=== PATIENT | female | born 1945 | race Caucasian/White ===

== ENCOUNTER 2023-04-23 15:46 | Outpatient (RCR) | payer MEDICARE, SELFPAY ==
[2023-04-23 13:35] LABS: Hematocrit 30.2 % (37.0-47.0); Hemoglobin 10.4 g/dL (12.0-16.0); Mean Corp Hgb Conc. 34.4 g/dL (33.0-37.0); Mean Corpuscular Hgb 38.4 pg (27.0-31.0); Mean Corpuscular Volume 111.4 fL (81.0-99.0); Mean Platelet Volume 11.7 fL (7.4-10.4); Platelet Count 85 10^3/uL (130-400); Red Blood Cell Count 2.71 10^6/uL (4.20-5.40)
[2023-04-23 13:42] LABS: % Basophils 0.9 % (0-2); % Eosinophils 1.4 % (0-6); % Immature Granulocytes 0.9 % (0-0.5); % Monocytes 5.9 % (1.7-9.3); % Neutrophils 75.9 % (42.2-75.2); Absolute Lymphocytes 0.3 10^3/uL (1.2-3.4); Absolute Monocytes 0.1 10^3/uL (0.1-0.6); Absolute Neutrophils 1.7 10^3/uL (1.4-6.5); White Blood Cell Count 2.2 10^3/uL (4.8-10.8)
[2023-04-23 15:38] LABS: Iron 113 ug/dl (37-170)
[2023-04-23 15:48] LABS: Percent Saturation 41 % (20-50); Total Iron Binding Capacity 273 ug/dl (265-497)
== END 2023-04-30 23:59 | disposition home or self-care (01) ==
LOC: OID 15:46
PROVIDERS: ATTENDING PHYSICIAN Internal Medicine Gastroenterology
DX: C50.412 Malignant neoplasm of upper-outer quadrant of left female breast (principal); R22.32 Localized swelling, mass and lump, left upper limb; C79.51 Secondary malignant neoplasm of bone; C78.7 Secondary malignant neoplasm of liver and intrahepatic bile duct; D50.9 Iron deficiency anemia, unspecified
CPT/HCPCS: 82728; 83540; 83550; 85025

== ENCOUNTER → 2023-05-03 10:36 | Outpatient (REF) | payer MEDICARE, SELFPAY ==
[2023-05-03 12:02] LABS: % Basophils 1.5 % (0-2); % Eosinophils 1.5 % (0-6); % Lymphocytes 18.2 % (20.5-51.1); % Monocytes 7.6 % (1.7-9.3); % Neutrophils 71.2 % (42.2-75.2); Absolute Lymphocytes 0.4 10^3/uL (1.2-3.4); Absolute Monocytes 0.2 10^3/uL (0.1-0.6); Absolute Neutrophils 1.4 10^3/uL (1.4-6.5); Hematocrit 28.9 % (37.0-47.0); Hemoglobin 10.1 g/dL (12.0-16.0); Mean Corp Hgb Conc. 34.9 g/dL (33.0-37.0); Mean Corpuscular Hgb 38.7 pg (27.0-31.0); Mean Corpuscular Volume 110.7 fL (81.0-99.0); Mean Platelet Volume 12.5 fL (7.4-10.4); Nucleated Red Blood Cells % 0 %; Platelet Count 63 10^3/uL (130-400); Red Blood Cell Count 2.61 10^6/uL (4.20-5.40); Red Cell Dist. Width 15.3 % (11.5-14.5)
[2023-05-03 12:28] LABS: ALT (SGPT) 23 U/L (0-35); AST (SGOT) 32 U/L (14-36); Albumin 3.6 g/dl (3.5-5.0); Alkaline Phosphatase 60 U/L (38-126); Blood Urea Nitrogen 37 mg/dl (7-17); Carbon Dioxide 25 mmol/L (22-30); Chloride 102 mmol/L (98-107); Glucose 107 mg/dl (70-99); Iron 95 ug/dl (37-170); Potassium 4.2 mmol/L (3.5-5.1); Sodium 134 mmol/L (135-145); Total Bilirubin 0.9 mg/dl (0.2-1.3); Total Protein 6.1 g/dl (6.3-8.2); eGFR 58.39
[2023-05-03 12:37] LABS: Percent Saturation 36 % (20-50); Total Iron Binding Capacity 260 ug/dl (265-497)
[2023-05-05 23:47] LABS: CA 27-29 126.4 U/mL (<=39.0)
== END ==
LOC: REG 10:36
PROVIDERS: ATTENDING PHYSICIAN Internal Medicine Hematology & Oncology; FAMILY PHYSICIAN Family Medicine
DX: C50.412 Malignant neoplasm of upper-outer quadrant of left female breast (principal); R22.32 Localized swelling, mass and lump, left upper limb; C79.51 Secondary malignant neoplasm of bone; C78.7 Secondary malignant neoplasm of liver and intrahepatic bile duct; D50.9 Iron deficiency anemia, unspecified
CPT/HCPCS: 36415; 80053; 82728; 83540; 83550; 85025; 86300

== ENCOUNTER → 2023-05-05 09:04 | Outpatient (REF) | payer MEDICARE, SELFPAY ==
[2023-05-05 09:20] VITALS: BP 103/56; BP_SYST 79
[2023-05-05 10:03] VITALS: BP 103/61
[2023-05-05 10:53] LABS: Body Fluid Albumin < 1.0 g/dl
[2023-05-05 11:40] LABS: Body Fluid Mononuclear 88.7 %; Body Fluid Polymorphonuclear 11.3 %; Body Fluid WBC 62 /CUMM
[2023-05-05 11:44] LABS: Body Fluid Second Tech EM
== END ==
LOC: RADI 09:04
PROVIDERS: ATTENDING PHYSICIAN Internal Medicine Gastroenterology
DX: R18.8 Other ascites (principal)
CPT/HCPCS: 49083; 82042; 87015; 87070; 87205; 89051

== ENCOUNTER → 2023-05-19 11:23 | Outpatient (REF) | payer MEDICARE, SELFPAY ==
[2023-05-19 12:51] LABS: % Basophils 2.1 % (0-2); % Eosinophils 2.1 % (0-6); % Immature Granulocytes 1.3 % (0-0.5); % Lymphocytes 17.3 % (20.5-51.1); % Monocytes 6.3 % (1.7-9.3); % Neutrophils 70.9 % (42.2-75.2); Absolute Basophils 0.1 10^3/uL (0-0.2); Absolute Eosinophils 0.1 10^3/uL (0-0.7); Absolute Lymphocytes 0.4 10^3/uL (1.2-3.4); Absolute Monocytes 0.2 10^3/uL (0.1-0.6); Absolute Neutrophils 1.7 10^3/uL (1.4-6.5); Hemoglobin 10.3 g/dL (12.0-16.0); Mean Corp Hgb Conc. 36.8 g/dL (33.0-37.0); Mean Corpuscular Volume 111.6 fL (81.0-99.0); Mean Platelet Volume 11.5 fL (7.4-10.4); Nucleated Red Blood Cells % 0 %; Platelet Count 91 10^3/uL (130-400); Red Blood Cell Count 2.51 10^6/uL (4.20-5.40); Red Cell Dist. Width 14.2 % (11.5-14.5); White Blood Cell Count 2.4 10^3/uL (4.8-10.8)
[2023-05-19 13:08] LABS: ALT (SGPT) 23 U/L (0-35); AST (SGOT) 32 U/L (14-36); Albumin 3.7 g/dl (3.5-5.0); Alkaline Phosphatase 65 U/L (38-126); Blood Urea Nitrogen 33 mg/dl (7-17); Carbon Dioxide 28 mmol/L (22-30); Chloride 104 mmol/L (98-107); Glucose 92 mg/dl (70-99); Potassium 4.2 mmol/L (3.5-5.1); Sodium 135 mmol/L (135-145); Total Bilirubin 0.7 mg/dl (0.2-1.3); Total Protein 6.2 g/dl (6.3-8.2); eGFR 46.91
== END ==
LOC: REG 11:23
PROVIDERS: ATTENDING PHYSICIAN Internal Medicine Hematology & Oncology; FAMILY PHYSICIAN Family Medicine
DX: C50.412 Malignant neoplasm of upper-outer quadrant of left female breast (principal); R22.32 Localized swelling, mass and lump, left upper limb; C79.51 Secondary malignant neoplasm of bone; C78.7 Secondary malignant neoplasm of liver and intrahepatic bile duct; D50.9 Iron deficiency anemia, unspecified
CPT/HCPCS: 36415; 80053; 85025

== ENCOUNTER → 2023-05-30 11:00 | Outpatient (REF) | payer MEDICARE, SELFPAY ==
[2023-05-30 12:02] LABS: % Basophils 1.6 % (0-2); % Eosinophils 2.7 % (0-6); % Immature Granulocytes 0.5 % (0-0.5); % Lymphocytes 19.1 % (20.5-51.1); % Monocytes 6.4 % (1.7-9.3); % Neutrophils 69.7 % (42.2-75.2); Absolute Eosinophils 0.1 10^3/uL (0-0.7); Absolute Lymphocytes 0.4 10^3/uL (1.2-3.4); Absolute Monocytes 0.1 10^3/uL (0.1-0.6); Absolute Neutrophils 1.3 10^3/uL (1.4-6.5); Hematocrit 26.6 % (37.0-47.0); Hemoglobin 9.6 g/dL (12.0-16.0); Mean Corp Hgb Conc. 36.1 g/dL (33.0-37.0); Mean Corpuscular Hgb 40.3 pg (27.0-31.0); Mean Corpuscular Volume 111.8 fL (81.0-99.0); Mean Platelet Volume 12.2 fL (7.4-10.4); Nucleated Red Blood Cells % 0 %; Platelet Count 72 10^3/uL (130-400); Red Blood Cell Count 2.38 10^6/uL (4.20-5.40); Red Cell Dist. Width 14.6 % (11.5-14.5); White Blood Cell Count 1.9 10^3/uL (4.8-10.8)
[2023-05-30 12:45] LABS: ALT (SGPT) 22 U/L (0-35); AST (SGOT) 31 U/L (14-36); Albumin 3.6 g/dl (3.5-5.0); Alkaline Phosphatase 63 U/L (38-126); Blood Urea Nitrogen 24 mg/dl (7-17); Calcium 8.3 mg/dl (8.4-10.2); Carbon Dioxide 27 mmol/L (22-30); Chloride 105 mmol/L (98-107); Glucose 98 mg/dl (70-99); Iron 81 ug/dl (37-170); Sodium 136 mmol/L (135-145); Total Bilirubin 0.8 mg/dl (0.2-1.3); Total Protein 6.1 g/dl (6.3-8.2); eGFR 46.91
[2023-05-30 12:55] LABS: Percent Saturation 29 % (20-50); Total Iron Binding Capacity 271 ug/dl (265-497)
[2023-06-02 16:25] LABS: CA 27-29 120.4 U/mL (<=39.0)
== END ==
LOC: REG 11:00
PROVIDERS: ATTENDING PHYSICIAN Internal Medicine Hematology & Oncology; FAMILY PHYSICIAN Family Medicine
DX: C50.412 Malignant neoplasm of upper-outer quadrant of left female breast (principal); R22.32 Localized swelling, mass and lump, left upper limb; C79.51 Secondary malignant neoplasm of bone; C78.7 Secondary malignant neoplasm of liver and intrahepatic bile duct; D50.9 Iron deficiency anemia, unspecified
CPT/HCPCS: 36415; 80053; 82728; 83540; 83550; 85025; 86300

== ENCOUNTER → 2023-06-02 09:05 | Outpatient (REF) | payer MEDICARE, SELFPAY ==
[2023-06-02 09:28] VITALS: BP 112/51; BP_SYST 75
[2023-06-02 10:36] VITALS: BP 102/57
[2023-06-02 13:35] LABS: Body Fluid Mononuclear 95.2 %; Body Fluid Polymorphonuclear 4.8 %; Body Fluid WBC 42 /CUMM
[2023-06-02 13:36] LABS: Body Fluid Second Tech EM
== END ==
LOC: RADI 09:05
PROVIDERS: ATTENDING PHYSICIAN Internal Medicine Gastroenterology; FAMILY PHYSICIAN Family Medicine
DX: R18.8 Other ascites (principal)
CPT/HCPCS: 49083; 82042; 87015; 87070; 87205; 89051

== ENCOUNTER 2023-06-09 15:41 | Inpatient (IN) | payer MEDICARE, SELFPAY ==
[2023-06-09] VITALS (9 sets, daily range): BP systolic 70–130; BP diastolic 47–64; BMI 27.7
[2023-06-09 11:33] LABS: % Basophils 2.2 % (0-2); % Eosinophils 2.2 % (0-6); % Immature Granulocytes 0.4 % (0-0.5); % Lymphocytes 15.4 % (20.5-51.1); % Monocytes 4.7 % (1.7-9.3); % Neutrophils 75.1 % (42.2-75.2); Absolute Basophils 0.1 10^3/uL (0-0.2); Absolute Eosinophils 0.1 10^3/uL (0-0.7); Absolute Lymphocytes 0.4 10^3/uL (1.2-3.4); Absolute Monocytes 0.1 10^3/uL (0.1-0.6); Absolute Neutrophils 2.1 10^3/uL (1.4-6.5); Hematocrit 26.3 % (37.0-47.0); Hemoglobin 9.1 g/dL (12.0-16.0); Mean Corp Hgb Conc. 34.6 g/dL (33.0-37.0); Mean Corpuscular Hgb 38.1 pg (27.0-31.0); Mean Platelet Volume 11.3 fL (7.4-10.4); Nucleated Red Blood Cells % 0 %; Platelet Count 95 10^3/uL (130-400); Red Blood Cell Count 2.39 10^6/uL (4.20-5.40); Red Cell Dist. Width 14.2 % (11.5-14.5); White Blood Cell Count 2.8 10^3/uL (4.8-10.8)
[2023-06-09 11:40] LABS: INR 1.16; PT 14.7 Sec (11.4-14.6)
[2023-06-09 12:00] LABS: ALT (SGPT) 23 U/L (0-35); AST (SGOT) 33 U/L (14-36); Albumin 3.5 g/dl (3.5-5.0); Alkaline Phosphatase 64 U/L (38-126); Blood Urea Nitrogen 30 mg/dl (7-17); Calcium 8.7 mg/dl (8.4-10.2); Carbon Dioxide 27 mmol/L (22-30); Chloride 103 mmol/L (98-107); Glucose 109 mg/dl (70-99); Potassium 4.4 mmol/L (3.5-5.1); Sodium 134 mmol/L (135-145); Total Bilirubin 0.8 mg/dl (0.2-1.3); eGFR 38.99
--- NOTE | 2023-06-09 13:31 | ED.GENMED ---
History of Present Illness
General
Chief Complaint: Rectal Bleeding
Source: patient
Time Seen by Provider: 06/09/23 10:38
Travel History
Have you had any contact with someone who has COVID-19?: No
Do you have any symptoms of coronavirus? Fever > 100 degrees, chills, cough, shortness of breath, sore throat, loss of taste or smell, muscle aches, or headache?: No
History of Present Illness
History of Present Illness:
77-year-old female presents with rectal bleeding. Patient has a history of A-fib and is on Eliquis. Also history of thrombocytopenia. She is being treated for metastatic breast cancer. Patient does have a history of diverticulosis as well as
hemorrhoids. She states for the last few days she has had bleeding. She has had bleeding even when she sits down to urinate. Patient denies abdominal pain. No vomiting. No lightheadedness. No chest pain or shortness of breath
Past History
Past History
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 Diverticulitis, Hiatal hernia. Anemia, )
ED Past Surgical History: Bowel resection, Cardiac (Ablation), Cholecystectomy, Gynecological (D&C), Orthopedic (Right total hip replacement, left total hip replacement, right knee and left knee replacements, ) and Other (Lumpectomy. Hernia repair, )
Social History
Tobacco: Non-smoker
Alcohol: None
Personal:
Living: with family
Employment: Retired
Family History
Family History: Other (Noncontributory)
Phy Exam
Physical Exam
Physical Exam:
CONSTITUTIONAL Patient alert and oriented to person, place and time. Well-appearing. Vital signs reviewed.
HEAD atraumatic, normocephalic.
EYES eyelids normal to inspection, Extraocular muscles intact, Conjunctiva normal, Sclera normal.
NECK normal range of motion, Trachea midline, no jugular venous distention.
RESPIRATORY CHEST No respiratory distress noted, Chest expansion equal\\
ABDOMEN abdomen nontender, Bowel sounds normal. No distention.
Rectal exam no gross blood. No significant stool in the vault. There are hemorrhoids. There is a noted discolored hemorrhoid at the 12 o'clock position with no active bleeding
BACK normal inspection, no obvious deformities
UPPER EXTREMITY range of motion normal, Motor strength normal, no cyanosis, no edema.
LOWER EXTREMITY range of motion normal, Motor strength normal, no cyanosis, no edema.
NEURO Speech normal, No focal motor deficits, Anthony coma scale 15, Memory normal, Cranial Nerves intact to screening exam.
SKIN skin warm, dry, and normal in color.
Course
Orders/Labs/Results
Orders:
Orders
06/09/23 11:16
Type+Screen Urgent
Complete Blood Count/With Diff Urgent
Comprehensive Metabolic Panel Urgent
Prothrombin Time Urgent
Abnormal Lab Results
06/09/23
11:16
WBC 2.8 L 10^3/uL
(4.8-10.8)
RBC 2.39 L 10^6/uL
(4.20-5.40)
Hgb 9.1 L g/dL
(12.0-16.0)
Hct 26.3 L %
(37.0-47.0)
MCV 110.0 H fL
(81.0-99.0)
MCH 38.1 H pg
(27.0-31.0)
Plt Count 95 L 10^3/uL
(130-400)
MPV 11.3 H fL
(7.4-10.4)
Absolute Lymphs (auto) 0.4 L 10^3/uL
(1.2-3.4)
Lymphocytes % 15.4 L %
(20.5-51.1)
Basophils % 2.2 H %
(0-2)
PT 14.7 H Sec
(11.4-14.6)
Sodium 134 L mmol/L
(135-145)
BUN 30 H mg/dl
(7-17)
Creatinine 1.4 H mg/dL
(0.6-1.0)
Glucose 109 H mg/dl
(70-99)
Total Protein 6.0 L g/dl
(6.3-8.2)
06/09/23 11:16
06/09/23 11:16
Vital Signs
Initial and Last Documented VS:
Initial Vital Signs
Temp Pulse Resp BP Pulse Ox
98.3 F 85 18 130/64 98
06/09/23 10:12 06/09/23 10:12 06/09/23 10:12 06/09/23 10:12 06/09/23 10:12
Last Documented Vital Signs
Temp Pulse Resp BP Pulse Ox
98.3 F 85 18 109/64 97
06/09/23 10:12 06/09/23 10:12 06/09/23 10:12 06/09/23 13:08 06/09/23 13:09
MDM/Problems Addressed
MDM/Problems Addressed:
rectal bleeding, thrombocytopenia, therapeutic coagulopathy
*Pulse Oximetry
Patient hypoxic: no
*Critical Care Note
Total Time (30-74mins, 75-104mins- exclusive of procedures): Not Applicable
Data Reviewed
Review of Other/Old Records Reveals: Discharge Summary (Discharge summary from February)
Source: patient
Further Testing Considered But Not Given:
Consider CTA but await GI consultation
Patient Management
Discussion with other providers: [facility] (Case discussed with colorectal surgery) and Other (Case discussed with gastroenterology who will evaluate patient at bedside)
Escalation/DeEscalation of care consider admission/obs:
Consider admission given thrombocytopenia and coagulopathy related to Xarelto but await consultation by GI
ED Attending Note
-
Portions of this chart may have been created with voice recognition software.� Occasional wrong word or��sound alike� substitutions may have occurred due to the inherent limitations of voice recognition software.
Discharge Plan
Departure
Presentation/result/management discussed w/ accepting MD/DO: Hospitalist
Prescriptions:
No Action
omeprazole 20 MG capsule,delayed release(DR/EC)
40 mg PO BID
Patient Comments:
PATIENT THIS MORNING TALKED TO PCP AND PCP SAID NOT TO TAKE OMEPRAZOLE ANYMORE
Eliquis 5 MG tablet
5 mg PO BID
diltiazem HCl 120 MG capsule,extended release 24hr
120 mg PO DAILY
Xgeva 120 MG/1.7 ML solution
1 dose SQ [id number]
multivitamin with folic acid [Tab-A-Jolanta] 1 TABLET tablet
1 tab PO DAILY
Ibrance 125 MG capsule
100 mg PO UD
Rx Instructions:
PATIENT TAKES FOR 3 WEEKS THEN 1 WEEK OFF Then repeat
furosemide [Lasix] 40 MG tablet
40 mg PO DAILY Qty: 7 0RF
biotin 10,000 mcg Capsule
10,000 mcg PO DAILY
spironolactone 50 mg Tablet
75 mg PO BID
cholecalciferol (vitamin D3) [Vitamin D3] 25 mcg (1,000 unit) Capsule
25 mcg PO DAILY
calcium carbonate [Calcium 600] 600 mg calcium (1,500 mg) Tablet
600 mg PO DAILY
ferrous sulfate 325 mg (65 mg iron) Tablet
325 mg PO DAILY
ondansetron HCl 4 mg Tablet
4 mg PO Q8HPRN PRN (Reason: nausea)
gabapentin 100 mg Capsule
100 mg PO BIDPRN PRN (Reason: nerve pains)
Aranesp (in albumin) 40 mcg/mL Solution
0 mcg IV MONTHLY
fulvestrant 250 mg/5 mL Syringe
500 mg IM QMONTH
lactulose 10 gram/15 mL Solution
10 g PO HS
Viviscal Hair Growth Vitamin
2 tab PO DAILY
tramadol 50 mg tablet
50 mg PO Q6HPRN PRN (Reason: severe pains)
Referrals:
Yadi Lambert DO [Family Provider] -
Interventions
Interventions:
*ED COVID-19 Vaccine History Last Done: 06/09/23 10:21
DA-Gmpnkq-Xllnskbzdk Assessment Last Done: 06/09/23 12:15
ED- Cardiac Assessment Last Done: 06/09/23 12:15
ED- Pulmonary Assessment Last Done: 06/09/23 12:15
--- NOTE | 2023-06-09 14:33 | CON.GI ---
Addendum entered and electronically signed by Ruiz Zambrano MD 06/09/23 18:23:
I saw and examined the patient.
The PA's note was reviewed and I agree with the note.
Comment:
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
with last colonoscopy 2012 p/w rectal bleeding. Has occasional rectal bleeding from hemorrhoids but now noted with 3-4 episodes of large volume of blood with BM's since Friday.�
Impression / Rec:
1. Rectal bleeding - in setting of previous hemorrhoidal bleeding and eliquis, may be hemorrhoidal bleeding. Last colonoscopy was 2012 at [facility], cannot recall any significant findings. �Last EGD in 2020 showed no cancer. Hgb on admission 9.1,
around her baseline. Rectal exam with brown stool + hemorrhoids, heme +. Will need eliquis wash out (last dose 06/07), will determine if flx sig vs colonoscopy. Pt may also need EGD for EV screening.
Addendum entered and electronically signed by JESSE Figueroa 06/09/23 16:47:
reviewed wit Dr. Cuello if colon or flex consider EGD as same time as due for follow up screening for variceal screening
Original Note:
Consultation
-
Date/Time Consultation Requested: 06/09/23 1400
Date/Time Consultation Performed: 06/09/23 1430
Requesting Provider: Lacho Laura DO
Performing Provider: JESSE Fontaine, Ruiz Zambrano MD
Reason for Consultation: rectal bleeding
Medical History
Chief Complaint / HPI
Chief Complaint: rectal bleeding
History of Present Illness:
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
thrombocytopenia, prior GI bleed with last colonoscopy 2012 at [facility] did not recall finding and recent strangulated umbilical hernia with repair 11/2022. She admits to occasional rectal bleeding she related to hemorrhoids but now noted with
3-4 episodes of large volume of blood with BM's since Friday. She related blood dripping out and difficulty to control and presents for evaluation. Last colonoscopy was 2012 at [facility] did not recall any significant findings. Last EGD
[facility] 2020 recall no cancer seen. Labs on admission notable for hbg 9.1 with MCV 110, platelets 95,000 with chronic thrombocytopenia
Pt admits to well controlled GERD on Omeprazole 40mg BID. she has chronic constipation on Konsyl she denies dysphagia, nausea, vomiting, diarrhea, or black stools.
Past Medical History
Past Medical History: Arrhythmias (afib), Cancer (metastatic breast CA with mets to bone, liver, intrahepatic ducts ), GERD, Hypercholesterolemia and Other (cellulitis , prior GI bleed, anemia, heart murmur, CKD)
Past Surgical History: Bowel Resection (exp lap with SB resection , umbilical hernia repair 2022 ), Cardiac (ablation ), Cholecystectomy and Orthopedic (right hip replacement x 2 2015, left hip replacement, knee surgery )
Social History
Tobacco: Non-Smoker
Alcohol: None
Drug: None
Personal:
Living: With Family
Employment: Retired
Family History
Family History: Other (no family hx colon Ca or polyps)
Allergies / Home Medications
Allergy/AdvReac Type Severity Reaction Status Date / Time
clavulanic acid Allergy Hives Verified 06/09/23 10:22
hydromorphone [From Dilaudid] Allergy HALLUCINATI Verified 06/09/23 10:22
ONS
NSAIDS (Non-Steroidal Allergy GIB Verified 06/09/23 10:22
Anti-Inflamma
Penicillins Allergy patient Verified 06/09/23 10:22
tolerates
amoxicillin
and course
ceftriaxone
11/2022
Sulfa (Sulfonamide Allergy Unknown Verified 06/09/23 10:22
Antibiotics)
sulfamethoxazole Allergy Unknown Verified 06/09/23 10:22
[From Bactrim]
trimethoprim [From Bactrim] Allergy Unknown Verified 06/09/23 10:22
Medication Instructions Recorded
omeprazole 20 mg capsule,delayed 40 mg PO BID Gastrointestinal issue 11/16/16
release
apixaban 5 mg tablet (Eliquis) 5 mg PO BID Blood clot 10/20/18
prevention/tx
denosumab 120 mg/1.7 mL (70 mg/mL) 1 dose SQ [id number] Cancer 02/06/21
subcutaneous solution (Xgeva)
diltiazem HCl 120 mg 120 mg PO DAILY Blood pressure 02/06/21
capsule,extended release 24 hr
multivitamin with folic acid 400 1 tab PO DAILY Supplement 02/06/21
mcg tablet (Tab-A-Jolanta)
palbociclib 125 mg capsule 100 mg PO UD Cancer 02/06/21
(Ibrance)
furosemide 40 mg tablet (Lasix) 40 mg PO DAILY #7 tabs 02/13/21
biotin 10,000 mcg capsule 10,000 mcg PO DAILY Supplement 09/28/22
calcium carbonate 600 mg calcium 600 mg PO DAILY Supplement 09/28/22
(1,500 mg) tablet (Calcium)
cholecalciferol (vitamin D3) 25 25 mcg PO DAILY Supplement 09/28/22
mcg (1,000 unit) capsule (Vitamin
D3)
ferrous sulfate 325 mg (65 mg 325 mg PO DAILY Supplement 09/28/22
iron) tablet
spironolactone 50 mg tablet 75 mg PO BID Blood Pressure 09/28/22
ondansetron HCl 4 mg tablet 4 mg PO Q8HPRN PRN nausea 03/13/23
Viviscal Hair Growth Vitamin 2 tab PO DAILY 06/09/23
darbepoetin jacek-albumin 40 mcg/mL 0 mcg IV MONTHLY 06/09/23
in albumin injection
fulvestrant 250 mg/5 mL 500 mg IM QMONTH 06/09/23
intramuscular syringe
gabapentin 100 mg capsule 100 mg PO BIDPRN PRN nerve pains 06/09/23
lactulose 10 gram/15 mL oral 10 g PO HS 06/09/23
solution
tramadol 50 mg tablet 50 mg PO Q6HPRN PRN severe pains 06/09/23
Review of Systems
-
History Source: Patient and Family
Constitutional: Reports Weight Loss (over time )
EENT: Reports No Symptoms
Respiratory: Reports No Symptoms
Cardiac: Reports No Symptoms
Abdomen/GI: Reports Bloody Stools
: Reports No Symptoms
Musculoskeletal: Reports Other (b/l hip pain due for [facility] follow up ortho)
Skin: Reports No Symptoms
Neurological: Reports Weakness
Endocrine: Reports No Symptoms
Hematologic/Lymphatic: Reports Bleeding
Vital Signs
Temp Pulse Resp BP Pulse Ox
98.3 F 85 18 109/64 97
06/09/23 10:12 06/09/23 10:12 06/09/23 10:12 06/09/23 13:08 06/09/23 13:09
Physical Exam
Exam
General: Well Developed, Well Nourished and No Apparent Distress
HEENT: Normocephalic and Anicteric
Respiratory: Clear
Cardiac: Regular Rhythm
GI: Soft, Non Tender and Non Distended
Rectal: Brown, Hem Positive and Hemorrhoids
Musculoskeletal: No Clubbing and No Cyanosis
Skin: Warm and Dry
Neuro: Awake, Alert and AO x 3
Psych: Calm
Results
WBC 2.8 10^3/uL (4.8-10.8) L 06/09/23 11:16
Hgb 9.1 g/dL (12.0-16.0) L 06/09/23 11:16
Hct 26.3 % (37.0-47.0) L 06/09/23 11:16
MCV 110.0 fL (81.0-99.0) H 06/09/23 11:16
Plt Count 95 10^3/uL (130-400) L 06/09/23 11:16
Absolute Neuts (auto) 2.1 10^3/uL (1.4-6.5) 06/09/23 11:16
PT 14.7 Sec (11.4-14.6) H 06/09/23 11:16
INR 1.16 06/09/23 11:16
APTT Cancelled 06/09/23 10:40
Sodium 134 mmol/L (135-145) L 06/09/23 11:16
Potassium 4.4 mmol/L (3.5-5.1) 06/09/23 11:16
Chloride 103 mmol/L (98-107) 06/09/23 11:16
Carbon Dioxide 27 mmol/L (22-30) 06/09/23 11:16
BUN 30 mg/dl (7-17) H 06/09/23 11:16
Creatinine 1.4 mg/dL (0.6-1.0) H 06/09/23 11:16
Calcium 8.7 mg/dl (8.4-10.2) 06/09/23 11:16
Total Bilirubin 0.8 mg/dl (0.2-1.3) 06/09/23 11:16
AST 33 U/L (14-36) 06/09/23 11:16
ALT 23 U/L (0-35) 06/09/23 11:16
Alkaline Phosphatase 64 U/L (38-126) 06/09/23 11:16
Diagnostic Image Results:
02/2023 CT Chest/abd/pel W Iv Cont
1.). There are stable extensive blastic osseous metastasis throughout the entirety of the regional osseous system.
2). There is no evidence of soft tissue metastasis in the chest abdomen or pelvis.
3). The appearance and stability of the 7 mm nodular area of pleural thickening or fissure suggests that it is benign.
4). There are stable postoperative changes including:
-Partial esophagectomy with gastric pull-up
-Right mastectomy
-Bilateral hip replacements.
5). There is cirrhosis with splenomegaly and moderately extensive ascites throughout the abdomen and pelvis
6). Nonemergent findings include:
-Cholecystectomy.
-1.5 cm right renal cyst
-Diverticuli are present in the colon with no CT evidence of diverticulitis
Prior GI Procedures:
EGD: 2020 [facility] stable per pt recall
Colonoscopy: 2012 [facility] did not recall significant findings
Assessment / Plan
-
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
thrombocytopenia, prior GI bleed with last colonoscopy 2012 at [facility] did not recall finding and recent strangulated umbilical hernia with repair 11/2022. She admits to occasional rectal bleeding she related to hemorrhoids but now noted with
3-4 episodes of large volume of blood with BM's since Friday. She related blood dripping out and difficulty to control and presents for evaluation. Last colonoscopy was 2012 at [facility] did not recall any significant findings. Last EGD
[facility] 2020 recall no cancer seen. Labs on admission notable for hbg 9.1 with MCV 110, platelets 95,000 with chronic thrombocytopenia. Rectal exam with brown stool + hemorrhoids, heme +.
-rectal bleeding
-metastatic breast CA with palliative therapy Ibrance
-Mash cirrhosis with ascites
-thrombocytopenia
-mild anemia
-afib on Eliquis
other medical problems:
-CKD
-umbilical hernia repair 11/2022
-b/l hip replacement due follow up at [facility] due to fluid around hip
PLAN:
etiology of bleeding related to local source hemorrhoids vs underling lesion, rectal varices vs other
reviewed with patient with bleeding continued would recommended admission for evaluation
hold Eliquis
if bleeding continued consider flex vs colonoscopy
monitor platelet and INR which are now stable with hx cirrhosis
trend hbg transfuse less than 7
add Anusol BID
ok for clear diet
monitor need for paracentesis with periodic taps prior to admission
will follow
-
-
Thank you for consultation and allowing me to participate in the patient's care. Please call the field applications specialist GI physician during the after hours with any questions or concerns.
--- NOTE | 2023-06-09 14:52 | HPS.HSE ---
Family Physician
-
Family Physician: Yadi Lambert DO
Chief Complaint
-
Rectal bleeding
History of Present Illness
77-year-old female with a past medical history of chronic anemia, chronic thrombocytopenia, stage III chronic kidney disease, paroxysmal atrial fibrillation on Eliquis, stage IV breast cancer with metastases to the liver and bone, and cirrhosis with
ascites requiring monthly paracentesis presents with rectal bleeding. Patient states that she started having bright red blood per rectum since Friday. It occurs about twice a day, and has been increasing in frequency. She states that it sometimes
causes her toilet bowl to be bright red. She denies lightheadedness, denies dizziness. No chest pain, no shortness of breath. She does require monthly paracentesis for her ascites. Her last paracentesis was on 06/02/2023, which drained 4200 mL of
fluid.
Medical History
Past Medical History
Past Medical History: Reports Other
Additional Past Medical History:
Chronic anemia
Chronic thrombocytopenia
Stage III chronic kidney disease
Paroxysmal atrial fibrillation on Eliquis status post PVI 10/17/2018
Stage 4 breast cancer with metastases to the liver and bone
Cirrhosis with ascites requiring paracentesis
Irritable bowel syndrome
Gastroesophageal reflux disease
Diastolic CHF
Sick sinus syndrome
Hyperlipidemia
Cellulitis
GI bleed
Umbilical hernia status post repair
Past Surgical History: Reports Other ( )
Additional Past Surgical History:
Left mastectomy
Cholecystectomy
Right total hip replacement
Left total hip replacement
Right knee replacement
Cardiac ablation
Umbilical hernia repair
Small bowel resection
Social History
Tobacco: Non-smoker
Alcohol: None
Personal:
Living: With Family
Family History
Family History: Not pertinent
Allergies / Home Medications
Allergies reflects when Allergies were last updated in [facility].
Home Medications with original date entered in [facility]
Allergy/Medication List:
Allergies
Allergy/AdvReac Type Severity Reaction Status Date / Time
clavulanic acid Allergy Hives Verified 06/09/23 10:22
hydromorphone [From Dilaudid] Allergy HALLUCINATI Verified 06/09/23 10:22
ONS
NSAIDS (Non-Steroidal Allergy GIB Verified 06/09/23 10:22
Anti-Inflamma
Penicillins Allergy patient Verified 06/09/23 10:22
tolerates
amoxicillin
and course
ceftriaxone
11/2022
Sulfa (Sulfonamide Allergy Unknown Verified 06/09/23 10:22
Antibiotics)
sulfamethoxazole Allergy Unknown Verified 06/09/23 10:22
[From Bactrim]
trimethoprim [From Bactrim] Allergy Unknown Verified 06/09/23 10:22
Home Medications Table - record
Medication Instructions Recorded Confirmed
omeprazole 20 mg capsule,delayed 40 mg PO BID Gastrointestinal issue 11/16/16 06/09/23
release
apixaban 5 mg tablet (Eliquis) 5 mg PO BID Blood clot 10/20/18 06/09/23
prevention/tx
denosumab 120 mg/1.7 mL (70 mg/mL) 1 dose SQ [id number] Cancer 02/06/21 06/09/23
subcutaneous solution (Xgeva)
diltiazem HCl 120 mg 120 mg PO DAILY Blood pressure 02/06/21 06/09/23
capsule,extended release 24 hr
multivitamin with folic acid 400 1 tab PO DAILY Supplement 02/06/21 06/09/23
mcg tablet (Tab-A-Jolanta)
palbociclib 125 mg capsule 100 mg PO UD Cancer 02/06/21 06/09/23
(Ibrance)
furosemide 40 mg tablet (Lasix) 40 mg PO DAILY #7 tabs 02/13/21 06/09/23
biotin 10,000 mcg capsule 10,000 mcg PO DAILY Supplement 09/28/22 06/09/23
calcium carbonate 600 mg calcium 600 mg PO DAILY Supplement 09/28/22 06/09/23
(1,500 mg) tablet (Calcium)
cholecalciferol (vitamin D3) 25 25 mcg PO DAILY Supplement 09/28/22 06/09/23
mcg (1,000 unit) capsule (Vitamin
D3)
ferrous sulfate 325 mg (65 mg 325 mg PO DAILY Supplement 09/28/22 06/09/23
iron) tablet
spironolactone 50 mg tablet 75 mg PO BID Blood Pressure 09/28/22 06/09/23
ondansetron HCl 4 mg tablet 4 mg PO Q8HPRN PRN nausea 03/13/23 06/09/23
Viviscal Hair Growth Vitamin 2 tab PO DAILY 06/09/23 06/09/23
darbepoetin jacek-albumin 40 mcg/mL 0 mcg IV MONTHLY 06/09/23 06/09/23
in albumin injection
fulvestrant 250 mg/5 mL 500 mg IM QMONTH 06/09/23 06/09/23
intramuscular syringe
gabapentin 100 mg capsule 100 mg PO BIDPRN PRN nerve pains 06/09/23 06/09/23
lactulose 10 gram/15 mL oral 10 g PO HS 06/09/23 06/09/23
solution
tramadol 50 mg tablet 50 mg PO Q6HPRN PRN severe pains 06/09/23 06/09/23
Review of Systems
-
A 12 point ROS was completed and negative except as noted: Yes
Physical Exam
Vital Signs
Vital Signs
Temp Pulse Resp BP Pulse Ox
98.3 F 85 18 109/64 97
06/09/23 10:12 06/09/23 10:12 06/09/23 10:12 06/09/23 13:08 06/09/23 13:09
Physical Exam
General: No Apparent Distress
HEENT: NormoCephalic, Anicteric and Moist mucous membranes
Respiratory: Decreased Breath Sounds
Cardiac: Regular Rhythm and Murmur
GI: Soft, Non Tender and Distended
Musculoskeletal: No Clubbing, No Cyanosis, Edema, Left Lower Extremity and Edema, Right Lower Extremity
Skin: Warm and Dry
Neuro: Awake, Alert and Oriented
Psych: Calm
Laboratory Results
-
06/09/23 11:16
06/09/23 11:16
Laboratory Results
PT 14.7 Sec (11.4-14.6) H 06/09/23 11:16
INR 1.16 06/09/23 11:16
APTT Cancelled 06/09/23 10:40
Total Bilirubin 0.8 mg/dl (0.2-1.3) 06/09/23 11:16
AST 33 U/L (14-36) 06/09/23 11:16
ALT 23 U/L (0-35) 06/09/23 11:16
Alkaline Phosphatase 64 U/L (38-126) 06/09/23 11:16
Impression/Plan
-
HPI: 77-year-old female with a past medical history of chronic anemia, chronic thrombocytopenia, stage III chronic kidney disease, paroxysmal atrial fibrillation on Eliquis, stage IV breast cancer with metastases to the liver and bone, and cirrhosis
with ascites requiring monthly paracentesis presents with rectal bleeding. Patient states that she started having bright red blood per rectum since Friday. It occurs about twice a day, and has been increasing in frequency. She states that it
sometimes causes her toilet bowl to be bright red. She denies lightheadedness, denies dizziness. No chest pain, no shortness of breath. She does require monthly paracentesis for her ascites. Her last paracentesis was on 06/02/2023, which drained
4200 mL of fluid.
#Rectal bleeding exacerbated by Eliquis use
#Chronic anemia
Hemoglobin 9.1 today, which is about her baseline
Hold Eliquis, last dose was 3/10 PM
Clear liquid diet, GI consulted, trend hemoglobin
#Stage 4 breast cancer with metastases to the liver and bone
Sees Dr. Waters outpatient
On Fulvestrant, Ibrance
#Cirrhosis with ascites requiring monthly paracentesis
Her last paracentesis was on 06/02/2023, which drained 4200 mL of fluid
Continue Lasix, spironolactone, lactulose
#Stage III chronic kidney disease
No NSAIDs or nephrotoxic drugs
Creatinine 1.4, continue to monitor
#Paroxysmal atrial fibrillation
Hold Eliquis
Continue diltiazem
#Gastroesophageal reflux disease
Continue PPI twice daily
#Chronic pancytopenia
#Chronic leukopenia
#Chronic anemia
#Chronic thrombocytopenia
Monitor counts
DVT prophylaxis�SCDs
Full code
Total time spent to see the patient on the floor, examine the patient, review data and lab results, discuss treatment plan with patient, nursing staff around 75 minutes.
[2023-06-09] MEDS: ANUSOL HC RECTAL (20:28)
[2023-06-09] MEDS: NON-FORMULARY ITEM 100 MG PO (20:30)
[2023-06-09] MEDS: PROTONIX 40 MG PO (20:34)
[2023-06-09] MEDS: DUPHALAC/CHRONULAC 10 GRAMS PO (20:35)
--- NOTE | 2023-06-09 22:00 | PTCARENOTE ---
Patients blood pressure 93/60, pulse of 72. Patient due for Aldactone 75mg. [employer] notified of pateints blood pressure, she instructed me to hold the medication. Will continue to monitor blood pressure.
[2023-06-09] MEDS: ALDACTONE PO (22:35)
[2023-06-10 03:30] VITALS: BP 91/51
[2023-06-10 07:41] LABS: Hematocrit 24.9 % (37.0-47.0); Hemoglobin 8.6 g/dL (12.0-16.0); Mean Corp Hgb Conc. 34.5 g/dL (33.0-37.0); Mean Corpuscular Hgb 38.1 pg (27.0-31.0); Mean Corpuscular Volume 110.2 fL (81.0-99.0); Mean Platelet Volume 10.9 fL (7.4-10.4); Platelet Count 82 10^3/uL (130-400); Red Blood Cell Count 2.26 10^6/uL (4.20-5.40); Red Cell Dist. Width 14.2 % (11.5-14.5)
[2023-06-10 07:52] LABS: White Blood Cell Count 1.9 10^3/uL (4.8-10.8)
[2023-06-10 07:55] VITALS: BP 106/47
--- NOTE | 2023-06-10 08:00 | W.PN.HOSP.TC ---
Today's Communication/Plan
-
HPI: 77-year-old female with a past medical history of chronic anemia, chronic thrombocytopenia, stage III chronic kidney disease, paroxysmal atrial fibrillation on Eliquis, stage IV breast cancer with metastases to the liver and bone, and cirrhosis
with ascites requiring monthly paracentesis presents with rectal bleeding.� Patient states that she started having bright red blood per rectum since Friday.� It occurs about twice a day, and has been increasing in frequency.� She states that it
sometimes causes her toilet bowl to be bright red.� She denies lightheadedness, denies dizziness.� No chest pain, no shortness of breath.� She does require monthly paracentesis for her ascites.� Her last paracentesis was on 06/02/2023, which drained
4200 mL of fluid.
#Rectal bleeding exacerbated by Eliquis use
#Chronic anemia
Hemoglobin 8.6 today, was 9.1, baseline about 9
Hold Eliquis, last dose was 3/10 PM
Appreciate GI input, plan for EGD/C-scope
Trend Hgb, continue Anusol suppository for possible hemorrhoids
#Chronic pancytopenia
#Chronic leukopenia
#Chronic anemia
#Chronic thrombocytopenia
Dr. Waters rec G-CSF if ANC is <1000
ANC today is 1200
Monitor counts
#Stage 4 breast cancer with metastases to the liver and bone
Sees Dr. Waters outpatient
On Fulvestrant, Ibrance
#Cirrhosis with ascites requiring monthly paracentesis
Her last paracentesis was on 06/02/2023, which drained 4200 mL of fluid
Continue Lasix, spironolactone, lactulose
#Stage III chronic kidney disease
No NSAIDs or nephrotoxic drugs
Creatinine 1.2 today, was 1.4, continue to monitor
#Paroxysmal atrial fibrillation
Hold Eliquis
Continue diltiazem
#Gastroesophageal reflux disease
Continue PPI twice daily
DVT prophylaxis�SCDs
Full code
Physical Exam
General: Appears chronically ill, no acute distress
HEENT: Normocephalic, Atraumatic, EOMI, MMM
Respiratory: Clear to Auscultation bilaterally
Cardiac: Normal S1/S2, Regular Rate and Rhythm
GI: Soft, distended abdomen, nontender, normal bowel sounds
Extremities: No Clubbing, Cyanosis
Bilateral lower extremity edema noted
Neuro: Nonfocal/Grossly Intact
Psych: Calm, Cooperative
Derm: Hyperpigmentation of the shins reflective of chronic venous stasis dermatitis
Assessment / Plan
Assessment / Plan
Anticipated Discharge: 24 - 48 hours
Subjective/Interval History
-
Date of Service: June 10, 2023
Rectal bleeding resolved. Denies LH/dizziness. No CP/SOB.
Objective Data
-
Labs:
Laboratory Results
06/10/23
07:11
WBC 1.9 L*
Hgb 8.6 L
Hct 24.9 L
Plt Count 82 L
Sodium Pending
Potassium Pending
Chloride Pending
Carbon Dioxide Pending
BUN Pending
Creatinine Pending
Glucose Pending
Calcium Pending
Vital Signs:
Vital Signs
Temp Pulse Resp BP Pulse Ox
97.9 F 78 16 91/51 97
06/09/23 23:45 06/10/23 03:30 06/09/23 23:45 06/10/23 03:30 06/09/23 23:45
I&O
06/09/23 06/10/23 06/11/23
06:59 06:59 06:59
Intake Total 480 / 480
Balance 480 / 480
[2023-06-10 08:08] LABS: Blood Urea Nitrogen 20 mg/dl (7-17); Calcium 8.3 mg/dl (8.4-10.2); Carbon Dioxide 27 mmol/L (22-30); Chloride 105 mmol/L (98-107); Estimated Creatinine Clearance 41 ml/min; Glucose 83 mg/dl (70-99); Iron 87 ug/dl (37-170); Magnesium 2.3 mg/dl (1.6-2.3); Potassium 4.4 mmol/L (3.5-5.1); Sodium 133 mmol/L (135-145); eGFR 46.91
[2023-06-10 08:17] LABS: Percent Saturation 37 % (20-50); Total Iron Binding Capacity 232 ug/dl (265-497)
[2023-06-10 08:55] LABS: Vitamin B12 > 1000 pg/ml (239-931)
[2023-06-10] MEDS: FEOSOL 325 MG PO (09:01)
[2023-06-10] MEDS: OSCAL CAL 500 500 MG PO (09:01)
[2023-06-10] MEDS: ANUSOL HC 25 MG RECTAL (09:01)
[2023-06-10] MEDS: PROTONIX 40 MG PO ×2 (09:01→20:33)
[2023-06-10] MEDS: VITAMIN D3 (cholecalciferol) 25 MCG PO (09:01)
[2023-06-10] MEDS: LASIX 40 MG PO (09:01)
[2023-06-10] MEDS: ALDACTONE 75 MG PO ×2 (09:02→20:37)
--- NOTE | 2023-06-10 09:20 | W.PN.GI.CBS2 ---
Addendum entered and electronically signed by Jocy Eldridge DO 06/10/23 17:59:
Patient seen and examined independently of JESSE. I agree with her plan with my additions below
Nell is a 77-year-old female with history of A-fib on Eliquis, metastatic breast cancer on palliative chemotherapy, decompensated FINN cirrhosis with ascites and monthly paracentesis, prior GI bleed in 2012 who comes in with bright red blood
roughly 3-4 episodes of moderate volume with bowel movements that were painless and nonconstipated since Friday. Patient has no upper GI symptoms with no nausea vomiting. Her last endoscopy was in [address] Ferrer. Her last colonoscopy was
in 2012 at [facility]. Her platelet count is 95,000 which is chronic from her cirrhosis, hemoglobin of 9.1 Which is not far from her baseline of 9-10. She denied having any anal pain prior to the bleeding. She has been taking lactulose
outpatient to help with constipation which has been helping.
She is on an outpatient PPI
-Will do an endoscopy for variceal screening since she will be off her Eliquis and we will proceed to colonoscopy in the setting of bright red blood
-Hemoglobin stable, patient hemodynamically stable
-Our team has been in contact with oncology
-Her ascites is under control with last tap on June 01 with no need to repeat tap before her procedure
-Patient followed by Dr. Cuello in our office
Addendum entered and electronically signed by JESSE Figueroa 06/10/23 16:10:
reviewed CBC with Dr. Waters cont ANC 1.2 monitor daily will repeat in AM
Addendum entered and electronically signed by JESSE Figueroa 06/10/23 10:26:
pt review Eliquis hold with her sales specialist and Ok to hold 2 days prior to procedures
reviewed with Dr. Waters repeat diff on CBC for ANC if <1000 consider dose Gcsf reviewed with Dr. Cuello
pt would also like to review with Dr. Eldridge for abx with hx joint replacements
Original Note:
Today's Communication / Plan
-
etiology of bleeding related to local source hemorrhoids vs underling lesion, rectal varices vs other
pt also due for OP EGD for variceal screening last 2020
no further bleeding overnight
reviewed with patient option of holding vs proceeding with EGD/colon -- she is willing to proceed as last EGD 2020 and colon 2012
cont to hold Eliquis last dose 3/10 PM
platelets remain stable at 82,000, INR 1.16
ascites stable last tap 3/ last week for 4200ml no need for retap today
trend hbg transfuse less than 7
cont Anusol BID for possible hemorrhoids, reassess need to cont after scope
ok for clear diet
left message for Dr. Waters Pt known oncologist with update
Assessment / Plan
-
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
thrombocytopenia, prior GI bleed with last colonoscopy 2012 at [facility] did not recall finding and recent strangulated umbilical hernia with repair 11/2022. She admits to occasional rectal bleeding she related to hemorrhoids but now noted with
3-4 episodes of large volume of blood with BM's since Friday. She related blood dripping out and difficulty to control and presents for evaluation. Last colonoscopy was 2012 at [facility] did not recall any significant findings. Last EGD
[facility] 2020 recall no cancer seen. Labs on admission notable for hbg 9.1 with MCV 110, platelets 95,000 with chronic thrombocytopenia. Rectal exam with brown stool + hemorrhoids, heme +.
-rectal bleeding
-metastatic breast CA with palliative therapy Ibrance
-Mash cirrhosis with ascites-- MELD 3.0 15 on admission
- pancytopenia/thrombocytopenia
-mild anemia
-afib on Eliquis
-hyponatremia
other medical problems:
-CKD
-umbilical hernia repair 11/2022
-b/l hip replacement due follow up at [facility] due to fluid around hip
PLAN:
etiology of bleeding related to local source hemorrhoids vs underling lesion, rectal varices vs other
pt also due for OP EGD for variceal screening last 2020
no further bleeding overnight
reviewed with patient option of holding vs proceeding with EGD/colon -- she is willing to proceed as last EGD 2020 and colon 2012
cont to hold Eliquis last dose 3/10 PM
platelets remain stable at 82,000, INR 1.16
ascites stable last tap 06/01 last week for 4200ml no need for retap today
trend hbg transfuse less than 7
cont Anusol BID for possible hemorrhoids, reassess need to cont after scope
ok for clear diet
left message for Dr. Waters Pt known oncologist with update
Subjective
Subjective
Date of Service: June 10, 2023
no bleeding overnight on clear diet no complaints
Objective
Data Reviewed
Laboratory Data:
Laboratory Results
06/10/23 07:11
06/10/23 07:11
Laboratory Results
PT 14.7 Sec (11.4-14.6) H 06/09/23 11:16
INR 1.16 06/09/23 11:16
APTT Cancelled 06/09/23 10:40
Magnesium 2.3 mg/dl (1.6-2.3) 06/10/23 07:11
Total Bilirubin 0.8 mg/dl (0.2-1.3) 06/09/23 11:16
AST 33 U/L (14-36) 06/09/23 11:16
ALT 23 U/L (0-35) 06/09/23 11:16
Alkaline Phosphatase 64 U/L (38-126) 06/09/23 11:16
Vital Signs and I&O:
Vital Signs
Temp Pulse Resp BP Pulse Ox
97.9 F 78 16 106/66 97
06/09/23 23:45 06/10/23 03:30 06/09/23 23:45 06/10/23 09:01 06/09/23 23:45
I&O
06/09/23 06/10/23 06/11/23
06:59 06:59 06:59
Intake Total 480 / 480
Balance 480 / 480
Physical Exam
Physical Exam
HEENT: Anicteric and Moist mucous membranes
Cardiology: Normal Sinus Rhythm
Pulmonary: Clear
GI: Soft, Distended (minimal ) and Non Tender
Extremities: No Edema
Neuro: Non Focal
[2023-06-10 10:19] LABS: % Basophils 2.3 % (0-2); % Eosinophils 2.3 % (0-6); % Immature Granulocytes 1.1 % (0-0.5); % Lymphocytes 18.2 % (20.5-51.1); % Monocytes 6.8 % (1.7-9.3); % Neutrophils 69.3 % (42.2-75.2); Absolute Lymphocytes 0.3 10^3/uL (1.2-3.4); Absolute Monocytes 0.1 10^3/uL (0.1-0.6); Absolute Neutrophils 1.2 10^3/uL (1.4-6.5); Nucleated Red Blood Cells % 0 %
[2023-06-10] MEDS: DULCOLAX 10 MG PO (11:07)
[2023-06-10] MEDS: NEURONTIN 100 MG PO (12:14)
--- NOTE | 2023-06-10 13:59 | CM ---
Patient seen bedside, initial assessment completed. Patient reports she resides with her in a multiple story home, 2 steps to enter, 8 steps up the stairs. Patient reports having a cane, walker, and rollator at home. Patient reports history
with [facility], reports [facility] in 2019. Patient confirms PCP Yadi Payne, pharmacy used [facility]. Patient inquiring about Advanced Directive, CM will provide documents. CM will continue to follow for discharge planning needs.
Plan; home no needs vs VN
[2023-06-10 14:39] VITALS: BMI 27.7
[2023-06-10 15:30] VITALS: BP 109/55
[2023-06-10] MEDS: NULYTELY SOLUTION 4 LITERS PO (17:49)
[2023-06-10] MEDS: ANUSOL HC RECTAL (20:30)
[2023-06-10] MEDS: ZOFRAN 4 MG IV (20:32)
[2023-06-10] MEDS: DUPHALAC/CHRONULAC 10 GRAMS PO (20:33)
[2023-06-10] MEDS: NON-FORMULARY ITEM 100 MG PO (20:39)
[2023-06-10 23:45] VITALS: BP 97/53
--- NOTE | 2023-06-11 02:30 | PTCARENOTE ---
Patient reported she vomited up at least 2 cups of her colonoscopy prep at 1945. ELECTRICAL LABORATORY TECHNICIAN and GI made aware, advised by GI to hold prep and restart in a couple hours. PRN zofran given to patient. Patient then able to resume prep without difficulty.
States her bowels are becoming more clear.
[2023-06-11 08:00] VITALS: BP 91/56
[2023-06-11 08:21] LABS: % Basophils 1.5 % (0-2); % Neutrophils 71.5 % (42.2-75.2); Absolute Lymphocytes 0.3 10^3/uL (1.2-3.4); Absolute Monocytes 0.1 10^3/uL (0.1-0.6); Absolute Neutrophils 1.4 10^3/uL (1.4-6.5); Hemoglobin 8.2 g/dL (12.0-16.0); Mean Corp Hgb Conc. 34.2 g/dL (33.0-37.0); Mean Corpuscular Hgb 38.1 pg (27.0-31.0); Mean Corpuscular Volume 111.6 fL (81.0-99.0); Mean Platelet Volume 11.5 fL (7.4-10.4); Nucleated Red Blood Cells % 0 %; Platelet Count 91 10^3/uL (130-400); Red Blood Cell Count 2.15 10^6/uL (4.20-5.40); Red Cell Dist. Width 13.7 % (11.5-14.5)
[2023-06-11] MEDS: MIRALAX 51 GRAMS PO (08:26)
[2023-06-11] MEDS: ALDACTONE 75 MG PO (08:27)
[2023-06-11] MEDS: VITAMIN D3 (cholecalciferol) 25 MCG PO (08:33)
[2023-06-11] MEDS: ANUSOL HC RECTAL ×2 (08:33→21:01)
[2023-06-11] MEDS: OSCAL CAL 500 500 MG PO (08:33)
[2023-06-11] MEDS: FEOSOL 325 MG PO (08:33)
[2023-06-11] MEDS: LASIX 40 MG PO (08:33)
[2023-06-11] MEDS: PROTONIX 40 MG PO ×2 (08:33→21:06)
[2023-06-11 08:44] LABS: Blood Urea Nitrogen 19 mg/dl (7-17); Calcium 8.4 mg/dl (8.4-10.2); Carbon Dioxide 28 mmol/L (22-30); Chloride 101 mmol/L (98-107); Estimated Creatinine Clearance 41 ml/min; Glucose 85 mg/dl (70-99); Potassium 4.2 mmol/L (3.5-5.1); Sodium 133 mmol/L (135-145); eGFR 46.91
[2023-06-11] MEDS: FLUSH (NSS) 1 FLUSH IV (08:44)
--- NOTE | 2023-06-11 09:23 | W.PN.HOSP.TC ---
Today's Communication/Plan
-
For EGD & C-scope today
Assessment / Plan
Assessment / Plan
HPI: 77-year-old female with a past medical history of chronic anemia, chronic thrombocytopenia, stage III chronic kidney disease, paroxysmal atrial fibrillation on Eliquis, stage IV breast cancer with metastases to the liver and bone, and cirrhosis
with ascites requiring monthly paracentesis presents with rectal bleeding.� Patient states that she started having bright red blood per rectum since Friday.� It occurs about twice a day, and has been increasing in frequency.� She states that it
sometimes causes her toilet bowl to be bright red.� She denies lightheadedness, denies dizziness.� No chest pain, no shortness of breath.� She does require monthly paracentesis for her ascites.� Her last paracentesis was on 06/02/2023, which drained
4200 mL of fluid.
#Rectal bleeding exacerbated by Eliquis use
#Chronic anemia
Hemoglobin 8.2 today, was 8.6, was 9.1, baseline about 9
Hold Eliquis, last dose was 3/10 PM
Appreciate GI input, plan for EGD/C-scope today
Trend Hgb, continue Anusol suppository for possible hemorrhoids
#Chronic pancytopenia
#Chronic leukopenia
#Chronic anemia
#Chronic thrombocytopenia
Dr. Waters rec G-CSF if ANC is <1000
ANC yesterday was 1200
Monitor counts
#Stage 4 breast cancer with metastases to the liver and bone
Sees Dr. Waters outpatient
On Fulvestrant, Ibrance
#Cirrhosis with ascites requiring monthly paracentesis
Her last paracentesis was on 06/02/2023, which drained 4200 mL of fluid
Continue Lasix, spironolactone, lactulose
#Stage III chronic kidney disease
No NSAIDs or nephrotoxic drugs
Creatinine 1.2 today, was 1.2, 1.4, continue to monitor
#Paroxysmal atrial fibrillation
Hold Eliquis
Continue diltiazem
#Gastroesophageal reflux disease
Continue PPI twice daily
DVT prophylaxis�SCDs
Full code
Physical Exam
General: Appears chronically ill, no acute distress
HEENT: Normocephalic, Atraumatic, EOMI, MMM
Respiratory: Clear to Auscultation bilaterally
Cardiac: Normal S1/S2, Regular Rate and Rhythm
GI: Soft, distended abdomen, nontender, normal bowel sounds
Extremities: No Clubbing, Cyanosis
Bilateral lower extremity edema noted
Neuro: Nonfocal/Grossly Intact
Psych: Calm, Cooperative
Derm: Hyperpigmentation of the shins reflective of chronic venous stasis dermatitis
Anticipated Discharge: 24 - 48 hours
Subjective/Interval History
-
Date of Service: June 11, 2023
No rectal bleeding. Had vomiting with the bowel prep yesterday, no vomiting today.
Objective Data
-
Labs:
Laboratory Results
06/11/23
07:45
WBC 2.0 L*
Hgb 8.2 L
Hct 24.0 L
Plt Count 91 L
Sodium 133 L
Potassium 4.2
Chloride 101
Carbon Dioxide 28
BUN 19 H
Creatinine 1.2 H
Glucose 85
Calcium 8.4
Vital Signs:
Vital Signs
Temp Pulse Resp BP Pulse Ox
97.3 F 85 16 91/56 97
06/11/23 08:00 06/11/23 08:00 06/11/23 08:00 06/11/23 08:32 06/11/23 08:00
I&O
06/10/23 06/11/23 06/12/23
06:59 06:59 06:59
Intake Total 480 / 480 3860 / 3860
Balance 480 / 480 3860 / 3860
--- NOTE | 2023-06-11 11:01 | CM ---
Patient seen, provided Advance Director paperwork per patient request. Patient plan for colonoscopy. CM will continue to follow for discharge planning needs.
Plan; home no needs vs VN
[2023-06-11 13:05] VITALS: BP 111/69
--- NOTE | 2023-06-11 13:11 | PTCARENOTE ---
received to room post EGD/colonoscopy, patient awake and alert, assisted to bed, reporting no issues. vitals noted, plan of care on going.
[2023-06-11 15:38] VITALS: BP 99/53
[2023-06-11] MEDS: DUPHALAC/CHRONULAC 10 GRAMS PO (21:06)
[2023-06-11] MEDS: NON-FORMULARY ITEM 100 MG PO (21:07)
[2023-06-11] MEDS: ALDACTONE PO (21:46)
[2023-06-11 23:21] VITALS: BP 102/58
[2023-06-11] MEDS: TUMS 2 TABLET PO (23:47)
[2023-06-12 05:48] VITALS: BMI 27.0
[2023-06-12 07:00] VITALS: BP 98/57
[2023-06-12 08:32] LABS: Hematocrit 24.6 % (37.0-47.0); Hemoglobin 8.7 g/dL (12.0-16.0); Mean Corp Hgb Conc. 35.4 g/dL (33.0-37.0); Mean Corpuscular Hgb 39.2 pg (27.0-31.0); Mean Corpuscular Volume 110.8 fL (81.0-99.0); Mean Platelet Volume 11.3 fL (7.4-10.4); Platelet Count 101 10^3/uL (130-400); Red Blood Cell Count 2.22 10^6/uL (4.20-5.40); Red Cell Dist. Width 13.7 % (11.5-14.5); White Blood Cell Count 2.6 10^3/uL (4.8-10.8)
[2023-06-12 08:50] LABS: Blood Urea Nitrogen 24 mg/dl (7-17); Calcium 9.1 mg/dl (8.4-10.2); Carbon Dioxide 26 mmol/L (22-30); Chloride 104 mmol/L (98-107); Estimated Creatinine Clearance 33 ml/min; Glucose 88 mg/dl (70-99); Potassium 4.4 mmol/L (3.5-5.1); Sodium 132 mmol/L (135-145); eGFR 42.62
[2023-06-12] MEDS: FEOSOL 325 MG PO (09:22)
[2023-06-12] MEDS: PROTONIX 40 MG PO (09:22)
[2023-06-12] MEDS: LASIX 40 MG PO (09:22)
[2023-06-12] MEDS: VITAMIN D3 (cholecalciferol) 25 MCG PO (09:22)
[2023-06-12] MEDS: OSCAL CAL 500 500 MG PO (09:22)
[2023-06-12] MEDS: ANUSOL HC RECTAL (09:23)
[2023-06-12] MEDS: ALDACTONE PO (09:23)
--- NOTE | 2023-06-12 09:54 | W.PN.HOSP.TC ---
Today's Communication/Plan
-
Cleared by GI for discharge today
Assessment / Plan
Assessment / Plan
HPI: 77-year-old female with a past medical history of chronic anemia, chronic thrombocytopenia, stage III chronic kidney disease, paroxysmal atrial fibrillation on Eliquis, stage IV breast cancer with metastases to the liver and bone, and cirrhosis
with ascites requiring monthly paracentesis presents with rectal bleeding.� Patient states that she started having bright red blood per rectum since Friday.� It occurs about twice a day, and has been increasing in frequency.� She states that it
sometimes causes her toilet bowl to be bright red.� She denies lightheadedness, denies dizziness.� No chest pain, no shortness of breath.� She does require monthly paracentesis for her ascites.� Her last paracentesis was on 06/02/2023, which drained
4200 mL of fluid.
#Rectal bleeding exacerbated by Eliquis use
#Chronic anemia
Hemoglobin 8.7 today, was 8.2, was 8.6, was 9.1, baseline about 9
Last eliquis dose was 3/10 PM
Appreciate GI input, 06/10/22 EGD/c-scope grade 2 esophageal varices, large hiatal hernia, erythematous mucosa in the gastric body likely at the diaphragmatic pouch, hemorrhoids, diverticulosis
GI suspects diverticular bleed, which has resolved
Cleared by GI to resume Eliquis
Medically stable for discharge, recommend continuing holding Eliquis for 3 more days, can resume 06/14/2022
Follow-up with your usual GI doctor in the office in 2-3 weeks, and her PCP in 1 week
#Chronic pancytopenia
#Chronic leukopenia
#Chronic anemia
#Chronic thrombocytopenia
Dr. Waters rec G-CSF if ANC is <1000
ANC 06/09 was 1200
Monitor counts
#Stage 4 breast cancer with metastases to the liver and bone
Sees Dr. Waters outpatient
On Fulvestrant, Ibrance
#Cirrhosis with ascites requiring monthly paracentesis
Her last paracentesis was on 06/02/2023, which drained 4200 mL of fluid
Continue Lasix, spironolactone, lactulose
#Stage III chronic kidney disease
No NSAIDs or nephrotoxic drugs
Creatinine 1.3 today, was 1.2, 1.4, continue to monitor
#Paroxysmal atrial fibrillation
Resume Eliquis on 06/14
Continue diltiazem
#Gastroesophageal reflux disease
Continue PPI twice daily
DVT prophylaxis�SCDs
Full code
Physical Exam
General: Appears chronically ill, no acute distress
HEENT: Normocephalic, Atraumatic, EOMI, MMM
Respiratory: Clear to Auscultation bilaterally
Cardiac: Normal S1/S2, Regular Rate and Rhythm
GI: Soft, distended abdomen, nontender, normal bowel sounds
Extremities: No Clubbing, Cyanosis
Bilateral lower extremity edema noted
Neuro: Nonfocal/Grossly Intact
Psych: Calm, Cooperative
Derm: Hyperpigmentation of the shins reflective of chronic venous stasis dermatitis
Anticipated Discharge: Today
Subjective/Interval History
-
Date of Service: June 12, 2023
No more rectal bleeding. No chest pain, shortness of breath, or palpitations. She is requesting discharge home.
Objective Data
-
Labs:
Laboratory Results
06/12/23
07:34
WBC 2.6 L
Hgb 8.7 L
Hct 24.6 L
Plt Count 101 L
Sodium 132 L
Potassium 4.4
Chloride 104
Carbon Dioxide 26
BUN 24 H
Creatinine 1.3 H
Glucose 88
Calcium 9.1
Vital Signs:
Vital Signs
Temp Pulse Resp BP Pulse Ox
98.1 F 86 18 98/56 96
06/12/23 07:00 06/12/23 07:00 06/12/23 07:00 06/12/23 09:23 06/12/23 07:00
I&O
06/11/23 06/12/23 06/13/23
06:59 06:59 06:59
Intake Total 3860 / 3860 480 / 480
Balance 3860 / 3860 480 / 480
--- NOTE | 2023-06-12 13:10 | W.DCSUMMARY ---
Discharge Summary
Discharge Data
Date of Admission: 06/09/23
Date of Discharge: 06/12/23
-
Pending Results: No
Hospital Course
Discharge diagnoses:
Rectal bleeding exacerbated by Eliquis use, suspect diverticular
Chronic anemia
Paroxysmal atrial fibrillation on Eliquis
Chronic pancytopenia
Stage IV breast cancer with metastases to the liver and bone
Cirrhosis with ascites requiring monthly paracentesis
Stage III chronic kidney disease
Gastroesophageal reflux disease
Consults: GI
06/11/23 EGD: �� �
Grade II varices were found in the middle third of the esophagus and in
�� � the lower third of the esophagus.
�� � A very large hiatal hernia was present.
�� � Localized mildly erythematous mucosa without bleeding was found in the
�� � gastric body.
�� � The examined duodenum was normal.
06/11/23 C-scope:
� � No blood and no signs of recent bleeding.
�� � � � � � � � � � � Possibly/likely diverticular
�� � � � � � � � � � � - Hemorrhoids found on perianal exam.
�� � � � � � � � � � � - Diverticulosis in the left colon.
�� � � � � � � � � � � - The examined portion of the ileum was normal.
�� � � � � � � � � � � - No specimens collected.
Hospital course:
77-year-old female with a past medical history of chronic anemia, chronic thrombocytopenia, stage III chronic kidney disease, paroxysmal atrial fibrillation on Eliquis, stage IV breast cancer with metastases to the liver and bone, and cirrhosis with
ascites requiring monthly paracentesis presents with rectal bleeding. Patient states that she started having bright red blood per rectum since Friday. It occurs about twice a day, and has been increasing in frequency. She states that it sometimes
causes her toilet bowl to be bright red. She denies lightheadedness, denies dizziness. No chest pain, no shortness of breath. She does require monthly paracentesis for her ascites. Her last paracentesis was on 06/02/2023, which drained 4200 mL of
fluid.
Patient was seen in conjunction with GI. Her Eliquis was held. Her hemoglobin was monitored. It was 9.1 upon admission, was trended, dropped to 8.2, improved to 8.7.
Patient did not have any more rectal bleeding after she was admitted. She had an EGD for esophageal varices screening, and colonoscopy with results as above. There was no blood and no signs of recent bleeding on her colonoscopy. GI suspects that
it was possibly a diverticular bleed that has resolved. GI has cleared her to resume her Eliquis.
Patient felt markedly better, and wished to go home. She is medically stable cleared by GI for discharge. She has been instructed to hold her Eliquis for 3 more days, she can resume on 06/15/2023. She needs to follow-up with her primary care
doctor 1 week, as well as her usual GI doctor in 2-3 weeks.
Disposition: Home self-care
Discharge planning required: 36 min
Discharge Plan
-
Patient Disposition: Home (Routine Discharge)
Discharge Diagnosis/Procedures: Rectal bleeding exacerbated by Eliquis use, acute blood loss anemia superimposed on chronic anemia, paroxysmal atrial fibrillation on Eliquis, stage III chronic kidney disease, stage IV breast cancer with metastases
to the liver and bone, cirrhosis with ascites requiring monthly paracentesis
Condition: Fair
Diet: Regular
Activity: As tolerated
Driving Restrictions: As prior to admission
Activity Restrictions/Additional Instructions:
Hold Eliquis, you may resume on 06/15/2023.
If you have any more rectal bleeding, stop Eliquis, and call your family doctor, and your usual GI doctor, Dr. Parris Cuello.
Please follow-up with your primary care doctor in 1 week, and your usual GI doctor in 2-3 weeks.
Referrals:
Yadi Lambert DO [Family Provider] - in one week
Parris Cuello MD [Active] - in two to three weeks
Prescriptions:
Continued
omeprazole 20 MG capsule,delayed release(DR/EC)
40 mg PO BID
Patient Comments:
PATIENT THIS MORNING TALKED TO PCP AND PCP SAID NOT TO TAKE OMEPRAZOLE ANYMORE
diltiazem HCl 120 MG capsule,extended release 24hr
120 mg PO DAILY
Xgeva 120 MG/1.7 ML solution
1 dose SQ [id number]
multivitamin with folic acid [Tab-A-Jolanta] 1 TABLET tablet
1 tab PO DAILY
Ibrance 125 MG capsule
100 mg PO UD
Rx Instructions:
PATIENT TAKES FOR 3 WEEKS THEN 1 WEEK OFF Then repeat
furosemide [Lasix] 40 MG tablet
40 mg PO DAILY Qty: 7 0RF
biotin 10,000 mcg Capsule
10,000 mcg PO DAILY
spironolactone 50 mg Tablet
75 mg PO BID
cholecalciferol (vitamin D3) [Vitamin D3] 25 mcg (1,000 unit) Capsule
25 mcg PO DAILY
calcium carbonate [Calcium 600] 600 mg calcium (1,500 mg) Tablet
600 mg PO DAILY
ferrous sulfate 325 mg (65 mg iron) Tablet
325 mg PO DAILY
ondansetron HCl 4 mg Tablet
4 mg PO Q8HPRN PRN (Reason: nausea)
gabapentin 100 mg Capsule
100 mg PO BIDPRN PRN (Reason: nerve pains)
darbepoetin jacek-albumin 40 mcg/mL Solution
0 mcg IV MONTHLY
fulvestrant 250 mg/5 mL Syringe
500 mg IM QMONTH
lactulose 10 gram/15 mL Solution
10 g PO HS
Viviscal Hair Growth Vitamin
2 tab PO DAILY
tramadol 50 mg tablet
50 mg PO Q6HPRN PRN (Reason: severe pains)
Held
Eliquis 5 MG tablet
5 mg PO BID
Hold Instructions: Resume on 06/15/23.
Discharge Orders:
Discharge Patient (As Directed); Ordered 06/12/23
Ordered By: Josse Cuello
Discharge Date and Time
Discharge Date/Time: 06/12/23 14:45
--- NOTE | 2023-06-12 14:29 | CM ---
Patient seen, plan for discharge today. IMM reviewed, signed, placed in patients chart. Patient reports her will provide transportation home. CM will continue to follow for discharge planning needs.
Plan; home no needs.
== END 2023-06-12 14:45 | disposition home or self-care (01) | DRG 813 ==
LOC: 4 EAST ACU 15:41
PROVIDERS: Internal Medicine; ADMITTING PHYSICIAN Family Medicine; CONSULT PHYSICIAN Internal Medicine Gastroenterology; EMERGENCY PHYSICIAN Emergency Medicine; FAMILY PHYSICIAN Family Medicine
PROC: 0DJD8ZZ Inspection of Lower Intestinal Tract, Via Natural or Artificial Opening Endoscopic (ICD-10-PCS; 2023-06-11)
PROC: 0DJ08ZZ Inspection of Upper Intestinal Tract, Via Natural or Artificial Opening Endoscopic (ICD-10-PCS; 2023-06-11)
DX: D68.32 Hemorrhagic disorder due to extrinsic circulating anticoagulants (principal); K57.91 Diverticulosis of intestine, part unspecified, without perforation or abscess with bleeding; C78.7 Secondary malignant neoplasm of liver and intrahepatic bile duct; C79.51 Secondary malignant neoplasm of bone; D61.818 Other pancytopenia; R18.8 Other ascites; I85.10 Secondary esophageal varices without bleeding; N18.4 Chronic kidney disease, stage 4 (severe); I13.0 Hypertensive heart and chronic kidney disease with heart failure and stage 1 through stage 4 chronic kidney disease, or unspecified chronic kidney disease; K92.1 Melena; Z79.01 Long term (current) use of anticoagulants; C50.919 Malignant neoplasm of unspecified site of unspecified female breast; K64.9 Unspecified hemorrhoids; K74.60 Unspecified cirrhosis of liver; I48.0 Paroxysmal atrial fibrillation; K21.9 Gastro-esophageal reflux disease without esophagitis; K44.9 Diaphragmatic hernia without obstruction or gangrene; K57.30 Diverticulosis of large intestine without perforation or abscess without bleeding
CPT/HCPCS: 80048; 80053; 82607; 82728; 83540; 83550; 83735; 85025; 85027; 85610; 86850; 86900; 86901; 99285

== ENCOUNTER → 2023-06-27 08:15 | Outpatient (REF) | payer MEDICARE, SELFPAY ==
[2023-06-27 08:53] VITALS: BP 117/59; BP_SYST 71
[2023-06-27 09:35] VITALS: BP 96/45; BP_SYST 70
[2023-06-27 10:48] LABS: Body Fluid Mononuclear 90 %; Body Fluid Polymorphonuclear 10 %; Body Fluid WBC 30 /CUMM
[2023-06-27 10:57] LABS: Body Fluid Second Tech CF
[2023-06-27 10:59] LABS: Body Fluid Albumin < 1.0 g/dl
[2023-06-27 11:02] LABS: % Basophils 1.9 % (0-2); % Eosinophils 2.5 % (0-6); % Immature Granulocytes 0.6 % (0-0.5); % Lymphocytes 23.3 % (20.5-51.1); % Monocytes 5.7 % (1.7-9.3); Absolute Lymphocytes 0.4 10^3/uL (1.2-3.4); Absolute Monocytes 0.1 10^3/uL (0.1-0.6); Absolute Neutrophils 1.1 10^3/uL (1.4-6.5); Hematocrit 27.9 % (37.0-47.0); Hemoglobin 9.5 g/dL (12.0-16.0); Mean Corp Hgb Conc. 34.1 g/dL (33.0-37.0); Mean Corpuscular Hgb 38.5 pg (27.0-31.0); Mean Platelet Volume 12.5 fL (7.4-10.4); Nucleated Red Blood Cells % 0 %; Red Blood Cell Count 2.47 10^6/uL (4.20-5.40); Red Cell Dist. Width 14.4 % (11.5-14.5); White Blood Cell Count 1.6 10^3/uL (4.8-10.8)
[2023-06-27 11:59] LABS: ALT (SGPT) 22 U/L (0-35); AST (SGOT) 30 U/L (14-36); Albumin 3.6 g/dl (3.5-5.0); Alkaline Phosphatase 63 U/L (38-126); Blood Urea Nitrogen 35 mg/dl (7-17); Calcium 8.9 mg/dl (8.4-10.2); Carbon Dioxide 26 mmol/L (22-30); Chloride 101 mmol/L (98-107); Glucose 91 mg/dl (70-99); Iron 92 ug/dl (37-170); Sodium 135 mmol/L (135-145); Total Bilirubin 0.8 mg/dl (0.2-1.3); Total Protein 6.2 g/dl (6.3-8.2); eGFR 42.62
[2023-06-27 12:12] LABS: Percent Saturation 33 % (20-50); Total Iron Binding Capacity 278 ug/dl (265-497)
[2023-06-27 12:18] LABS: Platelet Count 66 10^3/uL (130-400)
[2023-06-27 12:23] LABS: Free T4 1.46 ng/dl (0.78-2.19)
[2023-06-27 12:37] LABS: TSH 0.07 uIU/ml (0.47-4.68)
[2023-06-28 14:11] LABS: CA 27-29 120.2 U/mL (<=39.0)
== END ==
LOC: RADI 08:15
PROVIDERS: ATTENDING PHYSICIAN Internal Medicine Gastroenterology; FAMILY PHYSICIAN Family Medicine; OTHER PHYSICIAN Internal Medicine Hematology & Oncology; REFERRING PHYSICIAN Internal Medicine Endocrinology, Diabetes & Metabolism
DX: R18.8 Other ascites (principal)
CPT/HCPCS: 36415; 49083; 80053; 82042; 82728; 83540; 83550; 84439; 84443; 85025; 86300; 87015; 87070; 87205; 89051

== ENCOUNTER 2023-07-10 13:26 | Outpatient (RCR) | payer MEDICARE, SELFPAY ==
[2023-07-10 13:29] LABS: % Immature Granulocytes 0.7 % (0-0.5); % Lymphocytes 2.9 % (20.5-51.1); % Monocytes 2.7 % (1.7-9.3); % Neutrophils 93.7 % (42.2-75.2); Absolute Lymphocytes 0.2 10^3/uL (1.2-3.4); Absolute Monocytes 0.2 10^3/uL (0.1-0.6); Absolute Neutrophils 5.5 10^3/uL (1.4-6.5); Hematocrit 28.4 % (37.0-47.0); Hemoglobin 9.7 g/dL (12.0-16.0); Mean Corp Hgb Conc. 34.2 g/dL (33.0-37.0); Mean Corpuscular Hgb 37.6 pg (27.0-31.0); Mean Corpuscular Volume 110.1 fL (81.0-99.0); Mean Platelet Volume 11.4 fL (7.4-10.4); Platelet Count 131 10^3/uL (130-400); Red Blood Cell Count 2.58 10^6/uL (4.20-5.40); Red Cell Dist. Width 14.2 % (11.5-14.5); White Blood Cell Count 5.8 10^3/uL (4.8-10.8)
[2023-07-10 14:36] LABS: Iron 104 ug/dl (37-170)
[2023-07-10 14:46] LABS: Percent Saturation 36 % (20-50); Total Iron Binding Capacity 288 ug/dl (265-497)
== END 2023-07-29 23:59 | disposition home or self-care (01) ==
LOC: OID 13:26
PROVIDERS: ATTENDING PHYSICIAN Internal Medicine Gastroenterology
DX: K74.60 Unspecified cirrhosis of liver (principal); D64.9 Anemia, unspecified
CPT/HCPCS: 82728; 83540; 83550; 85025

== ENCOUNTER → 2023-07-17 08:03 | Outpatient (REF) | payer MEDICARE, SELFPAY ==
[2023-07-17 08:36] VITALS: BP 115/57; BP_SYST 81
[2023-07-17 09:30] VITALS: BP 102/63
[2023-07-17 09:59] LABS: Body Fluid Mononuclear 97.1 %; Body Fluid Polymorphonuclear 2.9 %; Body Fluid WBC 35 /CUMM
[2023-07-17 10:21] LABS: Body Fluid Second Tech LD
== END ==
LOC: RADI 08:03
PROVIDERS: ATTENDING PHYSICIAN Internal Medicine Gastroenterology; FAMILY PHYSICIAN Family Medicine
DX: R18.8 Other ascites (principal)
CPT/HCPCS: 49083; 87015; 87070; 87205; 89051

== ENCOUNTER → 2023-08-04 10:15 | Outpatient (REF) | payer MEDICARE, SELFPAY ==
[2023-08-04 11:01] LABS: % Basophils 2.3 % (0-2); % Eosinophils 4.1 % (0-6); % Immature Granulocytes 0.6 % (0-0.5); % Lymphocytes 19.3 % (20.5-51.1); % Monocytes 11.1 % (1.7-9.3); % Neutrophils 62.6 % (42.2-75.2); Absolute Eosinophils 0.1 10^3/uL (0-0.7); Absolute Lymphocytes 0.3 10^3/uL (1.2-3.4); Absolute Monocytes 0.2 10^3/uL (0.1-0.6); Absolute Neutrophils 1.1 10^3/uL (1.4-6.5); Hematocrit 24.9 % (37.0-47.0); Hemoglobin 8.8 g/dL (12.0-16.0); Mean Corp Hgb Conc. 35.3 g/dL (33.0-37.0); Mean Corpuscular Hgb 39.3 pg (27.0-31.0); Mean Corpuscular Volume 111.2 fL (81.0-99.0); Mean Platelet Volume 11.8 fL (7.4-10.4); Nucleated Red Blood Cells % 0 %; Platelet Count 86 10^3/uL (130-400); Red Blood Cell Count 2.24 10^6/uL (4.20-5.40); Red Cell Dist. Width 15.6 % (11.5-14.5); White Blood Cell Count 1.7 10^3/uL (4.8-10.8)
[2023-08-04 11:35] LABS: ALT (SGPT) 22 U/L (0-35); AST (SGOT) 33 U/L (14-36); Albumin 3.2 g/dl (3.5-5.0); Alkaline Phosphatase 62 U/L (38-126); Blood Urea Nitrogen 22 mg/dl (7-17); Calcium 8.8 mg/dl (8.4-10.2); Carbon Dioxide 29 mmol/L (22-30); Chloride 102 mmol/L (98-107); Glucose 111 mg/dl (70-99); Potassium 4.3 mmol/L (3.5-5.1); Sodium 134 mmol/L (135-145); Total Bilirubin 0.8 mg/dl (0.2-1.3); Total Protein 5.8 g/dl (6.3-8.2); eGFR 38.99
[2023-08-05 16:07] LABS: CA 27-29 121.9 U/mL (<=39.0)
== END ==
LOC: REG 10:15
PROVIDERS: ATTENDING PHYSICIAN Internal Medicine Hematology & Oncology; FAMILY PHYSICIAN Family Medicine; REFERRING PHYSICIAN Internal Medicine Cardiovascular Disease
DX: C50.412 Malignant neoplasm of upper-outer quadrant of left female breast (principal); R22.32 Localized swelling, mass and lump, left upper limb; C79.51 Secondary malignant neoplasm of bone; C78.7 Secondary malignant neoplasm of liver and intrahepatic bile duct; D50.9 Iron deficiency anemia, unspecified
CPT/HCPCS: 36415; 80053; 85025; 86300

== ENCOUNTER 2023-08-11 09:28 | Outpatient (RCR) | payer MEDICARE, SELFPAY | END 2023-08-29 23:59 | disposition home or self-care (01) | LOC: OID 09:28 | PROVIDERS: ATTENDING PHYSICIAN Internal Medicine Gastroenterology; FAMILY PHYSICIAN Family Medicine | DX: K74.60 Unspecified cirrhosis of liver (principal); D64.9 Anemia, unspecified ==

== ENCOUNTER → 2023-08-11 09:29 | Outpatient (REF) | payer MEDICARE, SELFPAY ==
[2023-08-11 10:17] VITALS: BP 108/69; BP_SYST 70
[2023-08-11 10:23] LABS: % Basophils 1.3 % (0-2); % Eosinophils 3.1 % (0-6); % Immature Granulocytes 0.9 % (0-0.5); % Lymphocytes 17.4 % (20.5-51.1); % Monocytes 5.8 % (1.7-9.3); % Neutrophils 71.5 % (42.2-75.2); Absolute Eosinophils 0.1 10^3/uL (0-0.7); Absolute Lymphocytes 0.4 10^3/uL (1.2-3.4); Absolute Monocytes 0.1 10^3/uL (0.1-0.6); Absolute Neutrophils 1.6 10^3/uL (1.4-6.5); Hematocrit 27.2 % (37.0-47.0); Hemoglobin 9.7 g/dL (12.0-16.0); Mean Corp Hgb Conc. 35.7 g/dL (33.0-37.0); Mean Corpuscular Hgb 39.8 pg (27.0-31.0); Mean Corpuscular Volume 111.5 fL (81.0-99.0); Mean Platelet Volume 11.9 fL (7.4-10.4); Nucleated Red Blood Cells % 0 %; Platelet Count 98 10^3/uL (130-400); Red Blood Cell Count 2.44 10^6/uL (4.20-5.40); Red Cell Dist. Width 14.9 % (11.5-14.5); White Blood Cell Count 2.2 10^3/uL (4.8-10.8)
[2023-08-11 10:56] LABS: ALT (SGPT) 19 U/L (0-35); AST (SGOT) 35 U/L (14-36); Albumin 3.5 g/dl (3.5-5.0); Alkaline Phosphatase 57 U/L (38-126); Blood Urea Nitrogen 29 mg/dl (7-17); Calcium 9.6 mg/dl (8.4-10.2); Carbon Dioxide 30 mmol/L (22-30); Chloride 100 mmol/L (98-107); Glucose 94 mg/dl (70-99); Sodium 138 mmol/L (135-145); Total Protein 6.3 g/dl (6.3-8.2); eGFR 35.89
[2023-08-11 10:57] VITALS: BP 116/52
[2023-08-11 13:05] LABS: Body Fluid Mononuclear 93.9 %; Body Fluid Polymorphonuclear 6.1 %; Body Fluid WBC 49 /CUMM
[2023-08-11 13:08] LABS: Body Fluid Second Tech ASW
== END ==
LOC: RADI 09:29
PROVIDERS: ATTENDING PHYSICIAN Internal Medicine Gastroenterology; FAMILY PHYSICIAN Family Medicine; OTHER PHYSICIAN Internal Medicine Cardiovascular Disease; REFERRING PHYSICIAN Internal Medicine Hematology & Oncology
DX: R18.8 Other ascites (principal)
CPT/HCPCS: 36415; 49083; 80053; 85025; 89051

== ENCOUNTER → 2023-08-23 10:37 | Outpatient (REF) | payer MEDICARE, SELFPAY ==
[2023-08-23 11:33] LABS: % Eosinophils 3.5 % (0-6); % Immature Granulocytes 0.5 % (0-0.5); % Lymphocytes 20.9 % (20.5-51.1); % Neutrophils 64.1 % (42.2-75.2); Absolute Eosinophils 0.1 10^3/uL (0-0.7); Absolute Lymphocytes 0.4 10^3/uL (1.2-3.4); Absolute Monocytes 0.2 10^3/uL (0.1-0.6); Absolute Neutrophils 1.3 10^3/uL (1.4-6.5); Hematocrit 26.9 % (37.0-47.0); Hemoglobin 9.5 g/dL (12.0-16.0); Mean Corp Hgb Conc. 35.3 g/dL (33.0-37.0); Mean Corpuscular Hgb 39.6 pg (27.0-31.0); Mean Corpuscular Volume 112.1 fL (81.0-99.0); Nucleated Red Blood Cells % 0 %; Platelet Count 59 10^3/uL (130-400); Red Cell Dist. Width 15.9 % (11.5-14.5)
[2023-08-23 11:57] LABS: ALT (SGPT) 31 U/L (0-35); AST (SGOT) 46 U/L (14-36); Albumin 3.5 g/dl (3.5-5.0); Alkaline Phosphatase 56 U/L (38-126); Blood Urea Nitrogen 28 mg/dl (7-17); Calcium 8.9 mg/dl (8.4-10.2); Carbon Dioxide 27 mmol/L (22-30); Chloride 106 mmol/L (98-107); Glucose 111 mg/dl (70-99); Potassium 4.3 mmol/L (3.5-5.1); Sodium 138 mmol/L (135-145); Total Protein 6.2 g/dl (6.3-8.2); eGFR 46.62
[2023-08-25 03:02] LABS: CA 27-29 130.6 U/mL (<=39.0)
== END ==
LOC: REG 10:37
PROVIDERS: ATTENDING PHYSICIAN Internal Medicine Hematology & Oncology; FAMILY PHYSICIAN Family Medicine
DX: C50.412 Malignant neoplasm of upper-outer quadrant of left female breast (principal); R22.32 Localized swelling, mass and lump, left upper limb; C79.51 Secondary malignant neoplasm of bone; C78.7 Secondary malignant neoplasm of liver and intrahepatic bile duct; D50.9 Iron deficiency anemia, unspecified; N18.30 Chronic kidney disease, stage 3 unspecified; D63.1 Anemia in chronic kidney disease; D64.81 Anemia due to antineoplastic chemotherapy
CPT/HCPCS: 36415; 80053; 85025; 86300

== ENCOUNTER → 2023-09-04 08:22 | Outpatient (REF) | payer MEDICARE, SELFPAY ==
[2023-09-04 08:42] VITALS: BP 107/61; BP_SYST 77
[2023-09-04 09:34] VITALS: BP 103/65
[2023-09-04 10:36] LABS: Body Fluid Mononuclear 87.5 %; Body Fluid Polymorphonuclear 12.5 %; Body Fluid WBC 40 /CUMM
[2023-09-04 12:27] LABS: Body Fluid Second Tech CMB
== END ==
LOC: RADI 08:22
PROVIDERS: ATTENDING PHYSICIAN Internal Medicine Gastroenterology; FAMILY PHYSICIAN Family Medicine
DX: R18.8 Other ascites (principal)
CPT/HCPCS: 49083; 89051

== ENCOUNTER → 2023-09-09 13:05 | Outpatient (REF) | payer MEDICARE, SELFPAY ==
[2023-09-09 14:10] LABS: % Basophils 2.6 % (0-2); % Eosinophils 3.1 % (0-6); % Immature Granulocytes 0.4 % (0-0.5); % Lymphocytes 15.4 % (20.5-51.1); % Monocytes 8.8 % (1.7-9.3); % Neutrophils 69.7 % (42.2-75.2); Absolute Basophils 0.1 10^3/uL (0-0.2); Absolute Eosinophils 0.1 10^3/uL (0-0.7); Absolute Lymphocytes 0.4 10^3/uL (1.2-3.4); Absolute Monocytes 0.2 10^3/uL (0.1-0.6); Absolute Neutrophils 1.6 10^3/uL (1.4-6.5); Hematocrit 29.5 % (37.0-47.0); Hemoglobin 10.4 g/dL (12.0-16.0); Mean Corp Hgb Conc. 35.3 g/dL (33.0-37.0); Mean Corpuscular Hgb 40.2 pg (27.0-31.0); Mean Corpuscular Volume 113.9 fL (81.0-99.0); Mean Platelet Volume 11.9 fL (7.4-10.4); Nucleated Red Blood Cells % 0 %; Platelet Count 79 10^3/uL (130-400); Red Blood Cell Count 2.59 10^6/uL (4.20-5.40); Red Cell Dist. Width 15.2 % (11.5-14.5); White Blood Cell Count 2.3 10^3/uL (4.8-10.8)
== END ==
LOC: RAD 13:05
PROVIDERS: ATTENDING PHYSICIAN Internal Medicine Rheumatology; FAMILY PHYSICIAN Family Medicine; REFERRING PHYSICIAN Internal Medicine Hematology & Oncology
DX: M81.0 Age-related osteoporosis without current pathological fracture (principal); C50.412 Malignant neoplasm of upper-outer quadrant of left female breast; R22.32 Localized swelling, mass and lump, left upper limb; C79.51 Secondary malignant neoplasm of bone; C78.7 Secondary malignant neoplasm of liver and intrahepatic bile duct; D50.9 Iron deficiency anemia, unspecified; N18.30 Chronic kidney disease, stage 3 unspecified; D63.1 Anemia in chronic kidney disease; D64.81 Anemia due to antineoplastic chemotherapy
CPT/HCPCS: 36415; 77080; 85025

== ENCOUNTER → 2023-09-23 07:26 | Outpatient (REF) | payer MEDICARE, SELFPAY ==
[2023-09-23 09:49] LABS: Body Fluid Mononuclear 84.4 %; Body Fluid Polymorphonuclear 15.6 %; Body Fluid WBC 32 /CUMM
[2023-09-23 09:53] LABS: Body Fluid Second Tech AMA
== END ==
LOC: RADI 07:26
PROVIDERS: ATTENDING PHYSICIAN Internal Medicine Gastroenterology; FAMILY PHYSICIAN Family Medicine
DX: R18.8 Other ascites (principal)
CPT/HCPCS: 49083; 87015; 87070; 87205; 89051

== ENCOUNTER → 2023-09-23 07:30 | Outpatient (REF) | payer MEDICARE, SELFPAY ==
[2023-09-23 08:27] LABS: % Lymphocytes 23.1 % (20.5-51.1); % Monocytes 11.6 % (1.7-9.3); % Neutrophils 57.3 % (42.2-75.2); Absolute Basophils 0.1 10^3/uL (0-0.2); Absolute Eosinophils 0.1 10^3/uL (0-0.7); Absolute Lymphocytes 0.4 10^3/uL (1.2-3.4); Absolute Monocytes 0.2 10^3/uL (0.1-0.6); Hematocrit 29.7 % (37.0-47.0); Hemoglobin 10.1 g/dL (12.0-16.0); Mean Corpuscular Hgb 38.3 pg (27.0-31.0); Mean Corpuscular Volume 112.5 fL (81.0-99.0); Mean Platelet Volume 12.6 fL (7.4-10.4); Nucleated Red Blood Cells % 0 %; Platelet Count 58 10^3/uL (130-400); Red Blood Cell Count 2.64 10^6/uL (4.20-5.40); Red Cell Dist. Width 15.2 % (11.5-14.5); White Blood Cell Count 1.7 10^3/uL (4.8-10.8)
[2023-09-23 08:58] LABS: ALT (SGPT) 23 U/L (0-35); AST (SGOT) 33 U/L (14-36); Albumin 3.5 g/dl (3.5-5.0); Alkaline Phosphatase 54 U/L (38-126); Blood Urea Nitrogen 22 mg/dl (7-17); Calcium 8.5 mg/dl (8.4-10.2); Carbon Dioxide 31 mmol/L (22-30); Chloride 105 mmol/L (98-107); Glucose 92 mg/dl (70-99); Potassium 4.1 mmol/L (3.5-5.1); Sodium 139 mmol/L (135-145); eGFR 51.75
[2023-09-24 21:06] LABS: CA 27-29 142.8 U/mL (<=39.0)
[2023-09-25 13:05] LABS: Ferritin 58.4 ng/ml (11.1-264.0)
[2023-09-25 13:55] LABS: Iron 85 ug/dl (37-170)
[2023-09-25 14:05] LABS: Percent Saturation 27 % (20-50); Total Iron Binding Capacity 304 ug/dl (265-497)
== END ==
LOC: REG 07:30
PROVIDERS: ATTENDING PHYSICIAN Internal Medicine Hematology & Oncology; FAMILY PHYSICIAN Family Medicine
DX: C50.412 Malignant neoplasm of upper-outer quadrant of left female breast (principal); R22.32 Localized swelling, mass and lump, left upper limb; C79.51 Secondary malignant neoplasm of bone; C78.7 Secondary malignant neoplasm of liver and intrahepatic bile duct; D50.9 Iron deficiency anemia, unspecified; N18.30 Chronic kidney disease, stage 3 unspecified; D63.1 Anemia in chronic kidney disease; D64.81 Anemia due to antineoplastic chemotherapy
CPT/HCPCS: 36415; 80053; 82728; 83540; 83550; 85025; 86300

== ENCOUNTER → 2023-10-06 10:09 | Outpatient (REF) | payer MEDICARE, SELFPAY ==
[2023-10-06 11:59] LABS: INR 1.24; PT 15.6 Sec (11.4-14.6)
[2023-10-06 12:00] LABS: APTT 40.6 Sec (23.4-35.0)
[2023-10-06 12:16] LABS: ALT (SGPT) 25 U/L (0-35); AST (SGOT) 34 U/L (14-36); Albumin 3.6 g/dl (3.5-5.0); Alkaline Phosphatase 56 U/L (38-126); Blood Urea Nitrogen 30 mg/dl (7-17); Calcium 8.8 mg/dl (8.4-10.2); Carbon Dioxide 27 mmol/L (22-30); Chloride 105 mmol/L (98-107); Direct Bilirubin 0.2 mg/dl (0.0-0.4); Glucose 87 mg/dl (70-99); Potassium 3.9 mmol/L (3.5-5.1); Sodium 138 mmol/L (135-145); Total Bilirubin 1.4 mg/dl (0.2-1.3); Total Protein 6.1 g/dl (6.3-8.2); eGFR 46.62
[2023-10-06 12:55] LABS: % Basophils 2.7 % (0-2); % Eosinophils 3.8 % (0-6); % Immature Granulocytes 0.5 % (0-0.5); % Lymphocytes 16.3 % (20.5-51.1); % Monocytes 6.5 % (1.7-9.3); % Neutrophils 70.2 % (42.2-75.2); Absolute Basophils 0.1 10^3/uL (0-0.2); Absolute Eosinophils 0.1 10^3/uL (0-0.7); Absolute Lymphocytes 0.3 10^3/uL (1.2-3.4); Absolute Monocytes 0.1 10^3/uL (0.1-0.6); Absolute Neutrophils 1.3 10^3/uL (1.4-6.5); Hematocrit 32.8 % (37.0-47.0); Mean Corp Hgb Conc. 33.5 g/dL (33.0-37.0); Mean Corpuscular Hgb 37.7 pg (27.0-31.0); Mean Corpuscular Volume 112.3 fL (81.0-99.0); Nucleated Red Blood Cells % 0 %; Red Blood Cell Count 2.92 10^6/uL (4.20-5.40); Red Cell Dist. Width 14.9 % (11.5-14.5); White Blood Cell Count 1.8 10^3/uL (4.8-10.8)
[2023-10-06 13:56] LABS: Mean Platelet Volume 11.7 fL (7.4-10.4); Platelet Count 89 10^3/uL (130-400)
[2023-10-06 20:14] LABS: AFP Male/Tumor Marker 1.94 ng/ml
[2023-10-07 16:06] LABS: CA 27-29 143.7 U/mL (<=39.0)
== END ==
LOC: REG 10:09
PROVIDERS: ATTENDING PHYSICIAN Internal Medicine Hematology & Oncology; FAMILY PHYSICIAN Family Medicine; REFERRING PHYSICIAN Internal Medicine Gastroenterology
DX: C50.412 Malignant neoplasm of upper-outer quadrant of left female breast (principal); R22.32 Localized swelling, mass and lump, left upper limb; C79.51 Secondary malignant neoplasm of bone; C78.7 Secondary malignant neoplasm of liver and intrahepatic bile duct; D50.9 Iron deficiency anemia, unspecified; N18.30 Chronic kidney disease, stage 3 unspecified; D63.1 Anemia in chronic kidney disease; D64.81 Anemia due to antineoplastic chemotherapy; K74.60 Unspecified cirrhosis of liver
CPT/HCPCS: 36415; 80053; 82105; 82248; 85025; 85610; 85730; 86300

== ENCOUNTER 2023-10-08 22:53 | Emergency (ER) | payer MEDICARE, SELFPAY ==
[2023-10-08 22:56] VITALS: BP 140/79
--- NOTE | 2023-10-09 00:19 | ED.GENMED ---
History of Present Illness
General
Chief Complaint: Head Injury
Source: patient
Exam Limitations: none
Time Seen by Provider: 10/08/23 23:42
History of Present Illness
History of Present Illness:
This is a 78 year old female that comes in with c/o fall. States that she was in her recliner and the dog was braking. States that she went to get up and she stepped on something. States that she didn't know what it was at first but the dog has
chewed up her mouth retainer. States that she stepped on this and she went flying. States that she thinks she hit her head on the floor. Denies any LOC. States that she also has some left hip discomfort. States that she is to be here today for a
Paracentesis. States that she was a little lightheaded. Denies any fever, chills, chest pain, SOB, abd pain, nausea, vomiting, diarrhea, headache, urinary burning.
Past History
Past History
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 Diverticulitis, Hiatal hernia. Anemia, Back and neck pain, neuropathy, Hemorrhoid)
ED Past Surgical History: Bowel resection, Cardiac (Ablation), Cholecystectomy, Gynecological (D&C), Orthopedic (Right total hip replacement, left total hip replacement, right knee and left knee replacements, hammer toe) and Other (Lumpectom left
breast. Hernia repair, )
Social History
Tobacco: Non-smoker
Alcohol: None
Personal:
Living: with family
Employment: Retired
Family History
Family History: Other (Noncontributory)
Review of Systems
Review of Systems
All Other Systems: ROS reviewed and negative except as documented in HPI and ROS
Constitutional: Reports no symptoms; Denies fever or chills
EENT: Reports no symptoms
Respiratory: Denies no symptoms, cough or trouble breathing
Cardiac: Reports no symptoms; Denies chest pain
ABD/GI: Reports no symptoms; Denies abdominal pain, nausea, vomiting or diarrhea
: Reports no symptoms; Denies dysuria, frequency or urgency
Musculoskeletal: Reports joint pain (Left hip)
Skin: Reports no symptoms
Neurological: Reports other (Lightheaded); Denies dizzy or headache
Psychiatric: Reports no symptoms
Phy Exam
General Physical Exam
General Presentation: well appearing and no apparent distress
General age: appears stated age
General Skin: warm and dry
General Habitus: elderly
General Mental: alert
ENT Exam
ENT Exam: TM's normal, pharynx normal and neck supple
Eye Exam
Eye Exam: EOMI
Cardiovascular Exam
Cardiovascular Exam: regular rate/rhythm, no edema and normal peripheral pulses
Pulmonary Exam
Pulmonary Exam: lungs clear, no respiratory distress, no rales, chest non tender, no crackles, no rhonchi, no wheezing and no cough
Gastrointestinal Exam
Gastrointestinal Exam: normal bowel sounds, non tender, soft, no organomegaly, no pulsatile mass and ascites
Musculoskeletal Exam
Musculoskeletal Exam: full ROM, edema (slight nonpitting edema. ) and other (negative for pain with flexion of the knee's inversion or eversion. Negative for cervical neck tenderness or spinal tenderness. )
Skin Exam
Skin Exam: normal color, warm/dry, no petechia and other (Left posterior shoulder rash that is itchy. (has had since she was on Doxycycline), Abrasion right distal knee)
Psychiatric Exam
Psychiatric Exam: normal mood/affect
Course
Orders/Labs/Results
Orders:
Orders
10/08/23 23:13
CT Head W/o Iv Contrast Urgent
Comment:
Reason For Exam: head injury, on plavix
10/09/23 00:02
CR Hip - LT w/wo Pel 2-3 Vw* Urgent
Reason For Exam: fall, pain
Include a pelvis x-ray?: Yes
Vital Signs
Initial and Last Documented VS:
Initial Vital Signs
Temp Pulse Resp BP Pulse Ox
98.1 F 84 20 140/79 96
10/08/23 22:56 10/08/23 22:56 10/08/23 22:56 10/08/23 22:56 10/08/23 22:56
Last Documented Vital Signs
Temp Pulse Resp BP Pulse Ox
98.1 F 84 20 140/79 96
10/08/23 22:56 10/08/23 22:56 10/08/23 22:56 10/08/23 22:56 10/08/23 22:56
MDM/Problems Addressed
Differential Diagnosis Includes:
Accidental fall, abrasions
MDM/Problems Addressed:
This is a 78 year old female that comes in with c/o fall. Patient is on Eliquis and stepped on her retainer that the dog chewed up and she fell.
Will get CT of head and left hip X-ray.
Back into see patient. Explained that the CT of the head was normal, and that there is no fracture or dislocation or the prosthesis. Patient can use Tylenol as needed for pain. Follow up with the family doctor as needed. Got patient OOB and was able
to ambulate with her can without any difficulty. Return with any concerns.
Chronic conditions affecting care:
NA
Acute Exacerbation and/or Progression of Chronic Illness:
NA
*Radiology
Radiology exam reviewed: preliminary read by ED provider (Left hip- Negative for fracture or dislocation or prosthesis. ) and radiology read reviewed (CT head- Night hawk-comparison: october, No acute intracranial hemorrhage, mass or
mass-effect. Mild white matter small vessel ischemic disease and atrophy. Skull intact. )
*Pulse Oximetry
Patient hypoxic: no
*EKG
Interpreted by ED Provider?: NA
Rate: EKG- N/A
*Agent Contract Clerk Interpretation
Rate: Agent Contract Clerk- N/A
*Critical Care Note
Total Time (30-74mins, 75-104mins- exclusive of procedures): Not Applicable
ED Attending Note
-
Portions of this chart may have been created with voice recognition software.� Occasional wrong word or��sound alike� substitutions may have occurred due to the inherent limitations of voice recognition software.
Discharge Plan
Departure
Patient Disposition: Home (Routine Discharge)
Date of Disposition: 10/09/23
Time of Disposition: 01:10
Patient with high blood pressure during this ER visit?: Yes
Condition: Good
Covid-19: Not Applicable
Discharge Problem:
Accidental fall
Instructions: Preventing falls in adults, BLOOD PRESSURE
Prescriptions:
No Action
omeprazole 20 MG capsule,delayed release(DR/EC)
40 mg PO DAILY
Patient Comments:
PATIENT THIS MORNING TALKED TO PCP AND PCP SAID NOT TO TAKE OMEPRAZOLE ANYMORE
Eliquis 5 MG tablet
5 mg PO BID
Hold Instructions: Resume on 06/15/23.
diltiazem HCl 120 MG capsule,extended release 24hr
120 mg PO DAILY
Xgeva 120 MG/1.7 ML solution
1 dose SQ [id number]
multivitamin with folic acid [Tab-A-Jolanta] 1 TABLET tablet
1 tab PO DAILY
Ibrance 125 MG capsule
100 mg PO UD
Rx Instructions:
PATIENT TAKES FOR 3 WEEKS THEN 1 WEEK OFF Then repeat
furosemide [Lasix] 40 MG tablet
40 mg PO DAILY Qty: 7 0RF
biotin 10,000 mcg Capsule
10,000 mcg PO DAILY
spironolactone 50 mg Tablet
75 mg PO BID
cholecalciferol (vitamin D3) [Vitamin D3] 25 mcg (1,000 unit) Capsule
25 mcg PO DAILY
calcium carbonate [Calcium 600] 600 mg calcium (1,500 mg) Tablet
600 mg PO DAILY
ferrous sulfate 325 mg (65 mg iron) Tablet
325 mg PO DAILY
ondansetron HCl 4 mg Tablet
4 mg PO Q8HPRN PRN (Reason: nausea)
gabapentin 100 mg Capsule
100 mg PO BIDPRN PRN (Reason: nerve pains)
darbepoetin jacek-albumin 40 mcg/mL Solution
0 mcg IV MONTHLY
fulvestrant 250 mg/5 mL Syringe
500 mg IM QMONTH
lactulose 10 gram/15 mL Solution
10 g PO HS
Viviscal Hair Growth Vitamin
2 tab PO DAILY
tramadol 50 mg tablet
50 mg PO Q6HPRN PRN (Reason: severe pains)
carvedilol [Coreg] 6.25 mg Tablet
6.25 mg PO BID
Referrals:
Yadi Lambert DO [Family Provider] - Call in 1-3 days for appt
Activity Restrictions/Additional Instructions:
As discussed, your CT of the head is negative for any acute process. The x-ray of the hip is negative for any fracture and the Prosthesis is in place. Please use Tylenol 1000mg every 6 hours for headache or hip pain. Ice to any area that is sore.
Follow up with the family doctor as needed. IF YOU HAVE ANY OTHER CONCERNS PLEASE RETURN TO THE EMERGENCY ROOM.
Interventions
Interventions:
*Risk Screen - Suicide Last Done: 10/08/23 22:56
ED- Fall Risk Assessment Last Done: 10/08/23 22:56
*ED COVID-19 Vaccine History Last Done: 10/08/23 22:56
ED- Neurological Assessment Last Done: 10/08/23 23:45
ED-Skin Assessment Last Done: 10/08/23 23:45
Discharge Date and Time
Print Language: BRITISH
[2023-10-09 01:19] VITALS: BP 118/63
== END 2023-10-09 01:20 | disposition home or self-care (01) ==
LOC: EMR 22:53
PROVIDERS: EMERGENCY PHYSICIAN Emergency Medicine; FAMILY PHYSICIAN Family Medicine
DX: S09.90XA Unspecified injury of head, initial encounter (principal); S80.211A Abrasion, right knee, initial encounter; M25.552 Pain in left hip; R42 Dizziness and giddiness; W18.09XA Striking against other object with subsequent fall, initial encounter; Y92.009 Unspecified place in unspecified non-institutional (private) residence as the place of occurrence of the external cause; I48.91 Unspecified atrial fibrillation; R60.0 Localized edema; I10 Essential (primary) hypertension; K21.9 Gastro-esophageal reflux disease without esophagitis; E78.00 Pure hypercholesterolemia, unspecified; K57.92 Diverticulitis of intestine, part unspecified, without perforation or abscess without bleeding; D64.9 Anemia, unspecified; G62.9 Polyneuropathy, unspecified; C78.7 Secondary malignant neoplasm of liver and intrahepatic bile duct; C79.51 Secondary malignant neoplasm of bone; Z85.3 Personal history of malignant neoplasm of breast; Z98.0 Intestinal bypass and anastomosis status; Z90.49 Acquired absence of other specified parts of digestive tract; Z96.653 Presence of artificial knee joint, bilateral; Z96.643 Presence of artificial hip joint, bilateral; Z79.02 Long term (current) use of antithrombotics/antiplatelets
CPT/HCPCS: 99284; 70450; 73502

== ENCOUNTER → 2023-10-10 08:28 | Outpatient (REF) | payer MEDICARE, SELFPAY ==
[2023-10-10 08:35] VITALS: BP 128/64; BP_SYST 82
[2023-10-10 10:10] VITALS: BP 109/57
[2023-10-10 12:01] LABS: Body Fluid Mononuclear 92.1 %; Body Fluid Polymorphonuclear 7.9 %; Body Fluid WBC 38 /CUMM
[2023-10-10 12:03] LABS: Body Fluid Second Tech EM
== END ==
LOC: RADI 08:28
PROVIDERS: ATTENDING PHYSICIAN Nurse Practitioner Family
DX: R18.8 Other ascites (principal)
CPT/HCPCS: 49083; 87015; 87070; 87205; 89051

== ENCOUNTER → 2023-10-20 10:38 | Outpatient (REF) | payer MEDICARE, SELFPAY ==
[2023-10-20 12:11] LABS: Hematocrit 30.3 % (37.0-47.0); Hemoglobin 10.5 g/dL (12.0-16.0); Mean Corp Hgb Conc. 34.7 g/dL (33.0-37.0); Mean Corpuscular Hgb 38.6 pg (27.0-31.0); Mean Corpuscular Volume 111.4 fL (81.0-99.0); Mean Platelet Volume 12.8 fL (7.4-10.4); Platelet Count 63 10^3/uL (130-400); Red Blood Cell Count 2.72 10^6/uL (4.20-5.40); Red Cell Dist. Width 14.3 % (11.5-14.5); White Blood Cell Count 1.7 10^3/uL (4.8-10.8)
[2023-10-20 12:24] LABS: % Basophils 1.8 % (0-2); % Eosinophils 3.5 % (0-6); % Lymphocytes 23.5 % (20.5-51.1); % Monocytes 14.1 % (1.7-9.3); % Neutrophils 57.1 % (42.2-75.2); Absolute Eosinophils 0.1 10^3/uL (0-0.7); Absolute Lymphocytes 0.4 10^3/uL (1.2-3.4); Absolute Monocytes 0.2 10^3/uL (0.1-0.6); Nucleated Red Blood Cells % 0 %
== END ==
LOC: REG 10:38
PROVIDERS: ATTENDING PHYSICIAN Internal Medicine Hematology & Oncology; FAMILY PHYSICIAN Family Medicine
DX: C50.412 Malignant neoplasm of upper-outer quadrant of left female breast (principal); R22.32 Localized swelling, mass and lump, left upper limb; C79.51 Secondary malignant neoplasm of bone; C78.7 Secondary malignant neoplasm of liver and intrahepatic bile duct; D50.9 Iron deficiency anemia, unspecified; N18.30 Chronic kidney disease, stage 3 unspecified; D63.1 Anemia in chronic kidney disease; D64.81 Anemia due to antineoplastic chemotherapy
CPT/HCPCS: 36415; 85025

== ENCOUNTER → 2023-10-28 07:22 | Outpatient (REF) | payer MEDICARE, SELFPAY ==
[2023-10-28 07:35] VITALS: BP 97/60; BP_SYST 69
[2023-10-28 08:36] VITALS: BP 112/69
[2023-10-28 09:09] LABS: Body Fluid Mononuclear 95.2 %; Body Fluid Polymorphonuclear 4.8 %; Body Fluid WBC 42 /CUMM
[2023-10-28 09:31] LABS: Body Fluid Second Tech EF
== END ==
LOC: RADI 07:22
PROVIDERS: ATTENDING PHYSICIAN Nurse Practitioner Family; FAMILY PHYSICIAN Family Medicine; REFERRING PHYSICIAN Internal Medicine Hematology & Oncology
DX: R18.8 Other ascites (principal)
CPT/HCPCS: 49083; 87015; 87070; 87205; 89051

== ENCOUNTER → 2023-11-04 14:52 | Outpatient (REF) | payer MEDICARE, SELFPAY ==
[2023-11-04 16:40] LABS: ALT (SGPT) 28 U/L (0-35); AST (SGOT) 39 U/L (14-36); Albumin 3.5 g/dl (3.5-5.0); Alkaline Phosphatase 57 U/L (38-126); Blood Urea Nitrogen 28 mg/dl (7-17); Calcium 8.4 mg/dl (8.4-10.2); Carbon Dioxide 30 mmol/L (22-30); Chloride 103 mmol/L (98-107); Glucose 85 mg/dl (70-99); Potassium 4.1 mmol/L (3.5-5.1); Sodium 137 mmol/L (135-145); Total Bilirubin 0.6 mg/dl (0.2-1.3); Uric Acid 6.8 mg/dl (2.5-6.2); eGFR 38.75
[2023-11-04 16:54] LABS: Anisocytosis Slight; Band Neutrophils 0 % (0-3); Eosinophils 4 % (0-6); Lymphocytes 16 % (20-51); Monocytes 8 % (2-9); Normal RBC Morphology No; Platelets Checked Yes; Segmented Neutrophils 72 % (42-75)
[2023-11-04 16:55] LABS: Ovalocytes Slight; Polychromasia Slight
[2023-11-04 16:56] LABS: Total Cells Counted 100
[2023-11-04 17:03] LABS: Hematocrit 28.6 % (37.0-47.0); Hemoglobin 10.3 g/dL (12.0-16.0); Mean Corpuscular Hgb 39.8 pg (27.0-31.0); Mean Corpuscular Volume 110.4 fL (81.0-99.0); Mean Platelet Volume 12.2 fL (7.4-10.4); Platelet Count 86 10^3/uL (130-400); Red Blood Cell Count 2.59 10^6/uL (4.20-5.40); Red Cell Dist. Width 13.9 % (11.5-14.5); White Blood Cell Count 1.3 10^3/uL (4.8-10.8)
[2023-11-04 17:26] LABS: % Basophils 1.6 % (0-2); % Eosinophils 3.2 % (0-6); % Immature Granulocytes 0.8 % (0-0.5); % Lymphocytes 20.8 % (20.5-51.1); % Monocytes 10.4 % (1.7-9.3); % Neutrophils 63.2 % (42.2-75.2); Absolute Lymphocytes 0.3 10^3/uL (1.2-3.4); Absolute Monocytes 0.1 10^3/uL (0.1-0.6); Absolute Neutrophils 0.8 10^3/uL (1.4-6.5); Nucleated Red Blood Cells % 0 %
== END ==
LOC: REG 14:52
PROVIDERS: ATTENDING PHYSICIAN Internal Medicine Hematology & Oncology
DX: M79.673 Pain in unspecified foot (principal); C50.412 Malignant neoplasm of upper-outer quadrant of left female breast; R22.32 Localized swelling, mass and lump, left upper limb; C79.51 Secondary malignant neoplasm of bone; C78.7 Secondary malignant neoplasm of liver and intrahepatic bile duct; D50.9 Iron deficiency anemia, unspecified; N18.30 Chronic kidney disease, stage 3 unspecified; D63.1 Anemia in chronic kidney disease; D64.81 Anemia due to antineoplastic chemotherapy
CPT/HCPCS: 36415; 80053; 84550; 85025

== ENCOUNTER 2023-11-10 20:49 | Inpatient (IN) | payer MEDICARE, SELFPAY ==
[2023-11-10 12:10] VITALS: BP 130/80
[2023-11-10 12:55] LABS: INR 1.37; PT 16.7 Sec (11.4-14.6)
[2023-11-10 13:10] LABS: ALT (SGPT) 21 U/L (0-35); AST (SGOT) 35 U/L (14-36); Albumin 3.5 g/dl (3.5-5.0); Alkaline Phosphatase 57 U/L (38-126); Blood Urea Nitrogen 26 mg/dl (7-17); Calcium 8.8 mg/dl (8.4-10.2); Carbon Dioxide 31 mmol/L (22-30); Chloride 103 mmol/L (98-107); Glucose 113 mg/dl (70-99); Lipase 165 U/L (23-300); Potassium 3.8 mmol/L (3.5-5.1); Sodium 135 mmol/L (135-145); Total Bilirubin 1.3 mg/dl (0.2-1.3); eGFR 46.62
[2023-11-10 14:26] VITALS: BP 112/75
[2023-11-10 14:45] LABS: % Basophils 1.3 % (0-2); % Eosinophils 2.5 % (0-6); % Lymphocytes 20.9 % (20.5-51.1); % Monocytes 6.3 % (1.7-9.3); Absolute Lymphocytes 0.3 10^3/uL (1.2-3.4); Absolute Monocytes 0.1 10^3/uL (0.1-0.6); Absolute Neutrophils 1.1 10^3/uL (1.4-6.5); Hematocrit 27.6 % (37.0-47.0); Mean Corp Hgb Conc. 36.2 g/dL (33.0-37.0); Mean Corpuscular Hgb 39.5 pg (27.0-31.0); Mean Corpuscular Volume 109.1 fL (81.0-99.0); Mean Platelet Volume 12.9 fL (7.4-10.4); Nucleated Red Blood Cells % 0 %; Platelet Count 49 10^3/uL (130-400); Red Blood Cell Count 2.53 10^6/uL (4.20-5.40); Red Cell Dist. Width 13.5 % (11.5-14.5); White Blood Cell Count 1.6 10^3/uL (4.8-10.8)
[2023-11-10] MEDS: ZOFRAN 4 MG IV (15:08)
[2023-11-10] MEDS: OMNIPAQUE 50 ML PO (15:08)
[2023-11-10] MEDS: NSS 500 IV ×2 (15:08→18:31)
--- NOTE | 2023-11-10 15:11 | ED.GENMED ---
History of Present Illness
General
Chief Complaint: Abdominal Pain
Source: patient
Exam Limitations: none
Time Seen by Provider: 11/10/23 14:23
Nursing documentation reviewed up to this point in time: agreed with
History of Present Illness
History of Present Illness:
78 y/o F with h/o metastatic breast CA to ilver and bone on therapy
ascites requiring monthly paracentesis
previous incarcerated hernia and sbo requiring resection and repair
here with abdominal distension and pain x 10 days
she has chronic ocnsitpation, uses lactulsoe and hasn't had great bms really in about 5 days
she has nausea and no appetite
she ate a little last night
pain in her abdomen is a dull ache
she has not had fever, vomiting, cp, sob, cough, cold symptoms, urinary symptoms
Past History
Past History
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 Diverticulitis, Hiatal hernia. Anemia, Back and neck pain, neuropathy, Hemorrhoid)
ED Past Surgical History: Bowel resection, Cardiac (Ablation), Cholecystectomy, Gynecological (D&C), Orthopedic (Right total hip replacement, left total hip replacement, right knee and left knee replacements, hammer toe) and Other (Lumpectom left
breast. Hernia repair, )
Social History
Tobacco: Non-smoker
Alcohol: None
Personal:
Living: with family
Employment: Retired
Family History
Family History: Other (Noncontributory)
Review of Systems
Review of Systems
Allergies reviewed?: Yes
All Other Systems: Not applicable
Phy Exam
Physical Exam
Physical Exam:
GENERAL: Alert , in no apparent distress
EYE: pupils equal and reactive
NECK: Supple
ENT: o/p clr, mmm.
CARDIAC: Regular rate and rhythm .
LUNGS: Clear breath sounds bilaterally, no acute respiratory distress, no wheezes/rales/rhonchi
ABDOMEN: not very firm but moderateyl to severely distended, mildly tender, no erythemano r/g, no cvat, normal bowel sounds
NEUROLOGICAL: Alert and oriented, no focal neuro deficits
SKIN: Warm and dry, skin intact, pale.
MUSCULOSKELETAL: No edema, well perfused. neg collette's sign
PSYCH: Normal and appropriate interaction.
Course
Orders/Labs/Results
Orders:
Orders
11/10/23 12:12
IV Insert/Care/Rem.- Treatment PRN
11/10/23 12:16
Complete Blood Count/With Diff Urgent
Comprehensive Metabolic Panel Urgent
Lipase Urgent
Prothrombin Time Urgent
11/10/23 14:52
CT Abd/pel W Iv And Oral Contr Urgent
Comment:
Reason For Exam: abd distention, constiption, h/o sbo
0.9% Sodium Chloride 500 ml [Nss] 500 ml IV BOLUS
Iohexol [Omnipaque] See Protocol PO NOW STA
Ondansetron Injectable [Zofran] 4 mg IV NOW STA
11/10/23 17:26
Stool Culture Urgent
JONO Source: Feces/Stool
Specimen Description:
0.9% Sodium Chloride 500 ml [Nss] 500 ml IV BOLUS
Pantoprazole [Protonix IV] 40 mg IV NOW STA
11/10/23 18:18
Pantoprazole 80 mg/100 ml Nss [Protonix] 80 mg in 100 ml IV NOW
11/10/23 18:59
Consult Interventional Radiology [IRAD CONSULT] Routine
Consulting Provider: Alok Jackson
Was physician already notified: Yes
Reason for Consult/Procedure: para
Acknowledgement that appropriate orders are entered: Yes
11/10/23 19:02
Blood Bank Products [* Blood Bank Products] Urgent
Blood Bank Products: *Plt Single Donor Leuko
Quantity: 1
Transfuse Today: Yes
Reason: Thrombocytopenia
11/10/23 19:16
Type+Screen Urgent
Abnormal Lab Results
11/10/23
12:16
WBC 1.6 L* 10^3/uL
(4.8-10.8)
RBC 2.53 L 10^6/uL
(4.20-5.40)
Hgb 10.0 L g/dL
(12.0-16.0)
Hct 27.6 L %
(37.0-47.0)
MCV 109.1 H fL
(81.0-99.0)
MCH 39.5 H pg
(27.0-31.0)
Plt Count 49 L D 10^3/uL
(130-400)
MPV 12.9 H fL
(7.4-10.4)
Absolute Neuts (auto) 1.1 L 10^3/uL
(1.4-6.5)
Absolute Lymphs (auto) 0.3 L 10^3/uL
(1.2-3.4)
PT 16.7 H Sec
(11.4-14.6)
Carbon Dioxide 31 H mmol/L
(22-30)
BUN 26 H mg/dl
(7-17)
Creatinine 1.2 H mg/dL
(0.6-1.0)
Glucose 113 H mg/dl
(70-99)
Total Protein 6.0 L g/dl
(6.3-8.2)
11/10/23 12:16
11/10/23 12:16
Vital Signs
Initial and Last Documented VS:
Initial Vital Signs
Temp Pulse Resp BP Pulse Ox
98 F 90 18 130/80 100
11/10/23 12:10 11/10/23 12:10 11/10/23 12:10 11/10/23 12:10 11/10/23 12:10
Last Documented Vital Signs
Temp Pulse Resp BP Pulse Ox
98 F 81 18 119/96 97
11/10/23 12:10 11/10/23 18:04 11/10/23 18:04 11/10/23 18:04 11/10/23 18:04
MDM/Problems Addressed
Differential Diagnosis Includes:
ascites, SBP, constipation, bowel obstruction
MDM/Problems Addressed:
78 y/o F with 10 days of generalized abd discomfot, some distension and nauesa/lack of appetite
she also has had some constipation
no fever/chills, skin changes, confusion, urinary symptoms
she receives para centesis q3-4 weeks, has never had SBP
she feels uncomfortable, nauseated, and bloated
not moving bowels well
today just decided she shuld get checked out
no fever/chills
on exam pt has distended abdomen with generalized tendenress
not firm
hyperactive bowel sounds
while in the ER waiting for CT scan pt had black stool which is differnet than what she has had at home
she has no h/o PUD or GI bleeding
but today her plt are lower than usual at 49k and pt's wbc is lower
her hg is stable [address] on protonix drip
transfuse platelets
and admit pending CT
i did speak with the IR contract project manager regarding para, she can have the para tomorrow, low suspicioun these symptoms are SBP
signed out hospitalist.
d/wed attending
*Critical Care Note
Total Time (30-74mins, 75-104mins- exclusive of procedures): Not Applicable
ED Attending Note
-
Portions of this chart may have been created with voice recognition software.� Occasional wrong word or��sound alike� substitutions may have occurred due to the inherent limitations of voice recognition software.
Discharge Plan
Departure
Patient Disposition: Admit
Date of Disposition: 11/10/23
Time of Disposition: 18:52
Admit to: Med/Surg
Presentation/result/management discussed w/ accepting MD/DO: Hospitalist
Condition: Fair
Covid-19: Not Applicable
Discharge Problem:
Thrombocytopenia, GI bleed, Ascites, Abdominal pain
Prescriptions:
No Action
Eliquis 5 MG tablet
5 mg PO BID
Xgeva 120 MG/1.7 ML solution
120 mg SQ [id number]
multivitamin with folic acid [Tab-A-Jolanta] 1 TABLET tablet
1 tab PO DAILY
Ibrance 125 MG capsule
100 mg PO UD
Rx Instructions:
PATIENT TAKES FOR 3 WEEKS THEN 1 WEEK OFF Then repeat
biotin 10,000 mcg Capsule
10,000 mcg PO DAILY
spironolactone 50 mg Tablet
75 mg PO BID
cholecalciferol (vitamin D3) [Vitamin D3] 25 mcg (1,000 unit) Capsule
25 mcg PO DAILY
calcium carbonate [Calcium 600] 600 mg calcium (1,500 mg) Tablet
600 mg PO DAILY
ferrous sulfate 325 mg (65 mg iron) Tablet
325 mg PO DAILY
ondansetron HCl 4 mg Tablet
4 mg PO Q8HPRN PRN (Reason: nausea)
gabapentin 100 mg Capsule
100 mg PO BIDPRN PRN (Reason: nerve pains)
fulvestrant 250 mg/5 mL Syringe
500 mg IM QMONTH
lactulose 10 gram/15 mL Solution
10 g PO HS
tramadol 50 mg tablet
50 mg PO Q6HPRN PRN (Reason: severe pains)
omeprazole 40 mg capsule,delayed release(DR/EC)
40 mg PO DAILY
propranolol 20 mg tablet
20 mg PO TID
fluticasone propionate [Flonase] 50 mcg/actuation O'Brien,Suspension
1 spray INTRANASAL DAILYPRN PRN (Reason: congestion/allergies)
betamethasone dipropionate 0.05 % lotion
1 applic TOPICAL BID
Patient Comments:
apply to neck
Saccharomyces boulardii [Florastor] 250 mg Capsule
250 mg PO DAILYPRN PRN (Reason: probiotic)
furosemide [Lasix] 40 MG tablet
40 mg PO BID
Referrals:
Yadi Lambert DO [Family Provider] -
Interventions
Interventions:
*Risk Screen - Suicide Last Done: 11/10/23 12:10
*General Assessment Last Done: 11/10/23 12:10
*Neglect/Abuse Screening Last Done: 11/10/23 12:10
SS-Eqghfq-Ivizzsviwz Assessment Last Done: 11/10/23 14:28
Discharge Date and Time
Print Language: LUXEMBOURGER
[2023-11-10 18:04] VITALS: BP 119/96
[2023-11-10] MEDS: PROTONIX IV 40 MG IV (18:31)
[2023-11-10] MEDS: PROTONIX 100 IV (18:31)
[2023-11-10 19:45] VITALS: BP 133/63
--- NOTE | 2023-11-10 20:04 | HPS.HSE ---
Family Physician
-
Family Physician: Yadi Lambert DO
Chief Complaint
-
Abd Pain / malaise / nausea
History of Present Illness
Patient is a 78y F with PMH significant for Stage IV Breast Cancer with malignant ascites who presents to ED complaining of abdominal discomfort, nausea and fatigue. Patient notes that she went to a wedding about 10 days ago and the following
day she (and her ) had abdominal discomfort, nausea and heartburn. They did not eat the same main course; however, they did have some of the same appetizers. improved over the next few days; however, the patient continued to feel
poorly. She states that she did not have any emesis and she had no diarrhea.
She complained of diffuse abdominal discomfort that has gradually progressed. She has had nausea and poor appetite.
Patient felt poorly on Friday of this week and called her Oncologist. She skipped her scheduled dose of fulvestrant and was advised to also hold her Ibrance starting Friday.
Patient continued to feel poorly and today noted that her abdomen felt 'hard'.
She has been taking lactulose for constipation and reports very small volume, dark colored stools.
Here in the ED - patient had a loose, black, malodorous stool.
Patient has paracentesis every 2-3 weeks. Her last paracentesis was on 10/27.
Medical History
Past Medical History
Past Medical History: Reports Other
Additional Past Medical History:
Chronic anemia
Chronic thrombocytopenia
Stage III chronic kidney disease
Paroxysmal atrial fibrillation on Eliquis status post PVI 10/17/2018
Stage 4 breast cancer with metastases to the liver and bone
Cirrhosis with ascites requiring paracentesis
Irritable bowel syndrome
Gastroesophageal reflux disease
Diastolic CHF
Sick sinus syndrome
Hyperlipidemia
Cellulitis
GI bleed
Umbilical hernia status post repair
Past Surgical History: Reports Other
Additional Past Surgical History:
Left mastectomy
Cholecystectomy
Right total hip replacement
Left total hip replacement
Right knee replacement
Cardiac ablation
Umbilical hernia repair
Small bowel resection
Social History
Tobacco: Non-smoker
Alcohol: None
Personal:
Living: With Family
Family History
Family History: Not pertinent
Allergies / Home Medications
Allergies reflects when Allergies were last updated in [facility].
Home Medications with original date entered in [facility]
Allergy/Medication List:
Allergies
Allergy/AdvReac Type Severity Reaction Status Date / Time
clindamycin Allergy Intermediate Hives Verified 10/08/23 22:55
clavulanic acid Allergy Hives Verified 10/08/23 22:55
hydromorphone [From Dilaudid] Allergy HALLUCINATI Verified 10/08/23 22:55
ONS
NSAIDS (Non-Steroidal Allergy GIB Verified 10/08/23 22:55
Anti-Inflamma
Penicillins Allergy patient Verified 10/08/23 22:55
tolerates
amoxicillin
and course
ceftriaxone
11/2022
Sulfa (Sulfonamide Allergy Unknown Verified 10/08/23 22:55
Antibiotics)
sulfamethoxazole Allergy Unknown Verified 10/08/23 22:55
[From Bactrim]
trimethoprim [From Bactrim] Allergy Unknown Verified 10/08/23 22:55
Home Medications
apixaban 5 mg tablet (Eliquis) 5 mg PO BID Blood clot prevention/tx 10/20/18
denosumab 120 mg/1.7 mL (70 mg/mL) subcutaneous solution (Xgeva) 120 mg SQ [id number] Cancer 02/06/21
multivitamin with folic acid 400 mcg tablet (Tab-A-Jolanat) 1 tab PO DAILY Supplement 02/06/21
palbociclib 125 mg capsule (Ibrance) 100 mg PO UD Cancer 02/06/21
biotin 10,000 mcg capsule 10,000 mcg PO DAILY Supplement 09/28/22
calcium carbonate (Calcium 600) 600 mg PO DAILY Supplement 09/28/22
cholecalciferol (vitamin D3) 25 mcg (1,000 unit) capsule (Vitamin D3) 25 mcg PO DAILY Supplement 09/28/22
ferrous sulfate 325 mg (65 mg iron) tablet 325 mg PO DAILY Supplement 09/28/22
spironolactone 50 mg tablet 75 mg PO BID Blood Pressure 09/28/22
ondansetron HCl 4 mg tablet 4 mg PO Q8HPRN PRN nausea 03/13/23
fulvestrant 250 mg/5 mL intramuscular syringe 500 mg IM QMONTH Cancer 06/09/23
gabapentin 100 mg capsule 100 mg PO BIDPRN PRN nerve pains 06/09/23
lactulose 10 gram/15 mL oral solution 10 g PO HS Constipation 06/09/23
tramadol 50 mg tablet 50 mg PO Q6HPRN PRN severe pains 06/09/23
Saccharomyces boulardii 250 mg capsule (Florastor) 250 mg PO DAILYPRN PRN probiotic 11/10/23
betamethasone dipropionate 0.05 % lotion 1 applic topical BID 11/10/23
fluticasone propionate 50 mcg/actuation nasal spray,suspension 1 spray intranasal DAILYPRN PRN congestion/allergies 11/10/23
furosemide 40 mg tablet (Lasix) 40 mg PO BID 11/10/23
omeprazole 40 mg capsule,delayed release 40 mg PO DAILY 11/10/23
propranolol 20 mg tablet 20 mg PO TID 11/10/23
Review of Systems
-
History Source: Patient
A 12 point ROS was completed and negative except as noted: Yes
Constitutional: Reports Fatigue; Denies Fever or Chills
EENT: Denies Sore Throat
Respiratory: Denies Cough or Trouble Breathing
Cardiac: Denies Chest Pain or Palpitations
Abdomen/GI: Reports Abdominal Pain, Nausea, Constipated, Black Stools and Anorexia; Denies Vomiting
: Denies Dysuria, Frequency or Flank Pain
Musculoskeletal: Denies Joint Pain or Edema
Neurological: Denies Dizzy or Headache
Psych: Denies Depression or Anxiety
Physical Exam
Vital Signs
Vital Signs
Temp Pulse Resp BP Pulse Ox
98 F 91 18 133/63 99
11/10/23 12:10 11/10/23 19:45 11/10/23 19:45 11/10/23 19:45 11/10/23 19:45
Physical Exam
General: Other (78y F in no acute distress.)
HEENT: Moist mucous membranes and PERRLA
Respiratory: Clear; No Wheezes, Rales or Rhonchi
Cardiac: S1/S2, Regular Rhythm and Murmur (II/ JOANN)
GI: Other (Abdomen distended and mildly tender in the mid-abdomen. Pos BS.)
Musculoskeletal: No Clubbing, No Cyanosis, No Edema and Other (Trace edema at ankles.)
Neuro: AO x 3
Laboratory Results
-
11/10/23 12:16
11/10/23 12:16
Laboratory Results
PT 16.7 Sec (11.4-14.6) H 11/10/23 12:16
INR 1.37 11/10/23 12:16
Total Bilirubin 1.3 mg/dl (0.2-1.3) 11/10/23 12:16
AST 35 U/L (14-36) 11/10/23 12:16
ALT 21 U/L (0-35) 11/10/23 12:16
Alkaline Phosphatase 57 U/L (38-126) 11/10/23 12:16
Lipase 165 U/L (23-300) 11/10/23 12:16
Impression/Plan
-
A/P: Patient is a 78y F with PMH significant for metastatic breast cancer and malignant ascites presents to ED complaining of nausea and abdominal pain / distention.
Malignant Ascites
- Admit for further evaluation and treatment.
- IR eval in the AM for paracentesis.
- Follow for clinical improvement.
- Continue Lasix / Aldactone.
- Follow daily weights, I/Os, etc.
Melena / GI Bleed
- Black, malodorous stool in the ED.
- Hold Eliquis.
- Platelet transfusion ordered in the ED given bleeding.
- Heme test stool.
- Follow H&H.
- Transfuse if needed.
- GI evaluation - had endoscopic examinations in May showing esophageal varices.
- PPI infusion for now.
Stage IV Breast Cancer
- Metastatic disease to bone / liver. Malignant ascites as noted above.
- Holding chemo acutely (fulvestrant dose skipped last week, holding Ibrance since Friday).
- Follow-up with Oncology as an outpatient.
Pancytopenia
Mild Neutropenia
- Hemoglobin appears stable - at / near known baseline.
- Follow for changes and transfuse if needed.
- Platelet transfusion given evidence of GI bleeding.
- Neutropenic precautions given mild neutropenia.
- Follow for any changes in cell counts.
Paroxysmal Atrial Fibrillation
- Stable. Holding Eliquis as noted above.
- Continue propranolol with holding parameters.
CKD III
- Stable. Renal function is at / near known baseline.
- Follow for any changes with paracentesis / diuretic regimen.
DVT Prophylaxis: SCDs
Code Status: Full
[2023-11-10 21:49] VITALS: BP 128/61; BMI 29.6
[2023-11-10 23:14] VITALS: BP 101/52
[2023-11-10] MEDS: ALDACTONE 75 MG PO (23:15)
[2023-11-10] MEDS: LASIX 40 MG PO (23:15)
[2023-11-10] MEDS: INDERAL PO (23:16)
[2023-11-11] VITALS (12 sets, daily range): BP systolic 72–148; BP diastolic 39–73; PULSE 68–75
[2023-11-11 07:14] LABS: Blood Urea Nitrogen 22 mg/dl (7-17); Calcium 8.1 mg/dl (8.4-10.2); Carbon Dioxide 27 mmol/L (22-30); Chloride 104 mmol/L (98-107); Estimated Creatinine Clearance 45 ml/min; Glucose 75 mg/dl (70-99); Potassium 3.5 mmol/L (3.5-5.1); Sodium 136 mmol/L (135-145); eGFR 51.75
[2023-11-11] MEDS: LASIX 40 MG PO (07:19)
[2023-11-11] MEDS: ALDACTONE 75 MG PO ×2 (07:19→20:01)
[2023-11-11] MEDS: INDERAL 20 MG PO (07:19)
--- NOTE | 2023-11-11 08:03 | CON.GI ---
Addendum entered and electronically signed by Maegan Valenzuela MD 11/11/23 16:21:
I saw and examined the patient.
The ESTATE AGENT's note was reviewed and I agree with the note.
Comment: This is a 78-year-old female who has metastatic breast CA with mets to bone on palliative treatment with Ibrance, Xgeva and fulvestrant, MASH cirrhosis with ascites who was admitted in May for GI bleed and at that time had an endoscopy
and colonoscopy and she was found to have nonbleeding grade 2 esophageal varices in the lower third of the esophagus, large hiatal hernia, gastritis, normal duodenum. colonoscopy also done in May diverticulosis hemorrhoids noted. She had been at
a wedding recently about 10 days ago and since then she has been feeling tired and was having dyspepsia symptoms she had been taking Mylanta and Pepto-Bismol prior to admission. She denies any history of hematemesis. She was having worsening
abdominal distention and presented to the emergency room and had a CAT scan which showed large hiatal hernia, status post cholecystectomy, no ductal dilatation, cirrhotic liver, splenomegaly, large amount of ascites, known metastatic bone lesions,
no free air or bowel obstruction noted she did have a paracentesis done and 5.3 L was removed. She also noted to have dark stool after taking the Pepto-Bismol. She was noted to have pancytopenia since admission her hemoglobin decreased from 10-8.3
after hydration.
Assessment and plan1. recurrent ascites secondary to MASH cirrhosis status post paracenteses and had 5.3 L removed and albumin was given post paracenteses. She was having symptoms of fatigue and dyspepsia recently could be related to probable viral
illness/chemo she is feeling much improved since the paracentesis. She is afebrile since admission. fluid neg for SBP. Would discontinue beta-blockers given refractory recurrent ascites.
2. She did have an episode of dark stool could be most likely related to the Pepto-Bismol her hemoglobin did drop but could be related to hydration and she also has pancytopenia likely from chemo. She is currently on neutropenic precautions. Her
low platelets could also be related to underlying cirrhosis. Doubt that the dark stool was melena but cannot rule out if she does have further dark stool will need to check for occult blood etiology could be esophagitis or Jame's erosion she
does have a large hiatal hernia less likely variceal bleed. Will continue to trend hemoglobin if remains stable will hold off on endoscopy given her leukopenia and thrombocytopenia. She did receive platelets yesterday, continue octreotide started
today and Protonix drip also started on antibiotics for SBP prophylaxis with cirrhosis and possible GI bleed. Eliquis has been held since admission.
Original Note:
Consultation
-
Date/Time Consultation Requested: 11/10/232129
Date/Time Consultation Performed: 11/11/23 2045
Requesting Provider: Dr. Hickman
Performing Provider: Dr. Valenzuela/JESSE Head
Reason for Consultation: abd distention
Medical History
Chief Complaint / HPI
Chief Complaint: abd distention
History of Present Illness:
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
thrombocytopenia admission in May 2022 for suspected diverticular bleed at that time she had an EGD and colonoscopy where she had grade 2 varices in the third of the esophagus and lower third of the esophagus, very large hiatal hernia with mild
erythematous mucosa without bleeding found in the gastric body. She had colonoscopy performed at that time with no blood or signs of recent bleeding. She had a probable diverticular bleed at that time. Patient does have routine paracentesis. She
was at a wedding approximately 10 days ago and at that time after the wedding she felt somewhat unwell. She had some GI upset and she started alternating between Mylanta and Pepto-Bismol. Her also had similar complaints but improved quite
quickly. She had no vomiting but did have nausea. She started having increasing of her abdominal distention as well as constipation. She had no bowel movements with lactulose. She was supposed to have her dose of fulvestrant but was advised by
her oncologist to come to the ER instead because she was feeling poorly. She did note that she was having dark to green-colored stools. She is also on oral iron but has been on iron since 2020. She did notice a change in her stool since taking
Pepto. She denies any fevers, chills, vomiting, hematochezia, dysphagia or odynophagia. The patient states her last paracentesis was on October 27. The patient is currently tolerating clear liquid diet. Her last dose of Eliquis was Friday evening.
Currently patient's WBC count is 1.9, hemoglobin is 8.3 down from 10.0 yesterday afternoon. Hemoglobin was 10.3 on 11/04/2023. Platelets are 50. Patient has not had a bowel movement since arrival to the ER. Patient's vital signs are stable.
Past Medical History
Past Medical History: Arrhythmias (afib), Cancer (metastatic breast CA with mets to bone, liver, intrahepatic ducts ), GERD, Hypercholesterolemia and Other (cellulitis , prior GI bleed, anemia, heart murmur, CKD)
Past Surgical History: Bowel Resection (exp lap with SB resection , umbilical hernia repair 2022 ), Cardiac (ablation ), Cholecystectomy and Orthopedic (right hip replacement x 2 2015, left hip replacement, knee surgery )
Social History
Tobacco: Non-Smoker
Alcohol: None
Drug: None
Personal:
Living: With Family
Employment: Retired
Family History
Family History: Other (Family history gastrointestinal malignancy or IBD)
Allergies / Home Medications
Allergy/AdvReac Type Severity Reaction Status Date / Time
clavulanic acid Allergy Hives Verified 10/08/23 22:55
clindamycin Allergy Hives Verified 11/10/23 21:35
hydromorphone [From Dilaudid] Allergy HALLUCINATI Verified 10/08/23 22:55
ONS
NSAIDS (Non-Steroidal Allergy GIB Verified 10/08/23 22:55
Anti-Inflamma
Penicillins Allergy patient Verified 10/08/23 22:55
tolerates
amoxicillin
and course
ceftriaxone
11/2022
Sulfa (Sulfonamide Allergy Unknown Verified 10/08/23 22:55
Antibiotics)
sulfamethoxazole Allergy Unknown Verified 10/08/23 22:55
[From Bactrim]
trimethoprim [From Bactrim] Allergy Unknown Verified 10/08/23 22:55
�Medication �Instructions �Recorded
apixaban 5 mg tablet (Eliquis) 5 mg PO BID Blood clot 10/20/18
prevention/tx
denosumab 120 mg/1.7 mL (70 mg/mL) 120 mg SQ [id number] Cancer 02/06/21
subcutaneous solution (Xgeva)
multivitamin with folic acid 400 1 tab PO DAILY Supplement 02/06/21
mcg tablet (Tab-A-Jolanta)
palbociclib 125 mg capsule 100 mg PO UD Cancer 02/06/21
(Ibrance)
biotin 10,000 mcg capsule 10,000 mcg PO DAILY Supplement 09/28/22
calcium carbonate (Calcium 600) 600 mg PO DAILY Supplement 09/28/22
cholecalciferol (vitamin D3) 25 25 mcg PO DAILY Supplement 09/28/22
mcg (1,000 unit) capsule (Vitamin
D3)
ferrous sulfate 325 mg (65 mg 325 mg PO DAILY Supplement 09/28/22
iron) tablet
spironolactone 50 mg tablet 75 mg PO BID Blood Pressure 09/28/22
ondansetron HCl 4 mg tablet 4 mg PO Q8HPRN PRN nausea 03/13/23
fulvestrant 250 mg/5 mL 500 mg IM QMONTH Cancer 06/09/23
intramuscular syringe
gabapentin 100 mg capsule 100 mg PO BIDPRN PRN nerve pains 06/09/23
lactulose 10 gram/15 mL oral 10 g PO HS Constipation 06/09/23
solution
tramadol 50 mg tablet 50 mg PO Q6HPRN PRN severe pains 06/09/23
Saccharomyces boulardii 250 mg 250 mg PO DAILYPRN PRN probiotic 11/10/23
capsule (Florastor)
betamethasone dipropionate 0.05 % 1 applic topical BID 11/10/23
lotion
fluticasone propionate 50 1 spray intranasal DAILYPRN PRN 11/10/23
mcg/actuation nasal congestion/allergies
spray,suspension
furosemide 40 mg tablet (Lasix) 40 mg PO BID 11/10/23
omeprazole 40 mg capsule,delayed 40 mg PO DAILY 11/10/23
release
propranolol 20 mg tablet 20 mg PO TID 11/10/23
Review of Systems
-
All other systems: A 12 pt ROS was Negative except as stated above in HPI
Vital Signs
Temp Pulse Resp BP Pulse Ox
98.2 F 79 15 107/59 97
11/11/23 07:47 11/11/23 07:47 11/11/23 07:47 11/11/23 07:47 11/11/23 07:47
Physical Exam
Exam
General: No Apparent Distress
HEENT: Anicteric
Respiratory: Clear (Decreased bases bilaterally)
Cardiac: Regular Rhythm
GI: Soft, Non Tender, Normal Bowel Sounds and Distended (Mildly distended, ascites)
Musculoskeletal: No Edema and Other (SCDs in place)
Skin: Warm and Dry
Neuro: AO x 3
Psych: Calm
Results
WBC 1.6 10^3/uL (4.8-10.8) L* 11/10/23 12:16
Hgb 10.0 g/dL (12.0-16.0) L 11/10/23 12:16
Hct 27.6 % (37.0-47.0) L 11/10/23 12:16
MCV 109.1 fL (81.0-99.0) H 11/10/23 12:16
Plt Count 49 10^3/uL (130-400) L D 11/10/23 12:16
Absolute Neuts (auto) 1.1 10^3/uL (1.4-6.5) L 11/10/23 12:16
PT 16.7 Sec (11.4-14.6) H 11/10/23 12:16
INR 1.37 11/10/23 12:16
Sodium 136 mmol/L (135-145) 11/11/23 06:06
Potassium 3.5 mmol/L (3.5-5.1) 11/11/23 06:06
Chloride 104 mmol/L (98-107) 11/11/23 06:06
Carbon Dioxide 27 mmol/L (22-30) 11/11/23 06:06
BUN 22 mg/dl (7-17) H 11/11/23 06:06
Creatinine 1.1 mg/dL (0.6-1.0) H 11/11/23 06:06
Calcium 8.1 mg/dl (8.4-10.2) L 11/11/23 06:06
Total Bilirubin 1.3 mg/dl (0.2-1.3) 11/10/23 12:16
AST 35 U/L (14-36) 11/10/23 12:16
ALT 21 U/L (0-35) 11/10/23 12:16
Alkaline Phosphatase 57 U/L (38-126) 11/10/23 12:16
Lipase 165 U/L (23-300) 11/10/23 12:16
Diagnostic Image Results:
CT of the abdomen and pelvis with oral and IV contrast 11/10/2023:
IMPRESSION: Large hiatal hernia/partially intrathoracic stomach, extending into the right lower hemithorax, and includes ascitic fluid extending into the right lower chest from the abdomen.
Status post cholecystectomy with no evidence for biliary ductal dilation.
Small liver with cirrhotic contour. Splenomegaly.
Large amount of ascites within the abdomen and pelvis, which appears increased compared to CT scan of February 2023.
Numerous blastic bony metastatic lesions, which appear grossly stable.
No evidence for bowel obstruction. No evidence for free intraperitoneal air.
Prior GI Procedures:
EGD: 06/11/2023 ([facility]) - Grade II esophageal varices.
- Large hiatal hernia.
- Erythematous mucosa in the gastric body likely at
the diaphragmatic pinch.
- Normal examined duodenum.
- No specimens collected.
Colonoscopy: 06/11/2023 ([facility]) No blood and no signs of recent bleeding.
Possibly/likely diverticular
- Hemorrhoids found on perianal exam.
- Diverticulosis in the left colon.
- The examined portion of the ileum was normal.
- No specimens collected.
Assessment / Plan
-
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
thrombocytopenia admission in May 2022 for suspected diverticular bleed at that time she had an EGD and colonoscopy where she had grade 2 varices in the third of the esophagus and lower third of the esophagus, very large hiatal hernia with mild
erythematous mucosa without bleeding found in the gastric body. She had colonoscopy performed at that time with no blood or signs of recent bleeding. She had a probable diverticular bleed at that time. Currently presents to the emergency room with
10-day history of feeling unwell after going to a wedding. With GI upset. Taking Pepto-Bismol and Mylanta. Constipation. Taking lactulose. Increasing abdominal distention. Presents to the emergency room with black-green stools. Hemoglobin on
presentation 10.0 now down to 8.3. Neutropenic at 1.9. Platelets were 49 given 1 pack platelets now 50. No signs of black stools or hemodynamic instability since arrival. Patient with increased ascites has gone down to interventional radiology
for paracentesis.
Impression:
Anemia-> hemoglobin dropped from 10-8.3, with reports of melena.
Ascites-> Went to IR this am
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
History of large hiatal hernia
Pancytopenia
Metastatic breast cancer
Paroxysmal A-fib
CKD
Plan:
-Continue Protonix 40 mg BID
-Start octreotide drip
-Start Cipro for SBP prophylaxis
-Trend CBC (for hemoglobin and platelets)-> Q8
-CBC and BMP in a.m.
-Okay for clear liquid diet, no reds
-Plan on EGD tomorrow (48-hour washout of Eliquis unless needed emergently)
-Continue hold Eliquis
-Further recommendations to be forthcoming.
-
-
Thank you for consultation and allowing me to participate in the patient's care. Please call the litigation manager GI physician during the after hours with any questions or concerns.
[2023-11-11 08:07] LABS: Hematocrit 23.5 % (37.0-47.0); Hemoglobin 8.3 g/dL (12.0-16.0); Mean Corp Hgb Conc. 35.3 g/dL (33.0-37.0); Mean Corpuscular Hgb 37.6 pg (27.0-31.0); Mean Corpuscular Volume 106.3 fL (81.0-99.0); Mean Platelet Volume 13.3 fL (7.4-10.4); Platelet Count 50 10^3/uL (130-400); Red Blood Cell Count 2.21 10^6/uL (4.20-5.40); Red Cell Dist. Width 14.1 % (11.5-14.5); White Blood Cell Count 1.9 10^3/uL (4.8-10.8)
[2023-11-11] MEDS: SANDOSTATIN 500.6 MCG IV ×2 (10:51→23:13)
[2023-11-11] MEDS: CIPRO 500 MG PO (10:52)
[2023-11-11] MEDS: NSS (PRESERVATIVE FREE) 10 ML IV ×2 (10:52→20:02)
[2023-11-11] MEDS: PROTONIX IV 40 MG IV ×2 (10:52→20:02)
[2023-11-11 10:53] LABS: Body Fluid Polymorphonuclear 18.2 %
[2023-11-11 10:54] LABS: Body Fluid Mononuclear 81.8 %
[2023-11-11 11:07] LABS: Body Fluid Albumin < 1.0 g/dl; Body Fluid Protein < 2.0 g/dl
[2023-11-11 11:19] LABS: Body Fluid WBC 66 /CUMM
[2023-11-11 11:21] LABS: Body Fluid Second Tech AMA
--- NOTE | 2023-11-11 11:21 | W.PN.UPDATE ---
Update Note
Progress Note Update
Albumin order added as patient had > 5 liters removed.
[2023-11-11] MEDS: FLEXBUMIN 50 IV (12:21)
[2023-11-11] MEDS: FLEXBUMIN 100 IV (13:06)
[2023-11-11 13:33] LABS: Hematocrit 23.8 % (37.0-47.0); Hemoglobin 8.8 g/dL (12.0-16.0); Mean Corpuscular Hgb 39.3 pg (27.0-31.0); Mean Corpuscular Volume 106.3 fL (81.0-99.0); Platelet Count 50 10^3/uL (130-400); Red Blood Cell Count 2.24 10^6/uL (4.20-5.40); Red Cell Dist. Width 13.8 % (11.5-14.5); White Blood Cell Count 1.6 10^3/uL (4.8-10.8)
--- NOTE | 2023-11-11 16:06 | CON.ONC ---
Impression
Impression
metastatic breast cancer, with stable disease on Ibrance/Faslodex
cirrhosis w/ recurrent ascites
melena, varices
Afib on Eliquis
pancytopenia from cirrhosis and Ibrance
Plan
Plan
Hold Eliquis and Ibrance w/ thrombocytopenia and melena
for EGD tomorrow
s/p paracentesis w/ albumin. Diuretics per GI
PPI, Cipro for SBP ppx
Risks of resuming Eliquis may outweigh benefits, managed by Dr. Betancourt, cardiology at [facility]
She has outpatient oncology f/u w/ me on 11/18 - would hold Ibrance until then.
Will sign off, please call w/ any questions
Patient History
History of Present Illness
This is a 78yo F w/ metastatic breast cancer, on Ibrance/faslodex for years with stable disease, also cirrhosis from [facility] and metastatic disease, requiring frequent paracentesis, who presented with symptomatic ascites and chronic pancytopenia. She
also had melena. She takes Eliquis for afib.
She's now s/p paracentesis, with some improvement in sxs. She will undergo EGD tomorrow.
Past-Medical/Surgical History
as per the hpi
Patient Medication
�Medication �Instructions �Recorded �Confirmed �Last Taken �Type
apixaban 5 mg tablet (Eliquis) 5 mg PO BID Blood clot 10/20/18 11/10/23 11/09/23 History
prevention/tx
denosumab 120 mg/1.7 mL (70 mg/mL) 120 mg SQ [id number] Cancer 02/06/21 11/10/23 10/28/23 History
subcutaneous solution (Xgeva)
multivitamin with folic acid 400 1 tab PO DAILY Supplement 02/06/21 11/10/23 11/09/23 History
mcg tablet (Tab-A-Jolanta)
palbociclib 125 mg capsule 100 mg PO UD Cancer 02/06/21 11/10/23 11/04/23 History
(Ibrance)
biotin 10,000 mcg capsule 10,000 mcg PO DAILY Supplement 09/28/22 11/10/23 11/09/23 History
calcium carbonate (Calcium 600) 600 mg PO DAILY Supplement 09/28/22 11/10/23 11/09/23 History
cholecalciferol (vitamin D3) 25 25 mcg PO DAILY Supplement 09/28/22 11/10/23 11/09/23 History
mcg (1,000 unit) capsule (Vitamin
D3)
ferrous sulfate 325 mg (65 mg 325 mg PO DAILY Supplement 09/28/22 11/10/23 11/09/23 History
iron) tablet
spironolactone 50 mg tablet 75 mg PO BID Liver Issues 09/28/22 11/10/23 11/09/23 History
ondansetron HCl 4 mg tablet 4 mg PO Q8HPRN PRN nausea 03/13/23 11/10/23 10/28/23 History
fulvestrant 250 mg/5 mL 500 mg IM QMONTH Cancer 06/09/23 11/10/23 10/28/23 History
intramuscular syringe
gabapentin 100 mg capsule 100 mg PO BIDPRN PRN nerve pains 06/09/23 11/10/23 10/28/23 History
lactulose 10 gram/15 mL oral 10 g PO HS Constipation 06/09/23 11/10/23 11/09/23 History
solution
tramadol 50 mg tablet 50 mg PO Q6HPRN PRN severe pains 06/09/23 11/10/23 10/28/23 History
Saccharomyces boulardii 250 mg 250 mg PO DAILYPRN PRN probiotic 11/10/23 11/10/23 Unknown History
capsule (Florastor)
betamethasone dipropionate 0.05 % 1 applic topical BID Skin Issues 11/10/23 11/10/23 Unknown History
lotion
fluticasone propionate 50 1 spray intranasal DAILYPRN PRN 11/10/23 11/10/23 Unknown History
mcg/actuation nasal congestion/allergies
spray,suspension
furosemide 40 mg tablet (Lasix) 40 mg PO BID Fluid 11/10/23 11/10/23 11/09/23 History
Retention/Swelling
omeprazole 40 mg capsule,delayed 40 mg PO DAILY Gastrointestinal 11/10/23 11/10/23 11/09/23 History
release Issue
propranolol 20 mg tablet 20 mg PO TID Liver Issues 11/10/23 11/10/23 11/07/23 History
Active Medications
Generic Name Dose Route Start Last Admin
Trade Name Freq PRN Reason Stop Dose Admin
Acetaminophen 650 mg 11/10/23 21:30
Acetaminophen 325 Mg Tablet PO 12/08/23 21:29
Q4HPRN PRN
Mild Pain / Temp > 101
Ciprofloxacin 500 mg 11/11/23 10:00 11/11/23 10:52
Ciprofloxacin 500 Mg Tablet PO 500 mg
DAILY RUBEN Administration
Furosemide 40 mg 11/10/23 21:30 11/11/23 07:19
Furosemide 40 Mg Tablet PO 12/08/23 21:29 40 mg
BID AT 0800,1600 RUBEN Administration
Gabapentin 100 mg 11/10/23 21:30
Gabapentin 100 Mg Capsule PO 12/08/23 21:29
BIDPRN PRN
nerve pains
Octreotide Acetate 600 mcg/ 500.6 mls @ 41.717 mls/hr 11/11/23 09:30 11/11/23 10:51
Sodium Chloride IV 500.6 mls
Q12H RUBEN Administration
50 MCG/HR
Ondansetron HCl 4 mg 11/10/23 21:30
Ondansetron 4 Mg/2 Ml Vial IV 12/08/23 21:29
Q6HPRN PRN
nausea and vomiting
Pantoprazole Sodium 40 mg 11/11/23 09:30 11/11/23 10:52
Pantoprazole Sodium 40 Mg/10 Ml Vial IV 12/09/23 09:29 40 mg
BID RUBEN Administration
Propranolol HCl 20 mg 11/10/23 22:00 11/11/23 07:19
Propranolol 20 Mg Regular Release Tablet PO 12/08/23 21:59 20 mg
TID RBUEN Administration
Sodium Chloride 0 flush 11/10/23 22:00
Sodium Chloride 0.9% (Flush) Syringe IV 12/08/23 21:59
PER PROTOCOL RUBEN
Sodium Chloride 10 ml 11/11/23 09:30 11/11/23 10:52
Sodium Chloride 0.9% (Preservative Free) 10 Ml Vial IV 12/09/23 09:29 10 ml
BID RUBEN Administration
Spironolactone 75 mg 11/10/23 21:30 11/11/23 07:19
Spironolactone 50 Mg Tablet PO 12/08/23 21:29 75 mg
BID RUBEN Administration
Tramadol HCl 50 mg 11/10/23 21:30
Tramadol Hcl 50 Mg Tablet PO 12/08/23 21:29
Q6HPRN PRN
severe pains
Review of Systems
-
All Other Systems: Not reviewed unless documented
Physical Exam
-
General: No Apparent Distress, Comfortable and Conversant; Negative Appears in Distress
HEENT: Negative Jaundice
Neurology: Non Focal, No Lateralizing Symptoms and No Word Finding Difficulty
Skin: Warm and Dry
Psych: Calm and Intact Judgement/Insight
Labs
Lab Results
WBC 1.6 10^3/uL (4.8-10.8) L* 11/11/23 13:02
RBC 2.24 10^6/uL (4.20-5.40) L 11/11/23 13:02
Hgb 8.8 g/dL (12.0-16.0) L 11/11/23 13:02
Hct 23.8 % (37.0-47.0) L 11/11/23 13:02
MCV 106.3 fL (81.0-99.0) H 11/11/23 13:02
MCH 39.3 pg (27.0-31.0) H 11/11/23 13:02
MCHC 37.0 g/dL (33.0-37.0) 11/11/23 13:02
RDW 13.8 % (11.5-14.5) 11/11/23 13:02
Plt Count 50 10^3/uL (130-400) L 11/11/23 13:02
MPV 13.0 fL (7.4-10.4) H 11/11/23 13:02
Abs Immat Gran (auto) 0.0 10^3/uL (0-0.05) 11/10/23 12:16
Absolute Neuts (auto) 1.1 10^3/uL (1.4-6.5) L 11/10/23 12:16
Absolute Lymphs (auto) 0.3 10^3/uL (1.2-3.4) L 11/10/23 12:16
Absolute Monos (auto) 0.1 10^3/uL (0.1-0.6) 11/10/23 12:16
Absolute Eos (auto) 0.0 10^3/uL (0-0.7) 11/10/23 12:16
Absolute Basos (auto) 0.0 10^3/uL (0-0.2) 11/10/23 12:16
Immature Gran % 0.0 % (0-0.5) 11/10/23 12:16
Neutrophils % 69.0 % (42.2-75.2) 11/10/23 12:16
Lymphocytes % 20.9 % (20.5-51.1) 11/10/23 12:16
Monocytes % 6.3 % (1.7-9.3) 11/10/23 12:16
Eosinophils % 2.5 % (0-6) 11/10/23 12:16
Basophils % 1.3 % (0-2) 11/10/23 12:16
Creatinine 1.1 mg/dL (0.6-1.0) H 11/11/23 06:06
Vital Signs
Vital Signs
Temp Pulse Resp BP Pulse Ox
97.9 F 74 18 148/71 98
11/11/23 11:26 11/11/23 11:26 11/11/23 11:26 11/11/23 11:26 11/11/23 11:26
--- NOTE | 2023-11-11 16:06 | W.PN.HOSP.TC ---
Today's Communication/Plan
-
await GI
consult onc
EGD in AM?
Assessment / Plan
Assessment / Plan
pt is a 78 year old female
Malignant Ascites--apprec IR--s/p > 5L removed--IV albumin ordered and given - Continue Lasix / Aldactone- Follow daily weights, I/Os, etc--cipro added for SBP prophylaxis
Melena/GI Bleed-- Black, malodorous stool in the ED-- Hold Eliquis-- Platelet transfusion ordered in the ED given bleeding-- Follow H&H - Transfuse if needed- apprec GI evaluation - had endoscopic examinations in May showing esophageal varices-
PPI/octreotide
Stage IV Breast Cancer with pancytopenia (neutropenia)--on active therapy--consult onc- Metastatic disease to bone / liver. Malignant ascites as noted above- Holding chemo acutely (fulvestrant dose skipped last week, holding Ibrance since
Friday) - Follow-up with Oncology as an outpatient.
Paroxysmal Atrial Fibrillation-- Stable-Holding Eliquis as noted above- Continue propranolol with holding parameters.
CKD III-- Stable--Renal function is at/near known baseline - Follow for any changes with paracentesis / diuretic regimen.
DVT Prophylaxis: SCDs
Code Status: Full
Anticipated Discharge: > 48 hours
Subjective/Interval History
-
Date of Service: November 11, 2023
pt still with melena
Objective Data
-
Labs:
Laboratory Results
11/11/23 11/11/23 11/11/23
06:06 13:02 21:00
WBC 1.9 L* 1.6 L* Pending
Hgb 8.3 L 8.8 L Pending
Hct 23.5 L 23.8 L Pending
Plt Count 50 L 50 L Pending
Sodium 136
Potassium 3.5
Chloride 104
Carbon Dioxide 27
BUN 22 H
Creatinine 1.1 H
Glucose 75
Calcium 8.1 L
Vital Signs:
max temp for 24 hours
11/11/23
04:32
Temp 98.5 F
Vital Signs
Temp Pulse Resp BP Pulse Ox
97.9 F 74 18 148/71 98
11/11/23 11:26 11/11/23 11:26 11/11/23 11:26 11/11/23 11:26 11/11/23 11:26
I&O
11/10/23 11/11/23 11/12/23
06:59 06:59 06:59
Intake Total 326 / 326 100 / 100
Balance 326 / 326 100 / 100
Review of Systems
-
All other systems: Reviewed and negative
Abdomen/GI: Reports Black Stools
Physical Exam
-
General: Well Developed, Well Nourished and No Apparent Distress
HEENT: Normocephalic and Atraumatic
Respiratory: Clear to Auscultation; Negative Wheezes or Rhonchi
Cardiac: Regular Rhythm and S1/S2; Negative Murmur
GI: Soft, Nontender, Nondistended and Normal Bowel Sounds
Musculoskeletal: No Clubbing, No Cyanosis and No Edema
Neuro: Awake and Alert
Psych: Calm
--- NOTE | 2023-11-11 16:09 | CM ---
Patient seen at bedside with physician. Patient stated that she lives with her in a 3 story home. Patient stated that she has rollator at home. PCP is Dr. Yadi Cash, Pharmacy is at [facility]. Palliative Care nurse
following. Patient plan is for discharge home with no needs anticipated at this time. CM will continue to follow for discharge planning needs.
Plan; home with no needs vs home with Vn
[2023-11-11] MEDS: INDERAL PO ×2 (16:22→23:05)
[2023-11-11] MEDS: LASIX PO (16:23)
[2023-11-11 22:22] LABS: Hemoglobin 8.5 g/dL (12.0-16.0); Mean Corpuscular Hgb 38.3 pg (27.0-31.0); Mean Corpuscular Volume 103.6 fL (81.0-99.0); Mean Platelet Volume 13.2 fL (7.4-10.4); Platelet Count 47 10^3/uL (130-400); Red Blood Cell Count 2.22 10^6/uL (4.20-5.40); Red Cell Dist. Width 13.6 % (11.5-14.5); White Blood Cell Count 1.5 10^3/uL (4.8-10.8)
[2023-11-12 03:33] VITALS: BP 95/57
[2023-11-12 06:35] LABS: Hematocrit 23.4 % (37.0-47.0); Hemoglobin 8.7 g/dL (12.0-16.0); Mean Corp Hgb Conc. 37.2 g/dL (33.0-37.0); Mean Corpuscular Hgb 40.3 pg (27.0-31.0); Mean Corpuscular Volume 108.3 fL (81.0-99.0); Mean Platelet Volume 11.9 fL (7.4-10.4); Platelet Count 44 10^3/uL (130-400); Red Blood Cell Count 2.16 10^6/uL (4.20-5.40); Red Cell Dist. Width 13.1 % (11.5-14.5); White Blood Cell Count 1.7 10^3/uL (4.8-10.8)
[2023-11-12 07:20] LABS: ALT (SGPT) 17 U/L (0-35); AST (SGOT) 30 U/L (14-36); Albumin 2.8 g/dl (3.5-5.0); Alkaline Phosphatase 45 U/L (38-126); Blood Urea Nitrogen 17 mg/dl (7-17); Calcium 7.8 mg/dl (8.4-10.2); Carbon Dioxide 28 mmol/L (22-30); Chloride 105 mmol/L (98-107); Estimated Creatinine Clearance 45 ml/min; Glucose 91 mg/dl (70-99); Magnesium 1.9 mg/dl (1.6-2.3); Potassium 3.7 mmol/L (3.5-5.1); Sodium 136 mmol/L (135-145); Total Bilirubin 1.2 mg/dl (0.2-1.3); Total Protein 5.1 g/dl (6.3-8.2); eGFR 51.75
[2023-11-12 07:30] VITALS: BP 98/48
[2023-11-12] MEDS: INDERAL 20 MG PO (08:46)
[2023-11-12] MEDS: ALDACTONE 75 MG PO (08:47)
[2023-11-12] MEDS: CIPRO 500 MG PO (08:47)
[2023-11-12] MEDS: LASIX 40 MG PO (08:47)
[2023-11-12] MEDS: PROTONIX IV 40 MG IV (08:48)
[2023-11-12] MEDS: NSS (PRESERVATIVE FREE) 10 ML IV (08:48)
--- NOTE | 2023-11-12 10:24 | W.PN.ONC2 ---
Today's Communication / Plan
-
could consider 1SDP transfusion if needed to facilitate EGD
transfuse 1 SDP prn bleeding with platelet count <50,000 -denies bleeding today
daily CBC with differential
Impression
Impression
metastatic breast cancer, with stable disease on Ibrance/Faslodex
cirrhosis w/ recurrent ascites
melena, varices
Afib on Eliquis
pancytopenia from cirrhosis and Ibrance
Plan
Plan
Hold Eliquis and Ibrance w/ thrombocytopenia and melena
EGD planned
s/p paracentesis w/ albumin. Diuretics per GI
PPI, Cipro for SBP ppx
Risks of resuming Eliquis may outweigh benefits, managed by Dr. Betancourt, cardiology at [facility]
She has outpatient oncology f/u w/ me on 11/18 - would hold Ibrance until then.
Subjective/Objective
Chief Complaint
denies bleeding
feeling hungry
Subjective
denies sxs infection, denies chills, fever, or bleeding
Vital Signs:
Vital Signs
Temp Pulse Resp BP Pulse Ox
98.2 F 66 16 98/48 95
11/12/23 07:30 11/12/23 08:47 11/12/23 07:30 11/12/23 08:47 11/12/23 07:30
Lab Results:
Laboratory Data
WBC 1.7 10^3/uL (4.8-10.8) L* 11/12/23 05:54
Hgb 8.7 g/dL (12.0-16.0) L 11/12/23 05:54
Plt Count 44 10^3/uL (130-400) L 11/12/23 05:54
PT 16.7 Sec (11.4-14.6) H 11/10/23 12:16
INR 1.37 11/10/23 12:16
eGFR 51.75 11/12/23 05:53
Physical Exam
General: No Apparent Distress, Comfortable and Conversant; Negative Appears in Distress
HEENT: Negative Jaundice
Neurology: Non Focal, No Lateralizing Symptoms and No Word Finding Difficulty
Skin: Warm and Dry
Psych: Calm and Intact Judgement/Insight
Review of Systems
Review of Systems
ROS notable for subjective, otherwise negative
[2023-11-12 10:43] VITALS: BMI 27.3
[2023-11-12] MEDS: SANDOSTATIN 500.6 MCG IV (10:47)
--- NOTE | 2023-11-12 10:58 | W.PN.GI.CBS2 ---
Today's Communication / Plan
-
Dc octreotide
adv diet to 2 gm sodium diet
OP f/u with
Assessment / Plan
-
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
thrombocytopenia admission in May 2022 for suspected diverticular bleed at that time she had an EGD and colonoscopy where she had grade 2 varices in the third of the esophagus and lower third of the esophagus, very large hiatal hernia with mild
erythematous mucosa without bleeding found in the gastric body. She had colonoscopy performed at that time with no blood or signs of recent bleeding. She had a probable diverticular bleed at that time. Currently presents to the emergency room with
10-day history of feeling unwell after going to a wedding. With GI upset. Taking Pepto-Bismol and Mylanta. Constipation. Taking lactulose. Increasing abdominal distention. Presents to the emergency room with black-green stools. Hemoglobin on
presentation 10.0 now down to 8.3. Neutropenic at 1.9. Platelets were 49 given 1 pack platelets now 50. No signs of black stools or hemodynamic instability since arrival. Patient with increased ascites has gone down to interventional radiology
for paracentesis.
Impression:
Anemia-> hemoglobin dropped from 10-8.3, with reports of melena.
Ascites-> Went to IR this am
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
History of large hiatal hernia
Pancytopenia
Metastatic breast cancer
Paroxysmal A-fib
CKD
Plan:
Recurrent ascites secondary to MASH cirrhosis status post paracenteses and had 5.3 L removed and albumin was given post paracenteses. neg for SBP
Would discontinue beta-blockers given refractory recurrent ascites defer to Dr. Cuello she will f/u as OP.
had episode of dark stool could be most likely related to the Pepto-Bismol her hemoglobin did drop but could be related to hydration and she also from pancytopenia from Ibrance
Her low platelets could also be related to underlying cirrhosis.
doubt that the dark stool was melena but cannot rule out esophagitis or Jame's erosion she does have a large hiatal hernia less likely variceal bleed.
Hemoglobin remains stable will hold off on endoscopy given her leukopenia and thrombocytopenia.
She did receive platelets on admission
DC octreotide
PPI bid
Eliquis has been held since admission and given her severe thrombocytopenia from Ibrance and cirrhosis will be very high risk for bleeding on anticoagulation
OK to DC home from GI perspective f/u Dr. Cuello and as OP
Subjective
Subjective
Date of Service: November 12, 2023
small bowel movement today was dark, hemoglobin remained stable, still pancytopenic noted input from oncology. no hematemesis
Objective
Data Reviewed
Laboratory Data:
Laboratory Results
11/12/23 05:54
11/12/23 05:53
Laboratory Results
PT 16.7 Sec (11.4-14.6) H 11/10/23 12:16
INR 1.37 11/10/23 12:16
Magnesium 1.9 mg/dl (1.6-2.3) 11/12/23 05:53
Total Bilirubin 1.2 mg/dl (0.2-1.3) 11/12/23 05:53
AST 30 U/L (14-36) 11/12/23 05:53
ALT 17 U/L (0-35) 11/12/23 05:53
Alkaline Phosphatase 45 U/L (38-126) 11/12/23 05:53
Lipase 165 U/L (23-300) 11/10/23 12:16
Vital Signs and I&O:
Vital Signs
Temp Pulse Resp BP Pulse Ox
98.2 F 66 16 98/48 95
11/12/23 07:30 08/14/24 08:47 11/12/23 07:30 11/12/23 08:47 11/12/23 07:30
I&O
11/11/23 11/12/23 11/13/23
06:59 06:59 06:59
Intake Total 326 / 326 370 / 370
Balance 326 / 326 370 / 370
Physical Exam
Physical Exam
Cardiology: Normal Sinus Rhythm
Pulmonary: Clear
GI: Soft and Distended (mildly distended)
[2023-11-12 11:20] VITALS: BP 105/55; BP 108/56; BP 84/40; PULSE 61; PULSE 64; PULSE 65
--- NOTE | 2023-11-12 12:53 | W.PN.HOSP.TC ---
Today's Communication/Plan
-
d/c
Assessment / Plan
Assessment / Plan
pt is a 78 year old female
Malignant Ascites--apprec IR--s/p > 5L removed--IV albumin ordered and given - Continue Lasix/Aldactone- Follow daily weights, I/Os, etc--cipro added for SBP prophylaxis
Melena/GI Bleed-- Black, malodorous stool in the ED-- Hold Eliquis-- Platelet transfusion ordered in the ED given bleeding-- Follow H&H - Transfuse if needed- apprec GI evaluation - had endoscopic examinations in May showing esophageal varices-
PPI/octreotide--no need for further interventions
Stage IV Breast Cancer with pancytopenia (neutropenia)--on active therapy--consult onc- Metastatic disease to bone / liver. Malignant ascites as noted above- Holding chemo acutely (fulvestrant dose skipped last week, holding Ibrance since
Friday) - Follow-up with Oncology as an outpatient.
Paroxysmal Atrial Fibrillation-- Stable-Holding Eliquis as noted above- Continue propranolol with holding parameters.
CKD III-- Stable--Renal function is at/near known baseline - Follow for any changes with paracentesis / diuretic regimen.
DVT Prophylaxis: SCDs
Code Status: Full
Anticipated Discharge: Today
Subjective/Interval History
-
Date of Service: November 12, 2023
pt anxious to leave
Objective Data
-
Labs:
Laboratory Results
11/12/23 11/12/23
05:53 05:54
WBC 1.7 L*
Hgb 8.7 L
Hct 23.4 L
Plt Count 44 L
Sodium 136
Potassium 3.7
Chloride 105
Carbon Dioxide 28
BUN 17
Creatinine 1.1 H
Glucose 91
Calcium 7.8 L
Total Bilirubin 1.2
AST 30
ALT 17
Alkaline Phosphatase 45
Vital Signs:
max temp for 24 hours
11/12/23
07:30
Temp 98.2 F
Vital Signs
Temp Pulse Resp BP Pulse Ox
98.4 F 61 18 108/56 97
11/12/23 11:20 11/12/23 11:20 11/12/23 11:20 11/12/23 11:20 11/12/23 11:20
I&O
11/11/23 11/12/23 11/13/23
06:59 06:59 06:59
Intake Total 326 / 326 370 / 370
Balance 326 / 326 370 / 370
Review of Systems
-
All other systems: Reviewed and negative
Physical Exam
-
General: Well Developed, Well Nourished and No Apparent Distress
HEENT: Normocephalic and Atraumatic
Respiratory: Clear to Auscultation; Negative Wheezes or Rhonchi
Cardiac: Regular Rhythm and S1/S2; Negative Murmur
GI: Soft, Nontender, Nondistended and Normal Bowel Sounds
Musculoskeletal: No Clubbing, No Cyanosis and No Edema
Neuro: Awake and Alert
--- NOTE | 2023-11-12 13:13 | CM ---
Patient seen at bedside with physician. Patient for discharge home today. Patient states that her is aware and will transport. Patient completed IMM form signed and placed on chart. Patient had [facility] prior to admission.
CM called and was told that palliative care was not available and to send clinicals to [phone]. CM will continue to follow for discharge planning needs.
Plan; home with palliative care to follow.
--- NOTE | 2023-11-12 13:21 | W.DCSUMMARY ---
Discharge Summary
Discharge Data
Date of Admission: 11/10/23
Date of Discharge: 11/12/23
-
Pending Results: No
Hospital Course
Primary care physician : Yadi Lambert
Principal Discharge diagnosis : Malignant ascites, black stools
Chronic Discharge diagnosis : Stage IV metastatic breast cancer with pancytopenia/neutropenia, paroxysmal atrial fibrillation, chronic kidney disease stage III
Hospital Course : Patient was a 78-year-old female with stage IV metastatic breast cancer along with malignant ascites who presented complaining of abdominal discomfort nausea and fatigue. Patient stated that she went to a wedding 10 days prior to
admission and the following day she and her had abdominal discomfort, nausea, and heartburn. improved over the next few days but the patient did not. She complained of diffuse abdominal discomfort that gradually progressed. She
had nausea and poor appetite. She did call her oncologist and she skipped her dose of fulvestrant and was advised to hold her Ibrance as well. Patient complained that her abdomen felt 'hard. She then had a loose black malodorous stool in the
emergency department and the patient was admitted.
Problem #1: Malignant ascites. Patient was seen by interventional radiology and had 5.3 L of ascitic fluid removed. She was also given albumin as a replacement. She states she gets paracentesis every 3-4 weeks which may need to be moved up more
frequently if volume continues to be an issue.
Problem #2: Black stools. Patient was seen in consultation by GI. This was initially thought to be melena with acute GI bleeding. Hemoglobin did drop from 10-8.3. Patient had no further episodes of dark stools here in the hospital. Plans were
initially made for an EGD; however, that has been canceled per GI at this time. This is felt more to be due to to Pepto-Bismol which she was taking prior to admission for her GI discomfort. This can certainly cause black stools. Nevertheless,
patient was started on subcutaneous octreotide as well as an IV PPI and empiric ciprofloxacin to cover for spontaneous bacterial peritonitis given the patient had ascites and the potential for GI bleeding. Since no further bleeding or concern for
bleeding was noted, Ciprofloxacin has been discontinued and upper endoscopy has been canceled.
Problem #3: All other medical issues. These include Stage IV metastatic breast cancer with pancytopenia/neutropenia, paroxysmal atrial fibrillation, chronic kidney disease stage III. These medical issues were stable during her hospitalization.
Medications were continued as able. Patient was seen in consultation by oncology for her metastatic breast cancer.
Patient is stable for discharge home at this time. If there are any questions regarding this dictation or her hospital stay, please do not hesitate to call. Our office number is [phone].
Discharge Plan
-
Patient Disposition: Home with Home Care
Discharge Diagnosis/Procedures: Malignant ascites, black stools, stage IV breast cancer metastatic with pancytopenia and neutropenia, paroxysmal atrial fibrillation, chronic kidney disease stage III
Condition: Good
Diet: As tolerated
Activity: As tolerated
Driving Restrictions: As prior to admission
Bathing Restrictions: None
Other Services: VN
Referrals:
Yadi Lambert DO [Family Provider] - in less than 1 week
Prescriptions:
Continued
Xgeva 120 MG/1.7 ML solution
120 mg SQ [id number]
multivitamin with folic acid [Tab-A-Jolanta] 1 TABLET tablet
1 tab PO DAILY
biotin 10,000 mcg Capsule
10,000 mcg PO DAILY
spironolactone 50 mg Tablet
75 mg PO BID
cholecalciferol (vitamin D3) [Vitamin D3] 25 mcg (1,000 unit) Capsule
25 mcg PO DAILY
calcium carbonate [Calcium 600] 600 mg calcium (1,500 mg) Tablet
600 mg PO DAILY
ferrous sulfate 325 mg (65 mg iron) Tablet
325 mg PO DAILY
ondansetron HCl 4 mg Tablet
4 mg PO Q8HPRN PRN (Reason: nausea)
gabapentin 100 mg Capsule
100 mg PO BIDPRN PRN (Reason: nerve pains)
fulvestrant 250 mg/5 mL Syringe
500 mg IM QMONTH
lactulose 10 gram/15 mL Solution
10 g PO HS
tramadol 50 mg tablet
50 mg PO Q6HPRN PRN (Reason: severe pains)
omeprazole 40 mg capsule,delayed release(DR/EC)
40 mg PO DAILY
propranolol 20 mg tablet
20 mg PO TID
fluticasone propionate 50 mcg/actuation [place],Suspension
1 spray INTRANASAL DAILYPRN PRN (Reason: congestion/allergies)
betamethasone dipropionate 0.05 % lotion
1 applic TOPICAL BID
Patient Comments:
apply to neck
Saccharomyces boulardii [Florastor] 250 mg Capsule
250 mg PO DAILYPRN PRN (Reason: probiotic)
furosemide [Lasix] 40 MG tablet
40 mg PO BID
Held
Eliquis 5 MG tablet
5 mg PO BID
Hold Instructions: do not restart and discuss with your grain receiver
Ibrance 125 MG capsule
100 mg PO UD
Hold Instructions: until seen by Dr. Waters
Rx Instructions:
PATIENT TAKES FOR 3 WEEKS THEN 1 WEEK OFF Then repeat
Discharge Orders:
Discharge Patient (As Directed); Ordered 11/12/23
Ordered By: Paula Dhillon
Discharge Date and Time
Print Language: HONDURAN
--- NOTE | 2023-11-12 13:54 | PTCARENOTE ---
patient denies pain or complaints, tolerating diet, continent of mod brown dark BM, abd softly distended, transferring with supervision to bsc, gait steady, vss, for discharge to home today.
[2023-11-12 15:15] VITALS: BP 121/56
== END 2023-11-12 18:24 | disposition home health service (06) | DRG 435 ==
LOC: 3 WEST ACU 20:49
PROVIDERS: Nurse Practitioner; Nurse Practitioner Adult Health; Radiology Diagnostic Radiology; Student in an Organized Health Care Education/Training Program; ADMITTING PHYSICIAN Hospitalist; ATTENDING PHYSICIAN Internal Medicine; CONSULT PHYSICIAN Internal Medicine Gastroenterology; CONSULT PHYSICIAN Internal Medicine Hematology & Oncology; CONSULT PHYSICIAN Radiology Vascular & Interventional Radiology; EMERGENCY PHYSICIAN Student in an Organized Health Care Education/Training Program; FAMILY PHYSICIAN Family Medicine
PROC: 0W9G3ZX Drainage of Peritoneal Cavity, Percutaneous Approach, Diagnostic (ICD-10-PCS; 2023-11-11)
PROC: 30233R1 Transfusion of Nonautologous Platelets into Peripheral Vein, Percutaneous Approach (ICD-10-PCS; 2023-11-11)
DX: C78.7 Secondary malignant neoplasm of liver and intrahepatic bile duct (principal); D61.810 Antineoplastic chemotherapy induced pancytopenia; C79.51 Secondary malignant neoplasm of bone; R18.0 Malignant ascites; I13.0 Hypertensive heart and chronic kidney disease with heart failure and stage 1 through stage 4 chronic kidney disease, or unspecified chronic kidney disease; I50.32 Chronic diastolic (congestive) heart failure; I85.10 Secondary esophageal varices without bleeding; K92.1 Melena; Z51.5 Encounter for palliative care; N18.30 Chronic kidney disease, stage 3 unspecified; I49.5 Sick sinus syndrome; C50.912 Malignant neoplasm of unspecified site of left female breast; K75.81 Nonalcoholic steatohepatitis (NASH); K74.69 Other cirrhosis of liver; T45.1X5A Adverse effect of antineoplastic and immunosuppressive drugs, initial encounter; E78.00 Pure hypercholesterolemia, unspecified; G62.9 Polyneuropathy, unspecified; I48.0 Paroxysmal atrial fibrillation; K21.9 Gastro-esophageal reflux disease without esophagitis; K64.9 Unspecified hemorrhoids; K57.30 Diverticulosis of large intestine without perforation or abscess without bleeding; K29.70 Gastritis, unspecified, without bleeding; K44.9 Diaphragmatic hernia without obstruction or gangrene; Z87.19 Personal history of other diseases of the digestive system; Z79.01 Long term (current) use of anticoagulants; Z79.899 Other long term (current) drug therapy; Z90.49 Acquired absence of other specified parts of digestive tract; Z90.12 Acquired absence of left breast and nipple; Z96.643 Presence of artificial hip joint, bilateral; Z96.651 Presence of right artificial knee joint; Z88.0 Allergy status to penicillin; Z88.1 Allergy status to other antibiotic agents; Z88.2 Allergy status to sulfonamides; Z80.0 Family history of malignant neoplasm of digestive organs
CPT/HCPCS: 88305; 49083; 74177; 80048; 80053; 82042; 83690; 83735; 84157; 85025; 85027; 85610; 86850; 86900; 86901; 87015; 87045; 87046; 87070; 87205; 87427; 88112; 88341; 88342; 88360; 89051; 96361; 96374; 96375; 99285; P9047; P9073; Q9967

== ENCOUNTER → 2023-11-17 10:12 | Outpatient (REF) | payer MEDICARE, SELFPAY ==
[2023-11-17 11:56] LABS: ALT (SGPT) 18 U/L (0-35); AST (SGOT) 34 U/L (14-36); Albumin 3.4 g/dl (3.5-5.0); Alkaline Phosphatase 54 U/L (38-126); Blood Urea Nitrogen 29 mg/dl (7-17); Calcium 9.3 mg/dl (8.4-10.2); Carbon Dioxide 29 mmol/L (22-30); Chloride 99 mmol/L (98-107); Glucose 127 mg/dl (70-99); Potassium 3.8 mmol/L (3.5-5.1); Sodium 136 mmol/L (135-145); Total Bilirubin 0.9 mg/dl (0.2-1.3); Total Protein 5.8 g/dl (6.3-8.2); eGFR 42.35
[2023-11-17 12:17] LABS: Hematocrit 27.1 % (37.0-47.0); Mean Corp Hgb Conc. 36.9 g/dL (33.0-37.0); Mean Corpuscular Hgb 40.7 pg (27.0-31.0); Mean Corpuscular Volume 110.2 fL (81.0-99.0); Mean Platelet Volume 12.2 fL (7.4-10.4); Platelet Count 77 10^3/uL (130-400); Red Blood Cell Count 2.46 10^6/uL (4.20-5.40); Red Cell Dist. Width 13.7 % (11.5-14.5); White Blood Cell Count 2.2 10^3/uL (4.8-10.8)
[2023-11-17 12:19] LABS: Absolute Neutrophils -Man Diff 1.7 10^3/uL (1.4-6.5); Band Neutrophils 0 % (0-3); Eosinophils 1 % (0-6); Lymphocytes 13 % (20-51); Metamyelocytes 1 % (-); Monocytes 7 % (2-9); Normal RBC Morphology Yes; Platelets Checked Yes; Segmented Neutrophils 78 % (42-75); Total Cells Counted 100
== END ==
LOC: REG 10:12
PROVIDERS: ATTENDING PHYSICIAN Internal Medicine Hematology & Oncology; FAMILY PHYSICIAN Family Medicine
DX: C50.412 Malignant neoplasm of upper-outer quadrant of left female breast (principal); R22.32 Localized swelling, mass and lump, left upper limb; C79.51 Secondary malignant neoplasm of bone; C78.7 Secondary malignant neoplasm of liver and intrahepatic bile duct; D50.9 Iron deficiency anemia, unspecified; N18.30 Chronic kidney disease, stage 3 unspecified; D63.1 Anemia in chronic kidney disease; D64.81 Anemia due to antineoplastic chemotherapy
CPT/HCPCS: 36415; 80053; 85025

== ENCOUNTER → 2023-12-02 10:39 | Outpatient (REF) | payer MEDICARE, SELFPAY ==
[2023-12-02 11:43] LABS: % Basophils 1.4 % (0-2); % Eosinophils 4.2 % (0-6); % Immature Granulocytes 0.3 % (0-0.5); % Lymphocytes 12.6 % (20.5-51.1); % Monocytes 6.4 % (1.7-9.3); % Neutrophils 75.1 % (42.2-75.2); Absolute Basophils 0.1 10^3/uL (0-0.2); Absolute Eosinophils 0.2 10^3/uL (0-0.7); Absolute Lymphocytes 0.5 10^3/uL (1.2-3.4); Absolute Monocytes 0.2 10^3/uL (0.1-0.6); Absolute Neutrophils 2.7 10^3/uL (1.4-6.5); Hematocrit 28.1 % (37.0-47.0); Hemoglobin 10.1 g/dL (12.0-16.0); Mean Corp Hgb Conc. 35.9 g/dL (33.0-37.0); Mean Corpuscular Hgb 40.1 pg (27.0-31.0); Mean Corpuscular Volume 111.5 fL (81.0-99.0); Mean Platelet Volume 11.3 fL (7.4-10.4); Nucleated Red Blood Cells % 0 %; Platelet Count 118 10^3/uL (130-400); Red Blood Cell Count 2.52 10^6/uL (4.20-5.40); Red Cell Dist. Width 13.2 % (11.5-14.5); White Blood Cell Count 3.6 10^3/uL (4.8-10.8)
[2023-12-02 12:15] LABS: ALT (SGPT) 21 U/L (0-35); AST (SGOT) 32 U/L (14-36); Albumin 3.7 g/dl (3.5-5.0); Alkaline Phosphatase 65 U/L (38-126); Blood Urea Nitrogen 40 mg/dl (7-17); Calcium 9.2 mg/dl (8.4-10.2); Carbon Dioxide 29 mmol/L (22-30); Chloride 101 mmol/L (98-107); Glucose 132 mg/dl (70-99); Potassium 4.8 mmol/L (3.5-5.1); Sodium 139 mmol/L (135-145); Total Bilirubin 1.2 mg/dl (0.2-1.3); Total Protein 6.7 g/dl (6.3-8.2); eGFR 23.82
[2023-12-03 14:14] LABS: CA 27-29 201.4 U/mL (<=39.0)
== END ==
LOC: REG 10:39
PROVIDERS: ATTENDING PHYSICIAN Internal Medicine Hematology & Oncology; FAMILY PHYSICIAN Family Medicine
DX: C50.412 Malignant neoplasm of upper-outer quadrant of left female breast (principal); R22.32 Localized swelling, mass and lump, left upper limb; C79.51 Secondary malignant neoplasm of bone; C78.7 Secondary malignant neoplasm of liver and intrahepatic bile duct; D50.9 Iron deficiency anemia, unspecified; N18.30 Chronic kidney disease, stage 3 unspecified; D63.1 Anemia in chronic kidney disease; D64.81 Anemia due to antineoplastic chemotherapy
CPT/HCPCS: 36415; 80053; 85025; 86300

== ENCOUNTER → 2023-12-04 09:45 | Outpatient (REF) | payer MEDICARE, SELFPAY ==
[2023-12-04 10:38] VITALS: BP 112/60; BP_SYST 70
[2023-12-04 11:17] VITALS: BP 99/80; BP_SYST 68
[2023-12-04 14:07] LABS: Body Fluid Mononuclear 93.1 %; Body Fluid Polymorphonuclear 6.9 %; Body Fluid WBC 72 /CUMM
[2023-12-04 14:10] LABS: Body Fluid Second Tech LD
== END ==
LOC: RADI 09:45
PROVIDERS: ATTENDING PHYSICIAN Nurse Practitioner Family; FAMILY PHYSICIAN Family Medicine
DX: R18.8 Other ascites (principal)
CPT/HCPCS: 49083; 87015; 87070; 87205; 89051

== ENCOUNTER → 2023-12-15 10:34 | Outpatient (REF) | payer MEDICARE, SELFPAY ==
[2023-12-15 11:53] LABS: ALT (SGPT) 23 U/L (0-35); AST (SGOT) 34 U/L (14-36); Albumin 3.9 g/dl (3.5-5.0); Alkaline Phosphatase 67 U/L (38-126); Blood Urea Nitrogen 42 mg/dl (7-17); Calcium 9.1 mg/dl (8.4-10.2); Carbon Dioxide 25 mmol/L (22-30); Chloride 100 mmol/L (98-107); Glucose 122 mg/dl (70-99); Potassium 4.9 mmol/L (3.5-5.1); Sodium 134 mmol/L (135-145); Total Protein 6.7 g/dl (6.3-8.2)
[2023-12-15 13:19] LABS: % Basophils 1.2 % (0-2); % Eosinophils 3.7 % (0-6); % Lymphocytes 15.3 % (20.5-51.1); % Monocytes 5.8 % (1.7-9.3); Absolute Eosinophils 0.1 10^3/uL (0-0.7); Absolute Lymphocytes 0.4 10^3/uL (1.2-3.4); Absolute Monocytes 0.1 10^3/uL (0.1-0.6); Absolute Neutrophils 1.8 10^3/uL (1.4-6.5); Hematocrit 28.7 % (37.0-47.0); Hemoglobin 10.2 g/dL (12.0-16.0); Mean Corp Hgb Conc. 35.5 g/dL (33.0-37.0); Mean Corpuscular Hgb 38.6 pg (27.0-31.0); Mean Corpuscular Volume 108.7 fL (81.0-99.0); Mean Platelet Volume 11.8 fL (7.4-10.4); Nucleated Red Blood Cells % 0 %; Platelet Count 81 10^3/uL (130-400); Red Blood Cell Count 2.64 10^6/uL (4.20-5.40); Red Cell Dist. Width 14.1 % (11.5-14.5); White Blood Cell Count 2.4 10^3/uL (4.8-10.8)
[2023-12-17 00:10] LABS: CA 27-29 212.6 U/mL (<=39.0)
[2023-12-17 15:31] LABS: Iron 102 ug/dl (37-170)
[2023-12-17 15:41] LABS: Percent Saturation 31 % (20-50); Total Iron Binding Capacity 320 ug/dl (265-497)
== END ==
LOC: REG 10:34
PROVIDERS: ATTENDING PHYSICIAN Internal Medicine Hematology & Oncology; FAMILY PHYSICIAN Family Medicine
DX: C50.412 Malignant neoplasm of upper-outer quadrant of left female breast (principal); R22.32 Localized swelling, mass and lump, left upper limb; C79.51 Secondary malignant neoplasm of bone; C78.7 Secondary malignant neoplasm of liver and intrahepatic bile duct; D50.9 Iron deficiency anemia, unspecified; N18.30 Chronic kidney disease, stage 3 unspecified; D63.1 Anemia in chronic kidney disease; D64.81 Anemia due to antineoplastic chemotherapy
CPT/HCPCS: 36415; 80053; 82728; 83540; 83550; 85025; 86300

== ENCOUNTER → 2023-12-23 09:23 | Outpatient (REF) | payer MEDICARE, SELFPAY ==
[2023-12-23 09:38] VITALS: BP 116/63; BP_SYST 88
[2023-12-23 11:52] LABS: Body Fluid Mononuclear 85 %; Body Fluid Polymorphonuclear 15 %; Body Fluid WBC 40 /CUMM
[2023-12-23 12:00] LABS: Body Fluid Second Tech AMA
== END ==
LOC: RADI 09:23
PROVIDERS: ATTENDING PHYSICIAN Nurse Practitioner Family
DX: R18.8 Other ascites (principal)
CPT/HCPCS: 49083; 87015; 87070; 87205; 89051

== ENCOUNTER 2023-12-23 11:03 | Outpatient (RCR) | payer MEDICARE, SELFPAY ==
[2023-12-04 12:00] VITALS: BP 111/86
[2023-12-04] MEDS: FLEXBUMIN 100 IV (12:09)
[2023-12-04 12:12] VITALS: BP 111/80
[2023-12-04 14:10] VITALS: BP 107/58
[2023-12-04 16:33] LABS: Blood Urea Nitrogen 36 mg/dl (7-17); Calcium 8.2 mg/dl (8.4-10.2); Carbon Dioxide 24 mmol/L (22-30); Chloride 100 mmol/L (98-107); Glucose 114 mg/dl (70-99); Sodium 134 mmol/L (135-145); eGFR 38.75
[2023-12-23] MEDS: FLEXBUMIN 100 IV (11:15)
[2023-12-23 11:16] VITALS: BP 92/81
[2023-12-23 13:01] VITALS: BP 111/43
[2023-12-23 13:10] VITALS: BP 107/59
[2023-12-23 13:20] VITALS: BP 105/58
== END 2023-12-29 23:59 | disposition home or self-care (01) ==
LOC: OID 11:03
PROVIDERS: ATTENDING PHYSICIAN Internal Medicine Gastroenterology; FAMILY PHYSICIAN Family Medicine
DX: K74.60 Unspecified cirrhosis of liver (principal); D64.9 Anemia, unspecified; Z90.49 Acquired absence of other specified parts of digestive tract
CPT/HCPCS: 80048; 96365; 96366; P9047

== ENCOUNTER → 2023-12-29 13:56 | Outpatient (REF) | payer MEDICARE, SELFPAY ==
[2023-12-29 15:22] LABS: % Lymphocytes 16.1 % (20.5-51.1); % Monocytes 11.2 % (1.7-9.3); % Neutrophils 68.7 % (42.2-75.2); Absolute Basophils 0.1 10^3/uL (0-0.2); Absolute Eosinophils 0.1 10^3/uL (0-0.7); Absolute Lymphocytes 0.4 10^3/uL (1.2-3.4); Absolute Monocytes 0.3 10^3/uL (0.1-0.6); Absolute Neutrophils 1.7 10^3/uL (1.4-6.5); Hematocrit 31.8 % (37.0-47.0); Hemoglobin 10.7 g/dL (12.0-16.0); Mean Corp Hgb Conc. 33.6 g/dL (33.0-37.0); Mean Corpuscular Hgb 36.9 pg (27.0-31.0); Mean Corpuscular Volume 109.7 fL (81.0-99.0); Mean Platelet Volume 12.1 fL (7.4-10.4); Nucleated Red Blood Cells % 0 %; Platelet Count 99 10^3/uL (130-400); Red Cell Dist. Width 14.6 % (11.5-14.5); White Blood Cell Count 2.5 10^3/uL (4.8-10.8)
[2023-12-29 15:59] LABS: ALT (SGPT) 26 U/L (0-35); AST (SGOT) 35 U/L (14-36); Albumin 3.9 g/dl (3.5-5.0); Alkaline Phosphatase 52 U/L (38-126); Blood Urea Nitrogen 37 mg/dl (7-17); Calcium 9.6 mg/dl (8.4-10.2); Carbon Dioxide 27 mmol/L (22-30); Chloride 99 mmol/L (98-107); Glucose 110 mg/dl (70-99); Potassium 4.5 mmol/L (3.5-5.1); Sodium 137 mmol/L (135-145); Total Bilirubin 0.8 mg/dl (0.2-1.3); Total Protein 6.7 g/dl (6.3-8.2); eGFR 38.75
[2024-01-01 01:46] LABS: CA 27-29 236.5 U/mL (<=39.0)
== END ==
LOC: REG 13:56
PROVIDERS: ATTENDING PHYSICIAN Internal Medicine Hematology & Oncology; FAMILY PHYSICIAN Family Medicine
DX: C50.412 Malignant neoplasm of upper-outer quadrant of left female breast (principal); R22.32 Localized swelling, mass and lump, left upper limb; C79.51 Secondary malignant neoplasm of bone; C78.7 Secondary malignant neoplasm of liver and intrahepatic bile duct; D50.9 Iron deficiency anemia, unspecified; N18.30 Chronic kidney disease, stage 3 unspecified; D63.1 Anemia in chronic kidney disease; D64.81 Anemia due to antineoplastic chemotherapy
CPT/HCPCS: 36415; 80053; 85025; 86300

== ENCOUNTER 2024-01-03 21:43 | Emergency (ER) | payer MEDICARE, SELFPAY ==
[2024-01-03 21:43] VITALS: BMI 29.9
[2024-01-03 21:46] VITALS: BP 136/61
[2024-01-03 22:50] VITALS: BP 107/63
[2024-01-03 23:08] LABS: % Basophils 1.5 % (0-2); % Eosinophils 3.1 % (0-6); % Immature Granulocytes 0.3 % (0-0.5); % Lymphocytes 13.8 % (20.5-51.1); % Monocytes 7.1 % (1.7-9.3); % Neutrophils 74.2 % (42.2-75.2); Absolute Basophils 0.1 10^3/uL (0-0.2); Absolute Eosinophils 0.1 10^3/uL (0-0.7); Absolute Lymphocytes 0.5 10^3/uL (1.2-3.4); Absolute Monocytes 0.2 10^3/uL (0.1-0.6); Absolute Neutrophils 2.4 10^3/uL (1.4-6.5); Hematocrit 29.1 % (37.0-47.0); Hemoglobin 10.1 g/dL (12.0-16.0); Mean Corp Hgb Conc. 34.7 g/dL (33.0-37.0); Mean Corpuscular Volume 106.6 fL (81.0-99.0); Mean Platelet Volume 10.7 fL (7.4-10.4); Nucleated Red Blood Cells % 0 %; Platelet Count 113 10^3/uL (130-400); Red Blood Cell Count 2.73 10^6/uL (4.20-5.40); Red Cell Dist. Width 14.6 % (11.5-14.5); White Blood Cell Count 3.3 10^3/uL (4.8-10.8)
[2024-01-03 23:18] LABS: INR 1.26; PT 15.6 Sec (11.4-14.6)
[2024-01-03 23:19] LABS: APTT 36.6 Sec (23.4-35.0)
[2024-01-04] VITALS (15 sets, daily range): BP systolic 78–113; BP diastolic 51–67
[2024-01-04 00:34] LABS: ALT (SGPT) 30 U/L (0-35); AST (SGOT) 34 U/L (14-36); Albumin 3.2 g/dl (3.5-5.0); Alkaline Phosphatase 47 U/L (38-126); Blood Urea Nitrogen 37 mg/dl (7-17); Calcium 9.1 mg/dl (8.4-10.2); Carbon Dioxide 23 mmol/L (22-30); Chloride 107 mmol/L (98-107); Glucose 124 mg/dl (70-99); Lipase 248 U/L (23-300); Potassium 4.5 mmol/L (3.5-5.1); Sodium 136 mmol/L (135-145); Total Bilirubin 0.5 mg/dl (0.2-1.3); Total Protein 5.7 g/dl (6.3-8.2); eGFR 42.35
--- NOTE | 2024-01-04 07:09 | ED.GENMED ---
History of Present Illness
<Rhiannon Kapoor DO - Last Filed: 01/04/24 07:19>
General
Chief Complaint: Abdominal Symptoms
Source: patient and previous hospital records
Exam Limitations: none
Time Seen by Provider: 01/04/24 01:37
Nursing documentation reviewed up to this point in time: agreed with
History of Present Illness
History of Present Illness:
This is a 78-year-old woman with history of stage IV metastatic breast cancer with recurrent malignant ascites. Currently maintained on Ibrance, 3 weeks on, 1 week off. She follows with [facility], Dr. Waters as well as GI with recent visit
earlier this week.
She requires intermittent paracentesis, generally every 3 to 4 weeks, for recurrent ascites with last paracentesis procedure December 22.
She presents with generalized abdominal fullness, discomfort with difficulty taking a deep breath due to abdominal fullness. She admits to mild discomfort but denies abdominal pain. No nausea or vomiting, no diarrhea or constipation. She has not
had a fever.
She has chronic anemia and was hospitalized in October due to abdominal discomfort related to ascites and was noted to have a drifted down in hemoglobin with concern for GI bleed with 1 episode of melanotic stool which resolved. She has had no
further episodes of melena. She did receive an IV dose of iron Friday of this week.
Past History
<Rhiannon Kapoor DO - Last Filed: 01/04/24 07:19>
Past History
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 Diverticulitis, Hiatal hernia. Anemia, Back and neck pain, neuropathy, Hemorrhoid)
ED Past Surgical History: Bowel resection, Cardiac (Ablation), Cholecystectomy, Gynecological (D&C), Orthopedic (Right total hip replacement, left total hip replacement, right knee and left knee replacements, hammer toe) and Other (Lumpectom left
breast. Hernia repair, )
Social History
Tobacco: Non-smoker
Alcohol: None
Personal:
Living: with family
Employment: Retired
Family History
Family History: Other (Noncontributory)
Phy Exam
<Rhiannon Kapoor DO - Last Filed: 01/04/24 07:19>
Physical Exam
Physical Exam:
GENERAL: 78-year-old woman appears her stated age, awake and alert, pleasant, appears in no acute distress.
EYE: pupils equal and reactive. anicteric
NECK: Supple, nontender, no meningismus, no significant adenopathy. No JVD.
ENT: oral mucosa is moist. No rhinorrhea.
CARDIAC: Regular rate and rhythm. no murmur.
LUNGS: Clear breath sounds bilaterally, no acute respiratory distress, no wheezes/rales/rhonchi
ABDOMEN: Moderately distended and mildly firm without appreciable tenderness. no r/g, no cvat. normoactive BS.
NEUROLOGICAL: Alert and oriented x3, no focal neuro deficits.
SKIN: Warm and dry, normal color, skin intact. No rash.
MUSCULOSKELETAL: No C/C/E. peripheral pulses are full and equal b/l. No palpable tenderness.
PSYCH: Normal and appropriate interaction.
Course
<Rhiannon Kapoor, DO - Last Filed: 01/04/24 07:19>
Orders/Labs/Results
Orders:
Orders
01/03/24 23:01
Complete Blood Count/With Diff Urgent
PTT Urgent
Prothrombin Time Urgent
01/03/24 23:13
Comprehensive Metabolic Panel Urgent
Lipase Urgent
01/04/24 01:49
Consult Interventional Radiology [IRAD CONSULT] Urgent
Consulting Provider: Oseas Roca
Was physician already notified: No
Reason for Consult/Procedure: recurrent symptomatic ascites
Acknowledgement that appropriate orders are entered: Yes
Consult Notification Routine
Specialty to Notify: IRAD (Interventional Radiology)
Date consulting provider notified: 01/04/24
Time consulting provider notified: 07:00
Notified:: Provider
Comment: [place]
01/04/24 07:36
Tramadol HCl [Ultram] 50 mg PO NOW STA
01/04/24 10:17
Body Fluid Cell Count Routine
What is the Body Fluid: ascites
Date Specimen was Collected: 01/04/24
Time Specimen was Collected: 10:10
01/04/24 11:10
Gram Stain Routine
JONO Source: Peritoneal Fluid
Specimen Description:
Comment: Post Procedure
01/04/24 11:12
Add On- LAB Urgent
Tests Added?: GS/c and s paracentesis fluid
01/04/24 13:00
Albumin Human 25% 100 ml [Flexbumin] 25 grams in 100 ml IV ONCE
Abnormal Lab Results
01/03/24 01/04/24
23:01 00:05
WBC 3.3 L 10^3/uL
(4.8-10.8)
RBC 2.73 L 10^6/uL
(4.20-5.40)
Hgb 10.1 L g/dL
(12.0-16.0)
Hct 29.1 L %
(37.0-47.0)
MCV 106.6 H fL
(81.0-99.0)
MCH 37.0 H pg
(27.0-31.0)
RDW 14.6 H %
(11.5-14.5)
Plt Count 113 L 10^3/uL
(130-400)
MPV 10.7 H fL
(7.4-10.4)
Absolute Lymphs (auto) 0.5 L 10^3/uL
(1.2-3.4)
Lymphocytes % 13.8 L %
(20.5-51.1)
PT 15.6 H Sec
(11.4-14.6)
APTT 36.6 H Sec
(23.4-35.0)
BUN 37 H mg/dl
(7-17)
Creatinine 1.3 H mg/dL
(0.6-1.0)
Glucose 124 H mg/dl
(70-99)
Total Protein 5.7 L g/dl
(6.3-8.2)
Albumin 3.2 L g/dl
(3.5-5.0)
01/03/24 23:01
01/04/24 00:05
Vital Signs
Initial and Last Documented VS:
Initial Vital Signs
Temp Pulse Resp BP Pulse Ox
98.1 F 92 18 136/61 97
01/03/24 21:46 01/03/24 21:46 01/03/24 21:46 01/03/24 21:46 01/03/24 21:46
Last Documented Vital Signs
Temp Pulse Resp BP Pulse Ox
98.9 F 78 16 111/58 98
01/04/24 09:45 01/04/24 13:14 01/04/24 10:34 01/04/24 13:14 01/04/24 13:14
<Karl Hidalgo MD - Last Filed: 01/04/24 13:23>
Orders/Labs/Results
Orders:
Orders
01/03/24 23:01
Complete Blood Count/With Diff Urgent
PTT Urgent
Prothrombin Time Urgent
01/03/24 23:13
Comprehensive Metabolic Panel Urgent
Lipase Urgent
01/04/24 01:49
Consult Interventional Radiology [IRAD CONSULT] Urgent
Consulting Provider: Oseas Roca
Was physician already notified: No
Reason for Consult/Procedure: recurrent symptomatic ascites
Acknowledgement that appropriate orders are entered: Yes
Consult Notification Routine
Specialty to Notify: IRAD (Interventional Radiology)
Date consulting provider notified: 01/04/24
Time consulting provider notified: 07:00
Notified:: Provider
Comment: [place]
01/04/24 07:36
Tramadol HCl [Ultram] 50 mg PO NOW STA
01/04/24 10:17
Body Fluid Cell Count Routine
What is the Body Fluid: ascites
Date Specimen was Collected: 01/04/24
Time Specimen was Collected: 10:10
01/04/24 11:10
Gram Stain Routine
JONO Source: Peritoneal Fluid
Specimen Description:
Comment: Post Procedure
01/04/24 11:12
Add On- LAB Urgent
Tests Added?: GS/c and s paracentesis fluid
01/04/24 13:00
Albumin Human 25% 100 ml [Flexbumin] 25 grams in 100 ml IV ONCE
Abnormal Lab Results
01/03/24 01/04/24
23:01 00:05
WBC 3.3 L 10^3/uL
(4.8-10.8)
RBC 2.73 L 10^6/uL
(4.20-5.40)
Hgb 10.1 L g/dL
(12.0-16.0)
Hct 29.1 L %
(37.0-47.0)
MCV 106.6 H fL
(81.0-99.0)
MCH 37.0 H pg
(27.0-31.0)
RDW 14.6 H %
(11.5-14.5)
Plt Count 113 L 10^3/uL
(130-400)
MPV 10.7 H fL
(7.4-10.4)
Absolute Lymphs (auto) 0.5 L 10^3/uL
(1.2-3.4)
Lymphocytes % 13.8 L %
(20.5-51.1)
PT 15.6 H Sec
(11.4-14.6)
APTT 36.6 H Sec
(23.4-35.0)
BUN 37 H mg/dl
(7-17)
Creatinine 1.3 H mg/dL
(0.6-1.0)
Glucose 124 H mg/dl
(70-99)
Total Protein 5.7 L g/dl
(6.3-8.2)
Albumin 3.2 L g/dl
(3.5-5.0)
01/03/24 23:01
01/04/24 00:05
Vital Signs
Initial and Last Documented VS:
Initial Vital Signs
Temp Pulse Resp BP Pulse Ox
98.1 F 92 18 136/61 97
01/03/24 21:46 01/03/24 21:46 01/03/24 21:46 01/03/24 21:46 01/03/24 21:46
Last Documented Vital Signs
Temp Pulse Resp BP Pulse Ox
98.9 F 78 16 111/58 98
01/04/24 09:45 01/04/24 13:14 01/04/24 10:34 01/04/24 13:14 01/04/24 13:14
<Rhiannon Kapoor, DO - Last Filed: 01/04/24 07:19>
MDM/Problems Addressed
Differential Diagnosis Includes:
Patient with metastatic breast cancer to liver and bone with history of malignant ascites presents to the ED with progressive abdominal distention, fullness, abdominal discomfort and difficulty taking a deep breath.
Overall appears relatively comfortable, afebrile.
Moderate ascites noted on exam.
Labs show mild but stable anemia
Mild leukopenia which has improved from previous.
Chemistries show stable chronic kidney disease with creatinine of 1.3, previously 1.4. LFTs within normal limits.
Will plan to consult IR for paracentesis in the morning.
Will continue to observe in the ED.
Chronic conditions affecting care: Cancer
Acute Exacerbation and/or Progression of Chronic Illness: Cancer (Recurrent malignant, Symptomatic ascites)
<Rhiannon Kapoor DO - Last Filed: 01/04/24 07:19>
*Pulse Oximetry
Patient hypoxic: no
*Critical Care Note
Total Time (30-74mins, 75-104mins- exclusive of procedures): Not Applicable
<Karl Hidalgo MD - Last Filed: 01/04/24 13:23>
Update Note
Update Note:
Patient tolerated procedure well. Feels much better. Abdomen soft and nontender. Reviewed cell count with GI. Also discussed abdomen which was ordered. Patient is stable for discharge to follow-up
ED Attending Note
<Rhiannon Kapoor DO - Last Filed: 01/04/24 07:19>
-
Portions of this chart may have been created with voice recognition software.� Occasional wrong word or��sound alike� substitutions may have occurred due to the inherent limitations of voice recognition software.
Discharge Plan
Departure
Patient Disposition: Home (Routine Discharge)
Date of Disposition: 01/04/24
Time of Disposition: 13:22
Patient with high blood pressure during this ER visit?: No
Discharge Problem:
Recurrent, symptomatic ascites, Malignancy related ascites
Instructions: Abdominal Paracentesis (DC)
Prescriptions:
No Action
Eliquis 5 MG tablet
5 mg PO BID
Xgeva 120 MG/1.7 ML solution
120 mg SQ [id number]
multivitamin with folic acid [Tab-A-Jolanta] 1 TABLET tablet
1 tab PO DAILY
Ibrance 125 MG capsule
75 mg PO UD
Rx Instructions:
PATIENT TAKES FOR 3 WEEKS THEN 1 WEEK OFF Then repeat
biotin 10,000 mcg Capsule
10,000 mcg PO DAILY
spironolactone 50 mg Tablet
75 mg PO BID
cholecalciferol (vitamin D3) [Vitamin D3] 25 mcg (1,000 unit) Capsule
25 mcg PO DAILY
calcium carbonate [Calcium 600] 600 mg calcium (1,500 mg) Tablet
600 mg PO DAILY
ferrous sulfate 325 mg (65 mg iron) Tablet
325 mg PO DAILY
ondansetron HCl 4 mg Tablet
4 mg PO Q8HPRN PRN (Reason: nausea)
gabapentin 100 mg Capsule
100 mg PO BIDPRN PRN (Reason: nerve pains)
fulvestrant 250 mg/5 mL Syringe
500 mg IM QMONTH
lactulose 10 gram/15 mL Solution
30 ml PO HS
tramadol 50 mg tablet
50 mg PO Q6HPRN PRN (Reason: severe pains)
ethacrynic acid 25 mg Tablet
25 mg PO DAILY
omeprazole 40 mg capsule,delayed release(DR/EC)
40 mg PO DAILY
fluticasone propionate 50 mcg/actuation [place],Suspension
1 spray INTRANASAL DAILYPRN PRN (Reason: congestion/allergies)
betamethasone dipropionate 0.05 % lotion
1 applic TOPICAL BID
Patient Comments:
apply to neck
Saccharomyces boulardii [Florastor] 250 mg Capsule
250 mg PO DAILYPRN PRN (Reason: probiotic)
amoxicillin 500 mg Tablet
500 mg PO TID
Referrals:
Yadi Lambert DO [Family Provider] - Follow up in 2-3 days
Activity Restrictions/Additional Instructions:
Call your GI physician tomorrow for close follow-up and to arrange more free evaluation for paracentesis
Interventions
Interventions:
*Risk Screen - Suicide Last Done: 01/03/24 21:49
*General Assessment Last Done: 01/03/24 21:49
*Neglect/Abuse Screening Last Done: 01/03/24 21:49
ED- Fall Risk Assessment Last Done: 01/04/24 00:38
*ED COVID-19 Vaccine History Last Done: 01/03/24 21:49
UM-Wqiplt-Fxaopjotlo Assessment Last Done: 01/04/24 00:38
Discharge Date and Time
Print Language: IVORIAN
[2024-01-04] MEDS: ULTRAM 50 MG PO (07:42)
[2024-01-04 11:08] LABS: Body Fluid Mononuclear 96.7 %; Body Fluid Polymorphonuclear 3.3 %; Body Fluid WBC 30 /CUMM
[2024-01-04 11:09] LABS: Body Fluid Second Tech CS
[2024-01-04] MEDS: FLEXBUMIN 100 IV (13:03)
== END 2024-01-04 15:33 | disposition home or self-care (01) ==
LOC: EMR 21:43
PROVIDERS: Emergency Medicine; CONSULT PHYSICIAN Radiology Vascular & Interventional Radiology; EMERGENCY PHYSICIAN Emergency Medicine; FAMILY PHYSICIAN Family Medicine
DX: R18.8 Other ascites (principal); C50.919 Malignant neoplasm of unspecified site of unspecified female breast; C78.7 Secondary malignant neoplasm of liver and intrahepatic bile duct; C79.51 Secondary malignant neoplasm of bone; D64.9 Anemia, unspecified; I12.9 Hypertensive chronic kidney disease with stage 1 through stage 4 chronic kidney disease, or unspecified chronic kidney disease; N18.9 Chronic kidney disease, unspecified; I48.91 Unspecified atrial fibrillation; E78.00 Pure hypercholesterolemia, unspecified; K57.92 Diverticulitis of intestine, part unspecified, without perforation or abscess without bleeding; G62.9 Polyneuropathy, unspecified; K21.9 Gastro-esophageal reflux disease without esophagitis; Z96.653 Presence of artificial knee joint, bilateral; Z96.643 Presence of artificial hip joint, bilateral; Z79.01 Long term (current) use of anticoagulants; Z90.49 Acquired absence of other specified parts of digestive tract; Z98.0 Intestinal bypass and anastomosis status; Z88.6 Allergy status to analgesic agent; Z88.1 Allergy status to other antibiotic agents; Z88.5 Allergy status to narcotic agent; Z88.0 Allergy status to penicillin; Z88.2 Allergy status to sulfonamides; Z88.8 Allergy status to other drugs, medicaments and biological substances
CPT/HCPCS: 99284; 96365; 96366; 49083; 80053; 83690; 85025; 85610; 85730; 89051; P9047

== ENCOUNTER → 2024-01-12 10:54 | Outpatient (REF) | payer MEDICARE, SELFPAY ==
[2024-01-12 13:13] LABS: % Basophils 1.5 % (0-2); % Immature Granulocytes 0.3 % (0-0.5); % Monocytes 5.7 % (1.7-9.3); % Neutrophils 80.5 % (42.2-75.2); Absolute Basophils 0.1 10^3/uL (0-0.2); Absolute Eosinophils 0.1 10^3/uL (0-0.7); Absolute Lymphocytes 0.3 10^3/uL (1.2-3.4); Absolute Monocytes 0.2 10^3/uL (0.1-0.6); Absolute Neutrophils 2.7 10^3/uL (1.4-6.5); Hematocrit 31.3 % (37.0-47.0); Hemoglobin 10.7 g/dL (12.0-16.0); Mean Corp Hgb Conc. 34.2 g/dL (33.0-37.0); Mean Corpuscular Hgb 37.3 pg (27.0-31.0); Mean Corpuscular Volume 109.1 fL (81.0-99.0); Nucleated Red Blood Cells % 0 %; Red Blood Cell Count 2.87 10^6/uL (4.20-5.40); Red Cell Dist. Width 15.4 % (11.5-14.5); White Blood Cell Count 3.3 10^3/uL (4.8-10.8)
[2024-01-12 13:59] LABS: Mean Platelet Volume 11.8 fL (7.4-10.4); Platelet Count 55 10^3/uL (130-400)
== END ==
LOC: RAD 10:54
PROVIDERS: ATTENDING PHYSICIAN Internal Medicine Hematology & Oncology; FAMILY PHYSICIAN Family Medicine; REFERRING PHYSICIAN Internal Medicine Cardiovascular Disease
DX: C50.412 Malignant neoplasm of upper-outer quadrant of left female breast (principal); R22.32 Localized swelling, mass and lump, left upper limb; C79.51 Secondary malignant neoplasm of bone; C78.7 Secondary malignant neoplasm of liver and intrahepatic bile duct; D50.9 Iron deficiency anemia, unspecified; N18.30 Chronic kidney disease, stage 3 unspecified; D63.1 Anemia in chronic kidney disease; D64.81 Anemia due to antineoplastic chemotherapy
CPT/HCPCS: 36415; 71250; 85025

== ENCOUNTER 2024-01-13 20:51 | Emergency (ER) | payer MEDICARE, SELFPAY ==
[2024-01-13 21:00] VITALS: BP 125/67
[2024-01-13 21:38] VITALS: BP 108/71
[2024-01-13 21:40] VITALS: BP 108/71
[2024-01-13 21:43] LABS: % Basophils 1.5 % (0-2); % Eosinophils 2.6 % (0-6); % Immature Granulocytes 0.3 % (0-0.5); % Lymphocytes 9.3 % (20.5-51.1); % Monocytes 4.1 % (1.7-9.3); % Neutrophils 82.2 % (42.2-75.2); Absolute Basophils 0.1 10^3/uL (0-0.2); Absolute Eosinophils 0.1 10^3/uL (0-0.7); Absolute Lymphocytes 0.3 10^3/uL (1.2-3.4); Absolute Monocytes 0.1 10^3/uL (0.1-0.6); Absolute Neutrophils 2.8 10^3/uL (1.4-6.5); Hematocrit 33.9 % (37.0-47.0); Hemoglobin 11.7 g/dL (12.0-16.0); Mean Corp Hgb Conc. 34.5 g/dL (33.0-37.0); Mean Corpuscular Volume 110.1 fL (81.0-99.0); Mean Platelet Volume 12.8 fL (7.4-10.4); Nucleated Red Blood Cells % 0 %; Platelet Count 76 10^3/uL (130-400); Red Blood Cell Count 3.08 10^6/uL (4.20-5.40); Red Cell Dist. Width 15.1 % (11.5-14.5); White Blood Cell Count 3.4 10^3/uL (4.8-10.8)
[2024-01-13 21:44] LABS: INR 1.31; PT 16.1 Sec (11.4-14.6)
[2024-01-13 21:45] LABS: APTT 42.8 Sec (23.4-35.0)
[2024-01-13 22:00] LABS: ALT (SGPT) 28 U/L (0-35); AST (SGOT) 37 U/L (14-36); Albumin 3.9 g/dl (3.5-5.0); Alkaline Phosphatase 63 U/L (38-126); Blood Urea Nitrogen 34 mg/dl (7-17); Calcium 8.4 mg/dl (8.4-10.2); Carbon Dioxide 24 mmol/L (22-30); Chloride 104 mmol/L (98-107); Glucose 108 mg/dl (70-99); Potassium 4.8 mmol/L (3.5-5.1); Sodium 136 mmol/L (135-145); Total Bilirubin 0.7 mg/dl (0.2-1.3); Total Protein 6.4 g/dl (6.3-8.2); eGFR 35.67
[2024-01-13 23:28] VITALS: BP 107/61
--- NOTE | 2024-01-14 00:39 | ED.GENMED ---
History of Present Illness
General
Chief Complaint: Rectal Bleeding
Source: patient
Exam Limitations: none
Time Seen by Provider: 01/13/24 22:03
Nursing documentation reviewed up to this point in time: agreed with
History of Present Illness
History of Present Illness:
Patient to ED with complaint of rectal bleeding. States symptoms started today and continues. Reports need to wear a pad because of the amt of bleeding. Brought to ED by spouse for eval.
Past History
Past History
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 Diverticulitis, Hiatal hernia. Anemia, Back and neck pain, neuropathy, Hemorrhoid)
ED Past Surgical History: Bowel resection, Cardiac (Ablation), Cholecystectomy, Gynecological (D&C), Orthopedic (Right total hip replacement, left total hip replacement, right knee and left knee replacements, hammer toe) and Other (Lumpectom left
breast. Hernia repair, )
Social History
Tobacco: Non-smoker
Alcohol: None
Personal:
Living: with family
Employment: Retired
Family History
Family History: Other (Noncontributory)
Review of Systems
Review of Systems
Allergies reviewed?: Yes
All Other Systems: ROS reviewed and negative except as documented in HPI and ROS
Constitutional: Reports no symptoms
EENT: Reports no symptoms
Respiratory: Reports no symptoms
Cardiac: Reports no symptoms
ABD/GI: Reports other (rectal bleeding)
: Reports no symptoms
Musculoskeletal: Reports no symptoms
Skin: Reports no symptoms
Neurological: Reports no symptoms
Psychiatric: Reports no symptoms
Phy Exam
General Physical Exam
General Presentation: well appearing and no apparent distress
General age: appears stated age
General Skin: warm and dry
General Habitus: normal
General Mental: alert
General Hydration: appears well hydrated
Gastrointestinal Exam
Gastrointestinal Exam: normal bowel sounds, non tender, soft, no organomegaly, no pulsatile mass, non distended and no cva tenderness
Rectal Exam: hemorrhoids (bleeding external hemorrhoid)
Musculoskeletal Exam
Musculoskeletal Exam: full ROM and neuro vasc intact
Skin Exam
Skin Exam: normal color, warm/dry and no rash
Psychiatric Exam
Psychiatric Exam: normal mood/affect
Course
Orders/Labs/Results
Orders:
Orders
01/13/24 21:07
Cardiac Monitoring- Treatment ONCE
O2 Therapy [RESP] Urgent
Titrate/Wean O2 to maintain O2 sat greater than (%): 93
Special Instructions: MAINTAIN CONTINOUS O2 SATS > OR = 93%
Pulse Ox/spot Check [RESP] Urgent
Quantity: 1
Special Instructions: ON ROOM AIR
01/13/24 21:24
Type+Screen Urgent
Complete Blood Count/With Diff Urgent
Comprehensive Metabolic Panel Urgent
PTT Urgent
Prothrombin Time Urgent
Abnormal Lab Results
01/13/24
21:24
WBC 3.4 L 10^3/uL
(4.8-10.8)
RBC 3.08 L 10^6/uL
(4.20-5.40)
Hgb 11.7 L g/dL
(12.0-16.0)
Hct 33.9 L %
(37.0-47.0)
MCV 110.1 H fL
(81.0-99.0)
MCH 38.0 H pg
(27.0-31.0)
RDW 15.1 H %
(11.5-14.5)
Plt Count 76 L D 10^3/uL
(130-400)
MPV 12.8 H fL
(7.4-10.4)
Absolute Lymphs (auto) 0.3 L 10^3/uL
(1.2-3.4)
Neutrophils % 82.2 H %
(42.2-75.2)
Lymphocytes % 9.3 L %
(20.5-51.1)
PT 16.1 H Sec
(11.4-14.6)
APTT 42.8 H Sec
(23.4-35.0)
BUN 34 H mg/dl
(7-17)
Creatinine 1.5 H mg/dL
(0.6-1.0)
Glucose 108 H mg/dl
(70-99)
AST 37 H U/L
(14-36)
01/13/24 21:24
01/13/24 21:24
Vital Signs
Initial and Last Documented VS:
Initial Vital Signs
Temp Pulse Resp BP Pulse Ox
99.6 F 97 18 125/67 98
01/13/24 21:00 01/13/24 21:00 01/13/24 21:00 01/13/24 21:00 01/13/24 21:00
Last Documented Vital Signs
Temp Pulse Resp BP Pulse Ox
98.4 F 93 24 107/61 98
01/13/24 21:40 01/13/24 23:45 01/13/24 23:45 01/13/24 23:28 01/13/24 23:58
MDM/Problems Addressed
Differential Diagnosis Includes:
Patient to ED wtih bleeding external hemorrhoid. On eliquis. Gelfoam and pressure applied to bleeding site and bleeding was stopped. SHe is discharged home and will follow up with colorectal provider. Labs reviewed, Hgb/Hct stable.
*Critical Care Note
Total Time (30-74mins, 75-104mins- exclusive of procedures): Not Applicable
ED Attending Note
-
Portions of this chart may have been created with voice recognition software.� Occasional wrong word or��sound alike� substitutions may have occurred due to the inherent limitations of voice recognition software.
Discharge Plan
Departure
Patient Disposition: Home (Routine Discharge)
Date of Disposition: 01/13/24
Time of Disposition: 23:47
Patient with high blood pressure during this ER visit?: No
Condition: Good
Covid-19: Not Applicable
Discharge Problem:
Bleeding external hemorrhoids
Instructions: Hemorrhoids (DC)
Prescriptions:
No Action
Eliquis 5 MG tablet
5 mg PO BID
Xgeva 120 MG/1.7 ML solution
120 mg SQ [id number]
multivitamin with folic acid [Tab-A-Jolanta] 1 TABLET tablet
1 tab PO DAILY
Ibrance 125 MG capsule
75 mg PO UD
Rx Instructions:
PATIENT TAKES FOR 3 WEEKS THEN 1 WEEK OFF Then repeat
biotin 10,000 mcg Capsule
10,000 mcg PO DAILY
spironolactone 50 mg Tablet
75 mg PO BID
cholecalciferol (vitamin D3) [Vitamin D3] 25 mcg (1,000 unit) Capsule
25 mcg PO DAILY
calcium carbonate [Calcium 600] 600 mg calcium (1,500 mg) Tablet
600 mg PO DAILY
ferrous sulfate 325 mg (65 mg iron) Tablet
325 mg PO DAILY
ondansetron HCl 4 mg Tablet
4 mg PO Q8HPRN PRN (Reason: nausea)
gabapentin 100 mg Capsule
100 mg PO BIDPRN PRN (Reason: nerve pains)
fulvestrant 250 mg/5 mL Syringe
500 mg IM QMONTH
lactulose 10 gram/15 mL Solution
30 ml PO HS
tramadol 50 mg tablet
50 mg PO Q6HPRN PRN (Reason: severe pains)
ethacrynic acid 25 mg Tablet
25 mg PO DAILY
omeprazole 40 mg capsule,delayed release(DR/EC)
40 mg PO DAILY
fluticasone propionate 50 mcg/actuation Prichard,Suspension
1 spray INTRANASAL DAILYPRN PRN (Reason: congestion/allergies)
betamethasone dipropionate 0.05 % lotion
1 applic TOPICAL BID
Patient Comments:
apply to neck
Saccharomyces boulardii [Florastor] 250 mg Capsule
250 mg PO DAILYPRN PRN (Reason: probiotic)
amoxicillin 500 mg Tablet
500 mg PO TID
Referrals:
Yadi Lambert DO [Family Provider] -
Interventions
Interventions:
*Risk Screen - Suicide Last Done: 01/13/24 21:03
*General Assessment Last Done: 01/13/24 21:55
*Neglect/Abuse Screening Last Done: 01/13/24 21:55
ED- Fall Risk Assessment Last Done: 01/13/24 21:55
*ED COVID-19 Vaccine History Last Done: 01/13/24 21:55
*Nursing Disposition Last Done: 01/13/24 23:58
ZL-Mhhrts-Gwgposgdxe Assessment Last Done: 01/13/24 21:55
ED- Cardiac Assessment Last Done: 01/13/24 21:55
ED- Pulmonary Assessment Last Done: 01/13/24 21:55
Discharge Date and Time
Discharge Date/Time: 01/14/24 00:12
Print Language: SAO TOMEAN
== END 2024-01-14 00:12 | disposition home or self-care (01) ==
LOC: EMR 20:51
PROVIDERS: Emergency Medicine; EMERGENCY PHYSICIAN Emergency Medicine; FAMILY PHYSICIAN Family Medicine
DX: K64.4 Residual hemorrhoidal skin tags (principal); I48.91 Unspecified atrial fibrillation; K21.9 Gastro-esophageal reflux disease without esophagitis; I10 Essential (primary) hypertension; E78.00 Pure hypercholesterolemia, unspecified; Z85.3 Personal history of malignant neoplasm of breast; Z87.19 Personal history of other diseases of the digestive system; Z90.49 Acquired absence of other specified parts of digestive tract; Z96.653 Presence of artificial knee joint, bilateral
CPT/HCPCS: 99283; 80053; 85025; 85610; 85730; 86850; 86900; 86901

== ENCOUNTER → 2024-01-14 09:19 | Outpatient (REF) | payer MEDICARE, SELFPAY ==
[2024-01-14 10:20] VITALS: BP 94/69; BP_SYST 78
[2024-01-14 10:45] VITALS: BP 113/58
[2024-01-14 11:49] LABS: Body Fluid Mononuclear 89.1 %; Body Fluid Polymorphonuclear 10.9 %; Body Fluid WBC 46 /CUMM
[2024-01-14 11:53] LABS: Body Fluid Second Tech AMA
== END ==
LOC: RADI 09:19
PROVIDERS: ATTENDING PHYSICIAN Nurse Practitioner Family; FAMILY PHYSICIAN Family Medicine
DX: R18.8 Other ascites (principal)
CPT/HCPCS: 49083; 87015; 87070; 87205; 89051

== ENCOUNTER → 2024-01-22 09:03 | Outpatient (REF) | payer MEDICARE, SELFPAY ==
[2024-01-22 09:50] VITALS: BP 107/57; BP_SYST 80
[2024-01-22 10:02] LABS: INR 1.07
[2024-01-22 10:14] LABS: Hematocrit 33.8 % (37.0-47.0); Hemoglobin 11.7 g/dL (12.0-16.0); Mean Corp Hgb Conc. 34.6 g/dL (33.0-37.0); Mean Corpuscular Hgb 38.1 pg (27.0-31.0); Mean Corpuscular Volume 110.1 fL (81.0-99.0); Mean Platelet Volume 12.9 fL (7.4-10.4); Platelet Count 59 10^3/uL (130-400); Red Blood Cell Count 3.07 10^6/uL (4.20-5.40); White Blood Cell Count 1.9 10^3/uL (4.8-10.8)
[2024-01-22 11:15] LABS: % Basophils 2.7 % (0-2); % Eosinophils 6.4 % (0-6); % Monocytes 12.8 % (1.7-9.3); % Neutrophils 62.1 % (42.2-75.2); Absolute Basophils 0.1 10^3/uL (0-0.2); Absolute Eosinophils 0.1 10^3/uL (0-0.7); Absolute Lymphocytes 0.3 10^3/uL (1.2-3.4); Absolute Monocytes 0.2 10^3/uL (0.1-0.6); Absolute Neutrophils 1.2 10^3/uL (1.4-6.5); Nucleated Red Blood Cells % 0 %
[2024-01-22 13:31] LABS: Body Fluid Mononuclear 90.5 %; Body Fluid Polymorphonuclear 9.5 %; Body Fluid WBC 53 /CUMM
[2024-01-22 14:43] LABS: Body Fluid Second Tech CMB
== END ==
LOC: RADI 09:03
PROVIDERS: Nurse Practitioner Family; Physician Assistant; ATTENDING PHYSICIAN Internal Medicine Hematology & Oncology; FAMILY PHYSICIAN Family Medicine
DX: R18.8 Other ascites (principal); R91.1 Solitary pulmonary nodule; D68.8 Other specified coagulation defects
CPT/HCPCS: 36415; 49083; 76380; 85025; 85610; 87015; 87070; 87205; 89051

== ENCOUNTER 2024-01-22 12:12 | Outpatient (RCR) | payer MEDICARE, SELFPAY ==
[2024-01-14 11:19] VITALS: BP 127/63
[2024-01-14 11:45] VITALS: BP 127/63
[2024-01-14] MEDS: FLEXBUMIN 100 IV (11:45)
[2024-01-14 13:25] VITALS: BP 135/72
[2024-01-22 12:47] VITALS: BP 117/63
[2024-01-22] MEDS: FLEXBUMIN 100 IV (13:09)
[2024-01-22 13:10] VITALS: BP 117/63
[2024-01-22 14:46] VITALS: BP 97/44
== END 2024-01-29 23:59 | disposition home or self-care (01) ==
LOC: OID 12:12
PROVIDERS: ATTENDING PHYSICIAN Internal Medicine Gastroenterology; FAMILY PHYSICIAN Family Medicine
DX: K74.60 Unspecified cirrhosis of liver (principal); D64.9 Anemia, unspecified; Z90.49 Acquired absence of other specified parts of digestive tract
CPT/HCPCS: 96365; 96366; P9047

== ENCOUNTER → 2024-01-27 10:33 | Outpatient (REF) | payer MEDICARE, SELFPAY ==
[2024-01-27 12:16] LABS: % Basophils 2.4 % (0-2); % Eosinophils 9.1 % (0-6); % Immature Granulocytes 0.3 % (0-0.5); % Lymphocytes 13.6 % (20.5-51.1); % Monocytes 9.4 % (1.7-9.3); % Neutrophils 65.2 % (42.2-75.2); Absolute Basophils 0.1 10^3/uL (0-0.2); Absolute Eosinophils 0.3 10^3/uL (0-0.7); Absolute Lymphocytes 0.4 10^3/uL (1.2-3.4); Absolute Monocytes 0.3 10^3/uL (0.1-0.6); Absolute Neutrophils 1.9 10^3/uL (1.4-6.5); Hematocrit 34.7 % (37.0-47.0); Hemoglobin 11.8 g/dL (12.0-16.0); Mean Corpuscular Hgb 36.4 pg (27.0-31.0); Mean Corpuscular Volume 107.1 fL (81.0-99.0); Mean Platelet Volume 12.7 fL (7.4-10.4); Nucleated Red Blood Cells % 0 %; Platelet Count 94 10^3/uL (130-400); Red Blood Cell Count 3.24 10^6/uL (4.20-5.40); Red Cell Dist. Width 15.4 % (11.5-14.5); White Blood Cell Count 2.9 10^3/uL (4.8-10.8)
[2024-01-27 13:57] LABS: ALT (SGPT) 23 U/L (0-35); AST (SGOT) 32 U/L (14-36); Albumin 3.7 g/dl (3.5-5.0); Alkaline Phosphatase 53 U/L (38-126); Blood Urea Nitrogen 34 mg/dl (7-17); Calcium 9.2 mg/dl (8.4-10.2); Carbon Dioxide 26 mmol/L (22-30); Chloride 100 mmol/L (98-107); Glucose 111 mg/dl (70-99); Iron 103 ug/dl (37-170); Potassium 4.4 mmol/L (3.5-5.1); Sodium 136 mmol/L (135-145); Total Bilirubin 0.9 mg/dl (0.2-1.3); Total Protein 6.2 g/dl (6.3-8.2); eGFR 35.67
[2024-01-27 14:06] LABS: Percent Saturation 42 % (20-50); Total Iron Binding Capacity 245 ug/dl (265-497)
[2024-01-29 22:46] LABS: CA 27-29 221.2 U/mL (<=39.0)
== END ==
LOC: REG 10:33
PROVIDERS: ATTENDING PHYSICIAN Internal Medicine Hematology & Oncology; FAMILY PHYSICIAN Family Medicine; REFERRING PHYSICIAN Internal Medicine Gastroenterology
DX: C50.412 Malignant neoplasm of upper-outer quadrant of left female breast (principal); R22.32 Localized swelling, mass and lump, left upper limb; C79.51 Secondary malignant neoplasm of bone; C78.7 Secondary malignant neoplasm of liver and intrahepatic bile duct; D50.9 Iron deficiency anemia, unspecified; N18.30 Chronic kidney disease, stage 3 unspecified; D63.1 Anemia in chronic kidney disease; D64.81 Anemia due to antineoplastic chemotherapy
CPT/HCPCS: 36415; 80053; 82728; 83540; 83550; 85025; 86300

== ENCOUNTER → 2024-02-06 07:41 | Outpatient (REF) | payer MEDICARE, SELFPAY ==
[2024-02-06 08:45] VITALS: BP 99/59; BP_SYST 96
[2024-02-06 09:00] VITALS: BP 132/57
[2024-02-06 10:45] LABS: Body Fluid WBC 41 /CUMM
[2024-02-06 10:46] LABS: Body Fluid Mononuclear 90.2 %; Body Fluid Polymorphonuclear 9.8 %
[2024-02-06 10:52] LABS: Body Fluid Second Tech EM
== END ==
LOC: RADI 07:41
PROVIDERS: ATTENDING PHYSICIAN Physician Assistant; FAMILY PHYSICIAN Family Medicine
DX: R18.8 Other ascites (principal)
CPT/HCPCS: 49083; 87015; 87070; 87205; 89051

== ENCOUNTER 2024-02-09 16:50 | Emergency (ER) | payer MEDICARE, SELFPAY ==
[2024-02-09 17:05] VITALS: BP 126/88
[2024-02-09 17:36] LABS: % Basophils 1.3 % (0-2); % Eosinophils 5.8 % (0-6); % Immature Granulocytes 0.3 % (0-0.5); % Lymphocytes 15.6 % (20.5-51.1); % Monocytes 6.2 % (1.7-9.3); % Neutrophils 70.8 % (42.2-75.2); Absolute Eosinophils 0.2 10^3/uL (0-0.7); Absolute Lymphocytes 0.5 10^3/uL (1.2-3.4); Absolute Monocytes 0.2 10^3/uL (0.1-0.6); Absolute Neutrophils 2.2 10^3/uL (1.4-6.5); Hematocrit 32.8 % (37.0-47.0); Hemoglobin 11.4 g/dL (12.0-16.0); Mean Corp Hgb Conc. 34.8 g/dL (33.0-37.0); Mean Corpuscular Hgb 36.1 pg (27.0-31.0); Mean Corpuscular Volume 103.8 fL (81.0-99.0); Nucleated Red Blood Cells % 0 %; Platelet Count 77 10^3/uL (130-400); Red Blood Cell Count 3.16 10^6/uL (4.20-5.40); Red Cell Dist. Width 14.6 % (11.5-14.5); White Blood Cell Count 3.1 10^3/uL (4.8-10.8)
[2024-02-09 17:44] LABS: ALT (SGPT) 25 U/L (0-35); AST (SGOT) 37 U/L (14-36); Albumin 3.9 g/dl (3.5-5.0); Alkaline Phosphatase 49 U/L (38-126); Blood Urea Nitrogen 40 mg/dl (7-17); Calcium 9.2 mg/dl (8.4-10.2); Carbon Dioxide 26 mmol/L (22-30); Chloride 99 mmol/L (98-107); Glucose 118 mg/dl (70-99); Sodium 137 mmol/L (135-145); Total Bilirubin 0.8 mg/dl (0.2-1.3); Total Protein 6.5 g/dl (6.3-8.2); eGFR 33.01
--- NOTE | 2024-02-09 19:17 | ED.GENMED ---
History of Present Illness
General
Chief Complaint: Weakness
Time Seen by Provider: 02/09/24 19:05
History of Present Illness
History of Present Illness:
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 Patient states that she had a
paracentesis 3 days ago. Was 4.5 L. She normally gets 4 L drained. She did receive her albumin afterwards. She did notice that she was having leg cramping. She called her GI doctor today given the symptoms and she was told that they were normal
however she recommended to go to the emergency department for evaluation of her electrolytes. Patient does state that she had Pedialyte and did feel slightly better with the cramps. Completely resolved. She denies any numbness tingling. No
weakness. She has been compliant with all her medications.
Past History
Past History
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 Diverticulitis, Hiatal hernia. Anemia, Back and neck pain, neuropathy, Hemorrhoid)
ED Past Surgical History: Bowel resection, Cardiac (Ablation), Cholecystectomy, Gynecological (D&C), Orthopedic (Right total hip replacement, left total hip replacement, right knee and left knee replacements, hammer toe) and Other (Lumpectom left
breast. Hernia repair, )
Social History
Tobacco: Non-smoker
Alcohol: None
Personal:
Living: with family
Employment: Retired
Family History
Family History: Other (Noncontributory)
Phy Exam
Physical Exam
Physical Exam:
GENERAL: in no acute distress
HEENT: normocephalic, extraocular movements intact, moist oral mucosa
NECK: normal inspection
RESPIRATORY: no respiratory distress, clear to auscultation bilaterally
CARDIOVASCULAR: regular rate and rhythm
ABDOMEN/: soft, non-distended, non-tender to palpation, no rebound or guarding
EXTREMITIES: non-tender, no edema/swelling
NEUROLOGIC: awake and alert, moves all extremities
SKIN: warm
Course
Orders/Labs/Results
Orders:
Orders
02/09/24 17:15
CMP [Comprehensive Metabolic Panel] Urgent
Complete Blood Count/With Diff Urgent
Abnormal Lab Results
02/09/24
17:15
WBC 3.1 L 10^3/uL
(4.8-10.8)
RBC 3.16 L 10^6/uL
(4.20-5.40)
Hgb 11.4 L g/dL
(12.0-16.0)
Hct 32.8 L %
(37.0-47.0)
MCV 103.8 H fL
(81.0-99.0)
MCH 36.1 H pg
(27.0-31.0)
RDW 14.6 H %
(11.5-14.5)
Plt Count 77 L 10^3/uL
(130-400)
MPV 11.0 H fL
(7.4-10.4)
Absolute Lymphs (auto) 0.5 L 10^3/uL
(1.2-3.4)
Lymphocytes % 15.6 L %
(20.5-51.1)
BUN 40 H mg/dl
(7-17)
Creatinine 1.6 H mg/dL
(0.6-1.0)
Glucose 118 H mg/dl
(70-99)
AST 37 H U/L
(14-36)
02/09/24 17:15
02/09/24 17:15
Vital Signs
Initial and Last Documented VS:
Initial Vital Signs
Temp Pulse Resp BP Pulse Ox
99.5 F 103 20 126/88 97
02/09/24 17:05 02/09/24 17:05 02/09/24 17:02/09/24 17:05 02/09/24 17:05
Last Documented Vital Signs
Temp Pulse Resp BP Pulse Ox
99.5 F 103 20 126/88 97
02/09/24 17:05 02/09/24 17:05 02/09/24 17:05 02/09/24 17:05 02/09/24 17:05
MDM/Problems Addressed
Differential Diagnosis Includes:
Patient is a 78-year-old woman presenting to the emergency department with muscle cramps after a recent paracentesis that are now resolved. Vitals unremarkable and exam is reassuring. Differential consists of electrolyte derangement versus
worsening anemia or fluid overload. Blood work obtained prior to evaluation shows normal electrolytes and hemoglobin that is similar to prior. Patient does feel much better. She is following up with her doctor later this week. She is stable for
discharge at this time.
*Critical Care Note
Total Time (30-74mins, 75-104mins- exclusive of procedures): Not Applicable
ED Attending Note
-
Portions of this chart may have been created with voice recognition software.� Occasional wrong word or��sound alike� substitutions may have occurred due to the inherent limitations of voice recognition software.
Discharge Plan
Departure
Patient Disposition: Home (Routine Discharge)
Date of Disposition: 02/09/24
Time of Disposition: 19:16
Patient with high blood pressure during this ER visit?: No
Discharge Problem:
Muscle cramp
Instructions: Muscle Spasm ED
Prescriptions:
No Action
Xgeva 120 MG/1.7 ML solution
120 mg SQ [id number]
multivitamin with folic acid [Tab-A-Jolanta] 1 TABLET tablet
1 tab PO DAILY
Ibrance 125 MG capsule
75 mg PO UD
Rx Instructions:
PATIENT TAKES FOR 3 WEEKS THEN 1 WEEK OFF Then repeat
biotin 10,000 mcg Capsule
10,000 mcg PO DAILY
spironolactone 50 mg Tablet
75 mg PO BID
cholecalciferol (vitamin D3) [Vitamin D3] 25 mcg (1,000 unit) Capsule
25 mcg PO DAILY
calcium carbonate [Calcium 600] 600 mg calcium (1,500 mg) Tablet
600 mg PO DAILY
ferrous sulfate 325 mg (65 mg iron) Tablet
325 mg PO DAILY
ondansetron HCl 4 mg Tablet
4 mg PO Q8HPRN PRN (Reason: nausea)
gabapentin 100 mg Capsule
100 mg PO BIDPRN PRN (Reason: nerve pains)
fulvestrant 250 mg/5 mL Syringe
500 mg IM QMONTH
lactulose 10 gram/15 mL Solution
30 ml PO HS
tramadol 50 mg tablet
50 mg PO Q6HPRN PRN (Reason: severe pains)
omeprazole 40 mg capsule,delayed release(DR/EC)
40 mg PO DAILY
betamethasone dipropionate 0.05 % lotion
1 applic TOPICAL BID
Patient Comments:
apply to neck
furosemide [Lasix] 40 mg Tablet
40 mg PO DAILY
Referrals:
UNKNOWN - PT DOES,NOT KNOW [Family Provider] -
Discharge Date and Time
Print Language: LATVIAN
[2024-02-09 19:35] VITALS: BP 111/54
== END 2024-02-09 20:35 | disposition home or self-care (01) ==
LOC: EMR 16:50
PROVIDERS: Emergency Medicine; EMERGENCY PHYSICIAN Student in an Organized Health Care Education/Training Program; FAMILY PHYSICIAN Family Medicine
DX: R25.2 Cramp and spasm (principal)
CPT/HCPCS: 99283; 36415; 80053; 85025

== ENCOUNTER → 2024-02-11 16:11 | Outpatient (REF) | payer MEDICARE, SELFPAY ==
[2024-02-11 13:34] LABS: % Basophils 1.2 % (0-2); % Eosinophils 6.8 % (0-6); % Immature Granulocytes 0.4 % (0-0.5); % Lymphocytes 16.3 % (20.5-51.1); % Monocytes 9.6 % (1.7-9.3); % Neutrophils 65.7 % (42.2-75.2); Absolute Eosinophils 0.2 10^3/uL (0-0.7); Absolute Lymphocytes 0.4 10^3/uL (1.2-3.4); Absolute Monocytes 0.2 10^3/uL (0.1-0.6); Absolute Neutrophils 1.7 10^3/uL (1.4-6.5); Hematocrit 33.7 % (37.0-47.0); Hemoglobin 11.6 g/dL (12.0-16.0); Mean Corp Hgb Conc. 34.4 g/dL (33.0-37.0); Mean Corpuscular Hgb 36.4 pg (27.0-31.0); Mean Corpuscular Volume 105.6 fL (81.0-99.0); Mean Platelet Volume 10.6 fL (7.4-10.4); Platelet Count 70 10^3/uL (130-400); Red Blood Cell Count 3.19 10^6/uL (4.20-5.40); Red Cell Dist. Width 14.6 % (11.5-14.5); White Blood Cell Count 2.5 10^3/uL (4.8-10.8)
[2024-02-11 15:42] LABS: Iron 132 ug/dl (37-170)
[2024-02-11 15:51] LABS: Percent Saturation 53 % (20-50); Total Iron Binding Capacity 245 ug/dl (265-497)
== END ==
LOC: OIDL 16:11
PROVIDERS: ATTENDING PHYSICIAN Internal Medicine Hematology & Oncology
DX: C50.412 Malignant neoplasm of upper-outer quadrant of left female breast (principal); R22.32 Localized swelling, mass and lump, left upper limb; C79.51 Secondary malignant neoplasm of bone
CPT/HCPCS: 82728; 83540; 83550; 85025

== ENCOUNTER → 2024-02-13 09:51 | Outpatient (REF) | payer MEDICARE, SELFPAY | LOC: WDC 09:51 | PROVIDERS: ATTENDING PHYSICIAN Internal Medicine Hematology & Oncology; FAMILY PHYSICIAN Family Medicine | DX: N64.4 Mastodynia (principal); C50.412 Malignant neoplasm of upper-outer quadrant of left female breast | CPT/HCPCS: 76642; 77062; 77066 ==

== ENCOUNTER → 2024-02-18 08:15 | Outpatient (REF) | payer MEDICARE, SELFPAY ==
[2024-02-18 08:32] VITALS: BP 107/62; BP_SYST 82
[2024-02-18 09:15] VITALS: BP 94/48; BP_SYST 82
[2024-02-18 10:36] LABS: Body Fluid Mononuclear 87.5 %; Body Fluid Polymorphonuclear 12.5 %; Body Fluid WBC 40 /CUMM
[2024-02-18 10:56] LABS: Body Fluid Second Tech AMA
== END ==
LOC: RADI 08:15
PROVIDERS: ATTENDING PHYSICIAN Physician Assistant; FAMILY PHYSICIAN Family Medicine
DX: R18.8 Other ascites (principal)
CPT/HCPCS: 49083; 87015; 87070; 87205; 89051

== ENCOUNTER 2024-02-18 12:16 | Emergency (ER) | payer MEDICARE, SELFPAY ==
[2024-02-18] VITALS (8 sets, daily range): BP systolic 101–114; BP diastolic 55–66; PULSE 86–107; BMI 28.8
[2024-02-18 13:02] LABS: ALT (SGPT) 22 U/L (0-35); AST (SGOT) 29 U/L (14-36); Albumin 3.7 g/dl (3.5-5.0); Alkaline Phosphatase 44 U/L (38-126); Blood Urea Nitrogen 34 mg/dl (7-17); Calcium 8.9 mg/dl (8.4-10.2); Chloride 101 mmol/L (98-107); Estimated Creatinine Clearance 30 ml/min; Glucose 95 mg/dl (70-99); Potassium 4.7 mmol/L (3.5-5.1); Sodium 134 mmol/L (135-145); Total Bilirubin 0.6 mg/dl (0.2-1.3); Total Protein 6.1 g/dl (6.3-8.2); eGFR 33.01
[2024-02-18 13:08] LABS: Troponin I < 0.012 ng/ml
[2024-02-18 13:15] LABS: % Basophils 1.5 % (0-2); % Lymphocytes 21.5 % (20.5-51.1); % Monocytes 13.5 % (1.7-9.3); % Neutrophils 57.5 % (42.2-75.2); Absolute Eosinophils 0.1 10^3/uL (0-0.7); Absolute Lymphocytes 0.4 10^3/uL (1.2-3.4); Absolute Monocytes 0.3 10^3/uL (0.1-0.6); Absolute Neutrophils 1.2 10^3/uL (1.4-6.5); Hematocrit 30.2 % (37.0-47.0); Hemoglobin 9.9 g/dL (12.0-16.0); Mean Corp Hgb Conc. 32.8 g/dL (33.0-37.0); Mean Corpuscular Volume 109.8 fL (81.0-99.0); Mean Platelet Volume 11.9 fL (7.4-10.4); Nucleated Red Blood Cells % 0 %; Platelet Count 66 10^3/uL (130-400); Red Blood Cell Count 2.75 10^6/uL (4.20-5.40); Red Cell Dist. Width 15.3 % (11.5-14.5)
[2024-02-18 13:20] LABS: Carbon Dioxide 26 mmol/L (22-30)
[2024-02-18] MEDS: TORADOL 15 MG IV (14:09)
--- NOTE | 2024-02-18 14:09 | ED.GENMED ---
History of Present Illness
General
Chief Complaint: Blood Pressure Problem
Source: patient
Exam Limitations: none
Time Seen by Provider: 02/18/24 13:18
Nursing documentation reviewed up to this point in time: agreed with
History of Present Illness
History of Present Illness:
Patient with history of metastatic breast cancer, presents to ED secondary to dizziness with near syncope, shortly after receiving scheduled outpatient paracentesis, followed by albumin infusion. At that time, patient was found to be hypotensive
with systolic blood pressure in 70s. Patient denies chest palpitations, shortness of breath, nausea, or vomiting. Denies headache. Denies recent illness. Denies recent change in medications or diet. Patient does state that drinking water has
been difficult. Patient does report having had breakfast and part of her lunch, consisting of chicken sandwich.
Past History
Past History
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 Diverticulitis, Hiatal hernia. Anemia, Back and neck pain, neuropathy, Hemorrhoid)
ED Past Surgical History: Bowel resection, Cardiac (Ablation), Cholecystectomy, Gynecological (D&C), Orthopedic (Right total hip replacement, left total hip replacement, right knee and left knee replacements, hammer toe) and Other (Lumpectom left
breast. Hernia repair, )
Social History
Tobacco: Non-smoker
Alcohol: None
Personal:
Living: with family
Employment: Retired
Family History
Family History: Other (Noncontributory)
Review of Systems
Review of Systems
Allergies reviewed?: Yes
All Other Systems: ROS reviewed and negative except as documented in HPI and ROS
Constitutional: Reports no symptoms
EENT: Reports no symptoms
Respiratory: Reports no symptoms
Cardiac: Reports no symptoms
ABD/GI: Reports no symptoms
: Reports no symptoms
Musculoskeletal: Reports no symptoms
Skin: Reports no symptoms
Neurological: Reports dizzy
Phy Exam
Physical Exam
Physical Exam:
Physical Exam
General: no apparent distress, not acutely ill. afebrile
Head: nc/at. eomi
Neck: supple. normal range of motion.
Heart: s1/s2 regular rate and rhythm, no murmur. equal radial pulses.
Lungs: no acute respiratory distress. clear bilaterally
Abdomen: normal bowel sounds. not tender.
Neuro: alert and oriented. no focal neurological deficits
Skin: no rash
Psychiatric: well kept. interactive and cooperative
Extremities: no edema. no calf tenderness.
Course
Orders/Labs/Results
Orders:
Orders
02/18/24
Electrocardiogram (*1) Stat
Comment: ALREADY DONE
02/18/24 12:18
Electrocardiogram (*1) Urgent
Reason for Study: Syncope
EKG- Treatment ONCE
02/18/24 12:31
Complete Blood Count/With Diff Urgent
Comprehensive Metabolic Panel Urgent
Magnesium Urgent
Comment: ADD ON
Troponin I Urgent
02/18/24 13:22
Orthostatic VS- Treatment ONCE
02/18/24 14:06
Add On- LAB Urgent
Tests Added?: magnesium, iron, tibc, ferritin
0.9% Sodium Chloride 500 ml [Nss] 500 ml IV BOLUS
Ketorolac [Toradol] 15 mg IV NOW STA
Abnormal Lab Results
02/18/24
12:31
WBC 2.0 L* 10^3/uL
(4.8-10.8)
RBC 2.75 L 10^6/uL
(4.20-5.40)
Hgb 9.9 L g/dL
(12.0-16.0)
Hct 30.2 L %
(37.0-47.0)
MCV 109.8 H fL
(81.0-99.0)
MCH 36.0 H pg
(27.0-31.0)
MCHC 32.8 L g/dL
(33.0-37.0)
RDW 15.3 H %
(11.5-14.5)
Plt Count 66 L 10^3/uL
(130-400)
MPV 11.9 H fL
(7.4-10.4)
Absolute Neuts (auto) 1.2 L 10^3/uL
(1.4-6.5)
Absolute Lymphs (auto) 0.4 L 10^3/uL
(1.2-3.4)
Monocytes % 13.5 H %
(1.7-9.3)
Sodium 134 L mmol/L
(135-145)
BUN 34 H mg/dl
(7-17)
Creatinine 1.6 H mg/dL
(0.6-1.0)
Total Protein 6.1 L g/dl
(6.3-8.2)
02/18/24 12:31
02/18/24 12:31
Vital Signs
Initial and Last Documented VS:
Initial Vital Signs
Pulse Resp Pulse Ox
87 18 98
02/18/24 12:19 02/18/24 12:19 02/18/24 12:19
Last Documented Vital Signs
Temp Pulse Resp BP Pulse Ox
97.8 F 91 28 110/66 97
02/18/24 12:20 02/18/24 14:45 02/18/24 14:45 02/18/24 14:00 02/18/24 14:30
MDM/Problems Addressed
MDM/Problems Addressed:
Orthostatic vital signs noted, significant for symptomatic lightheadedness along with increased heart rate when standing up. Patient given IV fluid bolus and lunch, with significant improvement symptoms. Afterwards, patient is able to ambulate
without any further symptoms. Patient otherwise is afebrile, hemodynamically stable, and appears comfortable at time of discharge, to the care of her . Advised increased fluid intake at home along with PCP follow-up as an outpatient.
Anemia discussed with patient, who informs me that she has routine blood work with her oncologist, with next one scheduled in 1 week.
*EKG
Interpreted by ED Provider?: Yes
EKG Intrepretation Date: 02/18/24
Heart Rate: 88
Rate: normal
Rhythm: sinus
*Critical Care Note
Total Time (30-74mins, 75-104mins- exclusive of procedures): Not Applicable
ED Attending Note
-
Portions of this chart may have been created with voice recognition software.� Occasional wrong word or��sound alike� substitutions may have occurred due to the inherent limitations of voice recognition software.
Discharge Plan
Departure
Patient Disposition: Home (Routine Discharge)
Date of Disposition: 02/18/24
Time of Disposition: 15:16
Patient with high blood pressure during this ER visit?: No
Condition: Good
Discharge Problem:
Dehydration, Pancytopenia
Instructions: Dehydration, Adult ED
Prescriptions:
No Action
Xgeva 120 MG/1.7 ML solution
120 mg SQ [id number]
multivitamin with folic acid [Tab-A-Jolanta] 1 TABLET tablet
1 tab PO DAILY
biotin 10,000 mcg Capsule
10,000 mcg PO DAILY
spironolactone 50 mg Tablet
75 mg PO DAILY
cholecalciferol (vitamin D3) [Vitamin D3] 25 mcg (1,000 unit) Capsule
25 mcg PO DAILY
calcium carbonate [Calcium 600] 600 mg calcium (1,500 mg) Tablet
600 mg PO DAILY
ferrous sulfate 325 mg (65 mg iron) Tablet
325 mg PO DAILY
ondansetron HCl 4 mg Tablet
4 mg PO Q8HPRN PRN (Reason: nausea)
gabapentin 100 mg Capsule
100 mg PO BIDPRN PRN (Reason: nerve pains)
fulvestrant 250 mg/5 mL Syringe
500 mg IM QMONTH
lactulose 10 gram/15 mL Solution
30 ml PO HS
tramadol 50 mg tablet
50 mg PO Q6HPRN PRN (Reason: severe pains)
Patient Comments:
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
omeprazole 40 mg capsule,delayed release(DR/EC)
40 mg PO DAILY
ethacrynic acid 25 mg Tablet
25 mg PO DAILY
sennosides [senna] 8.6 mg Tablet
8.6 mg PO QPMPRN PRN (Reason: constipaiton)
Ibrance 125 mg Tablet
125 mg PO UD
Rx Instructions:
PATIENT TO TAKE FOR 21 DAYS THEN 7 DAYS OFF
Referrals:
Yadi Lambert DO [Family Provider] -
Activity Restrictions/Additional Instructions:
As discussed, please follow up with your primary care physician for re-evaluation. In the meantime, recommend increasing fluid intake at home.
Interventions
Interventions:
*Risk Screen - Suicide Last Done: 02/18/24 12:20
*General Assessment Last Done: 02/18/24 12:20
*Neglect/Abuse Screening Last Done: 02/18/24 12:20
ED- Fall Risk Assessment Last Done: 02/18/24 12:59
*ED COVID-19 Vaccine History Last Done: 02/18/24 12:20
*Nursing Disposition Last Done: 02/18/24 15:20
ED- Cardiac Assessment Last Done: 02/18/24 12:59
ED- Neurological Assessment Last Done: 02/18/24 12:59
ED- Pulmonary Assessment Last Done: 02/18/24 12:59
Discharge Date and Time
Discharge Date/Time: 02/18/24 15:21
Print Language: ICELANDIC
[2024-02-18] MEDS: NSS 500 IV (14:10)
[2024-02-18 15:47] LABS: Magnesium 2.1 mg/dl (1.6-2.3)
== END 2024-02-18 15:21 | disposition home or self-care (01) ==
LOC: EMR 12:16
PROVIDERS: Emergency Medicine; EMERGENCY PHYSICIAN Emergency Medicine; FAMILY PHYSICIAN Family Medicine
DX: D61.818 Other pancytopenia (principal); E86.0 Dehydration; E78.00 Pure hypercholesterolemia, unspecified; I10 Essential (primary) hypertension; I48.91 Unspecified atrial fibrillation; K21.9 Gastro-esophageal reflux disease without esophagitis; C50.919 Malignant neoplasm of unspecified site of unspecified female breast; C78.7 Secondary malignant neoplasm of liver and intrahepatic bile duct; C79.51 Secondary malignant neoplasm of bone; Z90.49 Acquired absence of other specified parts of digestive tract
CPT/HCPCS: 96374; 96361; 99284; 80053; 83735; 84484; 85025; 93005

== ENCOUNTER → 2024-02-23 10:46 | Outpatient (REF) | payer MEDICARE, SELFPAY ==
[2024-02-23 12:19] LABS: Hematocrit 32.3 % (37.0-47.0); Hemoglobin 10.5 g/dL (12.0-16.0); Mean Corp Hgb Conc. 32.5 g/dL (33.0-37.0); Mean Corpuscular Hgb 36.5 pg (27.0-31.0); Mean Corpuscular Volume 112.2 fL (81.0-99.0); Mean Platelet Volume 11.8 fL (7.4-10.4); Platelet Count 88 10^3/uL (130-400); Red Blood Cell Count 2.88 10^6/uL (4.20-5.40); Red Cell Dist. Width 15.3 % (11.5-14.5)
[2024-02-23 12:23] LABS: ALT (SGPT) 24 U/L (0-35); AST (SGOT) 32 U/L (14-36); Albumin 3.7 g/dl (3.5-5.0); Alkaline Phosphatase 56 U/L (38-126); Blood Urea Nitrogen 34 mg/dl (7-17); Calcium 9.7 mg/dl (8.4-10.2); Carbon Dioxide 28 mmol/L (22-30); Chloride 100 mmol/L (98-107); Glucose 112 mg/dl (70-99); Magnesium 1.9 mg/dl (1.6-2.3); Potassium 4.6 mmol/L (3.5-5.1); Sodium 138 mmol/L (135-145); Total Bilirubin 0.8 mg/dl (0.2-1.3); Total Protein 6.2 g/dl (6.3-8.2)
[2024-02-23 14:10] LABS: % Basophils 2.2 % (0-2); % Immature Granulocytes 0.4 % (0-0.5); % Lymphocytes 19.3 % (20.5-51.1); % Monocytes 14.3 % (1.7-9.3); % Neutrophils 59.8 % (42.2-75.2); Absolute Basophils 0.1 10^3/uL (0-0.2); Absolute Eosinophils 0.1 10^3/uL (0-0.7); Absolute Lymphocytes 0.4 10^3/uL (1.2-3.4); Absolute Monocytes 0.3 10^3/uL (0.1-0.6); Absolute Neutrophils 1.3 10^3/uL (1.4-6.5); Nucleated Red Blood Cells % 0 %; White Blood Cell Count 2.2 10^3/uL (4.8-10.8)
[2024-02-25 03:49] LABS: CA 27-29 258.5 U/mL (<=39.0)
== END ==
LOC: REG 10:46
PROVIDERS: ATTENDING PHYSICIAN Internal Medicine Hematology & Oncology; FAMILY PHYSICIAN Family Medicine
DX: C50.412 Malignant neoplasm of upper-outer quadrant of left female breast (principal); R22.32 Localized swelling, mass and lump, left upper limb; C79.51 Secondary malignant neoplasm of bone; C78.7 Secondary malignant neoplasm of liver and intrahepatic bile duct; D50.9 Iron deficiency anemia, unspecified; N18.30 Chronic kidney disease, stage 3 unspecified; D63.1 Anemia in chronic kidney disease; D64.81 Anemia due to antineoplastic chemotherapy
CPT/HCPCS: 36415; 80053; 83735; 85025; 86300

== ENCOUNTER → 2024-02-27 11:18 | Outpatient (REF) | payer MEDICARE, SELFPAY ==
[2024-02-27 11:25] VITALS: BP 117/59; BP_SYST 94
[2024-02-27 12:07] VITALS: BP 117/59; BP_SYST 94
[2024-02-27 12:14] VITALS: BP 98/39
[2024-02-27 14:23] LABS: Body Fluid WBC 60 /CUMM
[2024-02-27 14:30] LABS: Body Fluid Second Tech HB
== END ==
LOC: RADI 11:18
PROVIDERS: ATTENDING PHYSICIAN Physician Assistant; FAMILY PHYSICIAN Family Medicine
DX: R18.8 Other ascites (principal)
CPT/HCPCS: 49083; 87015; 87070; 87205; 89051

== ENCOUNTER 2024-02-27 12:34 | Outpatient (RCR) | payer MEDICARE, SELFPAY ==
[2024-02-06 09:25] VITALS: BP 102/60
[2024-02-06] MEDS: FLEXBUMIN 100 IV (09:26)
[2024-02-06 11:20] VITALS: BP 100/55
[2024-02-18 09:52] VITALS: BP 97/52
[2024-02-18] MEDS: FLEXBUMIN 100 IV (09:58)
[2024-02-18 10:04] VITALS: BP 97/52
--- NOTE | 2024-02-18 15:27 | RR ---
A Rapid Response was called on this patient, please see Rapid Response form. Pt arrived from IR with bp 90/50's with no complaints. After albumin infusion, bp dropped to 77/64 with elevated highrate 105, pt complained of dizziness and blurry vision.
Rapid response called, pt transferred to the Emergency room.
--- NOTE | 2024-02-18 15:37 | W.PN.UPDATE ---
Update Note
- Progress Note Update
02/18/24 Patient seen in OID at request of Chelita Dutton OID RN. Patient hypotensive after albumin infusion and reports blurred vision and feeling unwell. HRR, LCTA, hypotensive BP 77/50s, previously 100/70. 99% on RA. No SOB, chest pain.
Removed 4L fluid today and albumin replaced. No other symptoms noted. History of afib recently taken off eliquis. Rapid response called and she was transferred to ER for evaluation.
[2024-02-20 16:05] VITALS: BP 90/45
[2024-02-27 12:54] VITALS: BP 117/79
[2024-02-27] MEDS: FLEXBUMIN 50 IV (12:57)
[2024-02-27 12:58] VITALS: BP 117/79
[2024-02-27 13:55] VITALS: BP 122/52
== END 2024-02-28 23:59 | disposition home or self-care (01) ==
LOC: OID 12:34
PROVIDERS: ATTENDING PHYSICIAN Internal Medicine Gastroenterology; FAMILY PHYSICIAN Family Medicine
DX: K74.60 Unspecified cirrhosis of liver (principal); I85.00 Esophageal varices without bleeding; D64.9 Anemia, unspecified; Z90.49 Acquired absence of other specified parts of digestive tract
CPT/HCPCS: 96365; 96366; P9047

== ENCOUNTER 2024-03-06 01:04 | Observation (INO) | payer MEDICARE, SELFPAY ==
[2024-03-05 19:45] VITALS: BP 141/75
[2024-03-05 20:15] LABS: ALT (SGPT) 25 U/L (0-35); AST (SGOT) 37 U/L (14-36); Albumin 3.8 g/dl (3.5-5.0); Alkaline Phosphatase 60 U/L (38-126); Blood Urea Nitrogen 44 mg/dl (7-17); Calcium 8.9 mg/dl (8.4-10.2); Carbon Dioxide 24 mmol/L (22-30); Chloride 100 mmol/L (98-107); Glucose 131 mg/dl (70-99); Lipase 127 U/L (23-300); Potassium 4.8 mmol/L (3.5-5.1); Sodium 133 mmol/L (135-145); Total Bilirubin 1.6 mg/dl (0.2-1.3); Total Protein 6.5 g/dl (6.3-8.2); eGFR 26.86
[2024-03-05 20:23] LABS: Hematocrit 32.4 % (37.0-47.0); Hemoglobin 10.8 g/dL (12.0-16.0); Mean Corp Hgb Conc. 33.3 g/dL (33.0-37.0); Mean Corpuscular Hgb 36.2 pg (27.0-31.0); Mean Corpuscular Volume 108.7 fL (81.0-99.0); Platelet Count 77 10^3/uL (130-400); Red Blood Cell Count 2.98 10^6/uL (4.20-5.40); Red Cell Dist. Width 16.3 % (11.5-14.5); White Blood Cell Count 2.7 10^3/uL (4.8-10.8)
[2024-03-05 20:28] LABS: % Basophils 1.5 % (0-2); % Eosinophils 2.2 % (0-6); % Immature Granulocytes 0.4 % (0-0.5); % Lymphocytes 12.1 % (20.5-51.1); % Monocytes 4.8 % (1.7-9.3); Absolute Eosinophils 0.1 10^3/uL (0-0.7); Absolute Lymphocytes 0.3 10^3/uL (1.2-3.4); Absolute Monocytes 0.1 10^3/uL (0.1-0.6); Absolute Neutrophils 2.2 10^3/uL (1.4-6.5); Nucleated Red Blood Cells % 0 %
[2024-03-05 23:15] VITALS: BMI 30.3
--- NOTE | 2024-03-05 23:15 | EDRN ---
Pt had a paracentesis on 02/26. Pt feels her stomach is 'hard as a rock' and it has only been 1 week since last paracentesis. Pt says less fluid has been removed because her bp drops too low. Lower legs more swollen than usual. Pt has chronic
cough. Nausea earlier. Pt feels tired but says seh has been active today. Pt denies cp, sob, vomiting, fever/chills, urinary symptoms. Symptoms started yesterday and says she was up all night. Pt has small bowel movement today.
[2024-03-05 23:30] VITALS: BP 99/58
--- NOTE | 2024-03-05 23:52 | ED.GENMED ---
History of Present Illness
General
Chief Complaint: Abdominal Pain
Time Seen by Provider: 03/05/24 23:51
History of Present Illness
History of Present Illness:
TIME OF INITIAL ENCOUNTER: 11:55 PM
HPI: The patient presents due to concerns of increasing abdominal ascites. She states that it was 'hard' earlier. She has had some complications with paracentesis in the past. She was a rapid response when she became hypotensive in the past and
received albumin and fluids. She made an appointment to have her next paracentesis to be done this coming however she does not feel that she can wait that long.
EXAM:
GENERAL: Well appearing in no distress
HEENT: Moist oral mucosa
CARDIOVASCULAR: No murmurs, normal heart rate, regular rhythm, No chest wall tenderness
PULMONARY: No respiratory distress, breath sounds are clear and equal
ABDOMEN: Abdominal ascites noted with only minimal tenderness, positive fluid wave, no peritoneal signs
NEUROLOGIC: Excellent strength all extremities, no coordination deficits
PSYCHIATRIC: Appropriate mental status, normal insight and judgement
EXTREMITIES: Nontender, 2+ bilateral lower extremity edema, moves all extremities equally
SKIN: No rash, no lesions
NUMBER AND COMPLEXITY OF PROBLEMS ADDRESSED AT THE ENCOUNTER
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
� Acute Exacerbation and/or Progression of Chronic Illness: This is an acute but recurring problem
� Differential Diagnosis includes: Worsening abdominal ascites, worsening renal function,
AMOUNT AND/OR COMPLEXITY OF DATA TO BE REVIEWED AND ANALYZED
� I performed an independent evaluation of and my interpretation is:
EKG:
CT:
X-rays:
Laboratory Studies: White count 2.7 which is chronic and slightly improved, hemoglobin 10.8, thrombocytopenia again noted, creatinine now worsening again at 1.9
Other:
� Review of other/old records: I reviewed records, the patient had paracentesis on 02/17 and 02/27/2024. She was seen in the emergency department on 1120 after she had a paracentesis which led to dizziness and near syncope and
had systolics in the 70s at that time. She did receive albumin at that time.
� Clinical information was obtained by an independent historian: None needed
� Prescriptions/Medications Considered but not given:
� Further testing considered but not performed:
RISK OF COMPLICATIONS AND/OR MORBIDITY OR MORTALITY OF PATIENT MANAGEMENT
� Social determinants of health affecting care: Lives at home
� Discussion with other providers: At 12:04 AM, I notified Dr. Blanco of patient's visit to the emergency department�no response initially. Hospitalist for admission
� Escalation of care including admission/observation vs risk of discharge considered: I am concerned of the worsening renal function and slightly low blood pressure readings as low as 99 systolic here. We did give a small 250 mL
fluid bolus.
ANY OTHER UPDATES:
Past History
Past History
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 Diverticulitis, Hiatal hernia. Anemia, Back and neck pain, neuropathy, Hemorrhoid)
ED Past Surgical History: Bowel resection, Cardiac (Ablation), Cholecystectomy, Gynecological (D&C), Orthopedic (Right total hip replacement, left total hip replacement, right knee and left knee replacements, hammer toe) and Other (Lumpectom left
breast. Hernia repair, )
Social History
Tobacco: Non-smoker
Alcohol: None
Personal:
Living: with family
Employment: Retired
Family History
Family History: Other (Noncontributory)
Phy Exam
Physical Exam
Physical Exam:
See HPI
Course
Orders/Labs/Results
Orders:
Orders
03/05/24 19:54
Complete Blood Count/With Diff Urgent
Comprehensive Metabolic Panel Urgent
Lipase Urgent
03/06/24 00:07
0.9% Sodium Chloride 250 ml [Nss] 250 ml IV BOLUS
03/06/24 00:46
Admit/Transfer Patient As Directed
Co-Sign Provider:
Level of Care: Observation services
Assign to:: Medical/Surgical
Physician / Group: hospitalist
Diagnosis: recurrent ascites
03/06/24 00:47
PRN Pain Medication Management As Directed
May give lesser potent ordered pain med per pt: Yes
preference::
Protocol:: Medication orders for pain may be administered in a
manner that supports deferring to patient preference
when the pt is:
- Requesting an ordered lesser potent pain medication.
Least to most potent pain medications are defined
as: acetaminophen < NSAID < tramadol < opioids
(morphine, oxycodone, hydromorphone).
- Requesting a lesser dose of the same medication IF
ORDERED.
- Requesting a less intrusive route of administration
if both routes are prescribed by the provider (PO <
IV).
03/06/24 00:48
Code Status As Directed
Resuscitation Status: Full Code
Abnormal Lab Results
03/05/24
19:54
WBC 2.7 L 10^3/uL
(4.8-10.8)
RBC 2.98 L 10^6/uL
(4.20-5.40)
Hgb 10.8 L g/dL
(12.0-16.0)
Hct 32.4 L %
(37.0-47.0)
MCV 108.7 H fL
(81.0-99.0)
MCH 36.2 H pg
(27.0-31.0)
RDW 16.3 H %
(11.5-14.5)
Plt Count 77 L 10^3/uL
(130-400)
MPV 11.0 H fL
(7.4-10.4)
Absolute Lymphs (auto) 0.3 L 10^3/uL
(1.2-3.4)
Neutrophils % 79.0 H %
(42.2-75.2)
Lymphocytes % 12.1 L %
(20.5-51.1)
Sodium 133 L mmol/L
(135-145)
BUN 44 H mg/dl
(7-17)
Creatinine 1.9 H mg/dL
(0.6-1.0)
Glucose 131 H mg/dl
(70-99)
Total Bilirubin 1.6 H mg/dl
(0.2-1.3)
AST 37 H U/L
(14-36)
03/05/24 19:54
03/05/24 19:54
Vital Signs
Initial and Last Documented VS:
Initial Vital Signs
Temp Pulse Resp BP Pulse Ox
36.9 C 96 16 141/75 100
03/05/24 19:45 03/05/24 19:45 03/05/24 19:45 03/05/24 19:45 03/05/24 19:45
Last Documented Vital Signs
Temp Pulse Resp BP Pulse Ox
36.9 C 96 20 124/70 99
03/05/24 19:45 03/06/24 01:00 03/06/24 01:00 03/06/24 01:00 03/06/24 01:00
*Critical Care Note
Total Time (30-74mins, 75-104mins- exclusive of procedures): Not Applicable
ED Attending Note
-
Portions of this chart may have been created with voice recognition software.� Occasional wrong word or��sound alike� substitutions may have occurred due to the inherent limitations of voice recognition software.
Discharge Plan
Departure
Patient Disposition: Admit
Presentation/result/management discussed w/ accepting MD/DO: Hospitalist
Discharge Problem:
Abdominal ascites
Interventions
Interventions:
*Risk Screen - Suicide Last Done: 03/05/24 23:18
*General Assessment Last Done: 03/05/24 23:18
*Neglect/Abuse Screening Last Done: 03/05/24 23:18
ED- Fall Risk Assessment Last Done: 03/06/24 01:19
*ED COVID-19 Vaccine History Last Done: 03/05/24 23:18
MY-Olxsbz-Tsohnbqddz Assessment Last Done: 03/05/24 23:34
[2024-03-06] VITALS (10 sets, daily range): BP systolic 85–128; BP diastolic 50–71; BMI 30.3
[2024-03-06] MEDS: NSS 250 IV (00:34)
--- NOTE | 2024-03-06 01:05 | HPS.HSE ---
Family Physician
-
Family Physician: Yadi Lambert DO
Chief Complaint
-
Abdominal pain and distention
History of Present Illness
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
proximal atrial fibrillation no longer anticoagulated, diastolic CHF who presents to the emergency department with abdominal pain and distention.
Patient reports her last paracentesis was February 17. She is scheduled to get one next week but feels that over the last 2 to 3 days she has had increasing abdominal distention bilateral lower extremity edema and abdominal discomfort with
pain and some mild tenderness. She denies any nausea or vomiting. She denies any melena, hematochezia, hematemesis. She has no fevers or chills. She is otherwise been compliant with her medications. She denies feeling dizzy or lightheaded. She
was unable to get comfortable over the last 2 days so she decided to come to the emergency department for evaluation and possible paracentesis. She says she has had paracentesis in the past in this scenario.
In the emergency department the patient was afebrile with a temp of 98.4, initial blood pressure was 199/60 with a pulse of 91. She has known leukopenia with a white count of 2.7, nonthrombocytopenic with platelet counts of 77, hemoglobin was 10.8.
Sodium was 133 with a potassium of 4.8. BUN was 44 and creatinine 1.9 which is similar to prior. Total bilirubin was slightly more elevated at 1.6. LFTs otherwise normal.
Medical History
Past Medical History
Past Medical History: Reports Arrhythmia (pAFIB no longer on AC, s/p PVI), Cancer (Stage 4 breast cancer with metastases to the liver and bone) and Other
Additional Past Medical History:
Chronic anemia
Chronic thrombocytopenia
Stage III chronic kidney disease
Cirrhosis with ascites requiring paracentesis
Irritable bowel syndrome
Gastroesophageal reflux disease
Diastolic CHF
Sick sinus syndrome
Hyperlipidemia
Cellulitis
GI bleed
Umbilical hernia status post repair
Past Surgical History: Reports Other
Additional Past Surgical History:
Left mastectomy
Cholecystectomy
Right total hip replacement
Left total hip replacement
Right knee replacement
Cardiac ablation
Umbilical hernia repair
Small bowel resection
Social History
Tobacco: Non-smoker
Alcohol: None
Drug: None
Personal:
Living: With Family
Family History
Family History: Not pertinent
Allergies / Home Medications
Allergies reflects when Allergies were last updated in [facility].
Home Medications with original date entered in [facility]
Allergy/Medication List:
Allergies
Allergy/AdvReac Type Severity Reaction Status Date / Time
clavulanic acid Allergy Hives Verified 03/05/24 19:47
clindamycin Allergy Hives Verified 03/05/24 19:47
hydromorphone [From Dilaudid] Allergy HALLUCINATI Verified 03/05/24 19:47
ONS
NSAIDS (Non-Steroidal Allergy GIB Verified 03/05/24 19:47
Anti-Inflamma
Penicillins Allergy patient Verified 03/05/24 19:47
tolerates
amoxicillin
and course
ceftriaxone
11/2022
Sulfa (Sulfonamide Allergy Unknown Verified 03/05/24 19:47
Antibiotics)
sulfamethoxazole Allergy Unknown Verified 03/05/24 19:47
[From Bactrim]
trimethoprim [From Bactrim] Allergy Unknown Verified 03/05/24 19:47
Home Medications
denosumab 120 mg/1.7 mL (70 mg/mL) subcutaneous solution (Xgeva) 120 mg SQ [id number] Cancer 02/06/21
multivitamin with folic acid 400 mcg tablet (Tab-A-Jolanta) 1 tab PO DAILY Supplement 02/06/21
biotin 10,000 mcg capsule 10,000 mcg PO DAILY Supplement 09/28/22
calcium carbonate (Calcium 600) 600 mg PO DAILY Supplement 09/28/22
cholecalciferol (vitamin D3) 25 mcg (1,000 unit) capsule (Vitamin D3) 25 mcg PO DAILY Supplement 09/28/22
ferrous sulfate 325 mg (65 mg iron) tablet 325 mg PO DAILY Supplement 09/28/22
spironolactone 50 mg tablet 75 mg PO DAILY Liver Issues 09/28/22
ondansetron HCl 4 mg tablet 4 mg PO Q8HPRN PRN nausea 03/13/23
fulvestrant 250 mg/5 mL intramuscular syringe 500 mg IM QMONTH Cancer 06/09/23
gabapentin 100 mg capsule 100 mg PO BIDPRN PRN nerve pains 06/09/23
lactulose 10 gram/15 mL oral solution 30 ml PO HS Constipation 06/09/23
tramadol 50 mg tablet 50 mg PO Q6HPRN PRN severe pains 06/09/23
omeprazole 40 mg capsule,delayed release 40 mg PO DAILY Gastrointestinal Issue 11/10/23
sennosides 8.6 mg tablet (senna) 8.6 mg PO QPMPRN PRN constipaiton 02/18/24
furosemide 40 mg tablet (Lasix) 40 mg PO DAILY 02/27/24
palbociclib 75 mg tablet (Ibrance) 75 mg PO DAILY 03/05/24
Review of Systems
-
History Source: Patient
Constitutional: Reports No Symptoms
EENT: Reports No Symptoms
Respiratory: Reports No Symptoms
Cardiac: Reports No Symptoms
Abdomen/GI: Reports Abdominal Pain
: Reports No Symptoms
Musculoskeletal: Reports No Symptoms
Skin: Reports No Symptoms
Neurological: Reports No Symptoms
Endocrine: Reports No Symptoms
Hematologic/Lymphatic: Reports No Symptoms
Psych: Reports No Symptoms
Physical Exam
Vital Signs
Vital Signs
Temp Pulse Resp BP Pulse Ox
98.4 F 91 18 99/58 98
03/05/24 19:45 03/05/24 23:30 03/05/24 23:30 03/05/24 23:30 03/05/24 23:30
Physical Exam
General: Appears Chronically Ill
HEENT: NormoCephalic, Anicteric, Moist mucous membranes and Atraumatic
Respiratory: Clear
Cardiac: S1/S2 and Regular Rhythm
Breast: Deferred by me
GI: Normal Bowel Sounds, Tender, Distended and Other
Rectal: Deferred by Provider
Genito-urinary: Deferred by me
Musculoskeletal: No Clubbing, No Cyanosis, Edema, Left Lower Extremity and Edema, Right Lower Extremity
Skin: Warm
Neuro: AO x 3
Hematologic/Lymphatic: No Lymphadenopathy
Psych: Calm
Laboratory Results
-
03/05/24 19:54
03/05/24 19:54
Laboratory Results
Total Bilirubin 1.6 mg/dl (0.2-1.3) H 03/05/24 19:54
AST 37 U/L (14-36) H 03/05/24 19:54
ALT 25 U/L (0-35) 03/05/24 19:54
Alkaline Phosphatase 60 U/L (38-126) 03/05/24 19:54
Lipase 127 U/L (23-300) 03/05/24 19:54
Data Reviewed
-
Lab Data: Labs Reviewed by me
Old Records: Reviewed
Impression/Plan
-
IMPRESSION:
This is a 71-year-old with history of Kraft cirrhosis, stage IV breast cancer with mets and malignant ascites with recurrent large-volume ascites requiring paracenteses about every 3 weeks presented to the emergency department pending most of current
processes due to worsening abdominal distention and bilateral lower extremity edema. No sign of hepatic encephalopathy, no signs of GI bleed. No signs of acute infection. Initially BP was 99/58 in the ED and she received 500 cc of normal saline.
Repeat BP 124/80
PLAN:
1. Ascites - suspect recurrent malignant ascites requiring therapeutic paracentesis. No obvious infection. No evidence of decompensated cirrhosis otherwise.
- admit to med/surg
- no additional fluids, continue lasix and spironolactone
- consult IR for paracentesis. Usually gets about 2 - 4 and requires albumin. Ordered 25 gm for today
- GI consultation
2. CKD - Creatinine slightly increased from prior. Patient clearly volume overloaded
- paracentesis as abov e
- continue lasix and spironolactone
- avoid nephrotoxins
3. pAFIB - rate controlled. Off AC due to risk of bleeding from thrombocytopenia and Ibrance
4. Anemia and h/o GI bleed - stable h/h, no evidence of acute bleeding
- continue ppi
5. Metastatic Breast Ca -
- continue Ibrance (Wk 3, fri to next wed),
DVT PPX - heparin sq
Code status - full code
[2024-03-06] MEDS: FLEXBUMIN 100 IV ×2 (03:14→15:10)
[2024-03-06] MEDS: ULTRAM 50 MG PO ×2 (03:17→15:14)
--- NOTE | 2024-03-06 04:58 | PTCARENOTE ---
Pt arrived to floor from ED and walked to bed from stretcher with a stable gait. pt aox3, vss. reviewed plan of care with pt, call lin within reach.
[2024-03-06 07:42] LABS: Hematocrit 29.7 % (37.0-47.0); Hemoglobin 10.2 g/dL (12.0-16.0); Mean Corp Hgb Conc. 34.3 g/dL (33.0-37.0); Mean Corpuscular Hgb 38.1 pg (27.0-31.0); Mean Corpuscular Volume 110.8 fL (81.0-99.0); Mean Platelet Volume 12.2 fL (7.4-10.4); Platelet Count 69 10^3/uL (130-400); Red Blood Cell Count 2.68 10^6/uL (4.20-5.40); Red Cell Dist. Width 16.4 % (11.5-14.5); White Blood Cell Count 2.1 10^3/uL (4.8-10.8)
[2024-03-06 07:53] LABS: Blood Urea Nitrogen 44 mg/dl (7-17); Calcium 8.8 mg/dl (8.4-10.2); Carbon Dioxide 24 mmol/L (22-30); Chloride 103 mmol/L (98-107); Estimated Creatinine Clearance 28 ml/min; Glucose 88 mg/dl (70-99); Potassium 4.8 mmol/L (3.5-5.1); Sodium 136 mmol/L (135-145); eGFR 28.66
--- NOTE | 2024-03-06 09:18 | W.PN.HOSP.TC ---
Today's Communication/Plan
-
Abdominal paracentesis today. IV albumin. PT OT
Assessment / Plan
Assessment / Plan
Physical Exam
General: Appears Chronically Ill
HEENT: NormoCephalic, Anicteric, Moist mucous membranes and Atraumatic
Respiratory: Clear
Cardiac: S1/S2 and Regular Rhythm
Breast: Deferred by me
GI: Normal Bowel Sounds, Non-Tender, Non-Distended and Other
Rectal: Deferred by Provider
Genito-urinary: Deferred by me
Musculoskeletal: No Clubbing, No Cyanosis, Edema, Left Lower Extremity and Edema, Right Lower Extremity
Skin: Warm
Neuro: AO x 3
Hematologic/Lymphatic: No Lymphadenopathy
Psych: Calm
A/P:
1. Ascites - suspect recurrent malignant ascites requiring therapeutic paracentesis. No obvious infection. No evidence of decompensated cirrhosis otherwise.
- admitted to med/surg
- no additional fluids, continue lasix and spironolactone
- consulted IR for paracentesis. Usually gets about 2 - 4 and requires albumin. Ordered 25 gm for today--> status post over 6 L of abdominal fluid by paracentesis and given extra IV albumin today.
- GI consultation-discussed with GI today
-PT OT eval
2. CKD - Creatinine slightly increased from prior. Patient clearly volume overloaded
- paracentesis as abov e
- continue lasix and spironolactone
- avoid nephrotoxins
-Recheck renal function in a.m.
3. pAFIB - rate controlled. Off AC due to risk of bleeding from thrombocytopenia and Ibrance
4. Anemia and h/o GI bleed - stable h/h, no evidence of acute bleeding
- continue ppi
-Recheck hemoglobin in a.m.
5. Metastatic Breast Ca -
- continue Ibrance (Wk 3, fri to next wed),
-Follow-up with oncology as outpatient
DVT PPX - heparin sq
Code status - full code
Anticipated Discharge: 24 - 48 hours
Subjective/Interval History
-
Date of Service: March 06, 2024
Patient feels better today after paracentesis. Does feel lightheaded though. No chest pain or shortness of breath. Afebrile
Objective Data
-
Labs:
Laboratory Results
03/06/24
06:56
WBC 2.1 L*
Hgb 10.2 L
Hct 29.7 L
Plt Count 69 L
Sodium 136
Potassium 4.8
Chloride 103
Carbon Dioxide 24
BUN 44 H
Creatinine 1.8 H
Glucose 88
Calcium 8.8
Vital Signs:
Vital Signs
Temp Pulse Resp BP Pulse Ox
97.9 F 86 20 108/56 95
03/06/24 08:54 03/06/24 08:54 03/06/24 08:54 03/06/24 08:54 03/06/24 08:54
I&O
03/05/24 03/06/24 03/07/24
06:59 06:59 06:59
Intake Total 120 / 120
Balance 120 / 120
[2024-03-06] MEDS: PROTONIX 40 MG PO (10:08)
[2024-03-06] MEDS: ALDACTONE 75 MG PO (10:08)
[2024-03-06] MEDS: LASIX 40 MG PO (10:09)
[2024-03-06] MEDS: HEPARIN 5000 UNITS SC ×3 (10:09→23:54)
[2024-03-06] MEDS: SENOKOT 8.6 MG PO (10:25)
--- NOTE | 2024-03-06 11:30 | CON.GI ---
Addendum entered and electronically signed by Maegan Valenzuela MD 03/06/24 15:16:
I saw and examined the patient.
The SHOVEL LOADER OPERATOR's note was reviewed and I agree with the note.
Comment: This is a 78-year-old female who with past medical history of A-fib, metastatic breast CA on palliative chemo with Ibrance, MASH cirrhosis with refractory ascites and gets routine paracenteses and rest of the medical history as below
presented with symptoms of increasing abdominal distention her last para was on 02/27/2024 when 2 L was removed and she had another paracentesis today 6 L removed and she feels much improved. She also had a history of GI bleed and was admitted in
May and was thought to be diverticular bleed she did undergo an endoscopy and colonoscopy at that time as described below and does have nonbleeding grade 2 esophageal varices also noted at that time with large hiatal hernia she has been off
Eliquis.
Assessment and plan recurrent refractory ascites from MASH cirrhosis and also malignant ascites from metastatic breast cancer and gets regular paracenteses as outpatient and her last para was on 02/26 but now presents with worsening distention most
likely from consuming too much sodium she has been eating a lot of pickles lately strictly reinforced importance of 2 g sodium diet and continue Aldactone and Lasix.
6 L was removed today and received albumin post paracenteses.
History of GI bleed presumed to be diverticular in May also has esophageal varices
Continue pantoprazole
continue lactulose
follow-up with Dr. Cuello as outpatient
Will sign off and will be available as needed
Original Note:
Consultation
-
Date/Time Consultation Requested: 03/06/24 1799
Date/Time Consultation Performed: 03/06/24 1130
Requesting Provider: Dr. bledsoe
Performing Provider: Dr. Valenzuela/JESSE Head
Reason for Consultation: cirrhosis, malignany ascites
Medical History
Chief Complaint / HPI
Chief Complaint: abd distention
History of Present Illness:
78 yo female with PMH afib off Eliquis, metastatic breast CA initial diagnosis 2013 then with mets dx 2020 to bone on Palliative chemo with Ibrance (previously on Xgeva and Fulvestrant), MASH cirrhosis with ascites with routine paracentesis,
thrombocytopenia admission in May 2022 for suspected diverticular bleed at that time she had an EGD and colonoscopy where she had grade 2 varices in the third of the esophagus and lower third of the esophagus, very large hiatal hernia with mild
erythematous mucosa without bleeding found in the gastric body. She had colonoscopy performed at that time with no blood or signs of recent bleeding. She had a probable diverticular bleed at that time. Patient does have routine paracentesis for
malignant ascites that can be anywhere from 2 times a week to once every 3-weeks. She recently became hypotensive after paracentesis with albumin infusion with blurred vision and feeling unwell on 02/18/2024. She does have a history of A-fib
recently taken off Eliquis. She was given a fluid bolus at that time, was stable and was able to be discharged home with her . She had her repeat paracentesis on 02/27/2024 with 2000 cc removed. She presents to the emergency room yesterday
with increasing abdominal discomfort, distention and lower extremity edema. Her next scheduled paracentesis is over a week from now and she did not feel she could wait that long therefore she presented to the emergency room.The patient did develop
a new taste for pickles and ate a jar pickles this past week. She did gain 12 pounds since her last paracentesis. She just had her paracentesis performed and 6 L was removed. She usually only has 2 L removed and is usually capped secondary to
hypotension. I did discuss with the interventional radiology PA and the patient could have tolerated even more removal of ascites. Also blood pressure remained very steady and her blood pressure could have tolerated more as well. Discussed with
patient about 2 g sodium diet. Education provided by the interventional radiology PA as well as myself. The patient denies any fevers, chills, nausea, vomiting, melena, hematochezia, dysphagia or odynophagia. No early satiety or unintentional
weight loss. The patient is afebrile, vital signs are stable. WBC 2.1, hemoglobin 10.2, hematocrit 29.7, platelets 69, sodium 136, potassium 4.8, chloride 103, CO2 24, BUN 44, creatinine 1.8, glucose 88, total bilirubin 1.6, AST 37, ALT 25, alk
phos 60, albumin 3.8, lipase 127.
Past Medical History
Past Medical History: Arrhythmias (afib), Cancer (metastatic breast CA with mets to bone, liver, intrahepatic ducts ), GERD, Hypercholesterolemia and Other (cellulitis , prior GI bleed, anemia, heart murmur, CKD)
Past Surgical History: Bowel Resection (exp lap with SB resection , umbilical hernia repair 2022 ), Cardiac (ablation ), Cholecystectomy and Orthopedic (right hip replacement x 2 2015, left hip replacement, knee surgery )
Social History
Tobacco: Non-Smoker
Alcohol: None
Drug: None
Personal:
Living: With Family
Employment: Retired
Family History
Family History: Other (Family history gastrointestinal malignancy or IBD)
Allergies / Home Medications
Allergy/AdvReac Type Severity Reaction Status Date / Time
clavulanic acid Allergy Hives Verified 03/05/24 19:47
clindamycin Allergy Hives Verified 03/05/24 19:47
hydromorphone [From Dilaudid] Allergy HALLUCINATI Verified 03/05/24 19:47
ONS
NSAIDS (Non-Steroidal Allergy GIB Verified 03/05/24 19:47
Anti-Inflamma
Penicillins Allergy patient Verified 03/05/24 19:47
tolerates
amoxicillin
and course
ceftriaxone
11/2022
Sulfa (Sulfonamide Allergy Unknown Verified 03/05/24 19:47
Antibiotics)
sulfamethoxazole Allergy Unknown Verified 03/05/24 19:47
[From Bactrim]
trimethoprim [From Bactrim] Allergy Unknown Verified 03/05/24 19:47
�Medication �Instructions �Recorded
denosumab 120 mg/1.7 mL (70 mg/mL) 120 mg SQ [id number] Cancer 02/06/21
subcutaneous solution (Xgeva)
multivitamin with folic acid 400 1 tab PO DAILY Supplement 02/06/21
mcg tablet (Tab-A-Jolanta)
biotin 10,000 mcg capsule 10,000 mcg PO DAILY Supplement 09/28/22
calcium carbonate (Calcium 600) 600 mg PO DAILY Supplement 09/28/22
cholecalciferol (vitamin D3) 25 25 mcg PO DAILY Supplement 09/28/22
mcg (1,000 unit) capsule (Vitamin
D3)
ferrous sulfate 325 mg (65 mg 325 mg PO DAILY Supplement 09/28/22
iron) tablet
spironolactone 50 mg tablet 75 mg PO DAILY Liver Issues 09/28/22
ondansetron HCl 4 mg tablet 4 mg PO Q8HPRN PRN nausea 03/13/23
fulvestrant 250 mg/5 mL 500 mg IM QMONTH Cancer 06/09/23
intramuscular syringe
gabapentin 100 mg capsule 100 mg PO BIDPRN PRN nerve pains 06/09/23
lactulose 10 gram/15 mL oral 30 ml PO HS Constipation 06/09/23
solution
tramadol 50 mg tablet 50 mg PO Q6HPRN PRN severe pains 06/09/23
omeprazole 40 mg capsule,delayed 40 mg PO DAILY Gastrointestinal 11/10/23
release Issue
sennosides 8.6 mg tablet (senna) 8.6 mg PO QPMPRN PRN constipaiton 02/18/24
furosemide 40 mg tablet (Lasix) 40 mg PO DAILY 02/27/24
palbociclib 75 mg tablet (Ibrance) 75 mg PO DAILY 03/05/24
Review of Systems
-
All other systems: A 12 pt ROS was Negative except as stated above in HPI
Vital Signs
Temp Pulse Resp BP Pulse Ox
97.8 F 85 16 117/62 96
03/06/24 10:55 03/06/24 10:55 03/06/24 10:55 03/06/24 10:55 03/06/24 10:55
Physical Exam
Exam
General: No Apparent Distress
HEENT: Anicteric
Respiratory: Clear
Cardiac: Regular Rhythm
GI: Soft, Non Tender, Non Distended and Normal Bowel Sounds
Musculoskeletal: Edema (+1 bilaterallower extremity edema)
Skin: Warm and Dry
Neuro: AO x 3
Psych: Calm
Results
WBC 2.1 10^3/uL (4.8-10.8) L* 03/06/24 06:56
Hgb 10.2 g/dL (12.0-16.0) L 03/06/24 06:56
Hct 29.7 % (37.0-47.0) L 03/06/24 06:56
MCV 110.8 fL (81.0-99.0) H 03/06/24 06:56
Plt Count 69 10^3/uL (130-400) L 03/06/24 06:56
Absolute Neuts (auto) 2.2 10^3/uL (1.4-6.5) 03/05/24 19:54
Sodium 136 mmol/L (135-145) 03/06/24 06:56
Potassium 4.8 mmol/L (3.5-5.1) 03/06/24 06:56
Chloride 103 mmol/L (98-107) 03/06/24 06:56
Carbon Dioxide 24 mmol/L (22-30) 03/06/24 06:56
BUN 44 mg/dl (7-17) H 03/06/24 06:56
Creatinine 1.8 mg/dL (0.6-1.0) H 03/06/24 06:56
Calcium 8.8 mg/dl (8.4-10.2) 03/06/24 06:56
Total Bilirubin 1.6 mg/dl (0.2-1.3) H 03/05/24 19:54
AST 37 U/L (14-36) H 03/05/24 19:54
ALT 25 U/L (0-35) 03/05/24 19:54
Alkaline Phosphatase 60 U/L (38-126) 03/05/24 19:54
Lipase 127 U/L (23-300) 03/05/24 19:54
Diagnostic Image Results:
None this admission.
Paracentesis this am-> 6L removed.
02/27/2024 paracentesis 2000 cc of clear yellow ascitic fluid was evacuated.
Prior GI Procedures:
EGD: 06/11/2023 ([facility]) - Grade II esophageal varices.
- Large hiatal hernia.
- Erythematous mucosa in the gastric body likely at
the diaphragmatic pinch.
- Normal examined duodenum.
- No specimens collected.
Colonoscopy: 06/11/2023 ([facility]) No blood and no signs of recent bleeding.
Possibly/likely diverticular
- Hemorrhoids found on perianal exam.
- Diverticulosis in the left colon.
- The examined portion of the ileum was normal.
- No specimens collected.
Assessment / Plan
-
78 yo female with PMH afib off Eliquis, metastatic breast CA initial diagnosis 2013 then with mets dx 2020 to bone on Palliative chemo with Ibrance (previously on Xgeva and Fulvestrant), MASH cirrhosis with ascites with routine paracentesis,
thrombocytopenia admission in May 2022 for suspected diverticular bleed at that time she had an EGD and colonoscopy where she had grade 2 varices in the third of the esophagus and lower third of the esophagus, very large hiatal hernia with mild
erythematous mucosa without bleeding found in the gastric body. She had colonoscopy performed at that time with no blood or signs of recent bleeding. She had a probable diverticular bleed at that time. Patient does have routine paracentesis for
malignant ascites that can be anywhere from 2 times a week to once every 3-weeks. She recently became hypotensive after paracentesis with albumin infusion with blurred vision and feeling unwell on 02/18/2024. She does have a history of A-fib
recently taken off Eliquis. She was given a fluid bolus at that time, was stable and was able to be discharged home with her . She had her repeat paracentesis on 02/27/2024 with 2000 cc removed. She presents to the emergency room yesterday
with increasing abdominal discomfort, distention and lower extremity edema. Asked to evaluate for the same. Patient with increased ascites likely secondary to dietary indiscretions as she ate a jar of pickles. 12 pound weight gain since last
paracentesis 8 days ago.
Impression:
Recurrent ascites secondary to combination of MASH cirrhosis and malignant ascites from metastatic breast cancer.
Metastatic breast cancer on palliative chemo with Ibrance
Pancytopenia
Paroxysmal A-fib not on anticoagulation secondary history of GI bleeds
CKD
Plan:
-Patient already had paracentesis, 6 L removed. Will give 37.5 g albumin postprocedure
-Trend daily weights. Prior to paracentesis patient was 81.9 kg-> 12 pound weight gain since last paracentesis.
-2 g sodium diet, education provided to patient.
-Continue pantoprazole
-Continue lactulose
-Continue Aldactone and Lasix as ordered
-CBC, CMP in a.m.
-Follow up with Dr. Cuello as outpatient.
-
-
Thank you for consultation and allowing me to participate in the patient's care. Please call the aviation medicine specialist GI physician during the after hours with any questions or concerns.
--- NOTE | 2024-03-06 12:47 | CM ---
Met with patient at bedside; initial assessment completed
AHUMADA form explained; form signed @ 1245
Pharmacy verified: [facility] @ [facility], [place], [place]
Patient reported she lives with her ; multilevel home; 1 step to enter; 4 steps to living room; 8 steps to bedroom and bath (tub/shower); 6 steps down to family room; stairs have railings
PLOF: reported she is independent with ADLs and stairs; ambulates without a device in the home; uses rollator or can when she leaves the house; drives; retired
DME: Rollator, SP Cane; grab bar in tub area; shower chair
SNF stay @ [facility] 2018
Current with [facility]
will transport home
Plan: discharge to home when medically stable; will resume Palliative Care services
[2024-03-06 13:54] LABS: Body Fluid Protein < 2.0 g/dl
[2024-03-06 14:11] LABS: Body Fluid Mononuclear 92.8 %; Body Fluid Polymorphonuclear 7.2 %; Body Fluid WBC 42 /CUMM
[2024-03-06 14:13] LABS: Body Fluid Second Tech HB
[2024-03-06] MEDS: NEURONTIN 100 MG PO (15:10)
[2024-03-06] MEDS: FLEXBUMIN 50 IV (17:22)
[2024-03-06 22:14] LABS: Blood Urea Nitrogen 43 mg/dl (7-17); Calcium 9.2 mg/dl (8.4-10.2); Carbon Dioxide 27 mmol/L (22-30); Chloride 100 mmol/L (98-107); Estimated Creatinine Clearance 29 ml/min; Glucose 109 mg/dl (70-99); Magnesium 2.2 mg/dl (1.6-2.3); Potassium 4.7 mmol/L (3.5-5.1); Sodium 135 mmol/L (135-145)
[2024-03-06 22:48] LABS: Glucose - Point of Care 96 mg/dl (70-99)
[2024-03-06] MEDS: DUPHALAC/CHRONULAC 30 GRAMS PO (23:45)
[2024-03-07 06:00] VITALS: BMI 27.8
[2024-03-07 06:04] LABS: INR 1.15
[2024-03-07 06:17] LABS: % Basophils 1.6 % (0-2); % Eosinophils 3.7 % (0-6); % Immature Granulocytes 1.1 % (0-0.5); % Lymphocytes 15.8 % (20.5-51.1); % Monocytes 8.9 % (1.7-9.3); % Neutrophils 68.9 % (42.2-75.2); Absolute Eosinophils 0.1 10^3/uL (0-0.7); Absolute Lymphocytes 0.3 10^3/uL (1.2-3.4); Absolute Monocytes 0.2 10^3/uL (0.1-0.6); Absolute Neutrophils 1.3 10^3/uL (1.4-6.5); Hematocrit 28.4 % (37.0-47.0); Hemoglobin 9.4 g/dL (12.0-16.0); Mean Corp Hgb Conc. 33.1 g/dL (33.0-37.0); Mean Corpuscular Hgb 36.6 pg (27.0-31.0); Mean Corpuscular Volume 110.5 fL (81.0-99.0); Mean Platelet Volume 12.8 fL (7.4-10.4); Nucleated Red Blood Cells % 0 %; Platelet Count 60 10^3/uL (130-400); Red Blood Cell Count 2.57 10^6/uL (4.20-5.40); White Blood Cell Count 1.9 10^3/uL (4.8-10.8)
[2024-03-07 06:19] LABS: ALT (SGPT) 18 U/L (0-35); AST (SGOT) 24 U/L (14-36); Albumin 3.3 g/dl (3.5-5.0); Alkaline Phosphatase 40 U/L (38-126); Blood Urea Nitrogen 39 mg/dl (7-17); Calcium 8.9 mg/dl (8.4-10.2); Carbon Dioxide 24 mmol/L (22-30); Chloride 101 mmol/L (98-107); Estimated Creatinine Clearance 28 ml/min; Glucose 96 mg/dl (70-99); Potassium 4.3 mmol/L (3.5-5.1); Sodium 134 mmol/L (135-145); Total Bilirubin 1.5 mg/dl (0.2-1.3); Total Protein 5.5 g/dl (6.3-8.2)
[2024-03-07 08:28] VITALS: BP 89/50
[2024-03-07] MEDS: ALDACTONE PO (08:36)
[2024-03-07] MEDS: LASIX PO (08:36)
[2024-03-07] MEDS: PROTONIX 40 MG PO (08:49)
[2024-03-07] MEDS: HEPARIN 5000 UNITS SC (08:50)
--- NOTE | 2024-03-07 09:53 | W.PN.HOSP.TC ---
Today's Communication/Plan
-
Discharge planning today
Assessment / Plan
Assessment / Plan
Physical Exam
General: Appears Chronically Ill
HEENT: NormoCephalic, Anicteric, Moist mucous membranes and Atraumatic
Respiratory: Clear
Cardiac: S1/S2 and Regular Rhythm
Breast: Deferred by me
GI: Normal Bowel Sounds, Non-Tender, Non-Distended and Other
Rectal: Deferred by Provider
Genito-urinary: Deferred by me
Musculoskeletal: No Clubbing, No Cyanosis, Edema, Left Lower Extremity and Edema, Right Lower Extremity
Skin: Warm
Neuro: AO x 3
Hematologic/Lymphatic: No Lymphadenopathy
Psych: Calm
A/P:
1. Ascites - suspect recurrent malignant ascites requiring therapeutic paracentesis. No obvious infection. No evidence of decompensated cirrhosis otherwise.
- admitted to med/surg
- no additional fluids, continue lasix and spironolactone
- consulted IR for paracentesis. Usually gets about 2 - 4 and requires albumin. Ordered 25 gm for today--> status post over 6 L of abdominal fluid by paracentesis and given extra IV albumin yesterday.
- GI consultation-discussed with GI yesterday
-PT OT eval
-Plan to discharge today
2. CKD - Creatinine slightly increased from prior. Patient clearly volume overloaded
- paracentesis as abov e
- continue lasix and spironolactone
- avoid nephrotoxins
-Recheck renal function in a.m.
3. pAFIB - rate controlled. Off AC due to risk of bleeding from thrombocytopenia and Ibrance
4. Anemia and h/o GI bleed - stable h/h, no evidence of acute bleeding
- continue ppi
-Recheck hemoglobin in a.m.
5. Metastatic Breast Ca -
- continue Ibrance (Wk 3, fri to next wed),
-Follow-up with oncology as outpatient
6. Hypotension
-Will start her on midodrine with holding parameters
-Check orthostatics
7. Pancytopenia
Cancer and chemo related
No bleeding or infection
Monitor as outpatient with her oncology and PCP
DVT PPX - heparin sq
Code status - full code
Anticipated Discharge: Today
Subjective/Interval History
-
Date of Service: March 07, 2024
Patient feels well today. Blood pressure on the low side. Afebrile
Objective Data
-
Labs:
Laboratory Results
03/06/24 03/07/24
21:30 05:03
WBC 1.9 L*
Hgb 9.4 L
Hct 28.4 L
Plt Count 60 L
PT 15.0 H
INR 1.15
Sodium 135 134 L
Potassium 4.7 4.3
Chloride 100 101
Carbon Dioxide 27 24
BUN 43 H 39 H
Creatinine 1.7 H 1.7 H
Glucose 109 H 96
Calcium 9.2 8.9
Total Bilirubin 1.5 H
AST 24
ALT 18
Alkaline Phosphatase 40
Vital Signs:
Vital Signs
Temp Pulse Resp BP Pulse Ox
98 F 83 19 89/50 98
03/07/24 08:28 03/07/24 08:28 03/07/24 08:28 03/07/24 08:28 03/07/24 08:28
I&O
03/06/24 03/07/24 03/08/24
06:59 06:59 06:59
Intake Total 120 / 120 2400 / 2400
Balance 120 / 120 2400 / 2400
[2024-03-07] MEDS: ProAmatine 5 MG PO (10:29)
[2024-03-07 12:15] VITALS: BP 102/54; BP 112/60; BP 118/63
[2024-03-07 12:19] VITALS: BP 102/54; BP 112/60; BP 118/63; PULSE 87; PULSE 97
[2024-03-07] MEDS: ProAmatine PO (13:40)
--- NOTE | 2024-03-07 14:07 | W.DCSUMMARY ---
Discharge Summary
Discharge Data
Date of Admission: 03/06/24
Date of Discharge: 03/07/24
-
Pending Results: No
Hospital Course
Patient 78 years of with history of MASH cirrhosis, malignant ascites from metastatic breast cancer requiring regular paracentesis, presented to the hospital with abdominal distention and required another paracentesis of over 6 Liters. She received
IV albumin. GI consulted. Patient had no evidence of infection. She did had some hypotension and started on low dose midodrine. She is back to her home regimen. GI cleared her for discharge. She participated with PT and OT. She is going to be
discharge in stable condition today.
Discharge duration: 35 minutes
Discharge Plan
-
Patient Disposition: Home (Routine Discharge)
Discharge Diagnosis/Procedures: Recurrent ascites, likely malignant. Hypotension. Pancytopenia. Chronic kidney disease stage III. History metastatic breast cancer. History of metabolic dysfunction associated steatohepatitis cirrhosis.
Diet: Low Cholesterol, Low Sodium and Restrict fluids to 48 oz
Activity: As tolerated
Blood Work: Please PCP to order CBC, CMP within 1 week
Specialty Instructions: Weigh Daily- Call MD for wt gain/loss 3 lbs overnight/5 lbs in 1 week
Referrals:
Yadi Lambert, DO [Family Provider] - in less than 1 week
Prescriptions:
New
midodrine 5 mg Tablet
5 mg PO TID@0800,1300,1800 30 Days Qty: 90 0RF
Rx Instructions:
Hold if SBP more than 150
Continued
Xgeva 120 MG/1.7 ML solution
120 mg SQ [id number]
multivitamin with folic acid [Tab-A-Jolanta] 1 TABLET tablet
1 tab PO DAILY
biotin 10,000 mcg Capsule
10,000 mcg PO DAILY
spironolactone 50 mg Tablet
75 mg PO DAILY
cholecalciferol (vitamin D3) [Vitamin D3] 25 mcg (1,000 unit) Capsule
25 mcg PO DAILY
calcium carbonate [Calcium 600] 600 mg calcium (1,500 mg) Tablet
600 mg PO DAILY
ferrous sulfate 325 mg (65 mg iron) Tablet
325 mg PO DAILY
ondansetron HCl 4 mg Tablet
4 mg PO Q8HPRN PRN (Reason: nausea)
gabapentin 100 mg Capsule
100 mg PO BIDPRN PRN (Reason: nerve pains)
fulvestrant 250 mg/5 mL Syringe
500 mg IM QMONTH
lactulose 10 gram/15 mL Solution
30 ml PO HS
tramadol 50 mg tablet
50 mg PO Q6HPRN PRN (Reason: severe pains)
Patient Comments:
pdmp patient picker packer on 06/09/23
omeprazole 40 mg capsule,delayed release(DR/EC)
40 mg PO DAILY
sennosides [senna] 8.6 mg Tablet
8.6 mg PO QPMPRN PRN (Reason: constipaiton)
furosemide [Lasix] 40 mg Tablet
40 mg PO DAILY
Ibrance 75 mg Tablet
75 mg PO DAILY
Rx Instructions:
3 weeks on, 1 week off
Discharge Orders:
Discharge Patient (As Directed); Ordered 03/07/24
Ordered By: Petros Benavidez
Discharge Date and Time
Discharge Date/Time: 03/07/24 15:31
Print Language: [place]
--- NOTE | 2024-03-07 14:26 | CM ---
Plan: Discharge to home today; no services needed; has transport home
[2024-03-07 15:10] VITALS: BP 122/61
== END 2024-03-07 15:31 | disposition home or self-care (01) ==
LOC: 3 WEST ACU 01:04
PROVIDERS: Emergency Medicine; Nurse Practitioner Family; ADMITTING PHYSICIAN Internal Medicine; ATTENDING PHYSICIAN Hospitalist; CONSULT PHYSICIAN Internal Medicine Gastroenterology; EMERGENCY PHYSICIAN Emergency Medicine; FAMILY PHYSICIAN Family Medicine
DX: C78.7 Secondary malignant neoplasm of liver and intrahepatic bile duct (principal); R18.0 Malignant ascites; R10.9 Unspecified abdominal pain; C50.919 Malignant neoplasm of unspecified site of unspecified female breast; K57.30 Diverticulosis of large intestine without perforation or abscess without bleeding; K64.9 Unspecified hemorrhoids; D61.818 Other pancytopenia; C79.51 Secondary malignant neoplasm of bone; I48.0 Paroxysmal atrial fibrillation; I13.0 Hypertensive heart and chronic kidney disease with heart failure and stage 1 through stage 4 chronic kidney disease, or unspecified chronic kidney disease; D69.6 Thrombocytopenia, unspecified; K75.81 Nonalcoholic steatohepatitis (NASH); K74.60 Unspecified cirrhosis of liver; N18.30 Chronic kidney disease, stage 3 unspecified; E87.70 Fluid overload, unspecified; I50.32 Chronic diastolic (congestive) heart failure; K21.9 Gastro-esophageal reflux disease without esophagitis; K58.9 Irritable bowel syndrome, unspecified; Z90.12 Acquired absence of left breast and nipple; Z88.6 Allergy status to analgesic agent; Z88.1 Allergy status to other antibiotic agents; Z88.3 Allergy status to other anti-infective agents; Z88.5 Allergy status to narcotic agent; Z90.49 Acquired absence of other specified parts of digestive tract; Z96.653 Presence of artificial knee joint, bilateral; Z96.643 Presence of artificial hip joint, bilateral; Z88.0 Allergy status to penicillin; Z88.2 Allergy status to sulfonamides; Z80.0 Family history of malignant neoplasm of digestive organs; Z83.79 Family history of other diseases of the digestive system; Z92.21 Personal history of antineoplastic chemotherapy
CPT/HCPCS: 49083; 80048; 80053; 82962; 83690; 83735; 84157; 85025; 85027; 85610; 87015; 87070; 87205; 89051; 96360; 97162; 97166; 99284; G0378; P9047

== ENCOUNTER → 2024-03-09 14:26 | Outpatient (REF) | payer MEDICARE, SELFPAY ==
[2024-03-09 16:08] LABS: % Basophils 2.1 % (0-2); % Eosinophils 2.9 % (0-6); % Immature Granulocytes 0.8 % (0-0.5); % Lymphocytes 12.6 % (20.5-51.1); % Monocytes 9.6 % (1.7-9.3); Absolute Basophils 0.1 10^3/uL (0-0.2); Absolute Eosinophils 0.1 10^3/uL (0-0.7); Absolute Lymphocytes 0.3 10^3/uL (1.2-3.4); Absolute Monocytes 0.2 10^3/uL (0.1-0.6); Absolute Neutrophils 1.7 10^3/uL (1.4-6.5); Hematocrit 30.9 % (37.0-47.0); Hemoglobin 10.7 g/dL (12.0-16.0); Mean Corp Hgb Conc. 34.6 g/dL (33.0-37.0); Mean Corpuscular Hgb 37.4 pg (27.0-31.0); Mean Platelet Volume 10.7 fL (7.4-10.4); Nucleated Red Blood Cells % 0 %; Platelet Count 62 10^3/uL (130-400); Red Blood Cell Count 2.86 10^6/uL (4.20-5.40); Red Cell Dist. Width 15.8 % (11.5-14.5); White Blood Cell Count 2.4 10^3/uL (4.8-10.8)
[2024-03-09 16:18] LABS: ALT (SGPT) 26 U/L (0-35); AST (SGOT) 34 U/L (14-36); Albumin 3.7 g/dl (3.5-5.0); Alkaline Phosphatase 59 U/L (38-126); Blood Urea Nitrogen 40 mg/dl (7-17); Calcium 8.7 mg/dl (8.4-10.2); Carbon Dioxide 25 mmol/L (22-30); Chloride 100 mmol/L (98-107); Glucose 127 mg/dl (70-99); Potassium 4.7 mmol/L (3.5-5.1); Sodium 135 mmol/L (135-145); Total Bilirubin 0.9 mg/dl (0.2-1.3); Total Protein 6.1 g/dl (6.3-8.2); eGFR 28.66
[2024-03-10 08:40] LABS: Glycohemoglobin (HgbA1c) 4.9 % (4.0-5.6)
== END ==
LOC: REG 14:26
PROVIDERS: ATTENDING PHYSICIAN Internal Medicine Hematology & Oncology; FAMILY PHYSICIAN Family Medicine
DX: C50.412 Malignant neoplasm of upper-outer quadrant of left female breast (principal); R22.32 Localized swelling, mass and lump, left upper limb; C79.51 Secondary malignant neoplasm of bone; C78.7 Secondary malignant neoplasm of liver and intrahepatic bile duct; D50.9 Iron deficiency anemia, unspecified; N18.30 Chronic kidney disease, stage 3 unspecified; D63.1 Anemia in chronic kidney disease; D64.81 Anemia due to antineoplastic chemotherapy
CPT/HCPCS: 36415; 80053; 83036; 85025

== ENCOUNTER → 2024-03-15 09:34 | Outpatient (REF) | payer MEDICARE, SELFPAY ==
[2024-03-15 10:00] VITALS: BP 108/67; BP_SYST 81
[2024-03-15 10:49] VITALS: BP 105/52
[2024-03-15 14:26] LABS: Body Fluid Mononuclear 90.2 %; Body Fluid Polymorphonuclear 9.8 %; Body Fluid WBC 51 /CUMM
[2024-03-15 14:37] LABS: Body Fluid Second Tech AMA
== END ==
LOC: RADI 09:34
PROVIDERS: ATTENDING PHYSICIAN Physician Assistant; FAMILY PHYSICIAN Family Medicine
DX: R18.8 Other ascites (principal)
CPT/HCPCS: 49083; 89051

== ENCOUNTER → 2024-03-23 09:04 | Outpatient (REF) | payer MEDICARE, SELFPAY ==
[2024-03-23 09:15] VITALS: BP 118/59; BP_SYST 84
[2024-03-23 10:37] VITALS: BP 107/54
[2024-03-23 11:24] LABS: Body Fluid Mononuclear 91.7 %; Body Fluid Polymorphonuclear 8.3 %; Body Fluid WBC 48 /CUMM
[2024-03-23 11:50] LABS: Body Fluid Second Tech AMA
== END ==
LOC: RADI 09:04
PROVIDERS: ATTENDING PHYSICIAN Internal Medicine Hematology & Oncology; FAMILY PHYSICIAN Family Medicine
DX: R18.8 Other ascites (principal)
CPT/HCPCS: 49083; 89051

== ENCOUNTER 2024-03-29 18:23 | Emergency (ER) | payer MEDICARE, SELFPAY ==
[2024-03-29 18:27] VITALS: BP 136/73
[2024-03-29 18:44] LABS: % Basophils 0.8 % (0-2); % Immature Granulocytes 0.5 % (0-0.5); % Monocytes 6.5 % (1.7-9.3); % Neutrophils 83.2 % (42.2-75.2); Absolute Lymphocytes 0.3 10^3/uL (1.2-3.4); Absolute Monocytes 0.3 10^3/uL (0.1-0.6); Absolute Neutrophils 3.2 10^3/uL (1.4-6.5); Hematocrit 32.4 % (37.0-47.0); Hemoglobin 11.2 g/dL (12.0-16.0); Mean Corp Hgb Conc. 34.6 g/dL (33.0-37.0); Mean Corpuscular Hgb 36.5 pg (27.0-31.0); Mean Corpuscular Volume 105.5 fL (81.0-99.0); Mean Platelet Volume 10.7 fL (7.4-10.4); Nucleated Red Blood Cells % 0 %; Platelet Count 135 10^3/uL (130-400); Red Blood Cell Count 3.07 10^6/uL (4.20-5.40); Red Cell Dist. Width 14.8 % (11.5-14.5); White Blood Cell Count 3.9 10^3/uL (4.8-10.8)
[2024-03-29 18:59] LABS: ALT (SGPT) 75 U/L (0-35); AST (SGOT) 74 U/L (14-36); Albumin 3.5 g/dl (3.5-5.0); Alkaline Phosphatase 159 U/L (38-126); Blood Urea Nitrogen 55 mg/dl (7-17); Calcium 8.6 mg/dl (8.4-10.2); Carbon Dioxide 23 mmol/L (22-30); Chloride 97 mmol/L (98-107); Glucose 138 mg/dl (70-99); Lipase 270 U/L (23-300); Potassium 4.8 mmol/L (3.5-5.1); Sodium 129 mmol/L (135-145); Total Bilirubin 1.2 mg/dl (0.2-1.3); Total Protein 6.1 g/dl (6.3-8.2); eGFR 28.66
--- NOTE | 2024-03-29 21:48 | ED.GENMED ---
History of Present Illness
General
Chief Complaint: Abdominal Pain
Time Seen by Provider: 03/29/24 21:12
History of Present Illness
History of Present Illness:
78-year-old female with history of metastatic breast cancer with history of ascites, hypotension on midodrine presenting to the hospital for abdominal discomfort. Patient reports about 5 days ago started to have diarrhea and abdominal discomfort.
Reports that symptoms worsened today. She is scheduled to have a paracentesis tomorrow, gets weekly paracentesis. Denies fever. Denies vomiting. Denies chest pain. Reports history of bowel obstruction in the past which was her primary concern.
She does note some dyspnea as well, denies cough. Denies additional acute medical complaints
Past History
Past History
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 Diverticulitis, Hiatal hernia. Anemia, Back and neck pain, neuropathy, Hemorrhoid)
ED Past Surgical History: Bowel resection, Cardiac (Ablation), Cholecystectomy, Gynecological (D&C), Orthopedic (Right total hip replacement, left total hip replacement, right knee and left knee replacements, hammer toe) and Other (Lumpectom left
breast. Hernia repair, )
Social History
Tobacco: Non-smoker
Alcohol: None
Personal:
Living: with family
Employment: Retired
Family History
Family History: Other (Noncontributory)
Phy Exam
Physical Exam
Physical Exam:
General: Well-appearing, no clinical signs of dehydration, nontoxic and in no acute distress
HEENT: protecting airway
Neck: appears supple
CV: Normal heart rate, regular rhythm
Resp: No accessory muscle use, no increased work of breathing, lungs clear to auscultation bilaterally
Abd: Moderate distention with generalized nonfocal tenderness, no rebound or guarding.
Extremities: No deformities, no swelling
Neuro: alert, no focal neurologic deficit
: deferred
Rectal: deferred
Psych: Normal affect
Skin: Intact
Course
Orders/Labs/Results
Orders:
Orders
03/29/24 18:35
Complete Blood Count/With Diff Urgent
Comprehensive Metabolic Panel Urgent
Lipase Urgent
03/29/24 21:37
CT Abd/pel Without Iv Or Oral Urgent
Comment:
Reason For Exam: bloating, distension, pain, met cancer, hx SBO
Ketorolac [Toradol] 15 mg IM NOW STA
03/29/24 21:52
CR Chest - 2 Views Urgent
Comment:
Reason For Exam: SOB
03/29/24 22:06
Ondansetron HCl [Zofran] 4 mg PO NOW STA
Abnormal Lab Results
03/29/24
18:35
WBC 3.9 L 10^3/uL
(4.8-10.8)
RBC 3.07 L 10^6/uL
(4.20-5.40)
Hgb 11.2 L g/dL
(12.0-16.0)
Hct 32.4 L %
(37.0-47.0)
MCV 105.5 H fL
(81.0-99.0)
MCH 36.5 H pg
(27.0-31.0)
RDW 14.8 H %
(11.5-14.5)
MPV 10.7 H fL
(7.4-10.4)
Absolute Lymphs (auto) 0.3 L 10^3/uL
(1.2-3.4)
Neutrophils % 83.2 H %
(42.2-75.2)
Lymphocytes % 8.0 L %
(20.5-51.1)
Sodium 129 L mmol/L
(135-145)
Chloride 97 L mmol/L
(98-107)
BUN 55 H mg/dl
(7-17)
Creatinine 1.8 H mg/dL
(0.6-1.0)
Glucose 138 H mg/dl
(70-99)
AST 74 H U/L
(14-36)
ALT 75 H U/L
(0-35)
Alkaline Phosphatase 159 H U/L
(38-126)
Total Protein 6.1 L g/dl
(6.3-8.2)
03/29/24 18:35
03/29/24 18:35
Vital Signs
Initial and Last Documented VS:
Initial Vital Signs
Temp Pulse Resp BP Pulse Ox
98.4 F 95 18 136/73 100
03/29/24 18:27 03/29/24 18:27 03/29/24 18:27 03/29/24 18:27 03/29/24 18:27
Last Documented Vital Signs
Temp Pulse Resp BP Pulse Ox
98.4 F 86 16 103/48 98
03/29/24 18:27 03/29/24 22:24 03/29/24 22:24 03/29/24 22:24 03/29/24 22:24
MDM/Problems Addressed
MDM/Problems Addressed:
78-year-old female with history of metastatic breast cancer and underlying ascites presenting to the emergency department for abdominal discomfort. Vital signs on arrival are normal.
On exam, patient is in no acute distress or discomfort. She has generalized discomfort on abdominal exam. She is nontoxic in appearance, afebrile with lower suspicion for SBP. There is no history of SBO in the past, which is a consideration.
Could also be discomfort from increased ascites, scheduled for paracentesis tomorrow. Laboratory analysis obtained prior to my assessment, she has chronic renal disease and mild hyponatremia. Will proceed with CT imaging of the abdomen for further
assessment
00:10 -CT shows a small right pleural effusion, and cirrhosis with slight increase in large ascites, however no bowel obstruction or hydronephrosis or additional acute pathology. At this time suspect the patient's discomfort is from underlying
metastatic disease and ascites. Without present for SBP, remains hemodynamically stable and comfortable on reassessment. Patient will prefer to go home for scheduled paracentesis tomorrow. Feel reasonable. Appointment at 8am. However, strict
return precautions communicated to patient verbalized
*Critical Care Note
Total Time (30-74mins, 75-104mins- exclusive of procedures): Not Applicable
ED Attending Note
-
Portions of this chart may have been created with voice recognition software.� Occasional wrong word or��sound alike� substitutions may have occurred due to the inherent limitations of voice recognition software.
Discharge Plan
Departure
Prescriptions:
No Action
Xgeva 120 MG/1.7 ML solution
120 mg SQ [id number]
multivitamin with folic acid [Tab-A-Jolanta] 1 TABLET tablet
1 tab PO DAILY
biotin 10,000 mcg Capsule
10,000 mcg PO DAILY
spironolactone 50 mg Tablet
75 mg PO DAILY
cholecalciferol (vitamin D3) [Vitamin D3] 25 mcg (1,000 unit) Capsule
25 mcg PO DAILY
calcium carbonate [Calcium 600] 600 mg calcium (1,500 mg) Tablet
600 mg PO DAILY
ferrous sulfate 325 mg (65 mg iron) Tablet
325 mg PO DAILY
ondansetron HCl 4 mg Tablet
4 mg PO Q8HPRN PRN (Reason: nausea)
gabapentin 100 mg Capsule
100 mg PO BIDPRN PRN (Reason: nerve pains)
fulvestrant 250 mg/5 mL Syringe
500 mg IM QMONTH
lactulose 10 gram/15 mL Solution
30 ml PO HS
tramadol 50 mg tablet
50 mg PO Q6HPRN PRN (Reason: severe pains)
Patient Comments:
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
omeprazole 40 mg capsule,delayed release(DR/EC)
40 mg PO DAILY
sennosides [senna] 8.6 mg Tablet
8.6 mg PO QPMPRN PRN (Reason: constipaiton)
furosemide [Lasix] 40 mg Tablet
40 mg PO DAILY
Ibrance 75 mg Tablet
75 mg PO DAILY
Rx Instructions:
3 weeks on, 1 week off
midodrine 5 mg Tablet
5 mg PO TID@0800,1300,1800 30 Days Qty: 90 0RF
Rx Instructions:
Hold if SBP more than 150
Referrals:
Yadi Lambert DO [Family Provider] -
Interventions
Interventions:
*Risk Screen - Suicide Last Done: 03/29/24 18:27
*General Assessment Last Done: 03/29/24 18:27
*Neglect/Abuse Screening Last Done: 03/29/24 18:27
ED- Fall Risk Assessment Last Done: 03/29/24 20:37
JO-Letyfm-Yqmqnuxvyx Assessment Last Done: 03/29/24 20:37
Discharge Date and Time
Print Language: ARGENTINE
[2024-03-29] MEDS: TORADOL 15 MG IM (21:56)
[2024-03-29] MEDS: ZOFRAN 4 MG PO (22:11)
[2024-03-29 22:24] VITALS: BP 103/48
[2024-03-30 00:19] VITALS: BP 114/66
== END 2024-03-30 00:45 | disposition home or self-care (01) ==
LOC: EMR 18:23
PROVIDERS: Student in an Organized Health Care Education/Training Program; EMERGENCY PHYSICIAN Student in an Organized Health Care Education/Training Program; FAMILY PHYSICIAN Family Medicine
DX: R10.9 Unspecified abdominal pain (principal); R06.00 Dyspnea, unspecified; R14.0 Abdominal distension (gaseous); R19.7 Diarrhea, unspecified; J90 Pleural effusion, not elsewhere classified; R18.8 Other ascites; I12.9 Hypertensive chronic kidney disease with stage 1 through stage 4 chronic kidney disease, or unspecified chronic kidney disease; N18.9 Chronic kidney disease, unspecified; C79.51 Secondary malignant neoplasm of bone; I48.91 Unspecified atrial fibrillation; E78.00 Pure hypercholesterolemia, unspecified; C78.7 Secondary malignant neoplasm of liver and intrahepatic bile duct; K57.92 Diverticulitis of intestine, part unspecified, without perforation or abscess without bleeding; K74.60 Unspecified cirrhosis of liver; G62.9 Polyneuropathy, unspecified; K21.9 Gastro-esophageal reflux disease without esophagitis; Z85.3 Personal history of malignant neoplasm of breast; Z96.653 Presence of artificial knee joint, bilateral; Z96.643 Presence of artificial hip joint, bilateral; Z90.49 Acquired absence of other specified parts of digestive tract; Z98.0 Intestinal bypass and anastomosis status; Z88.6 Allergy status to analgesic agent; Z88.1 Allergy status to other antibiotic agents; Z88.5 Allergy status to narcotic agent; Z88.0 Allergy status to penicillin; Z88.2 Allergy status to sulfonamides; Z88.8 Allergy status to other drugs, medicaments and biological substances
CPT/HCPCS: 99284; 96372; 71046; 74176; 80053; 83690; 85025

== ENCOUNTER → 2024-03-30 08:43 | Outpatient (REF) | payer MEDICARE, SELFPAY ==
[2024-03-30 08:58] VITALS: BP 114/53; BP_SYST 86
[2024-03-30 09:29] VITALS: BP 101/62; BP_SYST 90
--- NOTE | 2024-03-30 10:07 | W.PN.UPDATE ---
Update Note
Progress Note Update
This patient was seen in the ER last night for evaluation of abdominal pain. She has a history of SBO and metastatic cancer. Original CT reading did not mention SBO. I spoke with patient who is not having any abdominal pain at this time. She was
advised to call her surgeon Dr. Vogt and to go to the Emergency department for further workup
[2024-03-30 10:37] LABS: Body Fluid Mononuclear 69.6 %; Body Fluid Polymorphonuclear 30.4 %; Body Fluid WBC 151 /CUMM
[2024-03-30 10:41] LABS: Body Fluid Second Tech AMA
== END ==
LOC: RADI 08:43
PROVIDERS: ATTENDING PHYSICIAN Internal Medicine Hematology & Oncology; FAMILY PHYSICIAN Family Medicine
DX: R18.8 Other ascites (principal)
CPT/HCPCS: 49083; 89051

== ENCOUNTER 2024-03-30 10:00 | Outpatient (RCR) | payer MEDICARE, SELFPAY ==
[2024-03-15 11:32] VITALS: BP 114/60
[2024-03-15 11:38] VITALS: BP 114/60
[2024-03-15] MEDS: FLEXBUMIN 100 IV (11:38)
[2024-03-15 13:21] VITALS: BP 91/47
[2024-03-23 11:05] VITALS: BP 113/55
[2024-03-23] MEDS: FLEXBUMIN 100 IV (11:24)
[2024-03-23 11:25] VITALS: BP 113/5
[2024-03-23 13:00] VITALS: BP 94/52
[2024-03-30] MEDS: FLEXBUMIN 100 IV (10:27)
[2024-03-30 10:32] VITALS: BP 108/59
[2024-03-30 11:17] VITALS: BP 97/58
--- NOTE | 2024-03-30 13:54 | PTCARENOTE ---
-1030- Pt here for albumin post paracentesis. Usha CROWLEY called to notify that patient has bowel obstruction, not originally identified on CT last evening in ED. Pt is to receive albumin as planned and then to go to ED for further evaluation.
[facility] office notified. Pt has abdominal discomfort, somewhat relieved by paracentesis. Pt c/o nausea, no vomiting. Pt states she has not moved her bowels in three days.
1300- [place] charge nurse in ED notified of patient transfer. Pt transported to ED via wheelchair by this nurse in stable condition, report given to triage nurse
== END 2024-03-30 23:59 | disposition home or self-care (01) ==
LOC: OID 10:00
PROVIDERS: ATTENDING PHYSICIAN Internal Medicine Gastroenterology; FAMILY PHYSICIAN Family Medicine
DX: K74.69 Other cirrhosis of liver (principal); K74.60 Unspecified cirrhosis of liver (principal); D64.9 Anemia, unspecified; Z90.49 Acquired absence of other specified parts of digestive tract; I85.00 Esophageal varices without bleeding; D63.8 Anemia in other chronic diseases classified elsewhere
CPT/HCPCS: 96365; 96366; P9047

== ENCOUNTER 2024-03-30 12:59 | Emergency (ER) | payer MEDICARE, SELFPAY ==
[2024-03-30 13:12] VITALS: BMI 27.8
[2024-03-30 13:57] LABS: % Basophils 1.1 % (0-2); % Eosinophils 2.2 % (0-6); % Immature Granulocytes 0.7 % (0-0.5); % Lymphocytes 11.6 % (20.5-51.1); % Monocytes 7.6 % (1.7-9.3); % Neutrophils 76.8 % (42.2-75.2); Absolute Eosinophils 0.1 10^3/uL (0-0.7); Absolute Lymphocytes 0.3 10^3/uL (1.2-3.4); Absolute Monocytes 0.2 10^3/uL (0.1-0.6); Absolute Neutrophils 2.1 10^3/uL (1.4-6.5); Hematocrit 30.2 % (37.0-47.0); Hemoglobin 10.6 g/dL (12.0-16.0); Mean Corp Hgb Conc. 35.1 g/dL (33.0-37.0); Mean Corpuscular Hgb 36.9 pg (27.0-31.0); Mean Corpuscular Volume 105.2 fL (81.0-99.0); Nucleated Red Blood Cells % 0 %; Red Blood Cell Count 2.87 10^6/uL (4.20-5.40); Red Cell Dist. Width 14.9 % (11.5-14.5); White Blood Cell Count 2.8 10^3/uL (4.8-10.8)
[2024-03-30 14:00] VITALS: BP 104/53
--- NOTE | 2024-03-30 14:14 | ED.GENMED ---
History of Present Illness
General
Chief Complaint: Abdominal Symptoms
Source: patient
Exam Limitations: none
Time Seen by Provider: 03/30/24 14:05
History of Present Illness
History of Present Illness:
Patient presents for reevaluation after a CT scan showed a bowel obstruction. Was here last night with increasing pain. Has not had a bowel movement 3 days. Some nausea no vomiting. Did drink coffee this morning. Her current symptoms are
baseline after a paracentesis and she feels much better. She does not feel unusually distended or nauseous at this time. No fever.
Past History
Past History
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 Diverticulitis, Hiatal hernia. Anemia, Back and neck pain, neuropathy, Hemorrhoid)
ED Past Surgical History: Bowel resection, Cardiac (Ablation), Cholecystectomy, Gynecological (D&C), Orthopedic (Right total hip replacement, left total hip replacement, right knee and left knee replacements, hammer toe) and Other (Lumpectom left
breast. Hernia repair, )
Social History
Tobacco: Non-smoker
Alcohol: None
Personal:
Living: with family
Employment: Retired
Family History
Family History: Other (Noncontributory)
Review of Systems
Review of Systems
All Other Systems: Not applicable
Constitutional: Denies fever or chills
Respiratory: Reports no symptoms
Cardiac: Reports no symptoms
Phy Exam
Physical Exam
Physical Exam:
GENERAL: Alert and oriented in no apparent distress
EYE: Orbits normal.
NECK: Supple
CARDIAC: Regular rate and rhythm without any obvious murmurs.
LUNGS: Clear breath sounds,normal
ABDOMEN: Soft, without focal tenderness or distention. Bowel sounds present.
NEUROLOGICAL: Alert and oriented , grossly non-focal
SKIN: Warm and dry, no rash or lesion, no discoloration, skin intact.
MUSCULOSKELETAL: No edema,no deformity.Good color
PSYCH: Normal and appropriate interaction.
Course
Orders/Labs/Results
Orders:
Orders
03/30/24 13:28
Complete Blood Count/With Diff Urgent
03/30/24 14:14
CR Obstruct Series W/pa Chest Urgent
Comment:
Reason For Exam: Abdominal pain/nausea/decreased BM
03/30/24 14:45
Comprehensive Metabolic Panel Urgent
03/30/24 15:30
Iohexol [Omnipaque] See Protocol PO NOW STA
03/30/24 15:31
CT Abd/pel (oral only)-DH Only Urgent
Comment:
Reason For Exam: Nausea vomiting possible SBO by previous CT
Abnormal Lab Results
03/30/24 03/30/24
13:28 14:45
WBC 2.8 L 10^3/uL
(4.8-10.8)
RBC 2.87 L 10^6/uL
(4.20-5.40)
Hgb 10.6 L g/dL
(12.0-16.0)
Hct 30.2 L %
(37.0-47.0)
MCV 105.2 H fL
(81.0-99.0)
MCH 36.9 H pg
(27.0-31.0)
RDW 14.9 H %
(11.5-14.5)
Absolute Lymphs (auto) 0.3 L 10^3/uL
(1.2-3.4)
Immature Gran % 0.7 H %
(0-0.5)
Neutrophils % 76.8 H %
(42.2-75.2)
Lymphocytes % 11.6 L %
(20.5-51.1)
Sodium 129 L mmol/L
(135-145)
BUN 56 H mg/dl
(7-17)
Creatinine 2.2 H mg/dL
(0.6-1.0)
AST 49 H U/L
(14-36)
ALT 58 H U/L
(0-35)
Alkaline Phosphatase 132 H U/L
(38-126)
Total Protein 5.7 L g/dl
(6.3-8.2)
Albumin 3.3 L g/dl
(3.5-5.0)
03/30/24 13:28
03/30/24 14:45
Vital Signs
Initial and Last Documented VS:
Initial Vital Signs
Temp Pulse Resp Pulse Ox
97.7 F 86 18 98
03/30/24 13:12 03/30/24 13:12 03/30/24 13:12 03/30/24 13:12
Last Documented Vital Signs
Temp Pulse Resp BP Pulse Ox
97.6 F 80 20 104/53 97
03/30/24 14:00 03/30/24 14:00 03/30/24 14:00 03/30/24 15:11 03/30/24 15:45
MDM/Problems Addressed
Differential Diagnosis Includes:
CT apparently showed a SBO which was not initially picked up on the initial CT. Relatively low suspicion for SBO at this time. Abdomen is nonsurgical and nontender. She does have bowel sounds. She did drink coffee this morning. Discussed
approach with radiology. They feel an obstruction series is very reasonable to start
*Radiology
Radiology exam reviewed: radiology read reviewed (No acute findings on CT. Large hiatal hernia known. Moderate ascites known. Inflammation of the terminal ileum and cecum. Diverticulosis. Metastatic osseous disease. All known)
*Pulse Oximetry
Patient hypoxic: no
*Critical Care Note
Total Time (30-74mins, 75-104mins- exclusive of procedures): Not Applicable
Data Reviewed
Review of Other/Old Records Reveals: Labs, Records, Radiology Studies and Testing
Update Note
Update Note:
Patient is stable feels at baseline. Abnormal CT but all known issues. Nothing acutely surgical or require an acute admission. Patient is comfortable with outpatient management
ED Attending Note
-
Portions of this chart may have been created with voice recognition software.� Occasional wrong word or��sound alike� substitutions may have occurred due to the inherent limitations of voice recognition software.
Discharge Plan
Departure
Patient Disposition: Home (Routine Discharge)
Date of Disposition: 03/30/24
Time of Disposition: 19:54
Patient with high blood pressure during this ER visit?: No
Discharge Problem:
Evaluation for possible SBO, Known ascites, Metastatic CA, Renal insufficiency
Instructions: Fluid in the belly from cirrhosis (ascites), Abdominal Pain
Prescriptions:
No Action
Xgeva 120 MG/1.7 ML solution
120 mg SQ [id number]
multivitamin with folic acid [Tab-A-Jolanta] 1 TABLET tablet
1 tab PO DAILY
biotin 10,000 mcg Capsule
10,000 mcg PO DAILY
spironolactone 50 mg Tablet
75 mg PO DAILY
cholecalciferol (vitamin D3) [Vitamin D3] 25 mcg (1,000 unit) Capsule
25 mcg PO DAILY
calcium carbonate [Calcium 600] 600 mg calcium (1,500 mg) Tablet
600 mg PO DAILY
ferrous sulfate 325 mg (65 mg iron) Tablet
325 mg PO DAILY
ondansetron HCl 4 mg Tablet
4 mg PO Q8HPRN PRN (Reason: nausea)
gabapentin 100 mg Capsule
100 mg PO BIDPRN PRN (Reason: nerve pains)
fulvestrant 250 mg/5 mL Syringe
500 mg IM QMONTH
lactulose 10 gram/15 mL Solution
30 ml PO HS
tramadol 50 mg tablet
50 mg PO Q6HPRN PRN (Reason: severe pains)
Patient Comments:
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
omeprazole 40 mg capsule,delayed release(DR/EC)
40 mg PO DAILY
sennosides [senna] 8.6 mg Tablet
8.6 mg PO QPMPRN PRN (Reason: constipaiton)
furosemide [Lasix] 40 mg Tablet
40 mg PO DAILY
Ibrance 75 mg Tablet
75 mg PO DAILY
Rx Instructions:
3 weeks on, 1 week off
midodrine 5 mg Tablet
5 mg PO TID@0800,1300,1800 30 Days Qty: 90 0RF
Rx Instructions:
Hold if SBP more than 150
Referrals:
Yadi Lambert, [Family Provider] - Follow up in 2-3 days
Activity Restrictions/Additional Instructions:
Follow-up closely with your physicians managing your ascites and other issues
Return sooner with increased pain fever vomiting or any other concerning symptoms
Interventions
Interventions:
*Risk Screen - Suicide Last Done: 03/30/24 13:12
*General Assessment Last Done: 03/30/24 13:12
*Neglect/Abuse Screening Last Done: 03/30/24 13:12
ED- Fall Risk Assessment Last Done: 03/30/24 14:45
*ED COVID-19 Vaccine History Last Done: 03/30/24 13:12
NM-Wramsc-Boflshxera Assessment Last Done: 03/30/24 14:45
Discharge Date and Time
Print Language: COMORAN
[2024-03-30 15:11] VITALS: BP 104/53
[2024-03-30] MEDS: OMNIPAQUE 50 ML PO (15:44)
[2024-03-30 16:30] LABS: ALT (SGPT) 58 U/L (0-35); AST (SGOT) 49 U/L (14-36); Albumin 3.3 g/dl (3.5-5.0); Alkaline Phosphatase 132 U/L (38-126); Blood Urea Nitrogen 56 mg/dl (7-17); Calcium 8.4 mg/dl (8.4-10.2); Carbon Dioxide 22 mmol/L (22-30); Chloride 98 mmol/L (98-107); Estimated Creatinine Clearance 22 ml/min; Glucose 95 mg/dl (70-99); Potassium 4.7 mmol/L (3.5-5.1); Sodium 129 mmol/L (135-145); Total Bilirubin 1.3 mg/dl (0.2-1.3); Total Protein 5.7 g/dl (6.3-8.2); eGFR 22.53
[2024-03-30 19:00] VITALS: BP 100/50
[2024-03-30 20:20] VITALS: BP 103/92
== END 2024-03-30 20:26 | disposition home or self-care (01) ==
LOC: EMR 12:59
PROVIDERS: Emergency Medicine; EMERGENCY PHYSICIAN Emergency Medicine; FAMILY PHYSICIAN Family Medicine
DX: R18.8 Other ascites (principal); C50.919 Malignant neoplasm of unspecified site of unspecified female breast; C79.51 Secondary malignant neoplasm of bone; N28.9 Disorder of kidney and ureter, unspecified; I48.91 Unspecified atrial fibrillation; K21.9 Gastro-esophageal reflux disease without esophagitis; I10 Essential (primary) hypertension; E78.00 Pure hypercholesterolemia, unspecified; K44.9 Diaphragmatic hernia without obstruction or gangrene; D64.9 Anemia, unspecified; G62.9 Polyneuropathy, unspecified; Z85.3 Personal history of malignant neoplasm of breast; Z87.19 Personal history of other diseases of the digestive system; Z90.49 Acquired absence of other specified parts of digestive tract; Z96.643 Presence of artificial hip joint, bilateral; Z96.653 Presence of artificial knee joint, bilateral
CPT/HCPCS: 99284; 49083; 74022; 74176; 80053; 85025; 89051

== ENCOUNTER 2024-04-05 11:01 | Emergency (ER) | payer MEDICARE, SELFPAY ==
[2024-04-05] VITALS (12 sets, daily range): BP systolic 67–139; BP diastolic 44–79; BMI 27.6
--- NOTE | 2024-04-05 11:03 | ED.PDOC.TRB ---
ED Provider Triage
-
Patient seen by provider in Triage?: Seen in Triage
78 y/o F MASH to the liver
due for paracentesis tomorrow
had para 1 week ago 4 L removed and says her pain is not improved, diffuse abdominal
no fever, chills
but nausea
brandon dominic is oncologist told her come in
vitals stable
afebrile
slight abd distension, not significant
some ecchymosis on abdomen
will start with labs
defer imaging to provider
likely will need IR consult for para to r/o SBP
[2024-04-05 11:31] LABS: % Basophils 1.8 % (0-2); % Eosinophils 1.8 % (0-6); % Immature Granulocytes 0.4 % (0-0.5); % Lymphocytes 9.7 % (20.5-51.1); % Monocytes 6.8 % (1.7-9.3); % Neutrophils 79.5 % (42.2-75.2); Absolute Basophils 0.1 10^3/uL (0-0.2); Absolute Eosinophils 0.1 10^3/uL (0-0.7); Absolute Lymphocytes 0.3 10^3/uL (1.2-3.4); Absolute Monocytes 0.2 10^3/uL (0.1-0.6); Absolute Neutrophils 2.2 10^3/uL (1.4-6.5); Hematocrit 32.9 % (37.0-47.0); Hemoglobin 11.2 g/dL (12.0-16.0); Mean Corpuscular Hgb 36.5 pg (27.0-31.0); Mean Corpuscular Volume 107.2 fL (81.0-99.0); Mean Platelet Volume 11.6 fL (7.4-10.4); Nucleated Red Blood Cells % 0 %; Platelet Count 125 10^3/uL (130-400); Red Blood Cell Count 3.07 10^6/uL (4.20-5.40); White Blood Cell Count 2.8 10^3/uL (4.8-10.8)
[2024-04-05 11:36] LABS: INR 1.03; PT 13.8 Sec (11.4-14.6)
[2024-04-05 11:37] LABS: APTT 35.1 Sec (23.4-35.0)
[2024-04-05 11:41] LABS: Lactic Acid 0.9 mmol/L (0.7-2.0)
[2024-04-05 11:50] LABS: ALT (SGPT) 40 U/L (0-35); AST (SGOT) 36 U/L (14-36); Albumin 3.7 g/dl (3.5-5.0); Alkaline Phosphatase 129 U/L (38-126); Blood Urea Nitrogen 51 mg/dl (7-17); Calcium 8.6 mg/dl (8.4-10.2); Carbon Dioxide 24 mmol/L (22-30); Chloride 98 mmol/L (98-107); Glucose 115 mg/dl (70-99); Lipase 220 U/L (23-300); Potassium 6.2 mmol/L (3.5-5.1); Sodium 130 mmol/L (135-145); Total Bilirubin 1.4 mg/dl (0.2-1.3); Total Protein 6.3 g/dl (6.3-8.2); eGFR 25.26
--- NOTE | 2024-04-05 13:39 | ED.GENMED ---
History of Present Illness
<Elton Nance PA-C - Last Filed: 04/05/24 19:57>
General
Chief Complaint: Abdominal Symptoms
Source: patient
Exam Limitations: none
Time Seen by Provider: 04/05/24 13:12
History of Present Illness
History of Present Illness:
78-year-old female with history of metastatic pancreatic cancer presents with increased abdominal distention and pain. She was due for routine paracentesis tomorrow however the pain worsened. She was here last week with abdominal pain. Initially
thought to have proximal small bowel obstruction based off CT however oral contrast CT the next day did not demonstrate any obstruction. She denies vomiting. She denies fever. She had runny stools about 2 to 3 days ago but since then has not had
a bowel movement. She states her pain is different than what it usually is with her routine ascites. No chest pain. No other complaints at this time
Past History
<Elton Nance PA-C - Last Filed: 04/05/24 19:57>
Past History
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 Diverticulitis, Hiatal hernia. Anemia, Back and neck pain, neuropathy, Hemorrhoid)
ED Past Surgical History: Bowel resection, Cardiac (Ablation), Cholecystectomy, Gynecological (D&C), Orthopedic (Right total hip replacement, left total hip replacement, right knee and left knee replacements, hammer toe) and Other (Lumpectom left
breast. Hernia repair, )
Social History
Tobacco: Non-smoker
Alcohol: None
Personal:
Living: with family
Employment: Retired
Family History
Family History: Other (Noncontributory)
Phy Exam
<Elton Nance PA-C - Last Filed: 04/05/24 19:57>
Physical Exam
Physical Exam:
General: Well-appearing female no acute respiratory distress yes
HEENT: Normocephalic atraumatic
Heart: Regular rate and rhythm no murmurs
Lungs: Clear no wheeze
Abdomen: Soft, distended dorsalis mildly diffusely tender. No guarding normal bowel sounds
Extremities: Pitting edema bilateral lower extremities
Course
<Elton Nance PA-C - Last Filed: 04/05/24 19:57>
Orders/Labs/Results
Orders:
Orders
04/05/24 11:17
Complete Blood Count/With Diff Urgent
Comprehensive Metabolic Panel Urgent
Lactic Acid Urgent
Lipase Urgent
PTT Urgent
Prothrombin Time Urgent
04/05/24 13:13
Electrocardiogram (*1) Urgent
Reason for Study: Fatigue / Weakness
EKG- Treatment ONCE
04/05/24 13:30
Ondansetron Injectable [Zofran] 4 mg IV NOW STA
04/05/24 13:34
[facility] CONSULT Urgent
Consulting Provider: Alok Jackson
Was physician already notified: Yes
Reason for Consult/Procedure: ascites
Acknowledgement that appropriate orders are entered: Yes
04/05/24 13:49
Sodium Zirconium Cyclosilicate [Lokelma] 10 gram PO NOW STA
04/05/24 14:35
Urinalysis Reflex To Culture Urgent
Date Specimen was Collected: 04/05/24
Time Specimen was Collected: 14:25
Urine Microscopic Reflex Cult Urgent
04/05/24 15:39
Body Fluid Cell Count Routine
What is the Body Fluid: peritoneal fluid
Date Specimen was Collected: 04/05/24
Time Specimen was Collected: 15:15
Comment: post procedure
Fluid Culture with Gram Stain Routine
JONO Source: Peritoneal Fluid
Specimen Description:
Date Specimen was Collected: 04/05/24
Time Specimen was Collected: 15:15
Comment: Post Procedure
04/05/24 15:54
CR Obstruct Series W/pa Chest Urgent
Comment:
Reason For Exam: abdominal pain
04/05/24 16:00
Albumin Human 25% 100 ml [Flexbumin] 25 grams in 100 ml IV TODAY
04/05/24 18:08
Potassium Urgent
Abnormal Lab Results
04/05/24 04/05/24 04/05/24
11:17 14:35 18:08
WBC 2.8 L 10^3/uL
(4.8-10.8)
RBC 3.07 L 10^6/uL
(4.20-5.40)
Hgb 11.2 L g/dL
(12.0-16.0)
Hct 32.9 L %
(37.0-47.0)
MCV 107.2 H fL
(81.0-99.0)
MCH 36.5 H pg
(27.0-31.0)
RDW 15.0 H %
(11.5-14.5)
Plt Count 125 L 10^3/uL
(130-400)
MPV 11.6 H fL
(7.4-10.4)
Absolute Lymphs (auto) 0.3 L 10^3/uL
(1.2-3.4)
Neutrophils % 79.5 H %
(42.2-75.2)
Lymphocytes % 9.7 L %
(20.5-51.1)
APTT 35.1 H Sec
(23.4-35.0)
Sodium 130 L mmol/L
(135-145)
Potassium 6.2 H* mmol/L 5.4 H mmol/L
(3.5-5.1) (3.5-5.1)
BUN 51 H mg/dl
(7-17)
Creatinine 2.0 H mg/dL
(0.6-1.0)
Glucose 115 H mg/dl
(70-99)
Total Bilirubin 1.4 H mg/dl
(0.2-1.3)
ALT 40 H U/L
(0-35)
Alkaline Phosphatase 129 H U/L
(38-126)
Urine Ketones Trace A
(Negative)
Ur Occult Blood Reflex Trace A
(Negative)
Urine Bilirubin 1+ A
(Negative)
Leukocyte Esterase Rfl Trace A
(Negative)
Urine Bacteria (Reflex) Few A
(Negative)
04/05/24 11:17
04/05/24 18:08
Vital Signs
Initial and Last Documented VS:
Initial Vital Signs
Temp Pulse Resp BP Pulse Ox
97.8 F 94 16 139/76 99
04/05/24 11:04 04/05/24 11:04 04/05/24 11:04 04/05/24 11:04 04/05/24 11:04
Last Documented Vital Signs
Temp Pulse Resp BP Pulse Ox
98.2 F 94 19 129/59 98
04/05/24 20:28 04/05/24 19:45 04/05/24 19:45 04/05/24 20:28 04/05/24 15:37
<Aayush Goins MD - Last Filed: 04/06/24 08:09>
Orders/Labs/Results
Orders:
Orders
04/05/24 11:17
Complete Blood Count/With Diff Urgent
Comprehensive Metabolic Panel Urgent
Lactic Acid Urgent
Lipase Urgent
PTT Urgent
Prothrombin Time Urgent
04/05/24 13:13
Electrocardiogram (*1) Urgent
Reason for Study: Fatigue / Weakness
EKG- Treatment ONCE
04/05/24 13:30
Ondansetron Injectable [Zofran] 4 mg IV NOW STA
04/05/24 13:34
[facility] CONSULT Urgent
Consulting Provider: Alok Jackson
Was physician already notified: Yes
Reason for Consult/Procedure: ascites
Acknowledgement that appropriate orders are entered: Yes
04/05/24 13:49
Sodium Zirconium Cyclosilicate [Lokelma] 10 gram PO NOW STA
04/05/24 14:35
Urinalysis Reflex To Culture Urgent
Date Specimen was Collected: 04/05/24
Time Specimen was Collected: 14:25
Urine Microscopic Reflex Cult Urgent
04/05/24 15:39
Body Fluid Cell Count Routine
What is the Body Fluid: peritoneal fluid
Date Specimen was Collected: 04/05/24
Time Specimen was Collected: 15:15
Comment: post procedure
Fluid Culture with Gram Stain Routine
JONO Source: Peritoneal Fluid
Specimen Description:
Date Specimen was Collected: 04/05/24
Time Specimen was Collected: 15:15
Comment: Post Procedure
04/05/24 15:54
CR Obstruct Series W/pa Chest Urgent
Comment:
Reason For Exam: abdominal pain
04/05/24 16:00
Albumin Human 25% 100 ml [Flexbumin] 25 grams in 100 ml IV TODAY
04/05/24 18:08
Potassium Urgent
Abnormal Lab Results
04/05/24 04/05/24 04/05/24
11:17 14:35 18:08
WBC 2.8 L 10^3/uL
(4.8-10.8)
RBC 3.07 L 10^6/uL
(4.20-5.40)
Hgb 11.2 L g/dL
(12.0-16.0)
Hct 32.9 L %
(37.0-47.0)
MCV 107.2 H fL
(81.0-99.0)
MCH 36.5 H pg
(27.0-31.0)
RDW 15.0 H %
(11.5-14.5)
Plt Count 125 L 10^3/uL
(130-400)
MPV 11.6 H fL
(7.4-10.4)
Absolute Lymphs (auto) 0.3 L 10^3/uL
(1.2-3.4)
Neutrophils % 79.5 H %
(42.2-75.2)
Lymphocytes % 9.7 L %
(20.5-51.1)
APTT 35.1 H Sec
(23.4-35.0)
Sodium 130 L mmol/L
(135-145)
Potassium 6.2 H* mmol/L 5.4 H mmol/L
(3.5-5.1) (3.5-5.1)
BUN 51 H mg/dl
(7-17)
Creatinine 2.0 H mg/dL
(0.6-1.0)
Glucose 115 H mg/dl
(70-99)
Total Bilirubin 1.4 H mg/dl
(0.2-1.3)
ALT 40 H U/L
(0-35)
Alkaline Phosphatase 129 H U/L
(38-126)
Urine Ketones Trace A
(Negative)
Ur Occult Blood Reflex Trace A
(Negative)
Urine Bilirubin 1+ A
(Negative)
Leukocyte Esterase Rfl Trace A
(Negative)
Urine Bacteria (Reflex) Few A
(Negative)
04/05/24 11:17
04/05/24 18:08
Vital Signs
Initial and Last Documented VS:
Initial Vital Signs
Temp Pulse Resp BP Pulse Ox
97.8 F 94 16 139/76 99
04/05/24 11:04 04/05/24 11:04 04/05/24 11:04 04/05/24 11:04 04/05/24 11:04
Last Documented Vital Signs
Temp Pulse Resp BP Pulse Ox
98.2 F 94 19 129/59 98
04/05/24 20:28 04/05/24 19:45 04/05/24 19:45 04/05/24 20:28 04/05/24 15:37
<Elton Nance PA-C - Last Filed: 04/05/24 19:57>
MDM/Problems Addressed
Differential Diagnosis Includes:
Abdominal pain. Consider increased ascites. No fever but consider peritonitis, bowel obstruction. Will check electrolytes.
Initial potassium was elevated at 6.2. EKG was without any changes. Patient did receive a paracentesis here. She is feeling much better after the paracentesis. 4 L were removed. She was given albumin following this based on protocol. She was
also given a dose of Lokelma. She was reevaluated multiple times abdominal exam and benign without any tenderness feeling much better. There is been no vomiting she had a lunch here. Obstruction series was negative for acute findings. Patient is
on spironolactone. I suspect this may be related to her high potassium. She was advised to follow-up with her order builder loader for recommendations. At this point with improvement of potassium and symptoms no indication for admission. Stable for
discharge. Discussed with ED attending.
<Elton Nance PA-C - Last Filed: 04/05/24 19:57>
*Critical Care Note
Total Time (30-74mins, 75-104mins- exclusive of procedures): Not Applicable
ED Attending Note
<Elton Nance PA-C - Last Filed: 04/05/24 19:57>
-
Portions of this chart may have been created with voice recognition software.� Occasional wrong word or��sound alike� substitutions may have occurred due to the inherent limitations of voice recognition software.
<Aayush Goins MD - Last Filed: 04/06/24 08:09>
ED Attending Note
Patient seen and examined by attending physician: Yes
ED Attending Note:
Patient with history of metastatic pancreatic cancer, requiring weekly paracentesis secondary to ascites, currently on spironolactone, presents to ED secondary to persistent abdominal pain with nausea sensation and loose bowel movements, 1 day after
receiving her scheduled paracentesis last week. Denies fever or chills. Denies trauma. Patient reports decreased appetite. Denies recent change in medications or diet. Patient states that she typically does not have this much abdominal
discomfort with ascites.
Physical Exam
General: mild painful distress, not acutely ill. afebrile.
Head: nc/at. eomi
Neck: supple. normal range of motion.
Heart: s1/s2 regular rate and rhythm, no murmur. equal radial pulses.
Lungs: no acute respiratory distress. clear bilaterally
Abdomen: normal bowel sounds. mild distention with diffuse tenderness to palpation.
Neuro: alert and oriented x 3. no focal neurological deficits.
Skin: no rash
Psychiatric: well kept. interactive and cooperative
Extremities: no edema. no calf tenderness.
Will obtain blood work, paracentesis, along with obstruction series after paracentesis. Pt will be reassessed afterwards, to assess severity of discomfort along with need for additional studies, including potential admission to the hospital, if
symptoms persist.
Discharge Plan
Departure
Patient Disposition: Home (Routine Discharge)
Date of Disposition: 04/05/24
Time of Disposition: 19:56
Patient with high blood pressure during this ER visit?: No
Discharge Problem:
Ascites, Acute hyperkalemia
Instructions: Hyperkalemia, Abdominal Pain
Prescriptions:
No Action
Xgeva 120 MG/1.7 ML solution
120 mg SQ [id number]
multivitamin with folic acid [Tab-A-Jolanta] 1 TABLET tablet
1 tab PO DAILY
biotin 10,000 mcg Capsule
10,000 mcg PO DAILY
spironolactone 50 mg Tablet
75 mg PO BID
cholecalciferol (vitamin D3) [Vitamin D3] 25 mcg (1,000 unit) Capsule
25 mcg PO DAILY
calcium carbonate [Calcium 600] 600 mg calcium (1,500 mg) Tablet
600 mg PO DAILY
ferrous sulfate 325 mg (65 mg iron) Tablet
325 mg PO DAILY
ondansetron HCl 4 mg Tablet
4 mg PO Q8HPRN PRN (Reason: nausea)
gabapentin 100 mg Capsule
100 mg PO BIDPRN PRN (Reason: nerve pains)
fulvestrant 250 mg/5 mL Syringe
500 mg IM QMONTH
lactulose 10 gram/15 mL Solution
30 ml PO HS PRN (Reason: Constipation)
tramadol 50 mg tablet
50 mg PO Q6HPRN PRN (Reason: severe pains)
Patient Comments:
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
omeprazole 40 mg capsule,delayed release(DR/EC)
40 mg PO DAILY
sennosides [senna] 8.6 mg Tablet
8.6 mg PO QPMPRN PRN (Reason: constipaiton)
furosemide [Lasix] 40 mg Tablet
40 mg PO DAILY
Ibrance 75 mg Tablet
75 mg PO DAILY
Rx Instructions:
3 weeks on, 1 week off
midodrine 5 mg tablet
10 mg PO BID
Rx Instructions:
Hold if SBP more than 150
Referrals:
Yadi Lambert DO [Family Provider] -
Activity Restrictions/Additional Instructions:
Please follow-up with the order builder loader regarding recommendations for use of your spironolactone. Your potassium was 6.2 today but improved after treatment. Return here for worsening symptoms otherwise.
Interventions
Interventions:
*Risk Screen - Suicide Last Done: 04/05/24 11:04
*General Assessment Last Done: 04/05/24 11:04
*Neglect/Abuse Screening Last Done: 04/05/24 11:04
ED- Fall Risk Assessment Last Done: 04/05/24 14:00
*ED COVID-19 Vaccine History Last Done: 04/05/24 14:00
*Nursing Disposition Last Done: 04/05/24 20:28
VZ-Kobzpx-Lyhqcqobxq Assessment Last Done: 04/05/24 14:00
Discharge Date and Time
Discharge Date/Time: 04/05/24 20:29
Print Language: AMHARIC
[2024-04-05] MEDS: LOKELMA 10 GRAM PO (13:59)
[2024-04-05] MEDS: ZOFRAN 4 MG IV (13:59)
[2024-04-05 15:23] LABS: Urine Albumin Trace (Neg - Trace); Urine Bilirubin 1+ (Negative); Urine Character Clear (Clear); Urine Color Yellow; Urine Glucose Negative (Negative); Urine Ketone Trace (Negative); Urine Leukocyte Trace (Negative); Urine Nitrite Negative (Negative); Urine Occult Blood Trace (Negative); Urine Urobilinogen Negative (Neg - 1+)
--- NOTE | 2024-04-05 15:50 | PTCARENOTE ---
[facility] note: consult received for Paracentesis. Ordering provider notified of outpt standing Para order with 4L fluid limit and Albumin infusion with each tap. Asked ordering provider for fluid removal limit for today and stated ' should follow
recommendation from oncology for 4L limit'. removed only 4L peritoneal fluid. tolerated procedure well. pt returned to ED.
[2024-04-05 16:39] LABS: Urine Bacteria Few (Negative); Urine Mucus Moderate; Urine Red Blood Cell 0-2 /HPF (0-2)
[2024-04-05] MEDS: FLEXBUMIN 100 IV (17:20)
[2024-04-05 17:50] LABS: Body Fluid Mononuclear 80 %; Body Fluid Polymorphonuclear 20 %; Body Fluid WBC 50 /CUMM
[2024-04-05 18:42] LABS: Potassium 5.4 mmol/L (3.5-5.1)
[2024-04-05 19:04] LABS: Body Fluid Second Tech FB
== END 2024-04-05 20:29 | disposition home or self-care (01) ==
LOC: EMR 11:01
PROVIDERS: Physician Assistant; CONSULT PHYSICIAN Radiology Vascular & Interventional Radiology; EMERGENCY PHYSICIAN Emergency Medicine; FAMILY PHYSICIAN Family Medicine
DX: R18.8 Other ascites (principal); E87.5 Hyperkalemia; K21.9 Gastro-esophageal reflux disease without esophagitis; E78.00 Pure hypercholesterolemia, unspecified; I10 Essential (primary) hypertension; K44.9 Diaphragmatic hernia without obstruction or gangrene; C22.0 Liver cell carcinoma; C79.51 Secondary malignant neoplasm of bone; I48.91 Unspecified atrial fibrillation; Z85.3 Personal history of malignant neoplasm of breast; Z87.19 Personal history of other diseases of the digestive system; Z90.49 Acquired absence of other specified parts of digestive tract; Z96.653 Presence of artificial knee joint, bilateral
CPT/HCPCS: 99282; 96374; 96375; 49083; 74022; 80053; 81003; 81015; 83605; 83690; 84132; 85025; 85610; 85730; 87015; 87070; 87205; 89051; 93005; P9047

== ENCOUNTER 2024-04-08 22:05 | Inpatient (IN) | payer MEDICARE, SELFPAY ==
[2024-04-08] VITALS (7 sets, daily range): BP systolic 100–125; BP diastolic 50–71; BMI 27.0
--- NOTE | 2024-04-08 12:30 | ED.GENMED ---
ED Provider Triage
<JESSE Alatorre - Last Filed: 04/08/24 12:32>
-
Patient seen by provider in Triage?: Seen in Triage
Attestation: A medical screening examination has been initiated by a qualified medical provider. Based on the assessment performed at this time, it has been determined that an emergent medical condition may exist and the patient has been informed
that further medical evaluation and possible additional diagnostic testing may be needed.
HPI:
78-year-old female with hx of stage 4 metastatic breast cancer (breast to pelvis ) presents with n/v/d since 1 am. vomited 6-7 x, now starting with diarrhea. pt c/o of abdominal cramping c/o of chills.
Pt had paracentesis done here on Friday.
GENERAL: Alert , in no apparent distress
EYE: No visual abnormalities.
NECK: Trachea midline
ENT: No visible abnormalities.
LUNGS: No acute respiratory distress
NEUROLOGICAL: Alert and oriented
SKIN: Skin intact. No visible changes.
MUSCULOSKELETAL: Moving extremities normally
PSYCH: Normal and appropriate interaction.
This is a medical evaluation conducted in person to initiate diagnostic evaluation and provide initial therapeutics. Please see further documentation by the treating clinician.
History of Present Illness
<JESSE Alatorre - Last Filed: 04/08/24 12:32>
General
Chief Complaint: Abdominal Symptoms
Time Seen by Provider: 04/08/24 15:22
<Felicia Robb MD - Last Filed: 04/08/24 22:40>
General
Source: patient
Exam Limitations: none
Nursing documentation reviewed up to this point in time: agreed with
History of Present Illness
History of Present Illness:
The patient is a very pleasant 78-year-old female the past medical history of breast cancer with mets to the liver. Patient reports she is here for acute severe lower abdominal pain that started last night. Patient reports it has been associated
with nausea and vomiting. Patient reports any movement makes abdominal pain worse. Patient reports that she last had a paracentesis for ascites 3 days ago and reports she is scheduled to have a paracentesis every 4 days. Patient denies fever.
Patient reports 1-2 episodes of diarrhea overnight as well. She has not noticed any blood in the vomit or diarrhea.
Past History
<JESSE Alatorre - Last Filed: 04/08/24 12:32>
Past History
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 Diverticulitis, Hiatal hernia. Anemia, Back and neck pain, neuropathy, Hemorrhoid)
ED Past Surgical History: Bowel resection, Cardiac (Ablation), Cholecystectomy, Gynecological (D&C), Orthopedic (Right total hip replacement, left total hip replacement, right knee and left knee replacements, hammer toe) and Other (Lumpectom left
breast. Hernia repair, )
Social History
Tobacco: Non-smoker
Alcohol: None
Personal:
Living: with family
Employment: Retired
Family History
Family History: Other (Noncontributory)
<Felicia Robb MD - Last Filed: 04/08/24 22:40>
Social History
Drug: None
Review of Systems
<Felicia Robb MD - Last Filed: 04/08/24 22:40>
Review of Systems
Allergies reviewed?: Yes
All Other Systems: ROS reviewed and negative except as documented in HPI and ROS
Constitutional: Reports fatigue
EENT: Reports no symptoms
Respiratory: Reports no symptoms
Cardiac: Reports no symptoms
ABD/GI: Reports abdominal pain, nausea, vomiting and diarrhea
: Reports no symptoms
Musculoskeletal: Reports no symptoms
Skin: Reports no symptoms
Neurological: Reports no symptoms
Endocrine: Reports no symptoms
Hematologic/Lymphatic: Reports no symptoms
Psychiatric: Reports no symptoms
Phy Exam
<Felicia Robb MD - Last Filed: 04/08/24 22:40>
Physical Exam
Physical Exam:
Physical Exam
General: no apparent distress, not acutely ill. Chronically ill-appearing
Neck: supple. no meningeal signs. normal psoterior pharynx
Heart: s1/s2 regular rate and rhythm, no murmur. equal radial pulses.
Lungs: no acute respiratory distress. clear bilaterally
Abdomen: Diminished bowel sounds. Abdomen is distended with ascites. Lower abdominal tenderness bilaterally. No pulsatile mass
Neuro: alert and oriented. no focal neurological deficits
Skin: no rash
Psychiatric: well kept. interactive and cooperative
Extremities: no edema. no calf tenderness. negative homans. good distal pulses
Course
<JESSE Alatorre - Last Filed: 04/08/24 12:32>
Orders/Labs/Results
Orders:
Orders
04/08/24 12:49
Complete Blood Count/With Diff Urgent
Comprehensive Metabolic Panel Urgent
04/08/24 15:51
Morphine Sulfate 4 mg IV NOW STA
04/08/24 15:52
Electrocardiogram (*1) Urgent
Reason for Study: Tachycardia
EKG- Treatment ONCE
0.9% Sodium Chloride 1000 ml [Nss] 1,000 ml IV BOLUS
Ondansetron Injectable [Zofran] 4 mg IV NOW STA
04/08/24 15:55
CT Abd/pel (oral only)-DH Only Urgent
Comment:
Reason For Exam: lower abd pain vomiting
Iohexol [Omnipaque] See Protocol PO NOW STA
04/08/24 16:08
Ketorolac [Toradol] 15 mg IV NOW STA
04/08/24 17:02
Calcium Gluconate 1,000 mg IV NOW STA
Dextrose 50%-Water [Dextrose 50% Syringe] 12.5 grams IV [id number] PRN
Dextrose 50%-Water [Dextrose 50% Syringe] 25 grams IV NOW STA
Insulin Human Regular [Novolin R] 10 units IV NOW STA
04/08/24 17:03
Bedside Glucose PRE IV Insulin- HyperK+ NOW
04/08/24 17:32
Iohexol [Omnipaque] 50 ml .ROUTE .STK-MED ONE
04/08/24 18:33
Bedside Glucose POST IV Insulin- HyperK+ Q1HX2,Q2HX2
04/08/24 19:44
Tramadol HCl [Ultram] 50 mg .ROUTE .STK-MED ONE
04/08/24 20:10
Tramadol HCl [Ultram] 50 mg PO NOW STA
04/08/24 20:57
Urinalysis Reflex To Culture Urgent
04/08/24 21:22
Ondansetron Injectable [Zofran] 4 mg IV NOW STA
04/08/24 21:23
Ondansetron Injectable [Zofran] 4 mg .ROUTE .STK-MED ONE
04/08/24 21:27
Sodium Zirconium Cyclosilicate [Lokelma] 10 gram PO NOW STA
04/08/24 21:31
Admit/Transfer Patient As Directed
Co-Sign Provider:
Level of Care: Inpatient admission
Assign to:: Telemetry
Physician / Group: gabe
Diagnosis: gastroenteritis
Reason for Telemetry: Arrhythmia
Date to Stop Telemetry: 04/11/24
Time to Stop Telemetry: 11:00
Reason for Hospitalization: gastroenteritis
Expected length of stay greater than two midnights?: Yes
ELOS- Estimated Length of Stay in days: 3
I certify the patient meets the requirements for IP care: Yes
04/08/24 21:32
PRN Pain Medication Management As Directed
May give lesser potent ordered pain med per pt: Yes
preference::
Protocol:: Medication orders for pain may be administered in a
manner that supports deferring to patient preference
when the pt is:
- Requesting an ordered lesser potent pain medication.
Least to most potent pain medications are defined
as: acetaminophen < NSAID < tramadol < opioids
(morphine, oxycodone, hydromorphone).
- Requesting a lesser dose of the same medication IF
ORDERED.
- Requesting a less intrusive route of administration
if both routes are prescribed by the provider (PO <
IV).
04/08/24 21:33
Code Status As Directed
Resuscitation Status: Full Code
04/08/24 21:37
Norovirus by PCR Routine
JONO Source: Feces/Stool
Specimen Description:
Stool Culture Routine
JONO Source: Feces/Stool
Specimen Description:
Stool For WBC Routine
JONO Source: Feces/Stool
Specimen Description:
04/11/24 11:00
DC Protocol for Telemetry ONCE
Abnormal Lab Results
04/08/24
12:49
WBC 4.0 L 10^3/uL
(4.8-10.8)
RBC 3.33 L 10^6/uL
(4.20-5.40)
Hct 35.3 L %
(37.0-47.0)
MCV 106.0 H fL
(81.0-99.0)
MCH 36.0 H pg
(27.0-31.0)
RDW 14.9 H %
(11.5-14.5)
Plt Count 117 L 10^3/uL
(130-400)
MPV 11.5 H fL
(7.4-10.4)
Absolute Lymphs (auto) 0.1 L 10^3/uL
(1.2-3.4)
Immature Gran % 0.7 H %
(0-0.5)
Neutrophils % 92.7 H %
(42.2-75.2)
Lymphocytes % 3.2 L %
(20.5-51.1)
Sodium 130 L mmol/L
(135-145)
Potassium 5.8 H mmol/L
(3.5-5.1)
Chloride 97 L mmol/L
(98-107)
BUN 47 H mg/dl
(7-17)
Creatinine 2.0 H mg/dL
(0.6-1.0)
Glucose 138 H mg/dl
(70-99)
Total Bilirubin 2.2 H mg/dl
(0.2-1.3)
AST 37 H U/L
(14-36)
ALT 37 H U/L
(0-35)
Total Protein 6.1 L g/dl
(6.3-8.2)
04/08/24 12:49
04/08/24 19:33
Vital Signs
Initial and Last Documented VS:
Initial Vital Signs
Temp Pulse Resp BP Pulse Ox
98.3 F 108 18 105/71 99
04/08/24 12:29 04/08/24 12:29 04/08/24 12:29 04/08/24 12:29 04/08/24 12:29
Last Documented Vital Signs
Temp Pulse Resp BP Pulse Ox
98.3 F 101 22 118/50 96
04/08/24 12:29 04/08/24 20:15 04/08/24 20:15 04/08/24 19:00 04/08/24 19:15
<Felicia Robb MD - Last Filed: 04/08/24 22:40>
Orders/Labs/Results
Orders:
Orders
04/08/24 12:49
Complete Blood Count/With Diff Urgent
Comprehensive Metabolic Panel Urgent
04/08/24 15:51
Morphine Sulfate 4 mg IV NOW STA
04/08/24 15:52
Electrocardiogram (*1) Urgent
Reason for Study: Tachycardia
EKG- Treatment ONCE
0.9% Sodium Chloride 1000 ml [Nss] 1,000 ml IV BOLUS
Ondansetron Injectable [Zofran] 4 mg IV NOW STA
04/08/24 15:55
CT Abd/pel (oral only)-DH Only Urgent
Comment:
Reason For Exam: lower abd pain vomiting
Iohexol [Omnipaque] See Protocol PO NOW STA
04/08/24 16:08
Ketorolac [Toradol] 15 mg IV NOW STA
04/08/24 17:02
Calcium Gluconate 1,000 mg IV NOW STA
Dextrose 50%-Water [Dextrose 50% Syringe] 12.5 grams IV [id number] PRN
Dextrose 50%-Water [Dextrose 50% Syringe] 25 grams IV NOW STA
Insulin Human Regular [Novolin R] 10 units IV NOW STA
04/08/24 17:03
Bedside Glucose PRE IV Insulin- HyperK+ NOW
04/08/24 17:32
Iohexol [Omnipaque] 50 ml .ROUTE .STK-MED ONE
04/08/24 18:33
Bedside Glucose POST IV Insulin- HyperK+ Q1HX2,Q2HX2
04/08/24 19:44
Tramadol HCl [Ultram] 50 mg .ROUTE .STK-MED ONE
04/08/24 20:10
Tramadol HCl [Ultram] 50 mg PO NOW STA
04/08/24 20:57
Urinalysis Reflex To Culture Urgent
04/08/24 21:22
Ondansetron Injectable [Zofran] 4 mg IV NOW STA
04/08/24 21:23
Ondansetron Injectable [Zofran] 4 mg .ROUTE .STK-MED ONE
04/08/24 21:27
Sodium Zirconium Cyclosilicate [Lokelma] 10 gram PO NOW STA
04/08/24 21:31
Admit/Transfer Patient As Directed
Co-Sign Provider:
Level of Care: Inpatient admission
Assign to:: Telemetry
Physician / Group: gabe
Diagnosis: gastroenteritis
Reason for Telemetry: Arrhythmia
Date to Stop Telemetry: 04/11/24
Time to Stop Telemetry: 11:00
Reason for Hospitalization: gastroenteritis
Expected length of stay greater than two midnights?: Yes
ELOS- Estimated Length of Stay in days: 3
I certify the patient meets the requirements for IP care: Yes
04/08/24 21:32
PRN Pain Medication Management As Directed
May give lesser potent ordered pain med per pt: Yes
preference::
Protocol:: Medication orders for pain may be administered in a
manner that supports deferring to patient preference
when the pt is:
- Requesting an ordered lesser potent pain medication.
Least to most potent pain medications are defined
as: acetaminophen < NSAID < tramadol < opioids
(morphine, oxycodone, hydromorphone).
- Requesting a lesser dose of the same medication IF
ORDERED.
- Requesting a less intrusive route of administration
if both routes are prescribed by the provider (PO <
IV).
04/08/24 21:33
Code Status As Directed
Resuscitation Status: Full Code
04/08/24 21:37
Norovirus by PCR Routine
JONO Source: Feces/Stool
Specimen Description:
Stool Culture Routine
JONO Source: Feces/Stool
Specimen Description:
Stool For WBC Routine
JONO Source: Feces/Stool
Specimen Description:
04/11/24 11:00
DC Protocol for Telemetry ONCE
Abnormal Lab Results
04/08/24
12:49
WBC 4.0 L 10^3/uL
(4.8-10.8)
RBC 3.33 L 10^6/uL
(4.20-5.40)
Hct 35.3 L %
(37.0-47.0)
MCV 106.0 H fL
(81.0-99.0)
MCH 36.0 H pg
(27.0-31.0)
RDW 14.9 H %
(11.5-14.5)
Plt Count 117 L 10^3/uL
(130-400)
MPV 11.5 H fL
(7.4-10.4)
Absolute Lymphs (auto) 0.1 L 10^3/uL
(1.2-3.4)
Immature Gran % 0.7 H %
(0-0.5)
Neutrophils % 92.7 H %
(42.2-75.2)
Lymphocytes % 3.2 L %
(20.5-51.1)
Sodium 130 L mmol/L
(135-145)
Potassium 5.8 H mmol/L
(3.5-5.1)
Chloride 97 L mmol/L
(98-107)
BUN 47 H mg/dl
(7-17)
Creatinine 2.0 H mg/dL
(0.6-1.0)
Glucose 138 H mg/dl
(70-99)
Total Bilirubin 2.2 H mg/dl
(0.2-1.3)
AST 37 H U/L
(14-36)
ALT 37 H U/L
(0-35)
Total Protein 6.1 L g/dl
(6.3-8.2)
04/08/24 12:49
04/08/24 19:33
Vital Signs
Initial and Last Documented VS:
Initial Vital Signs
Temp Pulse Resp BP Pulse Ox
98.3 F 108 18 105/71 99
04/08/24 12:29 04/08/24 12:29 04/08/24 12:29 04/08/24 12:29 04/08/24 12:29
Last Documented Vital Signs
Temp Pulse Resp BP Pulse Ox
98.3 F 101 22 118/50 96
04/08/24 12:29 04/08/24 20:15 04/08/24 20:15 04/08/24 19:00 04/08/24 19:15
<Felicia Robb MD - Last Filed: 04/08/24 22:40>
MDM/Problems Addressed
Differential Diagnosis Includes:
Partial small bowel obstruction, acute diverticulitis, UTI
MDM/Problems Addressed:
Patient presents with acute nausea vomiting and lower abdominal pain
Chronic conditions affecting care:
Given patient's abdominal surgery history and cancer, she is at increased risk of bowel obstruction
Chronic conditions affecting care: Previous abdomnial surgery
Acute Exacerbation and/or Progression of Chronic Illness:
Patient may have acute growth of cancer causing bowel obstruction
<Felicia Robb MD - Last Filed: 04/08/24 22:40>
*Radiology
Radiology exam reviewed: radiology read reviewed
*Pulse Oximetry
Patient hypoxic: no
*EKG
Interpreted by ED Provider?: Yes
Interpretation: abnormal
Comparison EKG: no comparison EKG present
Rate: normal
Rhythm: sinus
Honaker: left axis deviation
Interval: normal interval
QRS Pattern: normal QRS
Ischemia: non-specific ST changes
*Developing Machine Tender Interpretation
Rate: normal
Interpretation: normal
Rhythm: sinus
*Critical Care Note
Total Time (30-74mins, 75-104mins- exclusive of procedures): Not Applicable
Data Reviewed
Review of Other/Old Records Reveals: Radiology Studies (Obstruction study reviewed by me from 04/05/2024 which shows a very large hiatal hernia with metastatic disease)
ED Attending Note
<JESSE Alatorre - Last Filed: 04/08/24 12:32>
-
Portions of this chart may have been created with voice recognition software.� Occasional wrong word or��sound alike� substitutions may have occurred due to the inherent limitations of voice recognition software.
Discharge Plan
Departure
Patient Disposition: Admit
Date of Disposition: 04/08/24
Time of Disposition: 20:56
Admit to: Telemetry
Presentation/result/management discussed w/ accepting MD/DO: Hospitalist
Discharge Problem:
Intractable nausea and vomiting, Abdominal pain, acute, bilateral lower quadrant, Acute hyperkalemia
Interventions
Interventions:
*Risk Screen - Suicide Last Done: 04/08/24 12:29
*General Assessment Last Done: 04/08/24 12:29
*Neglect/Abuse Screening Last Done: 04/08/24 12:29
ED- Fall Risk Assessment Last Done: 04/08/24 15:44
KG-Wfnaqz-Fvqsxuecom Assessment Last Done: 04/08/24 15:44
[2024-04-08 13:16] LABS: Hematocrit 35.3 % (37.0-47.0); Mean Platelet Volume 11.5 fL (7.4-10.4); Platelet Count 117 10^3/uL (130-400); Red Blood Cell Count 3.33 10^6/uL (4.20-5.40); Red Cell Dist. Width 14.9 % (11.5-14.5)
[2024-04-08 13:38] LABS: ALT (SGPT) 37 U/L (0-35); AST (SGOT) 37 U/L (14-36); Albumin 3.6 g/dl (3.5-5.0); Alkaline Phosphatase 107 U/L (38-126); Blood Urea Nitrogen 47 mg/dl (7-17); Calcium 8.8 mg/dl (8.4-10.2); Carbon Dioxide 23 mmol/L (22-30); Chloride 97 mmol/L (98-107); Glucose 138 mg/dl (70-99); Potassium 5.8 mmol/L (3.5-5.1); Sodium 130 mmol/L (135-145); Total Bilirubin 2.2 mg/dl (0.2-1.3); Total Protein 6.1 g/dl (6.3-8.2); eGFR 25.26
[2024-04-08 14:47] LABS: % Basophils 0.2 % (0-2); % Immature Granulocytes 0.7 % (0-0.5); % Lymphocytes 3.2 % (20.5-51.1); % Monocytes 3.2 % (1.7-9.3); % Neutrophils 92.7 % (42.2-75.2); Absolute Lymphocytes 0.1 10^3/uL (1.2-3.4); Absolute Monocytes 0.1 10^3/uL (0.1-0.6); Absolute Neutrophils 3.7 10^3/uL (1.4-6.5); Nucleated Red Blood Cells % 0 %
[2024-04-08] MEDS: ZOFRAN 4 MG IV ×2 (15:59→22:27)
[2024-04-08] MEDS: OMNIPAQUE 50 ML PO (16:02)
[2024-04-08] MEDS: NSS 1000 IV (16:02)
[2024-04-08] MEDS: TORADOL 15 MG IV (16:11)
[2024-04-08] MEDS: CALCIUM GLUCONATE 1000 MG IV (17:55)
[2024-04-08] MEDS: DEXTROSE 50% SYRINGE 25 GRAMS IV (17:57)
[2024-04-08] MEDS: NOVOLIN R 10 UNITS IV (17:57)
[2024-04-08 18:03] LABS: Glucose - Point of Care 93 mg/dl (70-99)
[2024-04-08 19:42] LABS: Glucose - Point of Care 93 mg/dl (70-99)
[2024-04-08] MEDS: ULTRAM 50 MG PO (20:33)
[2024-04-08 20:37] LABS: Glucose - Point of Care 74 mg/dl (70-99)
--- NOTE | 2024-04-08 21:02 | HPS.HSE ---
Addendum entered and electronically signed by Luis Hickman DO 04/08/24 22:34:
Patient seen and examined independently. Agree with findings and plan as set forth by JESSE Stratton.
Patient is a 78y F with PMH significant for metastatic breast cancer with metastatic disease to liver and bones as well as malignant ascites who presents to ED complaining of abdominal pain and N/V/D since early this AM. Patient has been
receiving paracentesis weekly for re-accumulation of ascites. She was seen here in the ED on 04/05 for abdominal pain and required extra / early paracentesis that day (with improvement in her discomfort). Patient states that she went out for dinner
last PM and had a salad. She woke around 1AM with nausea and has had multiple episodes of emesis since that time. She had one large, loose BM this AM.
She complains of pain increased from her usual and presented to the ED for further evaluation and treatment.
Patient denies any fevers / chills.
She was hyperkalemic during her ED visit on 04/05. She received Lokelma at that time and was advised not to take her spironolactone until she spoke with her outpatient physicians. She states that she has remained off of the spironolactone in the
interim.
Ass:
N/V/D
Abdominal Pain
Malignant Ascites
Metastatic Breast Cancer
Hyperkalemia
CKD III
Paroxysmal Atrial Fibrillation
Chronic Hypotension
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
Plan:
Admit for further evaluation and treatment.
Dose Lokelma now.
IVFs overnight given volume losses from emesis / diarrhea.
Continue to hold spironolactone.
IR evaluation for repeat paracentesis given distention / discomfort.
Supportive care.
Check stool studies if further diarrhea.
Follow labs / lytes and adjust treatment as needed.
May not be able to tolerate spironolactone given recurrent K elevation seen on recent labs.
Original Note:
Family Physician
-
Family Physician: NOT KNOW UNKNOWN - PT DOES
Chief Complaint
-
n/v/d
History of Present Illness
78-year-old female with hx of stage 4 metastatic breast cancer arturo to liver and bones, FINN, GERD,edema presented to us n/v/d since 1 am. vomited 6-7 x, now starting with diarrhea. she did not have any diarrhea or vomiting since she is in the ER.
patient complained of abdominal pain. denied fever, chills, chest pain, sob. denied GOMEZ, dizzy or syncope. denied dysuria or hematuria.
noted electrolyte imbalance in Er. received calcium gluconate, dextrose, insulin, TOradol, morphine, normal saline, randi in ER. admitting for further management.
Medical History
Past Medical History
Past Medical History: Reports Other
Additional Past Medical History:
ascites
cirrhosis of liver
esophageal varices
GI bleed
hld
breat cancer
heart murmur
Past Surgical History: Reports Other
Additional Past Surgical History:
right hip replacement
left hip replacement
cardiac ablation
cholecystectomy
small bowel resection
umbical hernia repair
left knee replacement
Social History
Tobacco: Non-smoker
Alcohol: None
Drug: None
Personal:
Living: With Family
Family History
Family History: Not pertinent
Allergies / Home Medications
Allergies reflects when Allergies were last updated in [facility].
Home Medications with original date entered in [facility]
Allergy/Medication List:
Allergies
Allergy/AdvReac Type Severity Reaction Status Date / Time
clavulanic acid Allergy Hives Verified 04/08/24 12:29
clindamycin Allergy Hives Verified 04/08/24 12:29
hydromorphone [From Dilaudid] Allergy HALLUCINATI Verified 04/08/24 12:29
ONS
NSAIDS (Non-Steroidal Allergy GIB Verified 04/08/24 12:29
Anti-Inflamma
Penicillins Allergy patient Verified 04/08/24 12:29
tolerates
amoxicillin
and course
ceftriaxone
11/2022
Sulfa (Sulfonamide Allergy Unknown Verified 04/08/24 12:29
Antibiotics)
sulfamethoxazole Allergy Unknown Verified 04/08/24 12:29
[From Bactrim]
trimethoprim [From Bactrim] Allergy Unknown Verified 04/08/24 12:29
Home Medications
denosumab 120 mg/1.7 mL (70 mg/mL) subcutaneous solution (Xgeva) 120 mg SQ [id number] Cancer 02/06/21
biotin 10,000 mcg capsule 10,000 mcg PO DAILY Supplement 09/28/22
calcium carbonate (Calcium 600) 600 mg PO DAILY Supplement 09/28/22
cholecalciferol (vitamin D3) 25 mcg (1,000 unit) capsule (Vitamin D3) 25 mcg PO DAILY Supplement 09/28/22
ferrous sulfate 325 mg (65 mg iron) tablet 325 mg PO DAILY Supplement 09/28/22
spironolactone 50 mg tablet 75 mg PO BID Liver Issues 09/28/22
ondansetron HCl 4 mg tablet 4 mg PO Q8HPRN PRN nausea 03/13/23
fulvestrant 250 mg/5 mL intramuscular syringe 500 mg IM QMONTH Cancer 06/09/23
gabapentin 100 mg capsule 100 mg PO BIDPRN PRN nerve pains 06/09/23
lactulose 10 gram/15 mL oral solution 30 ml PO HS Constipation 06/09/23
tramadol 50 mg tablet 50 mg PO Q6HPRN PRN severe pains 06/09/23
omeprazole 40 mg capsule,delayed release 40 mg PO DAILY Gastrointestinal Issue 11/10/23
sennosides 8.6 mg tablet (senna) 8.6 mg PO HS 02/18/24
furosemide 40 mg tablet (Lasix) 40 mg PO DAILY Fluid Retention/Swelling 02/27/24
palbociclib 75 mg tablet (Ibrance) 75 mg PO QPM Cancer 03/05/24
midodrine 10 mg tablet 10 mg PO BID 04/08/24
therapeutic multivitamin 1 tab PO DAILY 04/08/24
Review of Systems
-
Constitutional: Reports No Symptoms
EENT: Reports No Symptoms
Respiratory: Reports No Symptoms
Cardiac: Reports No Symptoms
Abdomen/GI: Reports Abdominal Pain, Nausea, Vomiting and Diarrhea
: Reports No Symptoms
Musculoskeletal: Reports No Symptoms
Skin: Reports No Symptoms
Neurological: Reports No Symptoms
Endocrine: Reports No Symptoms
Hematologic/Lymphatic: Reports No Symptoms
Psych: Reports No Symptoms
Physical Exam
Vital Signs
Vital Signs
Temp Pulse Resp BP Pulse Ox
98.3 F 101 22 118/50 96
04/08/24 12:29 04/08/24 20:15 04/08/24 20:15 04/08/24 19:00 04/08/24 19:15
Physical Exam
General: Well Developed, Well Nourished and No Apparent Distress
HEENT: NormoCephalic, Moist mucous membranes and Atraumatic
Respiratory: Clear
Cardiac: S1/S2 and Regular Rhythm; No Murmur or Rub
GI: Soft, Normal Bowel Sounds, Tender and Distended; No Organomegaly
Rectal: Deferred by Provider
Musculoskeletal: No Clubbing, No Cyanosis and Other (b/l Le edema)
Skin: No Rash
Neuro: AO x 3 and Nonfocal/grossly intact
Psych: Calm
Laboratory Results
-
04/08/24 12:49
04/08/24 19:33
Laboratory Results
Total Bilirubin 2.2 mg/dl (0.2-1.3) H 04/08/24 12:49
AST 37 U/L (14-36) H 04/08/24 12:49
ALT 37 U/L (0-35) H 04/08/24 12:49
Alkaline Phosphatase 107 U/L (38-126) 04/08/24 12:49
Data Reviewed
-
CT Scan: Report Reviewed by me
Lab Data: Labs Reviewed by me
Impression/Plan
-
#acute lower abdominal pain associated with n/v likely gastroenteritis
-CT abdomen pelvis with the impression of Extensive blastic osseous metastasis. Cirrhosis with splenomegaly and extensive ascites. Diverticuli are present in the colon with no CT evidence of diverticulitis
16 cm hiatal hernia. Cholecystectomy Lumbar dextroscoliosis with multilevel lumbar degenerative disc disease. Bilateral hip replacements. Right renal cyst
-obtain stool culture, norovirus
-clear liquid diet, advance as tolerated
-Toradol and tramadol prn for pain
-Zofran prn for n/v
#hyperkalemia/hyponatremia/ckd stage3 likely hypovolemic
- k 5.8, na 130
-gave a dose of lokelma in ER
-BMP in am
-normal saline x1bag
#chronic leukopenia/thrombocytopenia likely due to cancer
-wbc 4.0, platelets 117
-ctm
#Ascites - suspect recurrent malignant ascites requiring therapeutic paracentesis.
#hxt of FINN
- Lasix continued
- consulted IR for paracentesis.
#paroxysmal AFIB
- rate controlled
-EKG with NSR
# Metastatic Breast ca
- continue Ibrance
-Follow-up with oncology as outpatient
# Hypotension
-on Midodrine
-Check orthostatics
#DVT prophylaxis
-scd
#CODE status
-full code
[2024-04-08 22:11] LABS: Glucose - Point of Care 85 mg/dl (70-99)
[2024-04-08] MEDS: LOKELMA 10 GRAM PO (22:27)
[2024-04-08] MEDS: TORADOL 10 MG IV (23:56)
[2024-04-09] VITALS (10 sets, daily range): BP systolic 105–121; BP diastolic 45–66
[2024-04-09 01:55] LABS: Glucose - Point of Care 113 mg/dl (70-99)
[2024-04-09] MEDS: NSS 1000 IV (01:58)
[2024-04-09 02:10] LABS: Urine Albumin Trace (Neg - Trace); Urine Bilirubin 1+ (Negative); Urine Character Clear (Clear); Urine Color Amber; Urine Glucose Negative (Negative); Urine Ketone Trace (Negative); Urine Leukocyte Trace (Negative); Urine Nitrite Negative (Negative); Urine Occult Blood Negative (Negative); Urine Urobilinogen 1+ (Neg - 1+)
[2024-04-09 02:20] LABS: Urine Bacteria Moderate (Negative)
[2024-04-09] MEDS: ZOFRAN 4 MG IV ×3 (04:27→18:32)
--- NOTE | 2024-04-09 04:58 | W.PN.UPDATE ---
Update Note
Progress Note Update
RN reports low urine output. Bladder scan done showed >1000ml
Suspect this is abd ascites fluid being picked up by bladder scan not actual urine output.
Pt awaiting paracentesis today.
RN reporting somewhat difficult str cath attempted. Will leave dunne cath in for now.
[2024-04-09 06:47] LABS: Hematocrit 32.2 % (37.0-47.0); Hemoglobin 11.3 g/dL (12.0-16.0); Mean Corp Hgb Conc. 35.1 g/dL (33.0-37.0); Mean Corpuscular Hgb 36.9 pg (27.0-31.0); Mean Corpuscular Volume 105.2 fL (81.0-99.0); Platelet Count 109 10^3/uL (130-400); Red Blood Cell Count 3.06 10^6/uL (4.20-5.40); Red Cell Dist. Width 14.9 % (11.5-14.5); White Blood Cell Count 5.3 10^3/uL (4.8-10.8)
[2024-04-09 07:12] LABS: Blood Urea Nitrogen 63 mg/dl (7-17); Calcium 8.8 mg/dl (8.4-10.2); Carbon Dioxide 20 mmol/L (22-30); Chloride 97 mmol/L (98-107); Estimated Creatinine Clearance 16 ml/min; Glucose 108 mg/dl (70-99); Potassium 5.8 mmol/L (3.5-5.1); Sodium 129 mmol/L (135-145); eGFR 18.44
--- NOTE | 2024-04-09 08:22 | W.PN.HOSP.TC ---
Today's Communication/Plan
-
IR consult
Therapeutic paracentesis possibly today around 10 am
IV regular insulin
Follow BMP
Pain control
Clear liquid diet.
Assessment / Plan
Assessment / Plan
Impression
Lower abdominal pain with nausea/vomiting
Hyperkalemia
MARGARITA
Recurrent ascites
Paroxysmal A-fib
Metastatic breast cancer
Hypotension
PLAN
Lower abdominal pain associated with nausea/vomiting
Secondary to metastatic breast cancer ongoing chemotherapy
Abdomen is firm/hard on palpation, nontender, extremely distended
Clear liquid diet
Continue IV fluids
Pain control
Zofran as needed for nausea/vomiting
Hyperkalemia
K5.8 post Lokelma
IV regular 10 units insulin
Hold spironolactone
BMP in 4 hours
MARGARITA
Creatinine 2.6>2.0
Continue IV fluids
Follow BMP
Recurrent ascites
Due to malignancy
Patient was requiring paracentesis every 3-4 days in a week
IR consulted for therapeutic paracentesis
Proximal A-fib
Sinus rhythm
Rate controlled
Metastatic breast cancer
Continue Ibrance
Hypotension
Midodrine
Blood pressure is stable 112/65
Continue to monitor BP
DVT prophylaxis SCD
FULL CODE
Anticipated Discharge: > 48 hours
Subjective/Interval History
-
Date of Service: April 09, 2024
Vomiting x 2 since admission
Objective Data
-
Labs:
Laboratory Results
04/09/24 04/09/24
06:38 12:00
WBC 5.3
Hgb 11.3 L
Hct 32.2 L
Plt Count 109 L
Sodium 129 L Pending
Potassium 5.8 H Pending
Chloride 97 L Pending
Carbon Dioxide 20 L Pending
BUN 63 H Pending
Creatinine 2.6 H Pending
Glucose 108 H Pending
Calcium 8.8 Pending
Vital Signs:
Vital Signs
Temp Pulse Resp BP Pulse Ox
98.3 F 105 19 111/66 96
04/08/24 12:29 04/09/24 06:15 04/09/24 06:15 04/09/24 05:06 04/08/24 22:15
Review of Systems
-
All other systems: Reviewed and negative
Physical Exam
-
General: Other (appears tired )
HEENT: Normocephalic, Atraumatic and Other (dry mucous membrane )
Respiratory: Decreased Breath Sounds (at the bases )
Cardiac: Regular Rhythm and S1/S2
GI: Nontender, Normal Bowel Sounds, Distended (very ) and Other (firm/hard abdomen, dullness to percussion, )
Genito-urinary: [place]
Musculoskeletal: No Edema
Neuro: AO x 3
Psych: Calm
Data Reviewed
-
Medical Tests (Nuc Med, Echo etc): Report Reviewed by me and Discussed with Physician
Labs: Labs Reviewed by me and Discussed with Physician
--- NOTE | 2024-04-09 09:09 | W.PN.UPDATE ---
Update Note
Progress Note Update
I saw and evaluated the patient. I reviewed the resident�s note and agree with findings and plan as documented in the resident�s note.
No new complaints.
Gen: NAD, AAOx3, appears chronically ill with temporal wasting/cachexia.
Eyes: EOMI, PERRLA, no scleral icterus.
Neck: supple.
CV: RRR, +S1/S2, no m/r/g.
Resp: CTAB anteriorly, no rales, wheezes, or rhonchi.
Abd: +BS, soft, NT, moderate to severe distention
Skin: No rashes.
Neuro: CN 2-12 intact, non-focal.
Psych: Normal mood and affect.
CT A/P: Extensive blastic osseous metastasis. Cirrhosis with splenomegaly and extensive ascites. Diverticuli are present in the colon with no CT evidence of diverticulitis
Acute lower abdominal pain associated with n/v:
-likely viral gastroenteritis
-CT A/P above
-obtain stool culture, norovirus
-clear liquid diet, advance as tolerated
-no toradol with CKD, Cr now worse after toradol given on admission, Toradol stopped
-Tramadol/Zofran PRN
MARGARITA on CKD4, hyperkalemia, hyponatremia:
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
-K still 5.8, insulin/D50W given, 10g Lokelma given on admission
-Kayexalate 15g ordered (pt vomited about half of it)
-see above, NO NSAIDs
-c/s renal
-discussed with renal
Ascites, recurrent, and due to FINN and malignant ascites:
-stop Lasix with MARGARITA
-c/s IR for Tx paracentesis
Other problems:
Chronic pancytopenia likely due to malignancy
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
Metastatic Breast CA: cont Ibrance. Considering degree of metastases and overwhelming burden of pathology c/s ONC. Hospice is appropriate.
Chronic Hypotension: cont Midodrine
FULL/SCDs
Total time spent on today's encounter was 50 minutes which included time spent in counseling the patient/family regarding diagnosis and treatment plan as listed above, goals of care, and symptom management. Case was discussed with nursing staff,
specialists, and care coordinators/case management. All labs and imaging personally reviewed by me. Remainder the time spent in detailed review of previous records, lab data, imaging, and other medical provider documentation.
[2024-04-09] MEDS: NOVOLIN R 10 UNITS IV (09:12)
[2024-04-09] MEDS: DEXTROSE 50% SYRINGE 25 GRAMS IV (09:13)
[2024-04-09] MEDS: ProAmatine 10 MG PO (09:17)
[2024-04-09] MEDS: PROTONIX 40 MG PO (09:18)
[2024-04-09] MEDS: FEOSOL 325 MG PO (09:19)
--- NOTE | 2024-04-09 09:53 | W.PN.UPDATE ---
Update Note
Progress Note Update
palliative care consult
[2024-04-09] MEDS: KAYEXALATE SUSPENSION 15 GRAMS PO (10:45)
[2024-04-09 10:58] LABS: Body Fluid LDH 249 U/L
--- NOTE | 2024-04-09 11:00 | CON.ONC ---
Documented by User: [email or web address] Montemayor 04/09/24 12:27
Impression
Impression
p/w N/V suspected gastroenteritis
metastatic breast cancer, with progression of disease on Ibrance/Faslodex
cirrhosis w/ recurrent ascites
melena, varices
Afib known to Dr Betancourt
pancytopenia from cirrhosis and Ibrance at baseline
MARGARITA
hyperkalemia
hyponatremia
Plan
Plan
goals remain restorative
start capivasertib when able to tolerate PO upon discharge
Pt aware hyperglycemia,�diarrhea,�and�rash are common side effects with this drug
symptom management
continue prn paracentesis for ascites
Weekly CBC, CMP will be monitored upon discharge through my office
Has follow up with Dr. Waters 04/21
Patient History
History of Present Illness
78yo F w/ metastatic breast cancer, on Ibrance/faslodex for years with stable disease, also cirrhosis from FINN and metastatic disease, requiring frequent paracentesis, who presented with nausea and vomiting. She is moving her bowels. She was in
her normal state of health and went to dinner with her family. Upon return, she vomited 6 times which prompted her to seek further evaluation int he ER. WBC 4, Hgb 12, platelet count 117, na 129, potassium 5.8, bun 63, creatinine 2.6. CT ab/pelvis
with oral contrast showed known bone mets, cirrhosis with splenomegaly/ascites, diverticuli, and hiatal hernia. She has been admitted for further evaluation and management. She underwent paracentesis today. Ascites and urine culture are pending.
Rising�tumor�marker,�progressive�malignant�ascites,�and�PET�findings�prompted�therapy�change�in�Dec�202,�to�Capivasertib�with Faslodex�(stopping�Ibrance).�Capivasertib�was�finally�approved�and�she's�awaiting�delivery.
Afebrile, no hypoxia or hypotension.
Past-Medical/Surgical History
PMH metastatic breast ca, FINN cirrhosis, GERD, atrial fibrillation
PSH b/l hip, cholecystectomy, cardiac ablation, small bowel resection, umbilical hernia repair, L knee replacement
Social never smoker, denies ETOH or recreational drugs. Lives with , retired
Family: denies malignancy
Patient Medication
�Medication �Instructions �Recorded �Confirmed �Last Taken �Type
denosumab 120 mg/1.7 mL (70 mg/mL) 120 mg SQ [id number] Cancer 02/06/21 04/08/24 04/04/24 History
subcutaneous solution (Xgeva)
biotin 10,000 mcg capsule 10,000 mcg PO DAILY Supplement 09/28/22 04/08/24 04/07/24 History
calcium carbonate (Calcium 600) 600 mg PO DAILY Supplement 09/28/22 04/08/24 04/07/24 History
cholecalciferol (vitamin D3) 25 25 mcg PO DAILY Supplement 09/28/22 04/08/24 04/07/24 History
mcg (1,000 unit) capsule (Vitamin
D3)
ferrous sulfate 325 mg (65 mg 325 mg PO DAILY Supplement 09/28/22 04/08/24 04/07/24 History
iron) tablet
spironolactone 50 mg tablet 75 mg PO BID Liver Issues 09/28/22 04/05/24 04/04/24 History
ondansetron HCl 4 mg tablet 4 mg PO Q8HPRN PRN nausea 03/13/23 04/08/24 04/07/24 History
fulvestrant 250 mg/5 mL 500 mg IM QMONTH Cancer 06/09/23 04/08/24 04/07/24 History
intramuscular syringe
gabapentin 100 mg capsule 100 mg PO BIDPRN PRN nerve pains 06/09/23 04/08/24 04/04/24 History
lactulose 10 gram/15 mL oral 30 ml PO HS Constipation 06/09/23 04/08/24 04/07/24 History
solution
tramadol 50 mg tablet 50 mg PO Q6HPRN PRN severe pains 06/09/23 04/08/24 04/04/24 History
omeprazole 40 mg capsule,delayed 40 mg PO DAILY Gastrointestinal 11/10/23 04/08/24 04/07/24 History
release Issue
sennosides 8.6 mg tablet (senna) 8.6 mg PO HS 02/18/24 04/08/24 04/07/24 History
furosemide 40 mg tablet (Lasix) 40 mg PO DAILY Fluid 02/27/24 04/08/24 04/07/24 History
Retention/Swelling
palbociclib 75 mg tablet (Ibrance) 75 mg PO QPM Cancer 03/05/24 04/08/24 04/07/24 History
midodrine 10 mg tablet 10 mg PO BID 04/08/24 04/08/24 Unknown History
therapeutic multivitamin 1 tab PO DAILY 04/08/24 04/08/24 04/07/24 History
Active Medications
Generic Name Dose Route Start Last Admin
Trade Name Freq PRN Reason Stop Dose Admin
Dextrose 12.5 grams 04/08/24 17:02
Dextrose 50% (0.5 Grams/Ml) 50 Ml Syringe IV 05/06/24 17:01
[id number] PRN
hypoglycemia (BG < 70 mg/dL)
Protocol
Ferrous Sulfate 325 mg 04/09/24 08:00 04/09/24 09:19
Ferrous Sulfate 325 Mg Tablet PO 05/07/24 07:59 325 mg
DAILY RUBEN Administration
Gabapentin 100 mg 04/08/24 23:27
Gabapentin 100 Mg Capsule PO 05/06/24 23:26
BIDPRN PRN
nerve pains
Sodium Chloride 1,000 mls @ 60 mls/hr 04/08/24 23:27 04/09/24 01:58
Nss IV 1,000 mls
.[id number] RUBEN Administration
Albumin Human 25 grams in 100 mls @ 60 mls/hr 04/09/24 10:00
Flexbumin IV 04/09/24 13:19
Q100M RUBEN
Midodrine 10 mg 04/09/24 08:00 04/09/24 09:17
Midodrine 5 Mg Tablet PO 05/07/24 07:59 10 mg
BID AT 0800,1700 RUBEN Administration
Non-Formulary Medication 75 mg 04/09/24 18:00
Palbociclib [Ibrance] PO 05/07/24 17:59
QPM RUBEN
Ondansetron HCl 4 mg 04/08/24 23:27 04/09/24 04:27
Ondansetron 4 Mg/2 Ml Vial IV 05/06/24 23:26 4 mg
Q6HPRN PRN Administration
nausea and vomiting
Pantoprazole Sodium 40 mg 04/09/24 08:00 04/09/24 09:18
Pantoprazole 40 Mg Delayed Release Tablet PO 05/07/24 07:59 40 mg
DAILY RUBEN Administration
Sodium Chloride 0 flush 04/08/24 23:00
Sodium Chloride 0.9% (Flush) Syringe IV 05/06/24 22:59
PER PROTOCOL RUBEN
Tramadol HCl 50 mg 04/08/24 23:27
Tramadol Hcl 50 Mg Tablet PO 05/06/24 23:26
Q6HPRN PRN
severe pains
Physical Exam
-
The�patient�is�well� appearing,�alert�and�appropriate.�The�patient�is�breathing�comfortably�without�conversational�dyspnea�or�obvious
cough.�Skin�is�warm�and�dry�without�obvious�rashes,�lesions,�or�jaundice.�No�obvious�edema�to�extremities.�Neurologic�exam�is grossly�nonfocal,�ambulating�without�difficulty.
Labs
Lab Results
WBC 5.3 10^3/uL (4.8-10.8) 04/09/24 06:38
RBC 3.06 10^6/uL (4.20-5.40) L 04/09/24 06:38
Hgb 11.3 g/dL (12.0-16.0) L 04/09/24 06:38
Hct 32.2 % (37.0-47.0) L 04/09/24 06:38
MCV 105.2 fL (81.0-99.0) H 04/09/24 06:38
MCH 36.9 pg (27.0-31.0) H 04/09/24 06:38
MCHC 35.1 g/dL (33.0-37.0) 04/09/24 06:38
RDW 14.9 % (11.5-14.5) H 04/09/24 06:38
Plt Count 109 10^3/uL (130-400) L 04/09/24 06:38
MPV 11.0 fL (7.4-10.4) H 04/09/24 06:38
Abs Immat Gran (auto) 0.0 10^3/uL (0-0.05) 04/08/24 12:49
Absolute Neuts (auto) 3.7 10^3/uL (1.4-6.5) 04/08/24 12:49
Absolute Lymphs (auto) 0.1 10^3/uL (1.2-3.4) L 04/08/24 12:49
Absolute Monos (auto) 0.1 10^3/uL (0.1-0.6) 04/08/24 12:49
Absolute Eos (auto) 0.0 10^3/uL (0-0.7) 04/08/24 12:49
Absolute Basos (auto) 0.0 10^3/uL (0-0.2) 04/08/24 12:49
Immature Gran % 0.7 % (0-0.5) H 04/08/24 12:49
Neutrophils % 92.7 % (42.2-75.2) H 04/08/24 12:49
Lymphocytes % 3.2 % (20.5-51.1) L 04/08/24 12:49
Monocytes % 3.2 % (1.7-9.3) 04/08/24 12:49
Eosinophils % 0.0 % (0-6) 04/08/24 12:49
Basophils % 0.2 % (0-2) 04/08/24 12:49
Creatinine 2.6 mg/dL (0.6-1.0) H 04/09/24 06:38
Vital Signs
Vital Signs
Temp Pulse Resp BP Pulse Ox
97.8 F 108 14 114/56 100
04/09/24 09:42 04/09/24 09:42 04/09/24 09:42 04/09/24 09:42 04/09/24 09:42

Documented by User: Jeff Armenta MD 04/09/24 12:59
Impression
Impression
p/w N/V suspected gastroenteritis
metastatic breast cancer, with progression of disease on Ibrance/Faslodex
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
melena, varices
Afib known to Dr Betancourt
pancytopenia from cirrhosis and Ibrance at baseline
MARGARITA
hyperkalemia
hyponatremia
Plan
Plan
goals remain restorative
start capivasertib when able to tolerate PO upon discharge
Pt aware hyperglycemia,�diarrhea,�and�rash are common side effects with this drug
symptom management
continue prn paracentesis for ascites
Weekly CBC, CMP will be monitored upon discharge through my office
Has follow up with Dr. Waters 04/21
Oncology Addendum:
Patient seen and evaluated and agree w/ RN HEMO DIALYSIS note and plan as outlined
-metastatic breast cancer - ER positive - pt of Dr. Wilburn
-goals of care remain restorative - w/plans for possible treatment w/ capivasertib - and continued faslodex
-s/p paracentesis w/ symptomatic improvement
-continue supportive care
Will continue to follow with you.
[2024-04-09 11:13] LABS: Body Fluid Albumin < 1.0 g/dl; Body Fluid Amylase 56 U/L; Body Fluid Protein 2.1 g/dl
[2024-04-09 11:22] LABS: Body Fluid WBC 2325 /CUMM
[2024-04-09 11:23] LABS: Body Fluid Mononuclear 7.7 %; Body Fluid Polymorphonuclear 92.3 %
[2024-04-09] MEDS: FLEXBUMIN 100 IV ×2 (11:58→14:04)
[2024-04-09 12:02] LABS: Body Fluid Second Tech RP
[2024-04-09 13:00] LABS: Blood Urea Nitrogen 69 mg/dl (7-17); Calcium 8.4 mg/dl (8.4-10.2); Carbon Dioxide 18 mmol/L (22-30); Chloride 97 mmol/L (98-107); Estimated Creatinine Clearance 16 ml/min; Glucose 90 mg/dl (70-99); Potassium 6.1 mmol/L (3.5-5.1); Sodium 127 mmol/L (135-145); eGFR 17.62
--- NOTE | 2024-04-09 13:36 | W.CON.PAL ---
Consultation
-
Date/Time Consultation Requested: 04/09
Date/Time Consultation Performed: 04/09
Requesting Provider: Roldan
Performing Provider: Lashon Ortiz
Reason for Consult: Goals of Care Discussion
Primary Diagnosis: metastatic breast cancer
Consult Requested By: Patient's Physician
Reason for Admission
Illness Course/HPI
78 year old F with PMH of metastatic breast cancer with diffuse bone mets, liver mets with recurrent malignant ascites requiring weekly paracentesis. Follows with Dr. Waters of onc. Previously on Ibrance and doing well with stable disease until
February 2024 - with rising tumor markers, worsening ascites and +PET findings. PLan to change to Capivasertib, awaiting delivery to her home.
Admitted with abdominal pain and N/V. Likely related to gastroenteritis. Plan to admit for supportive care.
Seen in ED with no family present. Reports feeling awful from her N/V, some mild pain in her abdomen. S/p paracentesis today with some relief. 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 States her goals remain
restorative and is hopeful a change in medication will help slow down progression and lessen the need for paracentesis which will now be every 4 days as opposed to every week. Has plans for follow up with Dr. Waters at the end of the month. Will
start new medication once she recovers from her acute illness.
Functional Status
independent with ADLs, iADLs. Lives with ,
Pain & Symptom Assessment
Patient Symptoms
Patient Symptoms: Pain and Anorexia
[place] Symptom Scale 0=none, 10=worst
Pain: 2
Nausea: 5
Appetite: 10
Objective Data
-
Objective Data:
Vital Signs
Temp Pulse Resp BP Pulse Ox
97.8 F 105 14 114/56 96
04/09/24 09:42 04/09/24 12:15 04/09/24 09:42 04/09/24 09:42 04/09/24 12:15
Laboratory Results
04/09/24 06:38
04/09/24 12:41
Total Protein 6.1 g/dl (6.3-8.2) L 04/08/24 12:49
Albumin 3.6 g/dl (3.5-5.0) 04/08/24 12:49
Urine Color July 04/09/24 01:59
Urine Clarity Clear (Clear) 04/09/24 01:59
Urine pH 5.0 (5.0-9.0) 04/09/24 01:59
Ur Specific [place] 1.020 (<1.030) 04/09/24 01:59
Urine Ketones Trace (Negative) A 04/09/24 01:59
Urine Bilirubin 1+ (Negative) A 04/09/24 01:59
Palliative Performance Scale
Palliative Performance Scale:
PPS Level Ambulation Activity & Evidence of Disease Self Care Intake Conscious Level
100% Full Normal Activity & Work; Full Intake Full
No Evidence of Disease
90% Full Normal Activity & Work; Full Normal Full
Some Evidence of Disease
80% Full Normal Activity with Effort Full Normal or Full
Some Evidence of Disease Reduced
70% Reduced Unable Normal Job/Work Full Normal or Full
Significant Disease Reduced
60% Reduced Unable Hobby/Housework Occasional Normal or Full or Confusion
Significant Disease Assistance Reduced
50% Mainly Sit/Lie Unable to do Any Work Considerable Normal or Full or Confusion
Extensive Disease Assistance Req'd Reduced
40% Mainly in Bed Unable to do Most Activity Mainly Assistance Normal or Full or Drowsy;
Extensive Disease Reduced +/- Confusion
30% Totally Bed Unable to do Any Activity Total Care Normal or Full or Drowsy;
Bound Extensive Disease Reduced +/- Confusion
20% Totally Bed Bound Unable to do Any Activity Total Care Minimal to Full or Drowsy;
Extensive Disease Sips +/- Confusion
10% Totally Bed Bound Unable to do Any Activity Total Care Mouth Care Drowsy or Coma;
Extensive Disease Only +/- Confusion
0%
PPS Score Level:
Palliative Performance Score Response
Palliative Performance Score Response: 70%
Physical Exam
-
General: Appears Chronically Ill
HEENT: Normocephalic
Respiratory: Clear to Auscultation
Cardiac: Regular Rhythm
Peripheral Vascular: No Edema
GI: Tender and Ascites
Skin: Warm
Neuro: AO x 3
Psych: Calm
Assessment / Plan
-
Assessment/Plan:
78 year old F with metastatic breast cancer on treatment, admit with gastroenteritis.
- goals are restorative with plans to change chemo meds once she recovers from her current illness, hoping this will help slow progression
- follows outpatient [facility] and will continue this on discharge
- follow up with Dr. Waters end of month
Care Reviewed
Data Reviewed
Radiology procedure: Image Reviewed
Medical Tests: I reviewed
Reviewed with: Patient and Physician
[2024-04-09] MEDS: KAYEXALATE SUSPENSION 30 GRAMS PO (13:38)
[2024-04-09] MEDS: KAYEXALATE SUSPENSION 30 GRAMS RECTAL (14:41)
--- NOTE | 2024-04-09 14:58 | PTCARENOTE ---
k 6.1. Dr. mancera aware. unable to tolerate po. kayexelate given rectally. Will monitor.
--- NOTE | 2024-04-09 15:43 | W.CON.NEPH ---
Consultation
-
Date/Time Consultation Requested: 04/09/2024 10:00 PM
Date/Time Consultation Performed: 04/09/2024 345 p.m.
Requesting Provider: Dr. Montilla
Performing Provider: Dr. Croft
Reason for Consultation: Acute kidney injury\\hyperkalemia\\hyponatremia\\metabolic acidosis
Medical History
-
Chief Complaint: Acute kidney injury hyperkalemia hyponatremia metabolic acidosis
History of Present Illness:
The patient is a 78-year-old with a history of metastatic breast cancer on Ibrance and Faslodex for years recently transitioned to Capivasertib with Flaslodex. She is maintained on Xgeva as well for metastatic bone lesions. She has a history of
cirrhosis with recurrent ascites. She also has a known history of atrial fibrillation. She is chronically hypotensive on midodrine support likely in the setting of her cirrhosis. She presented to the emergency room with abdominal pain and nausea
vomiting and diarrhea. She receives weekly paracentesis for reaccumulation of her ascites. On presentation to the hospital she was hyperkalemic with associated acute kidney injury and hyponatremia. She does have known hyponatremia per review of
lab work over the past month. She has also had intermittent issues with hyperkalemia however has been maintained on Aldactone. Her baseline creatinine appears to be around 1.7-2. When she presented to the hospital last evening she was notably
hyperkalemic with a potassium of 6.1 with a serum sodium level of 127 and a creatinine of 2.7. Nephrology was then consulted.
Past Medical History
CKD 3 with baseline creatinine of approximately 1.7
Malignant Ascites/liver cirrhosis
Metastatic Breast Cancer to bone and liver
Esophageal varices
History of GI bleed
Hyperkalemia
CKD III
Paroxysmal Atrial Fibrillation
Chronic Hypotension
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
right hip replacement
left hip replacement
cardiac ablation
cholecystectomy
small bowel resection
umbical hernia repair
left knee replacement
Social History
Tobacco: Non-Smoker
Alcohol: None
Family History
Family History: Not Pertinent
Allergies / Home Medications
Allergy/AdvReac Type Severity Reaction Status Date / Time
clavulanic acid Allergy Hives Verified 04/08/24 12:29
clindamycin Allergy Hives Verified 04/08/24 12:29
hydromorphone [From Dilaudid] Allergy HALLUCINATI Verified 04/08/24 12:29
ONS
NSAIDS (Non-Steroidal Allergy GIB Verified 04/08/24 12:29
Anti-Inflamma
Penicillins Allergy patient Verified 04/08/24 12:29
tolerates
amoxicillin
and course
ceftriaxone
11/2022
Sulfa (Sulfonamide Allergy Unknown Verified 04/08/24 12:29
Antibiotics)
sulfamethoxazole Allergy Unknown Verified 04/08/24 12:29
[From Bactrim]
trimethoprim [From Bactrim] Allergy Unknown Verified 04/08/24 12:29
�Medication �Instructions �Recorded �Confirmed �Type
denosumab 120 mg/1.7 mL (70 mg/mL) 120 mg SQ [id number] Cancer 02/06/21 04/08/24 History
subcutaneous solution (Xgeva)
biotin 10,000 mcg capsule 10,000 mcg PO DAILY Supplement 09/28/22 04/08/24 History
calcium carbonate (Calcium 600) 600 mg PO DAILY Supplement 09/28/22 04/08/24 History
cholecalciferol (vitamin D3) 25 25 mcg PO DAILY Supplement 09/28/22 04/08/24 History
mcg (1,000 unit) capsule (Vitamin
D3)
ferrous sulfate 325 mg (65 mg 325 mg PO DAILY Supplement 09/28/22 04/08/24 History
iron) tablet
spironolactone 50 mg tablet 75 mg PO BID Liver Issues 09/28/22 04/05/24 History
ondansetron HCl 4 mg tablet 4 mg PO Q8HPRN PRN nausea 03/13/23 04/08/24 History
fulvestrant 250 mg/5 mL 500 mg IM QMONTH Cancer 06/09/23 04/08/24 History
intramuscular syringe
gabapentin 100 mg capsule 100 mg PO BIDPRN PRN nerve pains 06/09/23 04/08/24 History
lactulose 10 gram/15 mL oral 30 ml PO HS Constipation 06/09/23 04/08/24 History
solution
tramadol 50 mg tablet 50 mg PO Q6HPRN PRN severe pains 06/09/23 04/08/24 History
omeprazole 40 mg capsule,delayed 40 mg PO DAILY Gastrointestinal 11/10/23 04/08/24 History
release Issue
sennosides 8.6 mg tablet (senna) 8.6 mg PO HS 02/18/24 04/08/24 History
furosemide 40 mg tablet (Lasix) 40 mg PO DAILY Fluid 02/27/24 04/08/24 History
Retention/Swelling
palbociclib 75 mg tablet (Ibrance) 75 mg PO QPM Cancer 03/05/24 04/08/24 History
midodrine 10 mg tablet 10 mg PO BID 04/08/24 04/08/24 History
therapeutic multivitamin 1 tab PO DAILY 04/08/24 04/08/24 History
Review of Systems
-
History Source: Patient
All other systems: Negative unless noted
Abdomen/GI: Abdominal Pain, Nausea, Vomiting and Other (Abdominal distention)
Physical Exam
Vital Signs
Vital Signs
Temp Pulse Resp BP Pulse Ox
97.8 F 105 17 108/55 97
04/09/24 09:42 04/09/24 14:30 04/09/24 14:30 04/09/24 14:23 04/09/24 14:30
Lab Results
04/09/24 06:38
WBC 5.3 10^3/uL (4.8-10.8) 04/09/24 06:38
RBC 3.06 10^6/uL (4.20-5.40) L 04/09/24 06:38
Hgb 11.3 g/dL (12.0-16.0) L 04/09/24 06:38
Hct 32.2 % (37.0-47.0) L 04/09/24 06:38
Plt Count 109 10^3/uL (130-400) L 04/09/24 06:38
eGFR 17.62 04/09/24 12:41
Albumin 3.6 g/dl (3.5-5.0) 04/08/24 12:49
Physical Exam
General: AOx3, Nontoxic , NAD
HEENT: PERRL, EOMI, Anicteric, Conjunctivae Clear, Ear/Nose Intact, Hearing Normal, Oropharynx Clear/Moist, Dentition Intact, Facial Symmetry, Neck Supple, Neck: Trachea Midline, No JVD and No Thyromegaly, no Bruits
Respiratory: Coarse to auscultation bilaterally with normal lung exersion
Cardiac: S1/S2 and Regular Rate/Rhythm
Breast: Deferred by me
Abdomen:distended and tender, , Normal Bowel Sounds and Noted Hepatosplenomegaly
Rectal: Deferred by Provider
Genito-urinary: No Costovertebral Tenderness
Extremities: No Clubbing, No Cyanosis and No Edema
Skin: No Rash or open lesions
Neuro: Nonfocal/Grossly Intact, CN II-XII (Intact) and Strength (Musculoskeletal exam 5 out of 5 both upper and lower extremities)
Hematologic/Lymphatic: No Cervical Lymphadenopathy, No Submandibular Lymphadenopathy and No Supraclavicular Lymphadenopathy
Psych: Mood/afflect pleasant, Insight/judgement good and Appropriate
Vascular: plus 1 pedal and radial pulses
Data Reviewed
-
Radiology: Image Personally Visualized and interpreted (Chest x-ray personally reviewed no evidence of congestive heart failure)
CT Scan: Report Reviewed by me (Large volume ascites and large liver splenomegaly no hydronephrosis, extensive blastic osseous metastasis cirrhosis)
Labs: Labs Reviewed by me (BMP CBC)
Old Records: Reviewed (Reviewed lab work from February 2024 revealing creatinine of 1.9)
Assessment/Plan
-
Impression:
p/w N/V suspected gastroenteritis
metastatic breast cancer, with progression of disease on Ibrance/Faslodex
MARGARITA
Hyponatremia
Metabolic acidosis
Hyperkalemia
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
melena, varices
Afib hx
pancytopenia from cirrhosis and Ibrance at baseline
Chronic hypotension on midodrine in setting of cirrhosis
Plan:
MARGARITA:
-Suspect prerenal etiology from GI losses and hypotension (maintain midodrine)
-Unfortunately Toradol given on admission
-Check fractional excretion of sodium
-Urinalysis notes trace albumin no blood
-Maintain IV fluids isotonic saline but would change to alkaline ivfs
-holding lasix
-Check postvoid bladder scan
Hyponatremia:
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
-Implement fluid restriction
-Obtain urine osmolality
Hyperkalemia:
-No more Aldactone
-Lokelma failed for acute
-Likely exacerbated by acute renal failure and metabolic acidosis
-Kayexalate was provided and insulin and D50 provided earlier today
-Will provide alkaline IV fluid
Non-gapped metabolic acidosis
-IVFS for GI losses
[2024-04-09] MEDS: SODIUM BICARBONATE 1075 MEQ IV (18:07)
[2024-04-09] MEDS: ProAmatine PO (18:24)
[2024-04-09] MEDS: NSS IV (18:31)
[2024-04-09 20:49] LABS: Blood Urea Nitrogen 76 mg/dl (7-17); Calcium 8.9 mg/dl (8.4-10.2); Carbon Dioxide 23 mmol/L (22-30); Chloride 95 mmol/L (98-107); Estimated Creatinine Clearance 16 ml/min; Glucose 97 mg/dl (70-99); Potassium 5.8 mmol/L (3.5-5.1); Sodium 128 mmol/L (135-145); eGFR 17.62
[2024-04-10] MEDS: ZOFRAN 4 MG IV ×2 (01:11→08:15)
--- NOTE | 2024-04-10 02:45 | PTCARENOTE ---
Addendum entered by Stephan Squires RN 04/10/24 07:58:
BOOKER Robert did not recommend replacing Oquendo catheter at this time.
Original Note:
Pt bladder scanned for 618 mL. Pt denies feeling the urge to void at this time. BOOKER Robert notified; ANIMAL NUTRITIONIST noted that pt frequently undergoes paracenteses and fluid showing on bladder scan monitor may also be this type of fluid. Pt straight
cathed by this RN and yielded 100 mL of yellow urine. Will continue to follow bladder scan protocol as ordered.
[2024-04-10 03:39] LABS: Urine Sodium 7 mmol/L (30-90)
[2024-04-10 04:51] VITALS: BP 105/57
[2024-04-10 06:00] VITALS: BMI 26.0
[2024-04-10 07:20] VITALS: BP 116/65
--- NOTE | 2024-04-10 08:02 | W.PN.HOSP.TC ---
Today's Communication/Plan
-
Await for stool cultures
Await for pathology results
IV fluids with bicarb, K improving
Fluid restriction
Monitor CBC, BMP
Assessment / Plan
Assessment / Plan
Impression
Lower abdominal pain with nausea/vomiting
Hyperkalemia
Hyponatremia
MARGARITA
Leukopenia
Recurrent ascites
Paroxysmal A-fib
Metastatic breast cancer
Hypotension
PLAN
Lower abdominal pain associated with nausea/vomiting
Suspect viral gastroenteritis
Stool cultures pending
Abdomen is firm/hard on palpation, nontender, extremely distended
Clear liquid diet
Continue IV fluids
Pain control with morphine/tylenol only
Hold all NSAIDS.
Zofran as needed for nausea/vomiting
Hyperkalemia-- IMPROVING
K 5.3
Had received Lokelma, insulin, D50- failed treatment
IV fluids with bicarb
Nephrology following
Hold spironolactone
EKG NSR, normal QTc
Monitor BMP closely
Hyponatremia
unlikely SIADH as urine sodium is less than 40
fluid restriction per nephrology
Follow BMP
Leukopenia/pancytopenia
WBC 2.2, ANC 1.8
Afbrile in past 24 hours
HB 9.8
Oncology on board
Monitor CBC
MARGARITA
FeNa 0.1%. Prerenal MARAGRITA
Creatinine 2.7
Continue IV fluids with bicarb
HOLD ALL NSAIDS
Toradol was given in ED
Follow BMP
Recurrent ascites
post paracentesis- 4000 cc of cloudy yellow ascitic fluid
Await pathology results
Secondary to malignancy
Patient was requiring paracentesis every 3-4 days in a week
IR consulted for therapeutic paracentesis
Proximal A-fib
Sinus rhythm
Rate controlled
Metastatic breast cancer
Continue Ibrance
Hypotension
Midodrine
Blood pressure is stable 112/65
Continue to monitor BP
DVT prophylaxis SCD
FULL CODE
Anticipated Discharge: > 48 hours
Subjective/Interval History
-
Date of Service: April 10, 2024
No overnight events
Objective Data
-
Labs:
Laboratory Results
04/09/24 04/10/24
20:24 07:48
WBC Pending
Hgb Pending
Hct Pending
Plt Count Pending
Sodium 128 L Pending
Potassium 5.8 H Pending
Chloride 95 L Pending
Carbon Dioxide 23 Pending
BUN 76 H Pending
Creatinine 2.7 H Pending
Glucose 97 Pending
Calcium 8.9 Pending
Vital Signs:
Vital Signs
Temp Pulse Resp BP Pulse Ox
98.0 F 103 18 105/57 95
04/10/24 04:51 04/10/24 04:51 04/10/24 04:51 04/10/24 04:51 04/10/24 04:51
I&O
04/09/24 04/10/24 04/11/24
06:59 06:59 06:59
Intake Total 1560 / 1560
Output Total 100 / 100
Balance 1460 / 1460
Review of Systems
-
All other systems: Reviewed and negative
Physical Exam
-
General: Other (Appears tired, nontoxic)
HEENT: Normocephalic and Atraumatic
Respiratory: Clear to Auscultation
Cardiac: Regular Rhythm and S1/S2
Musculoskeletal: No Edema
Neuro: AO x 3
Psych: Calm
Data Reviewed
-
Labs: Labs Reviewed by me and Discussed with Physician
[2024-04-10] MEDS: FEOSOL 325 MG PO (08:14)
[2024-04-10] MEDS: ProAmatine 10 MG PO ×2 (08:14→16:38)
[2024-04-10] MEDS: PROTONIX 40 MG PO (08:14)
[2024-04-10 08:15] LABS: % Basophils 0.5 % (0-2); % Eosinophils 0.5 % (0-6); % Immature Granulocytes 0.5 % (0-0.5); % Lymphocytes 8.1 % (20.5-51.1); % Monocytes 8.6 % (1.7-9.3); % Neutrophils 81.8 % (42.2-75.2); Absolute Lymphocytes 0.2 10^3/uL (1.2-3.4); Absolute Monocytes 0.2 10^3/uL (0.1-0.6); Absolute Neutrophils 1.8 10^3/uL (1.4-6.5); Hematocrit 27.6 % (37.0-47.0); Hemoglobin 9.8 g/dL (12.0-16.0); Mean Corp Hgb Conc. 35.5 g/dL (33.0-37.0); Mean Corpuscular Hgb 36.6 pg (27.0-31.0); Mean Platelet Volume 11.6 fL (7.4-10.4); Nucleated Red Blood Cells % 0 %; Platelet Count 95 10^3/uL (130-400); Red Blood Cell Count 2.68 10^6/uL (4.20-5.40); Red Cell Dist. Width 15.3 % (11.5-14.5); White Blood Cell Count 2.2 10^3/uL (4.8-10.8)
[2024-04-10 08:25] LABS: Blood Urea Nitrogen 76 mg/dl (7-17); Carbon Dioxide 20 mmol/L (22-30); Chloride 97 mmol/L (98-107); Estimated Creatinine Clearance 16 ml/min; Glucose 105 mg/dl (70-99); Potassium 5.3 mmol/L (3.5-5.1); Sodium 129 mmol/L (135-145); eGFR 18.44
--- NOTE | 2024-04-10 08:28 | PTCARENOTE ---
patient has critical lab value, WBC 2.2, MD Zacarias notified. will continue to monitor
[2024-04-10] MEDS: SODIUM BICARBONATE 1075 MEQ IV (09:15)
--- NOTE | 2024-04-10 10:31 | W.PN.UPDATE ---
Update Note
Progress Note Update
I saw and evaluated the patient. I reviewed the resident�s note and agree with findings and plan as documented in the resident�s note.
Continues to complain of nausea.
Gen: NAD, AAOx3, appears chronically ill with temporal wasting/cachexia.
Eyes: EOMI, PERRLA, no scleral icterus.
Neck: supple.
CV: Remains RRR, +S1/S2, no m/r/g.
Resp: Remains CTAB anteriorly, no rales, wheezes, or rhonchi.
Abd: +BS, soft, NT, moderate distention
Skin: No rashes.
Neuro: CN 2-12 intact, non-focal.
Psych: Normal mood and affect.
CT A/P: Extensive blastic osseous metastasis. Cirrhosis with splenomegaly and extensive ascites. Diverticuli are present in the colon with no CT evidence of diverticulitis
Acute lower abdominal pain associated with n/v:
-likely viral gastroenteritis
-CT A/P above
-obtain stool culture, norovirus
-clear liquid diet, advance as tolerated
-Tramadol/Reglan PRN
MARGARITA on CKD4, hyperkalemia, hyponatremia:
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
-K still 5.3 after insulin/D50W, 10g Lokelma given on admission, and rectal Kayexalate (note PO doses were vomited up)
-NO NSAIDs (received Toradol on admission)
-renal following
-cont 1/2NS with 75meq NaHCO3
-Na stable at 129
Ascites, recurrent, and due to FINN and malignant ascites:
-s/p 4L paracentesis on 04/09/24
Other problems:
Chronic pancytopenia likely due to malignancy
PAF: in SR, not on rate controlling meds or AC [employer]
Metastatic Breast CA: cont Ibrance. Considering degree of metastases and overwhelming burden of pathology pt is hospice is appropriate. Seen by palliative care and oncology, pt's goals are restorative.
Chronic Hypotension: cont Midodrine
FULL/SCDs
Total time spent on today's encounter was 51 minutes which included time spent in counseling the patient/family regarding diagnosis and treatment plan as listed above, goals of care, and symptom management. Case was discussed with nursing staff,
specialists, and care coordinators/case management. All labs and imaging personally reviewed by me. Remainder the time spent in detailed review of previous records, lab data, imaging, and other medical provider documentation.
[2024-04-10 11:36] VITALS: BP 96/55
[2024-04-10] MEDS: REGLAN 10 MG IV ×2 (11:54→21:50)
--- NOTE | 2024-04-10 14:54 | W.PN.NEPH.PH ---
Today's Communication / Plan
-
Maintain alkaline IV fluids until bag runs out
Follow BMP
Maintain fluid restriction
Assessment/Plan
-
Impression:
p/w N/V suspected gastroenteritis
metastatic breast cancer, with progression of disease on Ibrance/Faslodex
MARGARITA
Hyponatremia
Metabolic acidosis
Hyperkalemia
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
melena, varices
Afib hx
pancytopenia from cirrhosis and Ibrance at baseline
Chronic hypotension on midodrine in setting of cirrhosis
Plan:
MARGARITA:
-Creatinine down to 2.6
-Urine output not collected
-Suspect prerenal etiology from GI losses and hypotension (maintain midodrine)
-Continues with hypotension
-Unfortunately Toradol given on admission
-Check fractional excretion of sodium
-Urinalysis notes trace albumin no blood
-Maintain IV fluids isotonic saline but would change to alkaline ivfs
-holding lasix
-Check postvoid bladder scan
Hyponatremia:
-Sodium up to 120
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
-Maintain fluid restriction
-Obtain urine osmolality
Hyperkalemia:
-No more Aldactone
-Improved to 5.3
-Likely exacerbated by acute renal failure and metabolic acidosis and hypotension on aldactone
-Kayexalate was provided on 04/09 and insulin and D50
Non-gapped metabolic acidosis
-IVFS for GI losses
-
-
Date of Service: April 10, 2024
CC / HPI / ROS
-
Chief Complaint:
MARGARITA
Hyperkalemia
Hyponatremia
History of Present Illness:
Hemodynamically labile on midodrine
Creatinine down to 2.6
Sodium up to 129
Potassium down to 5.3
Status post paracentesis yesterday
Review of Systems:
Urine output not recorded
Weights down
Nausea
Labs
-
Labs:
WBC 2.2 10^3/uL (4.8-10.8) L* 04/10/24 07:48
RBC 2.68 10^6/uL (4.20-5.40) L 04/10/24 07:48
Hgb 9.8 g/dL (12.0-16.0) L 04/10/24 07:48
Hct 27.6 % (37.0-47.0) L 04/10/24 07:48
Plt Count 95 10^3/uL (130-400) L 04/10/24 07:48
Sodium 129 mmol/L (135-145) L 04/10/24 07:48
Potassium 5.3 mmol/L (3.5-5.1) H 04/10/24 07:48
Chloride 97 mmol/L (98-107) L 04/10/24 07:48
Carbon Dioxide 20 mmol/L (22-30) L 04/10/24 07:48
BUN 76 mg/dl (7-17) H 04/10/24 07:48
Creatinine 2.6 mg/dL (0.6-1.0) H 04/10/24 07:48
eGFR 18.44 04/10/24 07:48
Glucose 105 mg/dl (70-99) H 04/10/24 07:48
Calcium 8.0 mg/dl (8.4-10.2) L 04/10/24 07:48
Albumin 3.6 g/dl (3.5-5.0) 04/08/24 12:49
Physical Exam
-
Vital Signs:
Vital Signs
Temp Pulse Resp BP Pulse Ox
98.6 F 97 16 96/55 97
04/10/24 11:36 04/10/24 11:36 04/10/24 11:36 04/10/24 11:36 04/10/24 11:36
Cardiovascular:: Regular rate and rhythm
Respiratory:: Bilateral: Coarse
Lung Excursion:: Normal
Abdomen:: Distended, Nontender and Soft
Bowel Sounds:: Normal
Extremity Edema:: +1: Bilateral: (trace)
Oquendo Catheter: No
[2024-04-10 15:20] VITALS: BP 94/57
[2024-04-10 19:00] VITALS: BP 114/64
[2024-04-10 23:00] VITALS: BP 113/58
[2024-04-11] VITALS (7 sets, daily range): BP systolic 101–119; BP diastolic 50–67; BMI 26.0
[2024-04-11] MEDS: FEOSOL 325 MG PO (07:49)
[2024-04-11] MEDS: PROTONIX 40 MG PO (07:49)
[2024-04-11] MEDS: REGLAN 10 MG IV ×2 (07:49→20:50)
[2024-04-11] MEDS: ProAmatine 10 MG PO ×3 (07:49→20:37)
--- NOTE | 2024-04-11 07:49 | W.PN.HOSP.TC ---
Today's Communication/Plan
-
Completed bag of iv fluids with bicarb
Hyperkalemia resolved
Negative for norovirus
IV Reglan for nausea/vomiting
Lozenges for sore throat
Fluid restriction
Monitor CBC/BMP
Assessment / Plan
Assessment / Plan
Impression
Lower abdominal pain with nausea/vomiting
Hyperkalemia
Hyponatremia
MARGARITA
Leukopenia
Recurrent ascites
Paroxysmal A-fib
Metastatic breast cancer
Hypotension
PLAN
Lower abdominal pain associated with nausea/vomiting
Suspect viral gastroenteritis
Negative for norovirus
Stool cultures pending
Abdomen is firm/hard on palpation, nontender, extremely distended
Clear liquid diet
Continue IV fluids
Pain control with morphine/tylenol only
Hold all NSAIDS.
IV Reglan for nausea and vomiting
Skin Rash/itching - chronic
Triamcinolone acetonide BID as needed
Sore throat/burning sensation
secondary to vomiting.
Lozenges
Hyperkalemia -- resolved
K 4.5
Failed treatment with Lokelma, insulin, D50
Completed a bag of IV fluids with bicarb
Nephrology following
Hold spironolactone
EKG NSR, normal QTc
Monitor BMP closely
Hyponatremia
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
Slight improvement Na- 129
fluid restriction
Follow BMP
Leukopenia/pancytopenia
WBC 2.1, ANC 1.5
Afbrile in past 24 hours
HB 9.8
Oncology on board
Monitor CBC
MARGARITA
FeNa 0.1%. Prerenal MARGARITA
Creatinine 2.7
Continue IV fluids with bicarb
HOLD ALL NSAIDS
Toradol was given in ED
Follow BMP
Recurrent ascites
post paracentesis- 4000 cc of cloudy yellow ascitic fluid
Await pathology results
peritoneal culture no organism seen, +WBC
Secondary to malignancy
Patient was requiring paracentesis every 3-4 days in a week
IR consulted for therapeutic paracentesis
Proximal A-fib
Sinus rhythm
Rate controlled
Metastatic breast cancer
Continue Ibrance
Hypotension
Midodrine
Blood pressure is stable 112/65
Continue to monitor BP
In regards to patient's degree of metastasis while on chemotherapy, patient is hospice appropriate. Goals of care were/CODE STATUS were discussed with the patient. Seen by palliative care, patient's goals are restorative. She has a palliative
care appointment with [place] which she would like to continue following.
DVT prophylaxis SCD
FULL CODE
Anticipated Discharge: > 48 hours
Subjective/Interval History
-
Date of Service: April 11, 2024
No new overnight events
Objective Data
-
Labs:
Laboratory Results
04/11/24
07:34
WBC Pending
Hgb Pending
Hct Pending
Plt Count Pending
Sodium Pending
Potassium Pending
Chloride Pending
Carbon Dioxide Pending
BUN Pending
Creatinine Pending
Glucose Pending
Calcium Pending
Vital Signs:
Vital Signs
Temp Pulse Resp BP Pulse Ox
97.9 F 96 20 119/63 96
04/11/24 07:18 04/11/24 07:18 04/11/24 07:18 04/11/24 07:18 04/11/24 07:18
I&O
04/10/24 04/11/24 04/12/24
06:59 06:59 06:59
Intake Total 1560 / 1560 600 / 600 200 / 200
Output Total 100 / 100
Balance 1460 / 1460 600 / 600 200 / 200
Review of Systems
-
All other systems: Reviewed and negative (Except mentioned)
Constitutional: Reports Fatigue
Physical Exam
-
General: No Apparent Distress, Comfortable, Cachectic and Other
HEENT: Normocephalic and Atraumatic
Respiratory: Clear to Auscultation
Cardiac: Regular Rhythm and S1/S2
GI: Nontender, Distended and Other (Abdomen is firm/hard on palpation)
Musculoskeletal: No Edema
Neuro: AO x 3
Psych: Calm
Data Reviewed
-
Labs: Labs Reviewed by me and Discussed with Physician
[2024-04-11 08:06] LABS: Hematocrit 25.9 % (37.0-47.0); Hemoglobin 9.3 g/dL (12.0-16.0); Mean Corp Hgb Conc. 35.9 g/dL (33.0-37.0); Mean Corpuscular Hgb 37.1 pg (27.0-31.0); Mean Corpuscular Volume 103.2 fL (81.0-99.0); Mean Platelet Volume 11.5 fL (7.4-10.4); Platelet Count 83 10^3/uL (130-400); Red Blood Cell Count 2.51 10^6/uL (4.20-5.40); Red Cell Dist. Width 14.9 % (11.5-14.5); White Blood Cell Count 2.1 10^3/uL (4.8-10.8)
[2024-04-11 08:26] LABS: Blood Urea Nitrogen 77 mg/dl (7-17); Calcium 7.6 mg/dl (8.4-10.2); Carbon Dioxide 20 mmol/L (22-30); Chloride 97 mmol/L (98-107); Estimated Creatinine Clearance 17 ml/min; Glucose 110 mg/dl (70-99); Potassium 4.5 mmol/L (3.5-5.1); Sodium 128 mmol/L (135-145); eGFR 19.32
[2024-04-11 08:42] LABS: % Eosinophils 2.4 % (0-6); % Lymphocytes 10.2 % (20.5-51.1); % Monocytes 14.1 % (1.7-9.3); % Neutrophils 73.3 % (42.2-75.2); Absolute Eosinophils 0.1 10^3/uL (0-0.7); Absolute Lymphocytes 0.2 10^3/uL (1.2-3.4); Absolute Monocytes 0.3 10^3/uL (0.1-0.6); Absolute Neutrophils 1.5 10^3/uL (1.4-6.5); Nucleated Red Blood Cells % 0 %
--- NOTE | 2024-04-11 10:23 | W.PN.UPDATE ---
Update Note
Progress Note Update
I saw and evaluated the patient. I reviewed the resident�s note and agree with findings and plan as documented in the resident�s note.
Tolerating some clears
Gen: NAD, AAOx3, appears chronically ill with temporal wasting/cachexia.
Eyes: EOMI, PERRLA, no scleral icterus.
Neck: supple.
CV: Continues to remain RRR, +S1/S2, no m/r/g.
Resp: Continues to remain CTAB anteriorly, no rales, wheezes, or rhonchi.
Abd: Remains +BS, soft, NT, moderate distention
Skin: No rashes.
Neuro: CN 2-12 intact, non-focal.
Psych: Normal mood and affect.
CT A/P: Extensive blastic osseous metastasis. Cirrhosis with splenomegaly and extensive ascites. Diverticuli are present in the colon with no CT evidence of diverticulitis
Acute lower abdominal pain associated with n/v:
-likely viral gastroenteritis
-CT A/P above
-obtain stool culture, norovirus
-clear liquid diet, advance as tolerated
-Tramadol/Reglan PRN
MARGARITA on CKD4, hyperkalemia, hyponatremia:
-NO NSAIDs (received Toradol on admission)
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 Cont FR.
-hyperkalemia resolved after insulin/D50W, 10g Lokelma given on admission, rectal Kayexalate (note PO doses were vomited up), and alkalotic IVFs (received 1/2NS with 75meq NaHCO3, now off)
-Na stable at 128, cont to trend
-Cr improved slightly to 2.5
-renal following
Ascites, recurrent, and due to FINN and malignant ascites:
-s/p 4L paracentesis on 04/09/24
Other problems:
Chronic pancytopenia likely due to malignancy
PAF: in SR, not on rate controlling meds or AC [employer]IST
Metastatic Breast CA: cont Ibrance. Considering degree of metastases and overwhelming burden of pathology pt is hospice is appropriate. Seen by palliative care and oncology, pt's goals are restorative.
Chronic Hypotension: cont Midodrine
FULL/SCDs + Heparin (adding heparin today as Hb appears to have nadired, plts stable, and high risk for DVT with malignancy)
Total time spent on today's encounter was 50 minutes which included time spent in counseling the patient/family regarding diagnosis and treatment plan as listed above, goals of care, and symptom management. Case was discussed with nursing staff,
specialists, and care coordinators/case management. All labs and imaging personally reviewed by me. Remainder the time spent in detailed review of previous records, lab data, imaging, and other medical provider documentation.
[2024-04-11] MEDS: HEPARIN 5000 UNITS SC ×2 (11:25→20:37)
--- NOTE | 2024-04-11 12:43 | W.PN.NEPH.PH ---
Today's Communication / Plan
-
Increase midodrine to 3 times daily
Follow BMP
Assessment/Plan
-
Impression:
p/w N/V suspected gastroenteritis
metastatic breast cancer, with progression of disease on Ibrance/Faslodex
MARGARITA
CKD stage IIIb baseline around 1.8
Hyponatremia
Metabolic acidosis
Hyperkalemia
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
melena, varices
Afib hx
pancytopenia from cirrhosis and Ibrance at baseline
Chronic hypotension on midodrine in setting of cirrhosis
Plan:
MARGARITA:
-Creatinine down to 2.5
-Urine output not collected, weight stable
-Suspect prerenal etiology from GI losses and hypotension (maintain midodrine)
-Continues with hypotension, maintain midodrine support, will increase to 3 times daily
-Unfortunately Toradol given on admission
-Check fractional excretion of sodium which was low and consistent with cirrhotic decompensation
-Urinalysis notes trace albumin no blood
-holding lasix for now
-Checked postvoid bladder scan
Hyponatremia:
-Sodium at 128
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
-Maintain fluid restriction
-Will eventually need to reinitiate Lasix
-
Hyperkalemia:
-No more Aldactone
-Improved to 4.5
-Likely exacerbated by acute renal failure and metabolic acidosis and hypotension on aldactone
-Kayexalate was provided on 04/09 and insulin and D50
Non-gapped metabolic acidosis
-stable
-
-
Date of Service: April 11, 2024
CC / HPI / ROS
-
Chief Complaint:
MARGARITA
Hyperkalemia
Hyponatremia
History of Present Illness:
Hemodynamically labile on midodrine
Creatinine down to 2.5
Sodium up to 128
Potassium down to 4.5
Status post paracentesis 04/09/2024
Review of Systems:
Urine output not recorded
Weights stay
Nausea
Labs
-
Labs:
WBC 2.1 10^3/uL (4.8-10.8) L* 04/11/24 07:34
RBC 2.51 10^6/uL (4.20-5.40) L 04/11/24 07:34
Hgb 9.3 g/dL (12.0-16.0) L 04/11/24 07:34
Hct 25.9 % (37.0-47.0) L 04/11/24 07:34
Plt Count 83 10^3/uL (130-400) L 04/11/24 07:34
Sodium 128 mmol/L (135-145) L 04/11/24 07:34
Potassium 4.5 mmol/L (3.5-5.1) 04/11/24 07:34
Chloride 97 mmol/L (98-107) L 04/11/24 07:34
Carbon Dioxide 20 mmol/L (22-30) L 04/11/24 07:34
BUN 77 mg/dl (7-17) H 04/11/24 07:34
Creatinine 2.5 mg/dL (0.6-1.0) H 04/11/24 07:34
eGFR 19.32 04/11/24 07:34
Glucose 110 mg/dl (70-99) H 04/11/24 07:34
Calcium 7.6 mg/dl (8.4-10.2) L 04/11/24 07:34
Albumin 3.6 g/dl (3.5-5.0) 04/08/24 12:49
Physical Exam
-
Vital Signs:
Vital Signs
Temp Pulse Resp BP Pulse Ox
97.8 F 88 18 109/59 96
04/11/24 12:20 04/11/24 12:20 04/11/24 12:20 04/11/24 12:20 04/11/24 12:20
Cardiovascular:: Regular rate and rhythm
Respiratory:: Bilateral: Coarse
Lung Excursion:: Normal
Abdomen:: Distended, Nontender and Soft
Bowel Sounds:: Normal
Extremity Edema:: +1: Bilateral: (trace)
Oquendo Catheter: No
--- NOTE | 2024-04-11 13:23 | PTCARENOTE ---
Patient's body fluid cultures collected 04/09 resulted positive for growing MD Rell womack notified. New orders to be placed. will continue to monitor.
--- NOTE | 2024-04-11 13:32 | W.PN.UPDATE ---
Update Note
Progress Note Update
peritoneal fluid positive for enterococcus. Starts IV vancomycin. Consult ID
--- NOTE | 2024-04-11 13:57 | PHA.VAN.IN ---
Assessment
- Assessment
Renal Function: Appears elevated from baseline
Plan
- Plan
Initial / Loading Dose: 2000 mg load dose - administration pending
Maintenance Regimen: dose by random level
Monitoring: random level ordered AM 04/12/24
Pharmacokinetics Vancomycin I
- -
Patient Age: 78
Patient Sex: Female
Vancomycin Day #: 1
Indication: Bacteremia
Requesting Provider: Rell
Pertinent Antimicrobial Allergies:
clindamycin -hives,penicillins - pt tolerates amoxicillin and ceftriaxone 12/21, sulfa antibiotics - unknown)
Height / Weight:
Height 5 ft 5 in
Actual Weight 70.76 kg
Pertinent Past Medical History: CKD III (baseline 1.8) met breast Ca w/ progression on Ibrance/Faslodex
- Vital Signs / Lab Results
Temp Pulse Resp BP Pulse Ox
97.8 F 88 18 109/59 96
04/11/24 12:20 04/11/24 12:20 04/11/24 12:20 04/11/24 12:20 04/11/24 12:20
Lab Results - Hematology
04/09/24 04/10/24 04/11/24
06:38 07:48 07:34
WBC 5.3 2.2 L* 2.1 L*
Lab Results - Chemistry
04/09/24 04/09/24 04/09/24
06:38 12:41 20:24
BUN 63 H 69 H 76 H
Creatinine 2.6 H 2.7 H 2.7 H
Estimated Creat Clear 16 16 16
04/10/24 04/11/24
07:48 07:34
BUN 76 H 77 H
Creatinine 2.6 H 2.5 H
Estimated Creat Clear 16 17
Lab Results - Urine
04/09/24
01:59
Urine Nitrite (Reflex) Negative
Leukocyte Esterase Rfl Trace A
Urine WBC (Reflex) 6-10
Ur Squamous Epith Cells 11-15
Urine Bacteria (Reflex) Moderate A
Microbiology Results
04/09/24 10:00 Body Fluid Culture - Preliminary
Peritoneal Fluid Enterococcus species
Gram Stain - Preliminary
04/10/24 07:50 Salmonella/Shigella Culture - Preliminary
Feces/Stool Culture in Progress
Campylobacter Culture - Preliminary
Culture in Progress
Stool Leukocytes - Final
04/09/24 01:59 Urine Culture - Final
Urine
04/10/24 07:50 - Final
Feces/Stool Negative for Norovirus GI and GII.
[2024-04-11] MEDS: VANCOCIN 540 MG IV (14:29)
--- NOTE | 2024-04-11 17:13 | CM ---
Patient lives with spouse in a multilevel home one step in home, patient is independent with adl's and ambulation. Patient uses a rollator outside home.
PCP: Yadi Lambert
[facility] in [place]
Plan; Home when stable, check PT/OT notes.
[2024-04-11] MEDS: TRIAMCINOLONE ACETONIDE 0.5% CREAM 1 APPLIC TOPICAL (20:38)
[2024-04-11] MEDS: ULTRAM 50 MG PO (23:45)
[2024-04-12] VITALS (11 sets, daily range): BP systolic 91–134; BP diastolic 61–73; BMI 24.9
[2024-04-12] MEDS: REGLAN 10 MG IV ×3 (03:00→20:24)
[2024-04-12 08:08] LABS: Vancomycin Random 17.7 ug/ml
[2024-04-12] MEDS: HEPARIN 5000 UNITS SC ×2 (08:20→20:23)
[2024-04-12] MEDS: TRIAMCINOLONE ACETONIDE 0.5% CREAM 1 APPLIC TOPICAL ×2 (08:21→20:24)
[2024-04-12] MEDS: PROTONIX 40 MG PO (08:21)
[2024-04-12] MEDS: ProAmatine 10 MG PO ×3 (08:21→17:16)
[2024-04-12] MEDS: FEOSOL 325 MG PO (08:21)
[2024-04-12 08:29] LABS: Blood Urea Nitrogen 71 mg/dl (7-17); Calcium 7.2 mg/dl (8.4-10.2); Carbon Dioxide 21 mmol/L (22-30); Chloride 99 mmol/L (98-107); Estimated Creatinine Clearance 20 ml/min; Glucose 106 mg/dl (70-99); Potassium 4.6 mmol/L (3.5-5.1); Sodium 130 mmol/L (135-145); eGFR 23.82
--- NOTE | 2024-04-12 09:19 | W.PN.ONC2 ---
Addendum entered and electronically signed by Mirella Haque MD 04/12/24 11:03:
Pt primary complaint is nausea and headache for several
Also c/o no BM. Admits to mild abdominal pain.
c/o Abdominal distention.
Last BM several days ago but not eating. Pt was able to eat jello and drink apple juice but smell of broth turned her stomach
Plan:
1) MRI Brain with and without contrast, exclude brain mets.
- reports unable to tolerate MRI previously. Ativan 0.5 mg ordered but may ultimately need conscious sedation
- empiric steroid dexamethasone 4 BID for now
- GI prophylaxis with steroid
2) Therapeutic paracentesis for symptomatic ascites
3) Continues on Reglan for nausea but does not seem to be deriving relief.
Suspect progressive cytopenias are due to infection (bacterial peritonitis) +/- Vanco
3)
Original Note:
Today's Communication / Plan
-
goals of care remain restorative - w/plans for possible treatment w/ capivasertib - and continued faslodex
abx per ID
Impression
Impression
p/w N/V suspected gastroenteritis
Enterococcus in peritoneal fluid 04/09
metastatic breast cancer, with progression of disease on Ibrance/Faslodex
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
melena, varices
Afib known to Dr Betancourt
pancytopenia from cirrhosis and Ibrance at baseline
MARGARITA -creatinine improved to 2.1
hyperkalemia -resolved
hyponatremia
Plan
Plan
goals remain restorative
start capivasertib when able to tolerate PO upon discharge -Pt aware hyperglycemia,�diarrhea,�and�rash are common side effects with this drug
symptom management
continue prn paracentesis for ascites
f/u ID consult for peritoneal fluid positive for enterococcus -currently on IV vanco
Weekly CBC, CMP will be monitored upon discharge through my office
Has follow up with Dr. Waters 04/21
Subjective/Objective
Subjective
no new complaints
labs pending today
Vital Signs:
Vital Signs
Temp Pulse Resp BP Pulse Ox
98.0 F 92 16 111/64 95
04/12/24 07:24 04/12/24 07:24 04/12/24 07:24 04/12/24 07:24 04/12/24 07:24
Lab Results:
Laboratory Data
WBC 2.1 10^3/uL (4.8-10.8) L* 04/11/24 07:34
Hgb 9.3 g/dL (12.0-16.0) L 04/11/24 07:34
Plt Count 83 10^3/uL (130-400) L 04/11/24 07:34
eGFR 23.82 04/12/24 07:00
Physical Exam
Gen well� appearing,�alert�and�appropriate.�
Pulm breathing�comfortably�without�conversational�dyspnea�or�obvious cough.�
GI distended, soft
Skin�warm�and�dry�without�obvious�rashes,�lesions,�or�jaundice.�
Ext No�obvious�edema�to�extremities.
Neurologic�exam�is grossly�nonfocal,�ambulating�without�difficulty.
[2024-04-12 11:14] LABS: % Basophils 0.9 % (0-2); % Eosinophils 1.8 % (0-6); % Immature Granulocytes 0.5 % (0-0.5); % Lymphocytes 10.4 % (20.5-51.1); % Monocytes 17.2 % (1.7-9.3); % Neutrophils 69.2 % (42.2-75.2); Absolute Lymphocytes 0.2 10^3/uL (1.2-3.4); Absolute Monocytes 0.4 10^3/uL (0.1-0.6); Absolute Neutrophils 1.5 10^3/uL (1.4-6.5); Hematocrit 28.5 % (37.0-47.0); Hemoglobin 9.9 g/dL (12.0-16.0); Mean Corp Hgb Conc. 34.7 g/dL (33.0-37.0); Mean Corpuscular Hgb 36.5 pg (27.0-31.0); Mean Corpuscular Volume 105.2 fL (81.0-99.0); Mean Platelet Volume 11.3 fL (7.4-10.4); Nucleated Red Blood Cells % 0 %; Platelet Count 93 10^3/uL (130-400); Red Blood Cell Count 2.71 10^6/uL (4.20-5.40); Red Cell Dist. Width 15.2 % (11.5-14.5); White Blood Cell Count 2.2 10^3/uL (4.8-10.8)
[2024-04-12] MEDS: DECADRON 4 MG IV ×2 (11:18→20:23)
[2024-04-12] MEDS: ATIVAN 0.5 MG PO (12:00)
--- NOTE | 2024-04-12 13:21 | PHA.VAN.FU ---
Vancomycin Assessment / Plan
- Assessment
Renal Function: SCR Decreasing
WBC's are: Stable (ANC = 1500)
In the past 24 hrs, patient has been: Afebrile
- Assessment - Therapeutic Drug Monitoring
Random Level: 17.7 - drawn ~16.5H after 2000mg loading dose
- Dosing Plan
Dosing by Level: Hold off on dosing today
- Monitoring Plan
Random Level: 04/13 0600
- Follow Up
Pharmacy will continue to follow.
Vancomycin Follow UP
- -
Patient Age: 78
Patient Sex: Female
Vancomycin Day #: 2
Indication: Bacteremia
Requesting Provider: Rell
Pertinent Antimicrobial Allergies:
clindamycin -hives
penicillins - pt tolerates amoxicillin and ceftriaxone 12/21
clavulanic acid - hives
sulfa antibiotics - unknown
Height / Weight:
Height 5 ft 5 in
Actual Weight 67.755 kg
Pertinent Past Medical History: CKD III (baseline ~1.8), metastatic breast cancer
- Vital Signs / Lab Results
Temp Pulse Resp BP Pulse Ox
97.6 F 92 17 134/64 97
04/12/24 13:15 04/12/24 13:15 04/12/24 13:15 04/12/24 13:15 04/12/24 13:15
Lab Results - Hematology
04/10/24 04/11/24 04/12/24
07:48 07:34 07:00
WBC 2.2 L* 2.1 L* 2.2 L*
Lab Results - Chemistry
04/09/24 04/10/24 04/11/24
20:24 07:48 07:34
BUN 76 H 76 H 77 H
Creatinine 2.7 H 2.6 H 2.5 H
Estimated Creat Clear 16 16 17
04/12/24
07:00
BUN 71 H
Creatinine 2.1 H
Estimated Creat Clear 20
Microbiology Results
04/10/24 07:50 Salmonella/Shigella Culture - Final
Feces/Stool No Salmonella, Shigella, Aeromonas or Plesiomonas species
isolated.
Campylobacter Culture - Final
No Campylobacter species isolated.
Shiga Toxin Test - Final
No E. coli Shiga Toxin 1 or 2 detected.
Stool Leukocytes - Final
04/09/24 10:00 Body Fluid Culture - Preliminary
Peritoneal Fluid Enterococcus species
Gram Stain - Preliminary
04/09/24 01:59 Urine Culture - Final
Urine
04/10/24 07:50 - Final
Feces/Stool Negative for Norovirus GI and GII.
Therapeutic Drug Monitoring
Random Vancomycin 17.7 ug/ml 04/12/24 07:00
--- NOTE | 2024-04-12 14:14 | CON.ID ---
Consultation
-
Date/Time Consultation Requested: 04/11/2024 1334
Date/Time Consultation Performed: 04/12/2024 1409
Requesting Provider: Dr. Zacarias
Performing Provider: Dr. Tejeda
Reason for Consultation: SBP
Chief Complaint / Past History
History of Present Illness
Kylie Kim is a 78-year-old female being evaluated at the request of Dr. Zacarias in regards to SBP. History is obtained from chart review, along with patient interview.
The patient has a significant past medical history of stage form breast cancer with mets to liver and bone. She additionally has a history of cirrhosis secondary to Kraft.
She presents to the [facility] ER on 04/08 following the onset of nausea/vomiting late the prior evening. She additionally she has started with diarrhea, and complaints of abdominal cramping and chills. Patient reports recently having had a
routine paracentesis performed approximately 3 days prior. In the ER, paracentesis was performed, which now reveals growth of Enterococcus, and Infectious Diseases is asked to comment upon further antimicrobial therapy.
The patient reports that she has been receiving once weekly paracentesis, although more recently has gone to every 4 days. She denies any recent fevers or chills. She notes some ongoing abdominal discomfort. She had had some diarrhea just before
admission, but nothing since. She denies any dysuria. She reports that she recently has stopped Ibrance therapy, and was supposed to be transition to another type of therapy.
Past History
Additional Past Medical History:
Recurrent malignant ascites
KRAFT cirrhosis
esophageal varices
GI bleed
Dyslipidemia
Metastatic mammary cancer
heart murmur
Additional Past Surgical History:
right hip replacement
left hip replacement
cardiac ablation
cholecystectomy
small bowel resection
umbical hernia repair
left knee replacement
Allergy History:
clavulanic acid Allergy (Verified 04/08/24 12:29)
Hives
clindamycin Allergy (Verified 04/08/24 12:29)
Hives
hydromorphone [From Dilaudid] Allergy (Verified 04/08/24 12:29)
HALLUCINATIONS
NSAIDS (Non-Steroidal Anti-Inflamma Allergy (Verified 04/08/24 12:29)
GIB
Penicillins Allergy (Verified 04/08/24 12:29)
patient tolerates amoxicillin and course ceftriaxone 11/2022
Sulfa (Sulfonamide Antibiotics) Allergy (Verified 04/08/24 12:29)
Unknown
sulfamethoxazole [From Bactrim] Allergy (Verified 04/08/24 12:29)
Unknown
trimethoprim [From Bactrim] Allergy (Verified 04/08/24 12:)
Unknown
Medications Reviewed: Yes
Social History
Tobacco: Non-Smoker
Alcohol: None
Drug: None
Personal:
Living: With Family
Employment: Retired
Family History
Family History: Not Pertinent
Review of Systems
Vital Signs
Temp Pulse Resp BP Pulse Ox
97.6 F 91 14 114/61 97
04/12/24 13:15 04/12/24 13:54 04/12/24 13:54 04/12/24 13:54 04/12/24 13:50
Physical Exam
Physical Exam
Constitutional: Comfortable, Chronically Ill and Non-toxic
Eyes: Pupils Equal, Pupils Round, No Conjunctival Hemorrhage and Sclera Anicteric
Oral: No Thrush and No Ulcers
Cardiovascular: Regular Rate and S1/S2; Negative S3/S4
Pulmonary: Clear; Negative Wheezes, Rales or Rhonchi
Gastrointestinal: Soft, Tender (mild), Distended, Normal Bowel Sounds, No Rebound and No Guarding
Genito-Urinary: Negative Oquendo
Extremities: Edema (Trace); Negative Cyanosis or Erythema
Neurological: Awake and Alert
Psychological: Calm
.
Lab / Diagnostic Study Results
04/12/24 07:00
04/12/24 07:00
Abs Immat Gran (auto) 0.0 10^3/uL (0-0.05) 04/12/24 07:00
Absolute Neuts (auto) 1.5 10^3/uL (1.4-6.5) 04/12/24 07:00
Absolute Lymphs (auto) 0.2 10^3/uL (1.2-3.4) L 04/12/24 07:00
Absolute Monos (auto) 0.4 10^3/uL (0.1-0.6) 04/12/24 07:00
Absolute Basos (auto) 0.0 10^3/uL (0-0.2) 04/12/24 07:00
Immature Gran % 0.5 % (0-0.5) 04/12/24 07:00
Neutrophils % 69.2 % (42.2-75.2) 04/12/24 07:00
Lymphocytes % 10.4 % (20.5-51.1) L 04/12/24 07:00
Monocytes % 17.2 % (1.7-9.3) H 04/12/24 07:00
Eosinophils % 1.8 % (0-6) 04/12/24 07:00
Basophils % 0.9 % (0-2) 04/12/24 07:00
Ur Squamous Epith Cells 11-15 /LPF (Few) 04/09/24 01:59
Microbiology Results
Micro:
04/09/24 10:00 Body Fluid Culture - Preliminary
Peritoneal Fluid Enterococcus species
Gram Stain - Preliminary
04/10/24 07:50 Salmonella/Shigella Culture - Final
Feces/Stool No Salmonella, Shigella, Aeromonas or Plesiomonas species
isolated.
Campylobacter Culture - Final
No Campylobacter species isolated.
Shiga Toxin Test - Final
No E. coli Shiga Toxin 1 or 2 detected.
Stool Leukocytes - Final
04/09/24 01:59 Urine Culture - Final
Urine
04/10/24 07:50 - Final
Feces/Stool Negative for Norovirus GI and GII.
Laboratory Tests
04/09/24
10:00
Fluid WBC 2325
Fluid Mononuclear Cell 7.7
Fl Polymorphonucl Cell 92.3
Fluid Total Protein 2.1
Fluid Albumin < 1.0
Fluid LDH 249
Assessment / Plan
SBP with Enterococcus
Recurrent malignant ascites
Stage IV mammary carcinoma
Nausea/vomiting
Leukopenia
Renal insufficiency
Hyponatremia
Liver cirrhosis
Kraft
Dyslipidemia
Recommendations:
Agree with initiation of vancomycin. Additional dosing by levels.
Await further culture data to guide antimicrobial selection and potential de-escalation.
Monitor white count & temperature curve.
Follow repeat ascites fluid analysis.
Further recommendations as additional data is returned.
--- NOTE | 2024-04-12 14:19 | CM ---
Chart reviewed
Oncology and ID following
Brain MRI
PT/OT consults pending
Plan - TBD based on pts needs
--- NOTE | 2024-04-12 14:55 | W.PN.PAL2 ---
Today's Communication
-
Palliative Care follow up, total floor time 25 mins
Patient seen in room. she had been off the floor earlier for brain MRI, then had paracentesis. Awaiting albumin infusion.
At this time kassandra feels tired, received ativan for MRI. She continues to report feeling nasueated - is only on reglan at this point, recommend adding zofran.
Denies pain symptoms
Patient's goals are unchanged.Reports she received the new cancer treatment in her home. she would follow up with [facility] as an outpatient after discharge.
Assessment / Plan
-
Assessment/Plan:
Patients goals are restorative
Follows with [facility]
Nausea - recommend zofran prn
Reason for Admission
Illness Course/HPI
78 year old F with PMH of metastatic breast cancer with diffuse bone mets, liver mets with recurrent malignant ascites requiring weekly paracentesis. Follows with Dr. Waters of onc. Previously on Ibrance and doing well with stable disease until
February 2024 - with rising tumor markers, worsening ascites and +PET findings. PLan to change to Capivasertib, awaiting delivery to her home.
Admitted with abdominal pain and N/V. Likely related to gastroenteritis. Plan to admit for supportive care.
Seen in ED with no family present. Reports feeling awful from her N/V, some mild pain in her abdomen. S/p paracentesis today with some relief. She follwos with [facility], sees the [employer] about once a month. States her goals remain
restorative and is hopeful a change in medication will help slow down progression and lessen the need for paracentesis which will now be every 4 days as opposed to every week. Has plans for follow up with Dr. Waters at the end of the month. Will
start new medication once she recovers from her acute illness.
Functional Status
independent with ADLs, iADLs. Lives with ,
Pain & Symptom Assessment
Patient Symptoms
Patient Symptoms: Nausea/Vomiting
Objective Data
-
Objective Data:
Vital Signs
Temp Pulse Resp BP Pulse Ox
97.6 F 91 14 114/61 97
04/12/24 13:15 04/12/24 13:54 04/12/24 13:54 04/12/24 13:54 04/12/24 13:50
Laboratory Results
04/12/24 07:00
04/12/24 07:00
Total Protein 6.1 g/dl (6.3-8.2) L 04/08/24 12:49
Albumin 3.6 g/dl (3.5-5.0) 04/08/24 12:49
Urine Color July 04/09/24 01:59
Urine Clarity Clear (Clear) 04/09/24 01:59
Urine pH 5.0 (5.0-9.0) 04/09/24 01:59
Ur Specific Ma[place]din 1.020 (<1.030) 04/09/24 01:59
Urine Ketones Trace (Negative) A 04/09/24 01:59
Urine Bilirubin 1+ (Negative) A 04/09/24 01:59
Palliative Performance Scale
Palliative Performance Scale:
PPS Level Ambulation Activity & Evidence of Disease Self Care Intake Conscious Level
100% Full Normal Activity & Work; Full Intake Full
No Evidence of Disease
90% Full Normal Activity & Work; Full Normal Full
Some Evidence of Disease
80% Full Normal Activity with Effort Full Normal or Full
Some Evidence of Disease Reduced
70% Reduced Unable Normal Job/Work Full Normal or Full
Significant Disease Reduced
60% Reduced Unable Hobby/Housework Occasional Normal or Full or Confusion
Significant Disease Assistance Reduced
50% Mainly Sit/Lie Unable to do Any Work Considerable Normal or Full or Confusion
Extensive Disease Assistance Req'd Reduced
40% Mainly in Bed Unable to do Most Activity Mainly Assistance Normal or Full or Drowsy;
Extensive Disease Reduced +/- Confusion
30% Totally Bed Unable to do Any Activity Total Care Normal or Full or Drowsy;
Bound Extensive Disease Reduced +/- Confusion
20% Totally Bed Bound Unable to do Any Activity Total Care Minimal to Full or Drowsy;
Extensive Disease Sips +/- Confusion
10% Totally Bed Bound Unable to do Any Activity Total Care Mouth Care Drowsy or Coma;
Extensive Disease Only +/- Confusion
0%
PPS Score Level:
Palliative Performance Score Response
Palliative Performance Score Response: 50%
Physical Exam
-
General: Well Developed and Well Nourished
HEENT: Moist Mucous Membranes
GI: Soft and Distended
Neuro: Awake and Alert
Psych: Calm
Care Reviewed
Data Reviewed
Reviewed with: Patient
--- NOTE | 2024-04-12 15:27 | W.PN.NEPH.PH ---
Today's Communication / Plan
-
Continue antibiotics/ will give albumin times one
Assessment/Plan
-
Impression:
p/w N/V suspected gastroenteritis
metastatic breast cancer, with progression of disease on Ibrance/Faslodex
MARGARITA
CKD stage IIIb baseline around 1.8
Hyponatremia
Metabolic acidosis
Hyperkalemia
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
melena, varices
Afib hx
pancytopenia from cirrhosis and Ibrance at baseline
Chronic hypotension on midodrine in setting of cirrhosis
Plan:
MARGARITA:
-Creatinine down to 2.5>2.1
-Urine output not collected, weight stable
-Suspect prerenal etiology from GI losses and hypotension (maintain midodrine)
-Continues with hypotension, maintain midodrine support, will increase to 3 times daily
-Unfortunately Toradol given on admission
-
-Urinalysis notes trace albumin no blood
-holding lasix for now
- status post paracentesis three liters today= order albumin times one
Hyponatremia:
-Sodium at 128> 130
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
-Maintain fluid restriction
-Will eventually need to reinitiate Lasix
-
Hyperkalemia:
- hold Aldactone indefinitely
-Improved to 4.5
-Likely exacerbated by acute renal failure and metabolic acidosis and hypotension on aldactone
-Kayexalate was provided on 04/09 and insulin and D50
Non-gapped metabolic acidosis
-stable
-
-
Date of Service: April 12, 2024
CC / HPI / ROS
-
Chief Complaint:
MARGARITA
Hyperkalemia
Hyponatremia
History of Present Illness:
Hemodynamically labile on midodrine
Creatinine down to 2.5
Sodium up to 128
Potassium down to 4.5
Status post paracentesis 04/09/2024
Review of Systems:
Urine output not recorded
Weights stay
Nausea
Labs
-
Labs:
WBC 2.2 10^3/uL (4.8-10.8) L* 04/12/24 07:00
RBC 2.71 10^6/uL (4.20-5.40) L 04/12/24 07:00
Hgb 9.9 g/dL (12.0-16.0) L 04/12/24 07:00
Hct 28.5 % (37.0-47.0) L 04/12/24 07:00
Plt Count 93 10^3/uL (130-400) L 04/12/24 07:00
Sodium 130 mmol/L (135-145) L 04/12/24 07:00
Potassium 4.6 mmol/L (3.5-5.1) 04/12/24 07:00
Chloride 99 mmol/L (98-107) 04/12/24 07:00
Carbon Dioxide 21 mmol/L (22-30) L 04/12/24 07:00
BUN 71 mg/dl (7-17) H 04/12/24 07:00
Creatinine 2.1 mg/dL (0.6-1.0) H 04/12/24 07:00
eGFR 23.82 04/12/24 07:00
Glucose 106 mg/dl (70-99) H 04/12/24 07:00
Calcium 7.2 mg/dl (8.4-10.2) L 04/12/24 07:00
Albumin 3.6 g/dl (3.5-5.0) 04/08/24 12:49
Physical Exam
-
Vital Signs:
Vital Signs
Temp Pulse Resp BP Pulse Ox
97.9 F 86 20 124/67 95
04/12/24 15:04 04/12/24 15:04 04/12/24 15:04 04/12/24 15:04 04/12/24 15:04
[2024-04-12] MEDS: AMPICILLIN 10 MG IV (15:57)
[2024-04-12] MEDS: AMPICILLIN 10 ML IV (15:57)
[2024-04-12 16:10] LABS: Body Fluid Second Tech FB
[2024-04-12 16:12] LABS: Body Fluid Mononuclear 19.6 %
[2024-04-12 16:15] LABS: Body Fluid Polymorphonuclear 80.4 %; Body Fluid WBC 259 /CUMM
[2024-04-12] MEDS: ZOFRAN 4 MG PO (16:59)
--- NOTE | 2024-04-12 17:01 | W.PN.HOSP.TC ---
Addendum entered and electronically signed by Matt Ram DO, Resident 04/13/24 17:08:
#Stage 1 Pressure Ulcer of the Sacrum
- Patient followed by Wound Care
Addendum entered and electronically signed by Aayush Bergeron MD 04/12/24 20:17:
Attending Addendum-
I saw and evaluated the patient. I reviewed the resident�s note and agree with findings and plan as documented in the resident�s note. Sub: zSeen post paracetesis and MRI. Abd pain improived less nausea. 'Im just worn out' Full 12 point ROS reviewed
and negative except as documented Exam: Vitals reviewed in chart GEN-chronically ill appearing heart RRR lungs clear abd soft distended POS BS pos fluid wave LE 2+ pitting edema
Plan
# SBP
- s/p paracentesis x 3 this admission 04/12- 3L removed
- fluid growing entercoccus
- sensi resulted would opt for ampicillin but patient allergic
- ID on board
- clear liquid diet, advance as tolerated
- Tramadol/Reglan PRN
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
-NO NSAIDs (received Toradol on admission)
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 Cont FR.
-hyperkalemia resolved
-Na stable at 130, cont to trend
-Cr improved to 2.1 (baseline @ 1.8)
-renal following
# Ascites, recurrent, and due to FINN and malignant ascites:
-s/p 3L paracentesis on 04/12
- poor prognosis
Other problems:
-Chronic pancytopenia likely due to malignancy- trend CBC
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
-Metastatic Breast CA: metastases liver and bones Seen by palliative care and oncology, pt's goals are restorative. cont dexamethasone, check MRI r/o mets appreciate heme onc input
-Chronic Hypotension: cont Midodrine
FULL- d/w patient at great length
DVT proph- heparin
ACP
Patient consented to discuss, was alone, time spent explanation of advance directives, changes in health status, patient�s health care wishes if the patient becomes unable to make health decisions, goals of care, code status, and prognosis 'i wanna
do everything for now' - 16 minutes
Time spent coordinating care, review of plan of care with resident, personally reviewed previous records in EMR, med rec, labs, radiology, d/w nursing, family total time documented is exclusive of any additional time listed that was spent in advance
care planning discussion -�59 minutes
Original Note:
Today's Communication/Plan
-
.
Assessment / Plan
Assessment / Plan
#Spontaenous Bacterial Peritonitis
- Recurrent malginant ascites; paracenteses q4d
- 04/09: Culture of peritoneal fluids grew Enterococcus Faecalis
- Started on Vancomycin empirically; sensitivity shows not VRE, continue Vancomycin.
- Ampicillin added by ID; appreciate ID reccs
- WBC 2325, PMN 92.3, Protein 2.1, Albumin < 1.0, LDH 249
- Paracentesis this morning, follow up repeat fluid analysis.
- 04/12:
#Lower abdominal pain associated with nausea/vomiting
- Suspect viral gastroenteritis
- Negative for norovirus
- Stool cultures negative for Salmonella, Shigella, Aeromonas, Plesimonas, Campylobacter, Shiga-like toxin, WBCs.
- Distended Abdomen on Exam; mildly tender.
- Clear liquid diet
- Pain control with morphine/tylenol only
- Hold all NSAIDS due to MARGARITA
- IV Reglan did not control nausea; start IV Zofran
#Skin Rash/itching - chronic
- Triamcinolone acetonide BID as needed
#Sore throat/burning sensation (resolved)
- secondary to vomiting.
- Lozenges PRN
#Hyperkalemia (resolved)
- K 4.6 this AM
- Failed treatment with Lokelma, insulin, D50
- Hyperkalemia resolved after insulin/D50W, 10g Lokelma given on admission, rectal Kayexalate (note PO doses were vomited up), and alkalotic IVFs, received 1/2NS with 75meq NaHCO3...now off.
- Nephrology following
- Hold spironolactone
- EKG NSR, normal QTc
- Monitor BMP closely
#Hyponatremia
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
- Continued Slight improvement to 130
- Follow BMP
Leukopenia/pancytopenia
- WBC 2.2, ANC 1.5
- Afbrile in past 24 hours
- HB 9.9 and stable.
- Appreciate Heme/Onc Reccs
- Monitor CBC
#MARGARITA
- Appreciate Nephrology reccs
- FeNa 0.1%. Prerenal MARGARITA
- Creatinine 2.7
- Continue IV fluids with bicarb
- HOLD ALL NSAIDS
- Toradol was given in ED
- Follow BMP
#Proximal Atrial Fibrillation
- Rate controlled
#Metastatic breast cancer (mets to bone/liver)
- Appreciate Heme Onc Reccs
- Goals remain restorative
- Start capivasertib when able to tolerate PO upon discharge
- MRI Brain: no mets, no abnormality
#Hypotension
- Midodrine 10 mg PO TID
- Blood pressure is stable 126/73
- Continue to monitor BP
In regards to patient's degree of metastasis while on chemotherapy, patient is hospice appropriate. Goals of care were/CODE STATUS were discussed with the patient. Seen by palliative care, patient's goals are restorative. She has a palliative
care appointment with [facility] which she would like to continue following.
CLD
DVT prophylaxis SCD
FULL CODE
Anticipated Discharge: 24 - 48 hours
Subjective/Interval History
-
Date of Service: April 12, 2024
Patient seen and examined while resting in bed. Patient states that she continues to feel abdominal pain and nausea this morning. Denies vomiting. Otherwise denies any acute complaints.
Objective Data
-
Labs:
Laboratory Results
04/12/24
07:00
WBC 2.2 L*
Hgb 9.9 L
Hct 28.5 L
Plt Count 93 L
Sodium 130 L
Potassium 4.6
Chloride 99
Carbon Dioxide 21 L
BUN 71 H
Creatinine 2.1 H
Glucose 106 H
Calcium 7.2 L
Vital Signs:
Vital Signs
Temp Pulse Resp BP Pulse Ox
97.8 F 100 18 126/73 95
04/12/24 16:48 04/12/24 16:48 04/12/24 16:48 04/12/24 16:48 04/12/24 16:48
I&O
04/11/24 04/12/24 04/13/24
06:59 06:59 06:59
Intake Total 600 / 600 1430 / 1430
Balance 600 / 600 1430 / 1430
Review of Systems
-
History Source: Patient
Constitutional: Reports No Symptoms
Respiratory: Reports No Symptoms
Cardiac: Reports No Symptoms
Abdomen/GI: Reports Abdominal Pain and Nausea
Neuro: Reports No Symptoms
Physical Exam
-
General: No Apparent Distress, Comfortable and Appears Chronically Ill
HEENT: Normocephalic and Atraumatic
Respiratory: Clear to Auscultation and Non Labored Respirations
Cardiac: Regular Rhythm and S1/S2
GI: Soft and Tender (mild, upper abdomen)
Musculoskeletal: No Clubbing, No Cyanosis and No Edema
Skin: Warm
Neuro: Awake, Alert and Oriented
Psych: Calm
Data Reviewed
-
MRI: Report Reviewed by me
Medical Tests (Nuc Med, Echo etc): Report Reviewed by me
Labs: Labs Reviewed by me and Discussed with Patient
[2024-04-12] MEDS: FLEXBUMIN 50 IV (17:02)
[2024-04-12] MEDS: AMPICILLIN 108 MG IV (17:53)
[2024-04-13] MEDS: AMPICILLIN 108 MG IV ×3 (00:52→17:15)
[2024-04-13] MEDS: ULTRAM 50 MG PO ×3 (03:18→19:48)
[2024-04-13 03:39] VITALS: BP 108/72
[2024-04-13] MEDS: NEURONTIN 100 MG PO (03:53)
[2024-04-13 06:00] VITALS: BMI 24.7
[2024-04-13 07:45] VITALS: BP 126/64
[2024-04-13 07:59] LABS: Vancomycin Random 12.4 ug/ml
[2024-04-13 08:30] LABS: Blood Urea Nitrogen 62 mg/dl (7-17); Calcium 7.2 mg/dl (8.4-10.2); Carbon Dioxide 20 mmol/L (22-30); Chloride 99 mmol/L (98-107); Estimated Creatinine Clearance 21 ml/min; Glucose 127 mg/dl (70-99); Potassium 4.7 mmol/L (3.5-5.1); Sodium 130 mmol/L (135-145); eGFR 25.26
[2024-04-13 08:36] LABS: Hematocrit 27.6 % (37.0-47.0); Mean Corp Hgb Conc. 36.2 g/dL (33.0-37.0); Mean Corpuscular Hgb 36.9 pg (27.0-31.0); Mean Corpuscular Volume 101.8 fL (81.0-99.0); Mean Platelet Volume 12.4 fL (7.4-10.4); Platelet Count 68 10^3/uL (130-400); Red Blood Cell Count 2.71 10^6/uL (4.20-5.40); Red Cell Dist. Width 14.6 % (11.5-14.5); White Blood Cell Count 1.7 10^3/uL (4.8-10.8)
[2024-04-13] MEDS: ProAmatine 10 MG PO ×2 (08:42→13:43)
[2024-04-13] MEDS: HEPARIN 5000 UNITS SC ×2 (08:42→19:48)
[2024-04-13] MEDS: DECADRON 4 MG IV (08:42)
[2024-04-13] MEDS: FEOSOL 325 MG PO (08:42)
[2024-04-13] MEDS: NSS (PRESERVATIVE FREE) 10 ML IV (08:43)
[2024-04-13] MEDS: PROTONIX IV 40 MG IV (08:43)
[2024-04-13] MEDS: TRIAMCINOLONE ACETONIDE 0.5% CREAM 1 APPLIC TOPICAL ×2 (08:43→19:48)
--- NOTE | 2024-04-13 09:44 | W.PN.ONC ---
Today's Communication / Plan
-
MRI with and without contrast negative for intracranial metastasis
Decrease dexamethasone from twice daily to once morning due to insomnia
Continue GI prophylaxis PPI
Colace for constipation as needed
Antibiotics per primary team and ID
Plan to start capivasertib on discharge, follow-up with Dr. Waters outpatient
Impression
Impression
p/w N/V suspected gastroenteritis
Enterococcus in peritoneal fluid 04/09
metastatic breast cancer, with progression of disease on Ibrance/Faslodex
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
melena, varices
Afib known to Dr Betancourt
pancytopenia from cirrhosis and Ibrance at baseline
MARGARITA -creatinine improved to 2.1
hyperkalemia -resolved
hyponatremia
Plan
Plan
goals remain restorative (wants to pursue treatment)
MRI with and without contrast negative for any intracranial metastases
Continue empiric dexamethasone 4 mg, will decrease from twice daily to once in the morning as patient is reporting insomnia and difficulty sleeping
GI prophylaxis while on steroid
Colace as needed for constipation
continue prn paracentesis for malignant recurrent ascites. Status post 2 paracentesis this admission, last paracentesis 04/12/2024. 3000ml
Continue empiric antibiotics per ID and primary team for bacterial peritonitis with Enterococcus
start capivasertib when able to tolerate PO upon discharge -Pt aware hyperglycemia,�diarrhea,�and�rash are common side effects with this drug
symptom management
Weekly CBC, CMP will be monitored upon discharge through my office
Has follow up with Dr. Waters 04/21
Subjective/Objective
Subjective/Objective
Reports insomnia last night, difficulty sleeping and tossing and turning. Reports still nauseous, headache still present
Vital Signs:
Vital Signs
Temp Pulse Resp BP Pulse Ox
97.8 F 100 18 126/64 95
04/13/24 07:45 04/13/24 08:42 04/13/24 07:45 04/13/24 08:42 04/13/24 07:45
Lab Results:
Laboratory Data
WBC 1.7 10^3/uL (4.8-10.8) L* 04/13/24 07:00
Hgb 10.0 g/dL (12.0-16.0) L 04/13/24 07:00
Plt Count 68 10^3/uL (130-400) L D 04/13/24 07:00
eGFR 25.26 04/13/24 07:00
Orders
Orders
Orders From Last 24 Hours
04/12/24 10:52
MRI Brain [MR Brain W/o & With Contrast] Routine
Lorazepam [Ativan] 0.5 mg PO NOW STA
04/12/24 10:55
Docusate Sodium [Colace] 100 mg PO BIDPRN PRN
04/12/24 11:00
Lorazepam [Ativan] 0.5 mg PO NOW ONE
04/12/24 12:00
Dexamethasone Sod Phosphate [Decadron] 4 mg IV BID
04/13/24 08:00
Pantoprazole [Protonix IV] 40 mg IV DAILY
--- NOTE | 2024-04-13 10:00 | PN.CDI ---
CDI
- -
CDI:
Physician Documentation Request
Admit Date: 04/08/24 22:05
Dear Doctor Yo,
Patient admitted for SBP.
Selected Entries
04/11/24
10:00
Pressure injury appearance (Stage 1) [Present on admission Sacrum] Non blanchable
red
Pressure injury stage [Present on admission Sacrum] Stage 1
Surrounding Skin - [Present on admission Sacrum] Dry and intact
Physician documentation of the type and location of wounds is required for compliant documentation. Based on the above clinical findings and your assessment, please provide the following in your progress note:
1. Location of the ulcer/wound, including laterality.
2. Type (etiology) of ulcer/wound:
- Diabetic ulcer
- Arterial (ischemic) ulcer
- Traumatic wound
- Venous stasis ulcer
- Pressure (decubitus) ulcer
- Non-healing surgical wound
- Other
- Unable to determine
3. For a non-pressure ulcer, please indicate the depth/severity:
- Limited to the breakdown of skin
- With fat layer exposed
- With necrosis of muscle
- With necrosis of bone
- Other
- Unable to determine
4. If a pressure ulcer, please also include the stage* of the ulcer:
- Stage 1 - Skin intact, non-blanchable redness
- Stage 2 - Partial thickness loss of dermis, includes intact or open blister
- Stage 3 - Full thickness tissue not including bone, tendon or muscle
- Stage 4 - Full thickness tissue loss, including exposed bone, tendon or muscle
- Unstageable - Full thickness loss in which the base of the ulcer is covered by slough (yellow, more, parish, green or brown) and/or eschar (more, brown or black) in the wound bed.
- Unable to determine
Use of terms such as suspected, likely, concern for, or probable (associated with a specific diagnosis that is being evaluated, monitored, or treated as if it exists) are acceptable and can be coded in the inpatient setting, when documented at the
time of discharge.
Thank you,
Betty Cisse RN, BSN
CDI Specialist
Available via [place] text
Please use your independent medical judgment in providing your response.
*Source: National Pressure Ulcer Advisory Panel (NPUAP)
[2024-04-13 10:51] LABS: % Basophils 0.6 % (0-2); % Immature Granulocytes 0.6 % (0-0.5); % Monocytes 10.2 % (1.7-9.3); % Neutrophils 82.6 % (42.2-75.2); Absolute Lymphocytes 0.1 10^3/uL (1.2-3.4); Absolute Monocytes 0.2 10^3/uL (0.1-0.6); Absolute Neutrophils 1.4 10^3/uL (1.4-6.5); Nucleated Red Blood Cells % 0 %
[2024-04-13 11:53] VITALS: BP 121/64
--- NOTE | 2024-04-13 13:47 | W.PN.ID1 ---
Date of Service
Date of Service: April 13, 2024
Today's Communication
Continue antibiotics.
Assessment / Plan
SBP with Enterococcus faecalis
Recurrent malignant ascites
Stage IV mammary carcinoma
Nausea/vomiting
Leukopenia
Renal insufficiency
Hyponatremia
Liver cirrhosis
[place]
Dyslipidemia
Recommendations:
Recovered isolate susceptible to penicillin. Patient underwent trial of ampicillin without issue. Now on full dose ampicillin.
Continue antibiotics for now. Repeat paracentesis performed yesterday showed improvement in white cells. Would complete a 5 to 7-day course of antibiotics. May be able to transition to oral therapy at discharge.
Monitor white count & temperature curve.
����������������������������������������������������������
Chief Complaint
-: Other (SBP)
Subjective / Review of Systems
Patient seen and examined. Reports nausea today. No fevers or chills.
Vital Signs / Physical Exam
Vital Signs
Vital Signs
Temp Pulse Resp BP Pulse Ox
97.5 F 92 18 121/64 96
04/13/24 11:53 04/13/24 11:53 04/13/24 11:53 04/13/24 11:53 04/13/24 11:53
Physical Exam
Constitutional: No Acute Distress, Comfortable, Chronically Ill and Non-toxic
Eyes: Sclera Anicteric
Pulmonary: Clear and Non Labored
Gastrointestinal: Distended
Genito-Urinary: Negative [place]
Extremities: Edema; Negative Cyanosis or Erythema
Neurological: Awake and Alert
Psychological: Calm
Objective Data
Lab Data
Lab Results
04/13/24 07:00
04/13/24 07:00
Estimated Creat Clear 21 ml/min 04/13/24 07:00
Total Bilirubin 2.2 mg/dl (0.2-1.3) H 04/08/24 12:49
AST 37 U/L (14-36) H 04/08/24 12:49
ALT 37 U/L (0-35) H 04/08/24 12:49
Alkaline Phosphatase 107 U/L (38-126) 04/08/24 12:49
Most recent labs reviewed.
Micro Results:
04/09/24 10:00 Body Fluid Culture - Final
Peritoneal Fluid Enterococcus faecalis
Gram Stain - Final
04/10/24 07:50 Salmonella/Shigella Culture - Final
Feces/Stool No Salmonella, Shigella, Aeromonas or Plesiomonas species
isolated.
Campylobacter Culture - Final
No Campylobacter species isolated.
Shiga Toxin Test - Final
No E. coli Shiga Toxin 1 or 2 detected.
Stool Leukocytes - Final
04/09/24 01:59 Urine Culture - Final
Urine
04/10/24 07:50 - Final
Feces/Stool Negative for Norovirus GI and GII.
Laboratory Tests
04/09/24
10:00
Fluid WBC 2325
Fluid Mononuclear Cell 7.7
Fl Polymorphonucl Cell 92.3
Fluid Total Protein 2.1
Fluid Albumin < 1.0
Fluid LDH 249
[2024-04-13 15:55] VITALS: BP 124/63
--- NOTE | 2024-04-13 16:15 | W.PN.HOSP.TC ---
Addendum entered and electronically signed by Matt Ram DO, Resident 04/14/24 18:42:
SBP likely present on admission.
Addendum entered and electronically signed by Aayush Bergeron MD 04/13/24 22:30:
Attending Addendum-
I saw and evaluated the patient. I reviewed the resident�s note and agree with findings and plan as documented in the resident�s note. Sub: continues to have nausea. No difference with steroids. No vomiting or abd pain. Full 12 point ROS reviewed
and negative except as documented Exam: Vitals reviewed in chart GEN-chronically ill appearing heart RRR lungs clear abd soft distended POS BS pos fluid wave LE 2+ pitting edema
Plan
# SBP
- s/p paracentesis x 2 this admission 04/09-4L, 04/12- 3L
- SAAG>1.1
- fluid growing entercoccus
- sensi resulted and reviewed
- ID on board
- tolerated test dose ampicillin- day 3 abx
- clear liquid diet, advance as tolerated
- DC decadron
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
-NO NSAIDs (received Toradol on admission)
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 Cont FR.
-hyperkalemia resolved
-Na stable at 130, cont to trend
-Cr improved to 2.0 (baseline @ 1.8)
-renal following
# Ascites, recurrent, and due to FINN and malignant ascites:
- s/p 4L para on 04/09, 3L paracentesis on 04/12
- SAAG > 1.1
- previous para cytology pos for malignancy
- poor prognosis
Other problems:
-Chronic pancytopenia likely due to malignancy- trend CBC
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
-Metastatic Breast CA: metastases liver and bones Seen by palliative care and oncology, pt's goals are restorative. DC dexamethasone, MRI- No acute intracranial abnormality noted. No evidence for intracranial metastases. appreciate heme onc input
-Chronic Hypotension: cont Midodrine
FULL- d/w patient at great length
DVT proph- heparin
Dispo would benefit from SNF, PT reeval pending
Time spent coordinating care, review of plan of care with resident, personally reviewed records in EMR, med rec, consults, notes, labs, radiology, d/w nursing � 58 mins
Original Note:
Today's Communication/Plan
-
.
Assessment / Plan
Assessment / Plan
#Spontaenous Bacterial Peritonitis
- Recurrent malginant ascites; paracenteses q4d
- 04/09: Culture of peritoneal fluids grew Enterococcus Faecalis
- Started on Vancomycin empirically; sensitivity shows not VRE. Transitioned to Ampicillin.
- Per ID, wlll require 5-7 and can be transitioned once ready for discharge.
- PT/OT/CM for dispo planning.
- WBC 2325, PMN 92.3, Protein 2.1, Albumin < 1.0, LDH 249
- Paracentesis 02/10: WBC 259, PMN 80.4.
#Lower abdominal pain associated with nausea/vomiting
- Initially Suspected viral gastroenteritis
- Negative for norovirus
- Stool cultures negative for Salmonella, Shigella, Aeromonas, Plesimonas, Campylobacter, Shiga-like toxin, WBCs.
- Distended Abdomen on Exam; mildly tender.
- Clear liquid diet
- Pain control with morphine/tylenol only
- Hold all NSAIDS due to MARGARITA
- IV Reglan did not control nausea; started on steroids for nausea.
#Skin Rash/itching - chronic
- Triamcinolone acetonide BID as needed
#Sore throat/burning sensation (resolved)
- secondary to vomiting.
- Lozenges PRN
#Hyperkalemia (resolved)
- K 4.6 this AM
- Failed treatment with Lokelma, insulin, D50
- Hyperkalemia resolved after insulin/D50W, 10g Lokelma given on admission, rectal Kayexalate (note PO doses were vomited up), and alkalotic IVFs, received 1/2NS with 75meq NaHCO3...now off.
- Nephrology following
- Hold spironolactone
- EKG NSR, normal QTc
- Monitor BMP closely
#Hyponatremia
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
- Continued Slight improvement to 130
- Follow BMP
Leukopenia/pancytopenia
- WBC 2.2, ANC 1.5
- Afbrile in past 24 hours
- HB 9.9 and stable.
- Appreciate Heme/Onc Reccs
- Monitor CBC
#MARGARITA
- Appreciate Nephrology reccs
- FeNa 0.1%. Prerenal MARGARITA
- Creatinine 2.7
- Continue IV fluids with bicarb
- HOLD ALL NSAIDS
- Toradol was given in ED
- Follow BMP
#Proximal Atrial Fibrillation
- Rate controlled
#Metastatic breast cancer (mets to bone/liver)
- Appreciate Heme Onc Reccs
- Goals remain restorative
- Start capivasertib when able to tolerate PO upon discharge
- MRI Brain: no mets, no abnormality
#Hypotension
- Midodrine 10 mg PO TID
- Blood pressure is stable 126/73
- Continue to monitor BP
In regards to patient's degree of metastasis while on chemotherapy, patient is hospice appropriate. Goals of care were/CODE STATUS were discussed with the patient. Seen by palliative care, patient's goals are restorative. She has a palliative
care appointment with [facility] which she would like to continue following.
CLD
DVT prophylaxis SCD
FULL CODE
Anticipated Discharge: 24 - 48 hours
Subjective/Interval History
-
Date of Service: April 13, 2024
Patient seen and examined while sitting up in chair. Patient states the her abdominal pain has improved since yesterday. Patient states nausea has also improved since yesterday, though still feels nauseous. Patient has no other acute complaints
today.
Objective Data
-
Labs:
Laboratory Results
04/13/24
07:00
WBC 1.7 L*
Hgb 10.0 L
Hct 27.6 L
Plt Count 68 L D
Sodium 130 L
Potassium 4.7
Chloride 99
Carbon Dioxide 20 L
BUN 62 H
Creatinine 2.0 H
Glucose 127 H
Calcium 7.2 L
Vital Signs:
Vital Signs
Temp Pulse Resp BP Pulse Ox
97.5 F 89 18 124/63 97
04/13/24 15:55 04/13/24 15:55 04/13/24 15:55 04/13/24 15:55 04/13/24 15:55
I&O
04/12/24 04/13/24 04/14/24
06:59 06:59 06:59
Intake Total 1430 / 1430 1308 / 1308
Balance 1430 / 1430 1308 / 1308
Review of Systems
-
History Source: Patient
Constitutional: Reports No Symptoms; Denies Fever
Respiratory: Reports No Symptoms
Cardiac: Reports No Symptoms
Abdomen/GI: Reports Nausea; Denies Abdominal Pain or Vomiting
Musculoskeletal: Reports No Symptoms
Neuro: Reports No Symptoms
Physical Exam
-
General: No Apparent Distress and Appears Chronically Ill
HEENT: Normocephalic, Atraumatic and Anicteric
Respiratory: Clear to Auscultation and Non Labored Respirations
Cardiac: Regular Rhythm and S1/S2
GI: Soft, Nontender and Distended
Musculoskeletal: No Clubbing and No Cyanosis
Skin: Warm and Dry
Neuro: Awake and Alert
Psych: Calm
Data Reviewed
-
Labs: Labs Reviewed by me and Discussed with Patient
--- NOTE | 2024-04-13 16:29 | W.PN.NEPH.PH ---
Today's Communication / Plan
-
No changes today she status post albumin yesterday
Assessment/Plan
-
Impression:
p/w N/V suspected gastroenteritis
metastatic breast cancer, with progression of disease on Ibrance/Faslodex
MARGARITA
CKD stage IIIb baseline around 1.8
Hyponatremia
Metabolic acidosis
Hyperkalemia
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
melena, varices
Afib hx
pancytopenia from cirrhosis and Ibrance at baseline
Chronic hypotension on midodrine in setting of cirrhosis
Plan:
MARGARITA:
-Creatinine down to 2.5>2.1�2
-Urine output not collected, weight stable
-Suspect prerenal etiology from GI losses and hypotension (maintain midodrine)
-Continues with hypotension, maintain midodrine support, will increase to 3 times daily
-Unfortunately Toradol given on admission
-
-Urinalysis notes trace albumin no blood
-holding lasix for now
- status post paracentesis three liters again on Friday = order albumin times one
Plan for paracentesis again on Friday
On ampicillin and for SBP/ Enterococcus
Hyponatremia:
-Sodium at 128> 130
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
-Maintain fluid restriction
-Will eventually need to reinitiate Lasix
-
Hyperkalemia:
- hold Aldactone indefinitely
-Improved to
-
-
Date of Service: April 13, 2024
CC / HPI / ROS
-
Chief Complaint:
MARGARITA
Hyperkalemia
Hyponatremia
History of Present Illness:
Hemodynamically labile on midodrine
Creatinine down to 2.5�2
Sodium up to 128
Potassium down to 4.5
Status post paracentesis 04/09/2024 and April 12, 2024
Review of Systems:
Urine output not recorded
Weights stay
Nausea
Labs
-
Labs:
WBC 1.7 10^3/uL (4.8-10.8) L* 04/13/24 07:00
RBC 2.71 10^6/uL (4.20-5.40) L 04/13/24 07:00
Hgb 10.0 g/dL (12.0-16.0) L 04/13/24 07:00
Hct 27.6 % (37.0-47.0) L 04/13/24 07:00
Plt Count 68 10^3/uL (130-400) L D 04/13/24 07:00
Sodium 130 mmol/L (135-145) L 04/13/24 07:00
Potassium 4.7 mmol/L (3.5-5.1) 04/13/24 07:00
Chloride 99 mmol/L (98-107) 04/13/24 07:00
Carbon Dioxide 20 mmol/L (22-30) L 04/13/24 07:00
BUN 62 mg/dl (7-17) H 04/13/24 07:00
Creatinine 2.0 mg/dL (0.6-1.0) H 04/13/24 07:00
eGFR 25.26 04/13/24 07:00
Glucose 127 mg/dl (70-99) H 04/13/24 07:00
Calcium 7.2 mg/dl (8.4-10.2) L 04/13/24 07:00
Albumin 3.6 g/dl (3.5-5.0) 04/08/24 12:49
Physical Exam
-
Vital Signs:
Vital Signs
Temp Pulse Resp BP Pulse Ox
97.5 F 89 18 124/63 97
04/13/24 15:55 04/13/24 15:55 04/13/24 15:55 04/13/24 15:55 04/13/24 15:55
Cardiovascular:: Regular rate and rhythm
Respiratory:: Bilateral: CTA
Lung Excursion:: Normal
Abdomen:: Distended
Bowel Sounds:: Normal
Extremity Edema:: +2: Bilateral:
[2024-04-13 17:27] VITALS: BP 136/76
[2024-04-13] MEDS: ProAmatine PO (17:30)
[2024-04-13] MEDS: ZOFRAN 4 MG PO (19:48)
[2024-04-13 23:24] VITALS: BP 127/66
[2024-04-14] MEDS: AMPICILLIN 108 MG IV ×3 (00:02→16:32)
[2024-04-14] MEDS: ULTRAM 50 MG PO (05:52)
[2024-04-14 07:29] VITALS: BP 104/58
[2024-04-14 07:45] LABS: % Eosinophils 0.5 % (0-6); % Immature Granulocytes 0.5 % (0-0.5); % Lymphocytes 6.7 % (20.5-51.1); % Monocytes 14.3 % (1.7-9.3); Absolute Lymphocytes 0.1 10^3/uL (1.2-3.4); Absolute Monocytes 0.3 10^3/uL (0.1-0.6); Absolute Neutrophils 1.6 10^3/uL (1.4-6.5); Hematocrit 28.5 % (37.0-47.0); Hemoglobin 10.1 g/dL (12.0-16.0); Mean Corp Hgb Conc. 35.4 g/dL (33.0-37.0); Mean Corpuscular Hgb 36.2 pg (27.0-31.0); Mean Corpuscular Volume 102.2 fL (81.0-99.0); Nucleated Red Blood Cells % 0 %; Platelet Count 68 10^3/uL (130-400); Red Blood Cell Count 2.79 10^6/uL (4.20-5.40); Red Cell Dist. Width 14.4 % (11.5-14.5); White Blood Cell Count 2.1 10^3/uL (4.8-10.8)
[2024-04-14 08:06] LABS: ALT (SGPT) 35 U/L (0-35); AST (SGOT) 33 U/L (14-36); Albumin 3.2 g/dl (3.5-5.0); Alkaline Phosphatase 85 U/L (38-126); Blood Urea Nitrogen 66 mg/dl (7-17); Carbon Dioxide 23 mmol/L (22-30); Chloride 97 mmol/L (98-107); Estimated Creatinine Clearance 22 ml/min; Glucose 108 mg/dl (70-99); Potassium 4.8 mmol/L (3.5-5.1); Sodium 130 mmol/L (135-145); Total Bilirubin 1.4 mg/dl (0.2-1.3); Total Protein 5.4 g/dl (6.3-8.2); eGFR 26.86
[2024-04-14] MEDS: PROTONIX IV 40 MG IV (08:39)
[2024-04-14] MEDS: NSS (PRESERVATIVE FREE) 10 ML IV (08:40)
[2024-04-14] MEDS: ProAmatine 10 MG PO ×2 (08:40→14:00)
[2024-04-14] MEDS: AMPICILLIN IV (08:40)
[2024-04-14] MEDS: HEPARIN SC (08:40)
[2024-04-14] MEDS: FEOSOL 325 MG PO (08:40)
[2024-04-14] MEDS: TRIAMCINOLONE ACETONIDE 0.5% CREAM 1 APPLIC TOPICAL ×2 (08:41→19:32)
--- NOTE | 2024-04-14 08:49 | W.PN.ONC ---
Documented by User: Saji Whitt DO, Resident 04/14/24 12:11
Today's Communication / Plan
-
Continue antibiotics per ID and primary
Discontinue IV steroids
Okay to continue GI prophylaxis while inpatient
Will follow-up with Dr. Waters in office 04/21/2024 for initiation of new chemo, patient was approved and currently has medication at home
We will continue to follow till discharge
Impression
Impression
p/w N/V suspected gastroenteritis
Enterococcus in peritoneal fluid 04/09
metastatic breast cancer, with progression of disease on Ibrance/Faslodex
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
melena, varices
Afib known to Dr Betancourt
pancytopenia from cirrhosis and Ibrance at baseline
MARGARITA -creatinine improved to 2.1
hyperkalemia -resolved
hyponatremia
Plan
Plan
goals remain restorative (wants to pursue treatment)
MRI with and without contrast negative for any intracranial metastases
Discontinue empiric dexamethasone
GI prophylaxis as patient was recently on steroids
Colace as needed for constipation
continue prn paracentesis for malignant recurrent ascites. Status post 2 paracentesis this admission, last paracentesis 04/12/2024. 3000ml
Continue empiric antibiotics per ID and primary team for bacterial peritonitis with Enterococcus
start capivasertib when able to tolerate PO upon discharge -Pt aware hyperglycemia,�diarrhea,�and�rash are common side effects with this drug
symptom management
Weekly CBC, CMP will be monitored upon discharge through my office
Has follow up with Dr. Waters 04/21
Subjective/Objective
Subjective/Objective
Patient reports she is still nauseous
Vital Signs:
Vital Signs
Temp Pulse Resp BP Pulse Ox
97.6 F 101 18 104/58 96
04/14/24 07:29 04/14/24 07:29 04/14/24 07:29 04/14/24 07:29 04/14/24 07:29
Lab Results:
Laboratory Data
WBC 2.1 10^3/uL (4.8-10.8) L* 04/14/24 06:59
Hgb 10.1 g/dL (12.0-16.0) L 04/14/24 06:59
Plt Count 68 10^3/uL (130-400) L 04/14/24 06:59
eGFR 26.86 04/14/24 06:59
Orders
Orders
Orders From Last 24 Hours
04/13/24 08:00
Pantoprazole [Protonix IV] 40 mg IV DAILY
04/14/24 08:00
Dexamethasone Sod Phosphate [Decadron] 4 mg IV DAILY@0800

Documented by User: Jeff Armenta MD 04/14/24 12:52
Plan
Plan
goals remain restorative (wants to pursue treatment)
MRI with and without contrast negative for any intracranial metastases
Discontinue empiric dexamethasone
GI prophylaxis as patient was recently on steroids
Colace as needed for constipation
continue prn paracentesis for malignant recurrent ascites. Status post 2 paracentesis this admission, last paracentesis 04/12/2024. 3000ml
Continue empiric antibiotics per ID and primary team for bacterial peritonitis with Enterococcus
start capivasertib when able to tolerate PO upon discharge -Pt aware hyperglycemia,�diarrhea,�and�rash are common side effects with this drug
symptom management
Weekly CBC, CMP will be monitored upon discharge through my office
Has follow up with Dr. Waters 04/21
Oncology Addendum:
Patient seen and evaluated and agree w/ resident note and plan as outlined
-metastatic breast cancer - recurrent ascites
-for paracentesis tomorrow
-antibiotics for bacterial peritonitis
-f/u w/ Dr. Waters as outpt
[2024-04-14 09:30] VITALS: BP 125/88; BP 144/84
--- NOTE | 2024-04-14 09:46 | W.PN.HOSP.TC ---
Addendum entered and electronically signed by Aayush Bergeron MD 04/14/24 21:08:
Attending Addendum-
I saw and evaluated the patient. I reviewed the resident�s note and agree with findings and plan as documented in the resident�s note. Sub: continues to have significant nausea with poor appetite. No difference with steroids. No vomiting or abd
pain. Full 12 point ROS reviewed and negative except as documented Exam: Vitals reviewed in chart GEN-chronically ill appearing heart RRR lungs clear abd soft distended POS BS pos fluid wave LE 2+ pitting edema
Plan
# SBP
- present on admission
- s/p paracentesis x 2 this admission 04/09-4L, 04/12- 3L
- for para on friday
- SAAG>1.1
- fluid growing entercoccus, sensi resulted and reviewed
- ID on board
- tolerated test dose ampicillin cont- day 07/05
- advance diet as tolerated
# Nausea
- increase zofran t/c change to standing
- check obs series
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
-hyperkalemia resolved
-Na stable at 130, cont to trend
-Cr improved to 1.9 (baseline @ 1.8)
-renal following
# Ascites, recurrent, and due to FINN and malignant ascites:
- s/p 4L para on 04/09, 3L paracentesis on 04/12
- SAAG > 1.1
- previous para cytology pos for malignancy
- para in am
- poor prognosis
Other problems:
-Chronic pancytopenia likely due to malignancy- trend CBC
-PAF: in SR, not on rate controlling meds or AC [employer]
-Metastatic Breast CA: metastases liver and bones Seen by palliative care and oncology, pt's goals are restorative. MRI- No acute intracranial abnormality noted. No evidence for intracranial metastases. appreciate heme onc input
-Chronic Hypotension: increase Midodrine
FULL- d/w patient at great length
DVT proph- heparin
Dispo- -DC to SNF when able
Time spent coordinating care, review of plan of care with resident, personally reviewed records in EMR, med rec, consults, notes, labs, radiology, d/w nursing � 55 mins
Original Note:
Today's Communication/Plan
-
.
Assessment / Plan
Assessment / Plan
#Spontaenous Bacterial Peritonitis
- Recurrent malginant ascites; paracenteses q4d
- 04/09: Culture of peritoneal fluids grew Enterococcus Faecalis
- Started on Vancomycin empirically; sensitivity shows not VRE. Transitioned to Ampicillin (Day 05/07). Transition to Amoxicillin at discharge.
- PT/OT/CM for dispo planning.
- WBC 2325, PMN 92.3, Protein 2.1, Albumin < 1.0, LDH 249
- Paracentesis 04/12: WBC 259, PMN 80.4.
- Paracentesis 04/15:
#Lower abdominal pain associated with nausea/vomiting
- Initially Suspected viral gastroenteritis
- Negative for norovirus
- Stool cultures negative for Salmonella, Shigella, Aeromonas, Plesimonas, Campylobacter, Shiga-like toxin, WBCs.
- Distended Abdomen on Exam; mildly tender.
- Clear liquid diet
- Pain control with morphine/tylenol only
- Hold all NSAIDS due to MARGARITA
- IV Reglan did not control nausea; increase dose of Zofran today.
- Obstruction Series (04/14): no evidence of obstruction.
- Lipase normal
#Skin Rash/itching - chronic
- Triamcinolone acetonide BID as needed
#Sore throat/burning sensation (resolved)
- secondary to vomiting.
- Lozenges PRN
#Hyperkalemia (resolved)
- K 4.5 this AM
- Failed treatment with Lokelma, insulin, D50
- Hyperkalemia resolved after insulin/D50W, 10g Lokelma given on admission, rectal Kayexalate (note PO doses were vomited up), and alkalotic IVFs, received 1/2NS with 75meq NaHCO3...now off.
- Nephrology following
- Hold spironolactone
- EKG NSR, normal QTc
- Monitor BMP closely
#Hyponatremia
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
- Continued Slight improvement to 130
- Follow BMP
Leukopenia/pancytopenia
- WBC 2.1, ANC 1.6
- Afbrile in past 24 hours
- HB 9.9 and stable.
- Appreciate Heme/Onc Reccs
- Monitor CBC
#MARGARITA
- Appreciate Nephrology reccs
- FeNa 0.1%. Prerenal MARGARITA
- Creatinine 2.4
- Continue IV fluids with bicarb
- HOLD ALL NSAIDS
- Toradol was given in ED
- Follow BMP
#Proximal Atrial Fibrillation
- Rate controlled
#Metastatic breast cancer (mets to bone/liver)
- Appreciate Heme Onc Reccs
- Goals remain restorative
- Start capivasertib when able to tolerate PO after discharge
- MRI Brain: no mets, no abnormality
#Hypotension
- Midodrine 10 mg PO TID
- Blood pressure is stable 108/65
- Continue to monitor BP
In regards to patient's degree of metastasis while on chemotherapy, patient is hospice appropriate. Goals of care were/CODE STATUS were discussed with the patient. Seen by palliative care, patient's goals are restorative. She has a palliative
care appointment with [facility] which she would like to continue following.
CLD
DVT prophylaxis SCD
FULL CODE
Anticipated Discharge: Within 24 hours
Subjective/Interval History
-
Date of Service: April 14, 2024
Patient seen and examined this morning while resting in bed. Patient states that her abdominal pain has returned. She describes it as unchanged from past episodes, and that is not localized and just an overall feeling of not feeling comfortable.
Otherwise, she notes that her nausea has been well controlled overnight and into the morning.
Had a conversation with the patient's and patient last night, and continued conversation this morning about plan for the patient, transition to PO abx, PT/OT today with potential SNF for physical rehab prior to returning home.
Objective Data
-
Labs:
Laboratory Results
04/14/24
06:59
WBC 2.1 L*
Hgb 10.1 L
Hct 28.5 L
Plt Count 68 L
Sodium 130 L
Potassium 4.8
Chloride 97 L
Carbon Dioxide 23
BUN 66 H
Creatinine 1.9 H
Glucose 108 H
Calcium 7.0 L
Total Bilirubin 1.4 H
AST 33
ALT 35
Alkaline Phosphatase 85
Vital Signs:
Vital Signs
Temp Pulse Resp BP Pulse Ox
97.6 F 101 18 104/58 96
04/14/24 07:29 04/14/24 07:29 04/14/24 07:29 04/14/24 07:29 04/14/24 07:29
I&O
04/13/24 04/14/24 04/15/24
06:59 06:59 06:59
Intake Total 1308 / 1308 1308 / 1308
Balance 1308 / 1308 1308 / 1308
Review of Systems
-
History Source: Patient
Constitutional: Reports No Symptoms
Respiratory: Reports No Symptoms
Cardiac: Reports No Symptoms
Abdomen/GI: Reports Abdominal Pain; Denies Nausea
Neuro: Reports No Symptoms
Physical Exam
-
General: No Apparent Distress and Appears Chronically Ill
HEENT: Normocephalic and Atraumatic
Respiratory: Clear to Auscultation and Non Labored Respirations
Cardiac: Regular Rhythm
GI: Soft and Distended
Musculoskeletal: No Clubbing, No Cyanosis, Edema, Right Lower Extrem and Edema, Left Lower Extrem
Skin: Warm
Neuro: Awake and Alert
Psych: Calm and Intact Judgement/Insight
Data Reviewed
-
Labs: Labs Reviewed by me and Discussed with Patient
[2024-04-14] MEDS: ZOFRAN 4 MG PO (09:54)
[2024-04-14] MEDS: HEPARIN 5000 UNITS SC ×2 (09:54→19:32)
[2024-04-14 10:32] VITALS: BP 125/88; BP 144/84
--- NOTE | 2024-04-14 13:22 | W.PN.PAL2 ---
Addendum entered and electronically signed by Brittnee Monk MD 04/14/24 15:45:
Addendum: spoke with spouse as well
Original Note:
Today's Communication
-
Palliative Care follow up visit
Patient reports that overall about the same. continues to have symptoms of nasuea. Zofran may have helped a little. would recommend scheduling zofran to see if this improves her symptoms. noted that steroids are to be discontinued, MRI brain neg for
mets. no bm since last , but also has not had significant intake - just clears. has been urinating well. would consider bowel regimen.
Discussed goals of care with patient. she reports that her [facility] CODING MACHINE OPERATOR had started discussions with her about advanced care planning, but they had not completed the paperwork yet. her would be her medical poa. She still wishes to
remain full code, and try her new cancer directed treatment when she is eligible. she understands she would have to get better from current infection first. she is worried how she might feel on the new medication, worried about diarrhea symptoms as
well. may become open to hospice care if symptoms worsen with new medication.
Assessment / Plan
-
Assessment/Plan:
Consider scheduling nausea medications q8 hours
Patient wishes to remain full code and start cancer directed treatment when eligible.
Total time 40 min
Reason for Admission
Illness Course/HPI
78 year old F with PMH of metastatic breast cancer with diffuse bone mets, liver mets with recurrent malignant ascites requiring weekly paracentesis. Follows with Dr. Waters of onc. Previously on Ibrance and doing well with stable disease until
February 2024 - with rising tumor markers, worsening ascites and +PET findings. PLan to change to Capivasertib, awaiting delivery to her home.
Admitted with abdominal pain and N/V. Likely related to gastroenteritis. Plan to admit for supportive care.
Seen in ED with no family present. Reports feeling awful from her N/V, some mild pain in her abdomen. S/p paracentesis today with some relief. She follwos with [facility], sees the CODING MACHINE OPERATOR about once a month. States her goals remain
restorative and is hopeful a change in medication will help slow down progression and lessen the need for paracentesis which will now be every 4 days as opposed to every week. Has plans for follow up with Dr. Waters at the end of the month. Will
start new medication once she recovers from her acute illness.
Functional Status
independent with ADLs, iADLs. Lives with ,
Goals of Care Discussion
Patient Goals
treatment oriented
Objective Data
-
Objective Data:
Vital Signs
Temp Pulse Resp BP Pulse Ox
97.6 F 101 18 104/58 96
04/14/24 07:29 04/14/24 07:29 04/14/24 07:29 04/14/24 07:29 04/14/24 08:00
Laboratory Results
04/14/24 06:59
04/14/24 06:59
Total Protein 5.4 g/dl (6.3-8.2) L 04/14/24 06:59
Albumin 3.2 g/dl (3.5-5.0) L 04/14/24 06:59
Urine Color July 04/09/24 01:59
Urine Clarity Clear (Clear) 04/09/24 01:59
Urine pH 5.0 (5.0-9.0) 04/09/24 01:59
Ur Specific Lutz 1.020 (<1.030) 04/09/24 01:59
Urine Ketones Trace (Negative) A 04/09/24 01:59
Urine Bilirubin 1+ (Negative) A 04/09/24 01:59
Palliative Performance Scale
Palliative Performance Scale:
PPS Level Ambulation Activity & Evidence of Disease Self Care Intake Conscious Level
100% Full Normal Activity & Work; Full Intake Full
No Evidence of Disease
90% Full Normal Activity & Work; Full Normal Full
Some Evidence of Disease
80% Full Normal Activity with Effort Full Normal or Full
Some Evidence of Disease Reduced
70% Reduced Unable Normal Job/Work Full Normal or Full
Significant Disease Reduced
60% Reduced Unable Hobby/Housework Occasional Normal or Full or Confusion
Significant Disease Assistance Reduced
50% Mainly Sit/Lie Unable to do Any Work Considerable Normal or Full or Confusion
Extensive Disease Assistance Req'd Reduced
40% Mainly in Bed Unable to do Most Activity Mainly Assistance Normal or Full or Drowsy;
Extensive Disease Reduced +/- Confusion
30% Totally Bed Unable to do Any Activity Total Care Normal or Full or Drowsy;
Bound Extensive Disease Reduced +/- Confusion
20% Totally Bed Bound Unable to do Any Activity Total Care Minimal to Full or Drowsy;
Extensive Disease Sips +/- Confusion
10% Totally Bed Bound Unable to do Any Activity Total Care Mouth Care Drowsy or Coma;
Extensive Disease Only +/- Confusion
0%
PPS Score Level:
Palliative Performance Score Response
Palliative Performance Score Response: 40%
Physical Exam
-
General: Comfortable
Neuro: Awake and Alert
Psych: Calm
--- NOTE | 2024-04-14 14:06 | PN.CDI ---
CDI
- -
CDI:
Physician Documentation Request
Admit Date: 04/08/24 22:05
Dear Doctor Yo,
04/08 ER Physician Documentation: 'Patient reports she is here for acute severe lower abdominal pain that started last night. Patient reports it has been associated with nausea and vomiting. Patient reports any movement makes abdominal pain worse.
Patient reports that she last had a paracentesis for ascites 3 days ago and reports she is scheduled to have a paracentesis every 4 days.'
04/09 Peritoneal fluid: Enterococcus faecalis
04/12 Hospitalist PN: 'SBP
- s/p paracentesis x 3 this admission 04/12- 3L removed
- fluid growing entercoccus'
Please clarify the following:
SBP was present on admission
SBP was not present on admission
Unable to determine
Use of terms such as suspected, likely, concern for, or probable (associated with a specific diagnosis that is being evaluated, monitored, or treated as if it exists) are acceptable and can be coded in the inpatient setting, when documented at the
time of discharge.
Thank you,
Betty Cisse RN, BSN
CDI Specialist
Available via [employer] text
Please use your independent medical judgment in providing your response.
[2024-04-14 15:06] LABS: ALT (SGPT) 41 U/L (0-35); AST (SGOT) 37 U/L (14-36); Albumin 3.5 g/dl (3.5-5.0); Alkaline Phosphatase 94 U/L (38-126); Blood Urea Nitrogen 67 mg/dl (7-17); Calcium 7.3 mg/dl (8.4-10.2); Carbon Dioxide 23 mmol/L (22-30); Chloride 94 mmol/L (98-107); Estimated Creatinine Clearance 18 ml/min; Glucose 130 mg/dl (70-99); Potassium 4.5 mmol/L (3.5-5.1); Sodium 128 mmol/L (135-145); Total Bilirubin 1.3 mg/dl (0.2-1.3); Total Protein 5.9 g/dl (6.3-8.2); eGFR 20.29
[2024-04-14 15:30] VITALS: BP 108/65
--- NOTE | 2024-04-14 16:00 | W.PN.NEPH.PH ---
Today's Communication / Plan
-
Maintain fluid restriction
Please check daily weight
Assessment/Plan
-
Impression:
p/w N/V suspected gastroenteritis
metastatic breast cancer, with progression of disease on Ibrance/Faslodex
MARGARITA
CKD stage IIIb baseline around 1.8
Hyponatremia
Metabolic acidosis
Hyperkalemia
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
melena, varices
Afib hx
pancytopenia from cirrhosis and Ibrance at baseline
Chronic hypotension on midodrine in setting of cirrhosis
Plan:
MARGARITA:
-Creatinine down to 2.4
-Urine output not collected, weight stable
-Suspect prerenal etiology from GI losses and hypotension (maintain midodrine)
-Continues with hypotension, maintain midodrine support, will increase to 3 times daily
-Unfortunately neither weights nor I's and O's are recorded
-
-Urinalysis notes trace albumin no blood
-holding lasix for now
- status post paracentesis three liters again on Friday = order albumin times one
-Plan for paracentesis again on Friday
On ampicillin and for SBP/ Enterococcus
Hyponatremia:
-Sodium at 128
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
-Maintain fluid restriction
-Will eventually need to reinitiate Lasix
-
Hyperkalemia:
- hold Aldactone indefinitely
Patient asked me directly if she was dying. I explained to her that her health continues to deteriorate and I am not sure that we can provide any services at this point to prevent her deterioration. I did explain however that if she has evolving
hepatorenal syndrome that dialysis would not be offered as she would be too hemodynamically labile to sustain such treatments. I did however defer to oncology for their input and do not want to speak for them
-
-
Date of Service: April 14, 2024
CC / HPI / ROS
-
Chief Complaint:
MARGARITA
Hyperkalemia
Hyponatremia
History of Present Illness:
Hemodynamically labile on midodrine
Creatinine at 2.4
Sodium up to 128
Potassium normal
Status post paracentesis 04/09/2024 and April 12, 2024
Review of Systems:
Urine output not recorded
Weights not recorded
Nausea
Labs
-
Labs:
WBC 2.1 10^3/uL (4.8-10.8) L* 04/14/24 06:59
RBC 2.79 10^6/uL (4.20-5.40) L 04/14/24 06:59
Hgb 10.1 g/dL (12.0-16.0) L 04/14/24 06:59
Hct 28.5 % (37.0-47.0) L 04/14/24 06:59
Plt Count 68 10^3/uL (130-400) L 04/14/24 06:59
Sodium 128 mmol/L (135-145) L 04/14/24 14:34
Potassium 4.5 mmol/L (3.5-5.1) 04/14/24 14:34
Chloride 94 mmol/L (98-107) L 04/14/24 14:34
Carbon Dioxide 23 mmol/L (22-30) 04/14/24 14:34
BUN 67 mg/dl (7-17) H 04/14/24 14:34
Creatinine 2.4 mg/dL (0.6-1.0) H 04/14/24 14:34
eGFR 20.29 04/14/24 14:34
Glucose 130 mg/dl (70-99) H 04/14/24 14:34
Calcium 7.3 mg/dl (8.4-10.2) L 04/14/24 14:34
Albumin 3.5 g/dl (3.5-5.0) 04/14/24 14:34
Physical Exam
-
Vital Signs:
Vital Signs
Temp Pulse Resp BP Pulse Ox
98.9 F 98 18 108/65 98
04/14/24 15:30 04/14/24 15:30 04/14/24 15:30 04/14/24 15:30 04/14/24 15:30
Cardiovascular:: Regular rate and rhythm
Respiratory:: Bilateral: CTA
Lung Excursion:: Normal
Abdomen:: Distended
Bowel Sounds:: Normal
Extremity Edema:: +2: Bilateral:
[2024-04-14 16:05] LABS: Lipase 146 U/L (23-300)
--- NOTE | 2024-04-14 16:45 | W.PN.ID1 ---
Date of Service
Date of Service: April 14, 2024
Today's Communication
Continue antibiotics. See below�
Assessment / Plan
SBP with Enterococcus faecalis
Recurrent malignant ascites
Stage IV mammary carcinoma
Nausea/vomiting
Leukopenia
Renal insufficiency
Hyponatremia
Liver cirrhosis
[place]
Dyslipidemia
Recommendations:
Continue with ampicillin while inpatient, but can transition to oral amoxicillin time of discharge.
Would complete a 7-day course of antibiotics.
Monitor white count & temperature curve.
����������������������������������������������������������
Chief Complaint
-: Other (SBP secondary to Enterococcus faecalis)
Subjective / Review of Systems
Patient seen and examined. Feels increasingly weak, notes ongoing nausea. Mild abdominal discomfort.
Review of Systems: No Fever
Vital Signs / Physical Exam
Vital Signs
Vital Signs
Temp Pulse Resp BP Pulse Ox
98.9 F 98 18 108/65 98
04/14/24 15:30 04/14/24 15:30 04/14/24 15:30 04/14/24 15:30 04/14/24 15:30
Physical Exam
Constitutional: No Acute Distress, Comfortable, Chronically Ill and Non-toxic
Eyes: Sclera Anicteric
Pulmonary: Clear and Non Labored
Gastrointestinal: Distended
Genito-Urinary: Negative [place]
Extremities: Edema; Negative Cyanosis or Erythema
Neurological: Awake and Alert
Psychological: Calm
Objective Data
Lab Data
Lab Results
04/14/24 06:59
04/14/24 14:34
Estimated Creat Clear 18 ml/min 04/14/24 14:34
Total Bilirubin 1.3 mg/dl (0.2-1.3) 04/14/24 14:34
AST 37 U/L (14-36) H 04/14/24 14:34
ALT 41 U/L (0-35) H 04/14/24 14:34
Alkaline Phosphatase 94 U/L (38-126) 04/14/24 14:34
Most recent labs reviewed.
Micro Results:
04/09/24 10:00 Body Fluid Culture - Final
Peritoneal Fluid Enterococcus faecalis
Gram Stain - Final
04/10/24 07:50 Salmonella/Shigella Culture - Final
Feces/Stool No Salmonella, Shigella, Aeromonas or Plesiomonas species
isolated.
Campylobacter Culture - Final
No Campylobacter species isolated.
Shiga Toxin Test - Final
No E. coli Shiga Toxin 1 or 2 detected.
Stool Leukocytes - Final
04/09/24 01:59 Urine Culture - Final
Urine
04/10/24 07:50 - Final
Feces/Stool Negative for Norovirus GI and GII.
Laboratory Tests
04/09/24 04/12/24
10:00
Fluid WBC 2325 259
Fluid Mononuclear Cell 7.7 19.6
Fl Polymorphonucl Cell 92.3 80.4
Fluid Total Protein 2.1
Fluid Albumin < 1.0
Fluid LDH 249
Fluid Cult/not urine Final 04/12/24-1452
Enterococcus faecalis*
*Isolated from enrichment broth only.
Organism 1 Enterococcus faecalis
1. Enterococcus faecalis
M.I.C. RX
--------- ---
Ampicillin <=2 S
Gentamicin Synergy Screen <=500 S
Vancomycin 2 S
[2024-04-14 18:03] VITALS: BP 131/66
[2024-04-14] MEDS: ProAmatine PO (18:16)
[2024-04-14] MEDS: ZOFRAN 8 MG IV (19:35)
[2024-04-14 23:14] VITALS: BP 101/60
[2024-04-15] MEDS: AMPICILLIN 108 MG IV ×3 (00:34→17:06)
[2024-04-15 06:00] VITALS: BMI 25.2
[2024-04-15 08:00] VITALS: BP 130/71
[2024-04-15 08:16] LABS: ALT (SGPT) 46 U/L (0-35); AST (SGOT) 43 U/L (14-36); Albumin 3.2 g/dl (3.5-5.0); Alkaline Phosphatase 89 U/L (38-126); Blood Urea Nitrogen 69 mg/dl (7-17); Calcium 6.9 mg/dl (8.4-10.2); Carbon Dioxide 19 mmol/L (22-30); Chloride 98 mmol/L (98-107); Estimated Creatinine Clearance 17 ml/min; Glucose 96 mg/dl (70-99); Potassium 4.7 mmol/L (3.5-5.1); Sodium 129 mmol/L (135-145); Total Bilirubin 1.3 mg/dl (0.2-1.3); Total Protein 5.5 g/dl (6.3-8.2); eGFR 19.32
[2024-04-15 08:18] LABS: % Eosinophils 1.2 % (0-6); % Immature Granulocytes 0.4 % (0-0.5); % Lymphocytes 10.2 % (20.5-51.1); % Monocytes 14.3 % (1.7-9.3); % Neutrophils 73.9 % (42.2-75.2); Absolute Lymphocytes 0.3 10^3/uL (1.2-3.4); Absolute Monocytes 0.4 10^3/uL (0.1-0.6); Absolute Neutrophils 1.8 10^3/uL (1.4-6.5); Hematocrit 28.8 % (37.0-47.0); Hemoglobin 10.4 g/dL (12.0-16.0); Mean Corp Hgb Conc. 36.1 g/dL (33.0-37.0); Mean Corpuscular Hgb 36.5 pg (27.0-31.0); Mean Corpuscular Volume 101.1 fL (81.0-99.0); Mean Platelet Volume 12.1 fL (7.4-10.4); Nucleated Red Blood Cells % 0 %; Platelet Count 70 10^3/uL (130-400); Red Blood Cell Count 2.85 10^6/uL (4.20-5.40); Red Cell Dist. Width 14.4 % (11.5-14.5); White Blood Cell Count 2.5 10^3/uL (4.8-10.8)
[2024-04-15] MEDS: FLUSH (NSS) 1 FLUSH IV ×2 (08:45→08:51)
[2024-04-15] MEDS: TRIAMCINOLONE ACETONIDE 0.5% CREAM TOPICAL ×3 (08:47→20:04)
[2024-04-15] MEDS: PROTONIX IV 40 MG IV (08:49)
[2024-04-15] MEDS: NSS (PRESERVATIVE FREE) 10 ML IV (08:49)
[2024-04-15] MEDS: FEOSOL 325 MG PO (08:49)
[2024-04-15] MEDS: HEPARIN 5000 UNITS SC ×2 (08:52→19:59)
[2024-04-15] MEDS: ProAmatine 10 MG PO ×2 (08:54→17:07)
--- NOTE | 2024-04-15 09:41 | W.PN.ONC ---
Addendum entered and electronically signed by Geovani Padilla DO 04/15/24 14:56:
The addendum below is erroneous on the wrong patient.
Patient was examined and chart reviewed independently. Agree with the impression and plan as outlined by R1. Patient requesting additional paracentesis. Will place an order to increase her comfort. She appears to be moving toward hospice.
Original Note:
Today's Communication / Plan
-
Continue supportive measures and antibiotics per primary
IR consult for therapeutic paracenteses w albumin replacement
Okay to continue GI prophylaxis while inpatient
Will follow-up with Dr. Waters on her appointment 04/21/2024 for initiation of capivasertib
Continue with hospice discussion tomorrow with shake feeder
Impression
Impression
p/w N/V suspected gastroenteritis
Enterococcus in peritoneal fluid 04/09
metastatic breast cancer, with progression of disease on Ibrance/Faslodex
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
melena, varices
Afib known to Dr Betancourt
pancytopenia from cirrhosis and Ibrance at baseline
MARGARITA -creatinine improved to 2.1
hyperkalemia -resolved
hyponatremia
Plan
Plan
goals remain restorative (wants to pursue treatment)
MRI with and without contrast negative for any intracranial metastases
Discontinue empiric dexamethasone
GI prophylaxis as patient was recently on steroids
Colace as needed for constipation
continue prn paracentesis for malignant recurrent ascites. Status post 2 paracentesis this admission, last paracentesis 04/12/2024. 3000ml
Continue empiric antibiotics per ID and primary team for bacterial peritonitis with Enterococcus
start capivasertib when able to tolerate PO upon discharge -Pt aware hyperglycemia,�diarrhea,�and�rash are common side effects with this drug
symptom management
3rd paracentesis ordered with primary team resident
Weekly CBC, CMP will be monitored upon discharge through my office
Has follow up with Dr. Waters 04/21
Subjective/Objective
Subjective/Objective
Vital Signs:
Vital Signs
Temp Pulse Resp BP Pulse Ox
97.9 F 103 18 130/71 97
04/15/24 08:00 04/15/24 08:00 04/15/24 08:00 04/15/24 08:54 04/15/24 08:00
Lab Results:
Laboratory Data
WBC 2.5 10^3/uL (4.8-10.8) L 04/15/24 07:29
Hgb 10.4 g/dL (12.0-16.0) L 04/15/24 07:29
Plt Count 70 10^3/uL (130-400) L 04/15/24 07:29
eGFR 19.32 04/15/24 07:29
--- NOTE | 2024-04-15 10:04 | W.PN.HOSP.TC ---
Addendum entered and electronically signed by Aayush Bergeron MD 04/15/24 18:52:
Attending Addendum-
I saw and evaluated the patient. I reviewed the resident�s note and agree with findings and plan as documented in the resident�s note. Sub: nausea improved. no abd pain. very anxious and wants to discuss prognosis. 'how much more time do i have'
Full 12 point ROS reviewed and negative except as documented Exam: Vitals reviewed in chart GEN-chronically ill appearing heart RRR lungs clear abd soft distended POS BS pos fluid wave LE 2+ pitting edema
Plan
# SBP
- present on admission
- s/p paracentesis x 2 this admission 04/09-4L, 04/12- 3L
- repeat para ordered 04/15
- SAAG>1.1
- fluid growing entercoccus, sensi resulted and reviewed
- ID on board
- tolerated test dose ampicillin cont until 04/20
- advance diet as tolerated
# Nausea
- improved
- increase zofran t/c change to standing
- obs series- no obs
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
-hyperkalemia resolved
-Na stable, cont to trend
-Cr worsening to 2.5 (baseline @ 1.8)
-renal following
-overall poor prognosis
- poor HD candidate
# Ascites, recurrent, and due to FINN and malignant ascites:
- s/p 4L para on 04/09, 3L paracentesis on 04/12
- SAAG > 1.1
- previous para cytology pos for malignancy
- repeat para orderd 04/15
- poor prognosis t/c Pleurx cath if goes on hospice
Other problems:
-Chronic pancytopenia likely due to malignancy- trend CBC
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
-Metastatic Breast CA: metastases liver and bones Seen by palliative care and oncology, pt's goals are restorative for now but considering hospice MRI- No acute intracranial abnormality noted. No evidence for intracranial metastases. appreciate
heme onc input
-Chronic Hypotension: cont increase Midodrine
FULL--> DNR
DVT proph- heparin
Dispo- possible DC to SNF when able
ACP
Patient consented to discuss, was alone, time spent explanation of advance directives, changes in health status, patient�s health care wishes if the patient becomes unable to make health decisions, goals of care, code status, and prognosis code
status changed to DNR 'no i dont want all of that its not fair for me to ask my family to take me off the vent' - 17 minutes
Time spent coordinating care, review of plan of care with resident, personally reviewed previous records in EMR, med rec, labs, radiology, d/w nursing/hospice, total time documented is exclusive of any additional time listed that was spent in
advance care planning discussion -�54 minutes
Original Note:
Today's Communication/Plan
-
.
Assessment / Plan
Assessment / Plan
#Spontaenous Bacterial Peritonitis
- Recurrent malginant ascites; paracenteses q4d
- 04/09: Culture of peritoneal fluids grew Enterococcus Faecalis
- Started on Vancomycin empirically; sensitivity shows not VRE. Transitioned to Ampicillin (Day 3/7). Transition to Amoxicillin at discharge.
- PT/OT/CM for dispo planning.
- WBC 2325, PMN 92.3, Protein 2.1, Albumin < 1.0, LDH 249
- Paracentesis 04/12: WBC 259, PMN 80.4.
- Paracentesis 04/15: therapeutic
#Lower abdominal pain associated with nausea/vomiting
- Initially Suspected viral gastroenteritis
- Negative for norovirus
- Stool cultures negative for Salmonella, Shigella, Aeromonas, Plesimonas, Campylobacter, Shiga-like toxin, WBCs.
- Distended Abdomen on Exam; mildly tender.
- Clear liquid diet
- Pain control with morphine/tylenol only
- Hold all NSAIDS due to MARGARITA
- Reglan/Zofran/Steroid tried at different times; nausea controlled today
- Obstruction Series (04/14): no evidence of obstruction.
- Lipase normal
#Skin Rash/itching - chronic
- Triamcinolone acetonide BID as needed
#Sore throat/burning sensation (resolved)
- secondary to vomiting.
- Lozenges PRN
#Hyperkalemia (resolved)
- K 4.5 this AM
- Failed treatment with Lokelma, insulin, D50
- Hyperkalemia resolved after insulin/D50W, 10g Lokelma given on admission, rectal Kayexalate (note PO doses were vomited up), and alkalotic IVFs, received 1/2NS with 75meq NaHCO3...now off.
- Nephrology following
- Hold spironolactone
- EKG NSR, normal QTc
- Monitor BMP closely
#Hyponatremia
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
- Continued Slight improvement to 130
- Follow BMP
Leukopenia/pancytopenia
- WBC 2.1, ANC 1.6
- Afbrile in past 24 hours
- HB 9.9 and stable.
- Appreciate Heme/Onc Reccs
- Monitor CBC
#MARGARITA
- Appreciate Nephrology reccs
- FeNa 0.1%. Prerenal MARGARITA
- Creatinine 2.4
- Continue IV fluids with bicarb
- HOLD ALL NSAIDS
- Toradol was given in ED
- Follow BMP
#Proximal Atrial Fibrillation
- Rate controlled
#Metastatic breast cancer (mets to bone/liver)
- Appreciate Heme Onc Reccs
- Goals remain restorative
- Start capivasertib when able to tolerate PO after discharge
- MRI Brain: no mets, no abnormality
- Patient wants to discuss hospice today
- Consult CM for hospice
- Discussed with Oncology Resident
#Hypotension
- Midodrine 10 mg PO TID
- Blood pressure is stable 108/65
- Continue to monitor BP
In regards to patient's degree of metastasis while on chemotherapy, patient is hospice appropriate. Follow up project/production manager imagingweather stripper.
CLD
DVT prophylaxis SCD
FULL CODE
Anticipated Discharge: 24 - 48 hours
Subjective/Interval History
-
Date of Service: April 15, 2024
Patient seen and examined while resting in bed. Patient states that 'todays is the day that she feels [she] will pass'. When asked why she feels that way, she says she doesn't know just that she feels anxious. States that her abdominal pain and
nausea are well controlled this morning, but she just feels 'off'. Denies chest pain, shortness of breath. States that she would like to speak with project/production manager imaging today.
Objective Data
-
Labs:
Laboratory Results
04/15/24
07:29
WBC 2.5 L
Hgb 10.4 L
Hct 28.8 L
Plt Count 70 L
Sodium 129 L
Potassium 4.7
Chloride 98
Carbon Dioxide 19 L
BUN 69 H
Creatinine 2.5 H
Glucose 96
Calcium 6.9 L*
Total Bilirubin 1.3
AST 43 H
ALT 46 H
Alkaline Phosphatase 89
Vital Signs:
Vital Signs
Temp Pulse Resp BP Pulse Ox
97.9 F 103 18 130/71 97
04/15/24 08:00 04/15/24 08:00 04/15/24 08:00 04/15/24 08:54 04/15/24 08:00
I&O
04/14/24 04/15/24 04/16/24
06:59 06:59 06:59
Intake Total 1308 / 1308 1044 / 1044 108 / 108
Output Total 300 / 300
Balance 1308 / 1308 744 / 744 108 / 108
Review of Systems
-
History Source: Patient
Respiratory: Reports No Symptoms
Cardiac: Reports No Symptoms
Abdomen/GI: Reports Abdominal Pain (improved) and Nausea (improved)
Psych: Reports Anxious
Physical Exam
-
General: No Apparent Distress and Appears Chronically Ill
HEENT: Normocephalic and Atraumatic
Respiratory: Clear to Auscultation and Non Labored Respirations
Cardiac: Regular Rhythm and S1/S2
GI: Soft and Distended
Musculoskeletal: No Clubbing, No Cyanosis and Other (bilateral edema of the lower extremities, 2+)
Skin: Warm and Dry
Neuro: Awake, Alert and Oriented
Psych: Intact Judgement/Insight and Anxious
Data Reviewed
-
Labs: Labs Reviewed by me and Discussed with Patient
--- NOTE | 2024-04-15 11:10 | CM ---
CM reviewed chart, consult received for Hospice. Patient seen bedside with , Ed, agreeable to referral to Hospice. Referral placed in [place] to Edwina with Hospice. CM will continue to follow for all discharge planning needs.
Plan; Hospice to meet with patient/spouse Ed.
--- NOTE | 2024-04-15 12:04 | HOSPNOTE ---
Referral received. Called and spoke to the patient herself. She is having a paracentesis today and not sure when that is happening. Also her is not able to come to the hospital until 3 pm. After our discussion, our plan is to meet her and
her for an in person introduction tomorrow at 10 am. CM updated. More information to follow.
[2024-04-15] MEDS: ZOFRAN 8 MG IV ×2 (12:33→20:52)
[2024-04-15] MEDS: FLUSH (NSS) 2 FLUSH IV (12:36)
[2024-04-15 14:04] VITALS: BP 140/78
[2024-04-15] MEDS: ProAmatine PO (14:33)
--- NOTE | 2024-04-15 15:00 | W.PN.ID1 ---
Date of Service
Date of Service: April 15, 2024
Today's Communication
Continue antibiotics.
Assessment / Plan
SBP with Enterococcus faecalis
Recurrent malignant ascites
Stage IV mammary carcinoma
Nausea/vomiting
Leukopenia
Renal insufficiency
Hyponatremia
Liver cirrhosis
Kraft
Dyslipidemia
Recommendations:
Continue with ampicillin while inpatient, but can transition to oral amoxicillin time of discharge.
Continue abx through 04/20/24.
For repeat paracentesis for comfort.
Chart reviewed, and patient contemplating hospice.
����������������������������������������������������������
Chief Complaint
-: Other (SBP secondary to Enterococcus faecalis)
Subjective / Review of Systems
Patient seen and examined. Overall feels fair. Notes some abdominal discomfort and ongoing nausea.
Vital Signs / Physical Exam
Vital Signs
Vital Signs
Temp Pulse Resp BP Pulse Ox
97.9 F 107 20 140/78 99
04/15/24 14:04 04/15/24 14:04 04/15/24 14:04 04/15/24 14:04 04/15/24 14:04
Physical Exam
Constitutional: No Acute Distress, Comfortable, Chronically Ill and Non-toxic
Eyes: Sclera Anicteric
Pulmonary: Clear and Non Labored
Gastrointestinal: Distended
Genito-Urinary: Negative Oquendo
Extremities: Edema; Negative Cyanosis or Erythema
Neurological: Awake and Alert
Psychological: Calm
Objective Data
Lab Data
Lab Results
04/15/24 07:29
04/15/24 07:29
Estimated Creat Clear 17 ml/min 04/15/24 07:29
Total Bilirubin 1.3 mg/dl (0.2-1.3) 04/15/24 07:29
AST 43 U/L (14-36) H 04/15/24 07:29
ALT 46 U/L (0-35) H 04/15/24 07:29
Alkaline Phosphatase 89 U/L (38-126) 04/15/24 07:29
Most recent labs reviewed.
Micro Results:
04/09/24 10:00 Body Fluid Culture - Final
Peritoneal Fluid Enterococcus faecalis
Gram Stain - Final
04/10/24 07:50 Salmonella/Shigella Culture - Final
Feces/Stool No Salmonella, Shigella, Aeromonas or Plesiomonas species
isolated.
Campylobacter Culture - Final
No Campylobacter species isolated.
Shiga Toxin Test - Final
No E. coli Shiga Toxin 1 or 2 detected.
Stool Leukocytes - Final
04/09/24 01:59 Urine Culture - Final
Urine
04/10/24 07:50 - Final
Feces/Stool Negative for Norovirus GI and GII.
Laboratory Tests
04/09/24 04/12/24
10:00
Fluid WBC 2325 259
Fluid Mononuclear Cell 7.7 19.6
Fl Polymorphonucl Cell 92.3 80.4
Fluid Total Protein 2.1
Fluid Albumin < 1.0
Fluid LDH 249
Fluid Cult/not urine Final 04/12/24-1452
Enterococcus faecalis*
*Isolated from enrichment broth only.
Organism 1 Enterococcus faecalis
1. Enterococcus faecalis
M.I.C. RX
--------- ---
Ampicillin <=2 S
Gentamicin Synergy Screen <=500 S
Vancomycin 2 S
[2024-04-15 16:00] VITALS: BP 114/64
[2024-04-15 16:54] VITALS: BP 114/64
[2024-04-15 23:15] VITALS: BP 114/63
[2024-04-16] MEDS: AMPICILLIN 108 MG IV ×3 (00:07→16:34)
[2024-04-16 06:00] VITALS: BMI 25.0
[2024-04-16 07:48] VITALS: BP 116/68; BP_SYST 94
[2024-04-16 08:00] VITALS: BP 116/62
[2024-04-16 08:30] VITALS: BP 109/66
[2024-04-16 09:04] LABS: Body Fluid Mononuclear 84.4 %; Body Fluid Polymorphonuclear 15.6 %; Body Fluid WBC 32 /CUMM
[2024-04-16 09:06] LABS: Body Fluid Second Tech CS
[2024-04-16] MEDS: PROTONIX IV 40 MG IV (09:10)
[2024-04-16] MEDS: ProAmatine 10 MG PO ×3 (09:11→18:24)
[2024-04-16] MEDS: HEPARIN 5000 UNITS SC ×2 (09:11→19:54)
[2024-04-16] MEDS: NSS (PRESERVATIVE FREE) 10 ML IV (09:11)
[2024-04-16] MEDS: FEOSOL 325 MG PO (09:11)
--- NOTE | 2024-04-16 09:12 | W.PN.ONC ---
Documented by User: Saji Whitt DO, Resident 04/16/24 10:51
Today's Communication / Plan
-
Initiate hospice discussion with director business travel
Continue supportive measures and antibiotics per primary
Continue serial therapeutic paracentesis as needed
Okay to continue GI prophylaxis while inpatient
Will follow-up with Dr. Waters on her appointment 04/21/2024 for initiation of capivasertib
Impression
Impression
p/w N/V suspected gastroenteritis
Enterococcus in peritoneal fluid 04/09
metastatic breast cancer, with progression of disease on Ibrance/Faslodex
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
melena, varices
Afib known to Dr Betancourt
pancytopenia from cirrhosis and Ibrance at baseline
MARGARITA -creatinine improved to 2.1
hyperkalemia -resolved
hyponatremia
Plan
Plan
goals remain restorative (wants to pursue treatment)
MRI with and without contrast negative for any intracranial metastases
Discontinue empiric dexamethasone
GI prophylaxis as patient was recently on steroids
Colace as needed for constipation
continue prn paracentesis for malignant recurrent ascites. Third paracentesis ordered with primary team resident 04/15/2024
Continue empiric antibiotics per ID and primary team for bacterial peritonitis with Enterococcus
My understanding is patient would like to consider hospice, has director business travel consult pending today 04/16/2024. As for now her goals of care remain restorative until clarified further
Will initiate capivasertib during her follow-up with Dr. Waters next week-Pt aware hyperglycemia,�diarrhea,�and�rash are common side effects with this drug
symptom management
Weekly CBC, CMP will be monitored upon discharge through my office
Has follow up with Dr. Waters 04/21/24
Subjective/Objective
Subjective/Objective
Vital Signs:
Vital Signs
Temp Pulse Resp BP Pulse Ox
98.1 F 85 16 109/66 99
04/16/24 07:48 04/16/24 08:30 04/16/24 08:30 04/16/24 08:30 04/16/24 07:48
Lab Results:
Laboratory Data
WBC 2.5 10^3/uL (4.8-10.8) L 04/15/24 07:29
Hgb 10.4 g/dL (12.0-16.0) L 04/15/24 07:29
Plt Count 70 10^3/uL (130-400) L 04/15/24 07:29
eGFR 19.32 04/15/24 07:29

Documented by User: Jeff Armenta MD 04/16/24 15:40
Plan
Plan
goals remain restorative (wants to pursue treatment)
MRI with and without contrast negative for any intracranial metastases
Discontinue empiric dexamethasone
GI prophylaxis as patient was recently on steroids
Colace as needed for constipation
continue prn paracentesis for malignant recurrent ascites. Third paracentesis ordered with primary team resident 04/15/2024
Continue empiric antibiotics per ID and primary team for bacterial peritonitis with Enterococcus
My understanding is patient would like to consider hospice, has director business travel consult pending today 04/16/2024. As for now her goals of care remain restorative until clarified further
Will initiate capivasertib during her follow-up with Dr. Waters next week-Pt aware hyperglycemia,�diarrhea,�and�rash are common side effects with this drug
symptom management
Weekly CBC, CMP will be monitored upon discharge through my office
Has follow up with Dr. Waters 04/21/24
Oncology Addendum:
Patient seen and evaluated and agree w/ MACHINE MOLDER note and plan as outlined.
-goals of care discussions ongoing - pt is interested in palliative care
-has f/u w/ Dr. Waters - considering capivasertib
-will continue to follow
[2024-04-16 09:17] LABS: % Basophils 0.2 % (0-2); % Eosinophils 0.9 % (0-6); % Immature Granulocytes 0.4 % (0-0.5); % Lymphocytes 5.4 % (20.5-51.1); % Monocytes 8.2 % (1.7-9.3); % Neutrophils 84.9 % (42.2-75.2); Absolute Lymphocytes 0.3 10^3/uL (1.2-3.4); Absolute Monocytes 0.4 10^3/uL (0.1-0.6); Absolute Neutrophils 3.9 10^3/uL (1.4-6.5); Hematocrit 30.3 % (37.0-47.0); Hemoglobin 10.5 g/dL (12.0-16.0); Mean Corp Hgb Conc. 34.7 g/dL (33.0-37.0); Mean Corpuscular Hgb 35.8 pg (27.0-31.0); Mean Corpuscular Volume 103.4 fL (81.0-99.0); Mean Platelet Volume 12.3 fL (7.4-10.4); Nucleated Red Blood Cells % 0 %; Platelet Count 74 10^3/uL (130-400); Red Blood Cell Count 2.93 10^6/uL (4.20-5.40); Red Cell Dist. Width 14.7 % (11.5-14.5); White Blood Cell Count 4.6 10^3/uL (4.8-10.8)
[2024-04-16] MEDS: TRIAMCINOLONE ACETONIDE 0.5% CREAM 1 APPLIC TOPICAL ×2 (09:26→19:55)
[2024-04-16 09:44] LABS: ALT (SGPT) 51 U/L (0-35); AST (SGOT) 41 U/L (14-36); Albumin 3.1 g/dl (3.5-5.0); Alkaline Phosphatase 101 U/L (38-126); Blood Urea Nitrogen 65 mg/dl (7-17); Carbon Dioxide 22 mmol/L (22-30); Chloride 95 mmol/L (98-107); Estimated Creatinine Clearance 17 ml/min; Glucose 98 mg/dl (70-99); Potassium 4.7 mmol/L (3.5-5.1); Sodium 127 mmol/L (135-145); Total Bilirubin 1.4 mg/dl (0.2-1.3); Total Protein 5.4 g/dl (6.3-8.2); eGFR 19.32
--- NOTE | 2024-04-16 10:28 | HOSPNOTE ---
Addendum entered by Dayan Thorpe RN 04/16/24 10:48:
Hospice is signing off of this patient at this time.
Original Note:
Hospice intro completed by Dayan Thorpe RN and Service Dog Elias. This SN met with Mr and Mrs Kim and discussed hospice vs palliative services. At this time per the patient she does not yet want to stop curative treatment, and wishes to
proceed with palliative. Information booklet on hospice with hospice contact information left with patient and her spouse. Informal conference with facility RN, notified of patient's desire to proceed with palliative, and patient requesting
pain medication at this time. Notified Edwina Hargrove RN of patient's choice.
[2024-04-16] MEDS: ZOFRAN 8 MG IV ×2 (11:40→19:24)
--- NOTE | 2024-04-16 13:35 | W.PN.NEPH.PH ---
Today's Communication / Plan
-
continue supportive care albumin post paracentesis
Assessment/Plan
-
Impression:
p/w N/V suspected gastroenteritis
metastatic breast cancer, with progression of disease on Ibrance/Faslodex
MARGARITA
CKD stage IIIb baseline around 1.8
Hyponatremia
Metabolic acidosis
Hyperkalemia
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
melena, varices
Afib hx
pancytopenia from cirrhosis and Ibrance at baseline
Chronic hypotension on midodrine in setting of cirrhosis
Plan:
MARGARITA:
-Creatinine down to 2.4
-Urine output not collected, weight stable
-Suspect prerenal etiology from GI losses and hypotension (maintain midodrine)
continue on manager plumbing
-
-
-Urinalysis notes trace albumin no blood
-holding lasix for now
She had another paracentesis said today three liters
On ampicillin and for SBP/ Enterococcus
Hyponatremia:
-Sodium relativel 27 and 127 and 129 multifactorialdelusional
-Maintain fluid restriction
-Will eventually need to reinitiate Lasix
-
Hyperkalemia:
- hold Aldactone indefinitely
Patient would not be dialysis candidate as discussed with her on multiple occasions
-
-
Date of Service: April 16, 2024
CC / HPI / ROS
-
Chief Complaint:
MARGARITA
Hyperkalemia
Hyponatremia
History of Present Illness:
Hemodynamically labile on midodrine
Creatinine at 2.4
Sodium up to 128
Potassium normal
Status post paracentesis 04/09/2024 and April 12, 2024 / April 16
Review of Systems:
no chest pain or shortness of breath
Nausea
Labs
-
Labs:
WBC 4.6 10^3/uL (4.8-10.8) L 04/16/24 09:05
RBC 2.93 10^6/uL (4.20-5.40) L 04/16/24 09:05
Hgb 10.5 g/dL (12.0-16.0) L 04/16/24 09:05
Hct 30.3 % (37.0-47.0) L 04/16/24 09:05
Plt Count 74 10^3/uL (130-400) L 04/16/24 09:05
Sodium 127 mmol/L (135-145) L 04/16/24 09:05
Potassium 4.7 mmol/L (3.5-5.1) 04/16/24 09:05
Chloride 95 mmol/L (98-107) L 04/16/24 09:05
Carbon Dioxide 22 mmol/L (22-30) 04/16/24 09:05
BUN 65 mg/dl (7-17) H 04/16/24 09:05
Creatinine 2.5 mg/dL (0.6-1.0) H 04/16/24 09:05
eGFR 19.32 04/16/24 09:05
Glucose 98 mg/dl (70-99) 04/16/24 09:05
Calcium 7.0 mg/dl (8.4-10.2) L 04/16/24 09:05
Albumin 3.1 g/dl (3.5-5.0) L 04/16/24 09:05
Physical Exam
-
Vital Signs:
Vital Signs
Temp Pulse Resp BP Pulse Ox
98.1 F 85 16 109/66 96
04/16/24 08:00 04/16/24 08:30 04/16/24 08:30 04/16/24 08:30 04/16/24 08:00
Cardiovascular:: Regular rate and rhythm
Respiratory:: Bilateral: CTA
Lung Excursion:: Normal
Abdomen:: Distended
Bowel Sounds:: Normal
Extremity Edema:: +2: Bilateral:
--- NOTE | 2024-04-16 15:08 | W.PN.PAL2 ---
Today's Communication
-
Hospice discussions noted. family met with hospice earlier today but refused hospice as she is not ready yet to stop cancer directed treatmetns. Patient wishes to pursue palliative care. patient is already open with [facility] at this
time.
Objective Data
-
Objective Data:
Vital Signs
Temp Pulse Resp BP Pulse Ox
98.1 F 96 16 108/57 96
04/16/24 08:00 04/16/24 14:38 04/16/24 08:30 04/16/24 14:38 04/16/24 08:00
Laboratory Results
04/16/24 09:05
04/16/24 09:05
Total Protein 5.4 g/dl (6.3-8.2) L 04/16/24 09:05
Albumin 3.1 g/dl (3.5-5.0) L 04/16/24 09:05
Urine Color July 04/09/24 01:59
Urine Clarity Clear (Clear) 04/09/24 01:59
Urine pH 5.0 (5.0-9.0) 04/09/24 01:59
Ur Specific Arab 1.020 (<1.030) 04/09/24 01:59
Urine Ketones Trace (Negative) A 04/09/24 01:59
Urine Bilirubin 1+ (Negative) A 04/09/24 01:59
Palliative Performance Scale
Palliative Performance Scale:
PPS Level Ambulation Activity & Evidence of Disease Self Care Intake Conscious Level
100% Full Normal Activity & Work; Full Intake Full
No Evidence of Disease
90% Full Normal Activity & Work; Full Normal Full
Some Evidence of Disease
80% Full Normal Activity with Effort Full Normal or Full
Some Evidence of Disease Reduced
70% Reduced Unable Normal Job/Work Full Normal or Full
Significant Disease Reduced
60% Reduced Unable Hobby/Housework Occasional Normal or Full or Confusion
Significant Disease Assistance Reduced
50% Mainly Sit/Lie Unable to do Any Work Considerable Normal or Full or Confusion
Extensive Disease Assistance Req'd Reduced
40% Mainly in Bed Unable to do Most Activity Mainly Assistance Normal or Full or Drowsy;
Extensive Disease Reduced +/- Confusion
30% Totally Bed Unable to do Any Activity Total Care Normal or Full or Drowsy;
Bound Extensive Disease Reduced +/- Confusion
20% Totally Bed Bound Unable to do Any Activity Total Care Minimal to Full or Drowsy;
Extensive Disease Sips +/- Confusion
10% Totally Bed Bound Unable to do Any Activity Total Care Mouth Care Drowsy or Coma;
Extensive Disease Only +/- Confusion
0%
PPS Score Level:
[2024-04-16] MEDS: FLEXBUMIN 100 IV (15:28)
--- NOTE | 2024-04-16 16:16 | W.PN.ID1 ---
Date of Service
Date of Service: April 16, 2024
Today's Communication
Continue antibiotics.
Assessment / Plan
SBP with Enterococcus faecalis
Recurrent malignant ascites
Stage IV mammary carcinoma
Nausea/vomiting
Leukopenia
Renal insufficiency
Hyponatremia
Liver cirrhosis
Kraft
Dyslipidemia
Recommendations:
Repeat paracentesis today reveals normalization of ascites fluid numbers.
Continue with ampicillin while inpatient, but transition to amoxicillin 500 mg PO BID at time of discharge.
Continue abx through 04/20/24.
����������������������������������������������������������
Chief Complaint
-: Other (SBP secondary to Enterococcus faecalis)
Subjective / Review of Systems
Patient seen and examined. Status post therapeutic paracentesis earlier today. Still with some nausea, and reports feeling generally weak.
Vital Signs / Physical Exam
Vital Signs
Vital Signs
Temp Pulse Resp BP Pulse Ox
98.1 F 96 16 108/57 96
04/16/24 08:00 04/16/24 14:38 04/16/24 08:30 04/16/24 14:38 04/16/24 08:00
Physical Exam
Constitutional: No Acute Distress, Comfortable, Chronically Ill and Non-toxic
Head: Other (Temporal wasting)
Eyes: Sclera Anicteric
Pulmonary: Clear and Non Labored
Gastrointestinal: Distended (Minimal)
Genito-Urinary: Negative Oquendo
Extremities: Edema; Negative Cyanosis or Erythema
Neurological: Awake and Alert
Psychological: Calm
Objective Data
Lab Data
Lab Results
04/16/24 09:05
04/16/24 09:05
Estimated Creat Clear 17 ml/min 04/16/24 09:05
Total Bilirubin 1.4 mg/dl (0.2-1.3) H 04/16/24 09:05
AST 41 U/L (14-36) H 04/16/24 09:05
ALT 51 U/L (0-35) H 04/16/24 09:05
Alkaline Phosphatase 101 U/L (38-126) 04/16/24 09:05
Most recent labs reviewed.
Micro Results:
04/09/24 10:00 Body Fluid Culture - Final
Peritoneal Fluid Enterococcus faecalis
Gram Stain - Final
04/10/24 07:50 Salmonella/Shigella Culture - Final
Feces/Stool No Salmonella, Shigella, Aeromonas or Plesiomonas species
isolated.
Campylobacter Culture - Final
No Campylobacter species isolated.
Shiga Toxin Test - Final
No E. coli Shiga Toxin 1 or 2 detected.
Stool Leukocytes - Final
04/09/24 01:59 Urine Culture - Final
Urine
04/10/24 07:50 - Final
Feces/Stool Negative for Norovirus GI and GII.
Laboratory Tests
04/09/24 04/12/24 04/16/24
10:00
Fluid WBC 2325 259 32
Fluid Mononuclear Cell 7.7 19.6 84
Fl Polymorphonucl Cell 92.3 80.4 15
Fluid Total Protein 2.1
Fluid Albumin < 1.0
Fluid LDH 249
Fluid Cult/not urine Final 04/12/24-1452
Enterococcus faecalis*
*Isolated from enrichment broth only.
Organism 1 Enterococcus faecalis
1. Enterococcus faecalis
M.I.C. RX
--------- ---
Ampicillin <=2 S
Gentamicin Synergy Screen <=500 S
Vancomycin 2 S
[2024-04-16 16:30] VITALS: BP 119/53
[2024-04-16] MEDS: MYLICON 80 MG PO (16:34)
--- NOTE | 2024-04-16 16:40 | CM ---
CM reviewed chart, patient declining hospice at this time. [facility] not [facility] any [facility] term beds at [facility], phone call to patients to discuss additional referrals, left voicemail. CM will continue to follow for all discharge planning
needs.
Plan; SNF once facility found, declining hospice at this time, followed by [facility]
--- NOTE | 2024-04-16 19:29 | W.PN.HOSP.TC ---
Addendum entered and electronically signed by Aayush Bergeron MD 04/16/24 20:40:
Attending Addendum-
I saw and evaluated the patient. I reviewed the resident�s note and agree with findings and plan as documented in the resident�s note. Sub: NAEON, feels nauseous. no abd pain. 'im not feeling good' Full 12 point ROS reviewed and negative except as
documented Exam: Vitals reviewed in chart GEN-chronically ill appearing heart RRR lungs clear abd soft distended POS BS pos fluid wave LE 2+ pitting edema
Plan
# SBP
- present on admission
- s/p paracentesis x 2 this admission 04/09-4L, 04/12- 3L, 04/16-3L
- fluid growing entercoccus
- ID on board
- tolerated test dose ampicillin cont until 04/20 may transition to amox on DC
# Nausea
- increase zofran t/c change to standing
- obs series- no obs
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
- stable, cont to trend (baseline @ 1.8)
- renal following
- overall poor prognosis
- poor HD candidate
# Hyponatremia
- from liver disease/ascites/third spacing
- poor prognosis
- restart spironolactone when able
# Malignant ascites
- s/p para-4L on 04/09, 3L on 04/12 , 3L on 04/16
- previous para cytology pos for malignancy
- requiring at least biweekly para
- poor prognosis t/c Pleurx cath if goes on hospice
- holding spironolactone due to low BP's
- palliative care on DC
Other problems:
-Chronic pancytopenia likely due to malignancy- trend CBC
-PAF: in SR, not on rate controlling meds or AC ACID DUMPER
-Metastatic Breast CA: metastases liver and bones Seen by palliative care and oncology, pt's goals are restorative for now but considering hospice MRI- No acute intracranial abnormality noted. No evidence for intracranial metastases. appreciate
heme onc input for OP chemo if desired
-Chronic Hypotension: cont increase Midodrine
FULL--> DNR
DVT proph- heparin
Dispo- DC to SNF on pall care (no beds available today and over weekend at [place])
Time spent coordinating care, review of plan of care with resident, personally reviewed records in EMR, med rec, consults, notes, labs, radiology, d/w nursing, hospice � 52mins
Original Note:
Today's Communication/Plan
-
.
Assessment / Plan
Assessment / Plan
#Spontaenous Bacterial Peritonitis
- Recurrent malginant ascites; paracenteses q4d
- 04/09: Culture of peritoneal fluids grew Enterococcus Faecalis
- Started on Vancomycin empirically; sensitivity shows not VRE. Transitioned to Ampicillin (Day 07/05). Transition to Amoxicillin at discharge.
- PT/OT/CM for dispo planning.
-Patient to be discharged to [facility] on Friday.
- WBC 2325, PMN 92.3, Protein 2.1, Albumin < 1.0, LDH 249
- Paracentesis 04/12: WBC 259, PMN 80.4.
- Paracentesis 04/16: therapeutic; given 25 mg of albumin IV
#Lower abdominal pain associated with nausea/vomiting
- Initially Suspected viral gastroenteritis
- Negative for norovirus
- Stool cultures negative for Salmonella, Shigella, Aeromonas, Plesimonas, Campylobacter, Shiga-like toxin, WBCs.
- Distended Abdomen on Exam; mildly tender.
- Clear liquid diet
- Pain control with morphine/tylenol only
- Hold all NSAIDS due to MARGARITA
- Reglan/Zofran/Steroid tried at different times; nausea controlled today
- Obstruction Series (04/14): no evidence of obstruction.
- Lipase normal
#Skin Rash/itching - chronic
- Triamcinolone acetonide BID as needed
#Sore throat/burning sensation (resolved)
- secondary to vomiting.
- Lozenges PRN
#Hyperkalemia (resolved)
- Failed treatment with Lokelma, insulin, D50
- Hyperkalemia resolved after insulin/D50W, 10g Lokelma given on admission, rectal Kayexalate (note PO doses were vomited up), and alkalotic IVFs, received 1/2NS with 75meq NaHCO3...now off.
- Nephrology following
- Hold spironolactone
- EKG NSR, normal QTc
- Monitor BMP closely
#Hyponatremia
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
- Continued Slight improvement to 130
- Follow BMP
Leukopenia/pancytopenia
- WBC 4,5, improved
- Afbrile in past 24 hours
- HB 9.9 and stable.
- Appreciate Heme/Onc Reccs
- Monitor CBC
#MARGARITA
- Appreciate Nephrology reccs
- FeNa 0.1%. Prerenal MARGARITA
- Creatinine 2.4
- Continue IV fluids with bicarb
- HOLD ALL NSAIDS
- Toradol was given in ED
- Follow BMP
#Proximal Atrial Fibrillation
- Rate controlled
#Metastatic breast cancer (mets to bone/liver)
- Appreciate Heme Onc Reccs
- Goals remain restorative
- Start capivasertib when able to tolerate PO after discharge
- MRI Brain: no mets, no abnormality
- Hospice discussions noted. The family met with hospice earlier today but refused hospice as she is not ready yet to stop cancer directed treatments. Patient wishes to pursue palliative care. Patient to be discharged to [facility] on Friday.
Following SNF, patient likely to continue relationship with [facility].
#Hypotension
- Midodrine 10 mg PO TID
- Blood pressure is stable 108/65
- Continue to monitor BP
Advance diet as tolerated
DVT prophylaxis SCD
DNR
Anticipated Discharge: 24 - 48 hours
Subjective/Interval History
-
Date of Service: April 16, 2024
Patient seen and examined while resting comfortably in bed. is at bedside. Patient states that she has no acute complaints this morning. States that her abdominal pain is improved from past days, she has not felt nauseous today. Patient
notes a little relief following her paracentesis this morning. Patient has been in the process of discussing hospice versus palliative care.
Objective Data
-
Labs:
Laboratory Results
04/16/24
09:05
WBC 4.6 L
Hgb 10.5 L
Hct 30.3 L
Plt Count 74 L
Sodium 127 L
Potassium 4.7
Chloride 95 L
Carbon Dioxide 22
BUN 65 H
Creatinine 2.5 H
Glucose 98
Calcium 7.0 L
Total Bilirubin 1.4 H
AST 41 H
ALT 51 H
Alkaline Phosphatase 101
Vital Signs:
Vital Signs
Temp Pulse Resp BP Pulse Ox
98.1 F 88 16 85/50 96
04/16/24 08:00 04/16/24 18:24 04/16/24 08:30 04/16/24 18:24 04/16/24 08:00
I&O
04/15/24 04/16/24 04/17/24
06:59 06:59 06:59
Intake Total 1044 / 1044 1448 / 1448
Output Total 300 / 300 250 / 250
Balance 744 / 744 1198 / 1198
Review of Systems
-
History Source: Patient
Constitutional: Reports No Symptoms
Respiratory: Reports No Symptoms
Cardiac: Reports No Symptoms
Abdomen/GI: Reports Abdominal Pain (Improved) and Nausea (Improved)
Neuro: Reports No Symptoms
Physical Exam
-
General: Appears Chronically Ill
HEENT: Normocephalic and Atraumatic
Respiratory: Clear to Auscultation
Cardiac: Regular Rhythm and S1/S2
GI: Nontender, Normal Bowel Sounds and Distended (Improved status post paracentesis this a.m.)
Musculoskeletal: Edema, Right Lower Extrem, Edema, Left Lower Extrem and Other (2+ bilaterally)
Skin: Warm
Neuro: Awake and Alert
Psych: Calm
Data Reviewed
-
Labs: Labs Reviewed by me and Discussed with Patient
[2024-04-16 19:55] VITALS: BP 106/58
[2024-04-16 23:40] VITALS: BP 97/56
[2024-04-17] MEDS: REGLAN 10 MG IV ×2 (00:50→09:32)
[2024-04-17] MEDS: AMPICILLIN 108 MG IV ×3 (00:51→16:04)
[2024-04-17 07:56] VITALS: BP 101/52
[2024-04-17 09:11] LABS: % Eosinophils 1.9 % (0-6); % Immature Granulocytes 0.6 % (0-0.5); % Neutrophils 78.5 % (42.2-75.2); Absolute Eosinophils 0.1 10^3/uL (0-0.7); Absolute Lymphocytes 0.3 10^3/uL (1.2-3.4); Absolute Monocytes 0.4 10^3/uL (0.1-0.6); Absolute Neutrophils 2.8 10^3/uL (1.4-6.5); Hematocrit 29.3 % (37.0-47.0); Hemoglobin 10.3 g/dL (12.0-16.0); Mean Corp Hgb Conc. 35.2 g/dL (33.0-37.0); Mean Corpuscular Hgb 36.5 pg (27.0-31.0); Mean Corpuscular Volume 103.9 fL (81.0-99.0); Nucleated Red Blood Cells % 0 %; Platelet Count 73 10^3/uL (130-400); Red Blood Cell Count 2.82 10^6/uL (4.20-5.40); Red Cell Dist. Width 14.6 % (11.5-14.5); White Blood Cell Count 3.6 10^3/uL (4.8-10.8)
[2024-04-17] MEDS: HEPARIN 5000 UNITS SC ×2 (09:15→20:11)
[2024-04-17] MEDS: PROTONIX IV 40 MG IV (09:15)
[2024-04-17] MEDS: ProAmatine 10 MG PO ×2 (09:15→17:31)
[2024-04-17] MEDS: NSS (PRESERVATIVE FREE) 10 ML IV (09:15)
[2024-04-17] MEDS: FEOSOL 325 MG PO (09:15)
[2024-04-17] MEDS: TRIAMCINOLONE ACETONIDE 0.5% CREAM 1 APPLIC TOPICAL ×2 (09:33→20:09)
[2024-04-17 09:42] LABS: ALT (SGPT) 44 U/L (0-35); AST (SGOT) 36 U/L (14-36); Alkaline Phosphatase 94 U/L (38-126); Blood Urea Nitrogen 55 mg/dl (7-17); Calcium 6.9 mg/dl (8.4-10.2); Carbon Dioxide 23 mmol/L (22-30); Chloride 97 mmol/L (98-107); Estimated Creatinine Clearance 19 ml/min; Glucose 85 mg/dl (70-99); Potassium 4.5 mmol/L (3.5-5.1); Sodium 130 mmol/L (135-145); Total Bilirubin 1.3 mg/dl (0.2-1.3); Total Protein 5.1 g/dl (6.3-8.2); eGFR 22.53
--- NOTE | 2024-04-17 10:50 | CM ---
CM spoke with patients , Ed, via telephone, then met with patient bedside. Discussed no beds available at [facility], additional referrals placed to [facility] as patient prefers to stay in [facility]. CM will continue to follow for all
discharge planning needs.
Plan; SNF pending accepting facility
--- NOTE | 2024-04-17 12:02 | W.PN.ONC ---
Today's Communication / Plan
-
goals remain restorative (wants to pursue treatment)
continue prn paracentesis for malignant recurrent ascites.
Continue antibiotics per ID and primary team for bacterial peritonitis with Enterococcus
MRI with and without contrast negative for any intracranial metastases
Discontinued empiric dexamethasone
GI prophylaxis as patient was recently on steroids
Colace as needed for constipation
to start capivasertib (with continued faslodex) after discharge
likely d/c to SNF early next week
Impression
Impression
p/w N/V suspected gastroenteritis
Enterococcus in peritoneal fluid 04/09
metastatic breast cancer, with progression of disease on Ibrance/Faslodex
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
melena, varices
Afib known to Dr Betancourt
pancytopenia from cirrhosis and Ibrance at baseline
MARGARITA -creatinine improved to 2.1
hyperkalemia -resolved
hyponatremia
Plan
Plan
goals remain restorative (wants to pursue treatment)
continue prn paracentesis for malignant recurrent ascites.
Continue antibiotics per ID and primary team for bacterial peritonitis with Enterococcus
MRI with and without contrast negative for any intracranial metastases
Discontinued empiric dexamethasone
GI prophylaxis as patient was recently on steroids
Colace as needed for constipation
to start capivasertib (with continued faslodex) after discharge
likely d/c to SNF early next week
Subjective/Objective
Subjective/Objective
feeling a little better today, eager to try pasta for lunch
Vital Signs:
Vital Signs
Temp Pulse Resp BP Pulse Ox
97.0 F 83 16 101/52 98
04/17/24 07:56 04/17/24 07:56 04/17/24 07:56 04/17/24 07:56 04/17/24 07:56
Lab Results:
Laboratory Data
WBC 3.6 10^3/uL (4.8-10.8) L 04/17/24 07:39
Hgb 10.3 g/dL (12.0-16.0) L 04/17/24 07:39
Plt Count 73 10^3/uL (130-400) L 04/17/24 07:39
eGFR 22.53 04/17/24 07:39
--- NOTE | 2024-04-17 13:08 | W.PN.HOSP.TC ---
Today's Communication/Plan
-
cont abx
pending dc, cm aware
Assessment / Plan
Assessment / Plan
#Spontaenous Bacterial Peritonitis
- Recurrent malginant ascites; paracenteses q4d
- 04/09: Culture of peritoneal fluids grew Enterococcus Faecalis
- Started on Vancomycin empirically; sensitivity shows not VRE. Transitioned to Ampicillin (Day 08/04). Transition to Amoxicillin 500mg BID at discharge. Abx through 04/20/24
- PT/OT/CM for dispo planning.
-Patient to be discharged to [facility] on Friday.
- WBC 2325, PMN 92.3, Protein 2.1, Albumin < 1.0, LDH 249
- Paracentesis 04/12: WBC 259, PMN 80.4.
- Paracentesis 04/16: therapeutic; given 25 mg of albumin IV
#Lower abdominal pain associated with nausea/vomiting
- Initially Suspected viral gastroenteritis
- Negative for norovirus
- Stool cultures negative for Salmonella, Shigella, Aeromonas, Plesimonas, Campylobacter, Shiga-like toxin, WBCs.
- Distended Abdomen on Exam; mildly tender.
- Clear liquid diet
- Pain control with morphine/tylenol only
- Hold all NSAIDS due to MARGARITA
- Reglan/Zofran/Steroid tried at different times; nausea controlled today
- Obstruction Series (04/14): no evidence of obstruction.
- Lipase normal
#Skin Rash/itching - chronic
- Triamcinolone acetonide BID as needed
#Sore throat/burning sensation (resolved)
- secondary to vomiting.
- Lozenges PRN
#Hyperkalemia (resolved)
- Failed treatment with Lokelma, insulin, D50
- Hyperkalemia resolved after insulin/D50W, 10g Lokelma given on admission, rectal Kayexalate (note PO doses were vomited up), and alkalotic IVFs, received 1/2NS with 75meq NaHCO3...now off.
- Nephrology following
- Hold spironolactone
- EKG NSR, normal QTc
- Monitor BMP closely
#Hyponatremia
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
- Continued Slight improvement to 130
- Follow BMP
Leukopenia/pancytopenia
- WBC 4,5, improved
- Afbrile in past 24 hours
- HB 9.9 and stable.
- Appreciate Heme/Onc Reccs
- Monitor CBC
#MARGARITA
- Appreciate Nephrology reccs
- FeNa 0.1%. Prerenal MARGARITA
- Creatinine 2.4
- Continue IV fluids with bicarb
- HOLD ALL NSAIDS
- Toradol was given in ED
- Follow BMP
#Proximal Atrial Fibrillation
- Rate controlled
#Metastatic breast cancer (mets to bone/liver)
- Appreciate Heme Onc Reccs
- Goals remain restorative
- Start capivasertib when able to tolerate PO after discharge
- MRI Brain: no mets, no abnormality
- Hospice discussions noted. The family met with hospice earlier today but refused hospice as she is not ready yet to stop cancer directed treatments. Patient wishes to pursue palliative care. Patient to be discharged to [facility] on Friday.
Following SNF, patient likely to continue relationship with [facility].
#Hypotension
- Midodrine 10 mg PO TID
- Blood pressure is stable 108/65
- Continue to monitor BP
Advance diet as tolerated
DVT prophylaxis SCD
DNR
Anticipated Discharge: > 48 hours
Subjective/Interval History
-
Date of Service: April 17, 2024
No acute events, will attempt to tolerate low residue diet today
Objective Data
-
Labs:
Laboratory Results
04/17/24
07:39
WBC 3.6 L
Hgb 10.3 L
Hct 29.3 L
Plt Count 73 L
Sodium 130 L
Potassium 4.5
Chloride 97 L
Carbon Dioxide 23
BUN 55 H
Creatinine 2.2 H
Glucose 85
Calcium 6.9 L*
Total Bilirubin 1.3
AST 36
ALT 44 H
Alkaline Phosphatase 94
Vital Signs:
Vital Signs
Temp Pulse Resp BP Pulse Ox
97.0 F 83 16 101/52 98
04/17/24 07:56 04/17/24 07:56 04/17/24 07:56 04/17/24 07:56 04/17/24 07:56
I&O
04/16/24 04/17/24 04/18/24
06:59 06:59 06:59
Intake Total 1448 / 1448 1044 / 1044
Output Total 250 / 250
Balance 1198 / 1198 1044 / 1044
Review of Systems
-
History Source: Patient
All other systems: Not reviewed unless documented
Physical Exam
-
General: Appears Chronically Ill
HEENT: Normocephalic and Atraumatic
Respiratory: Clear to Auscultation
Cardiac: Regular Rhythm and S1/S2
GI: Nontender, Normal Bowel Sounds and Distended (Improved status post paracentesis this a.m.)
Musculoskeletal: Edema, Right Lower Extrem, Edema, Left Lower Extrem and Other (2+ bilaterally)
Skin: Warm
Neuro: Awake and Alert
Psych: Calm
Data Reviewed
-
Diagnostic Radiology: Report Reviewed by me
CT Scan: Report Reviewed by me
MRI: Report Reviewed by me
Labs: Labs Reviewed by me and Discussed with Patient
[2024-04-17] MEDS: ProAmatine PO (13:57)
[2024-04-17 15:00] VITALS: BP 102/59
[2024-04-17 23:00] VITALS: BP 105/59
[2024-04-18] MEDS: AMPICILLIN 108 MG IV ×3 (00:24→17:01)
[2024-04-18 06:00] VITALS: BMI 24.9
[2024-04-18 07:35] VITALS: BP 121/67
[2024-04-18 08:43] LABS: Hematocrit 30.7 % (37.0-47.0); Hemoglobin 10.8 g/dL (12.0-16.0); Mean Corp Hgb Conc. 35.2 g/dL (33.0-37.0); Mean Corpuscular Hgb 36.2 pg (27.0-31.0); Mean Platelet Volume 11.3 fL (7.4-10.4); Platelet Count 95 10^3/uL (130-400); Red Blood Cell Count 2.98 10^6/uL (4.20-5.40); Red Cell Dist. Width 14.4 % (11.5-14.5); White Blood Cell Count 6.5 10^3/uL (4.8-10.8)
[2024-04-18 08:51] LABS: ALT (SGPT) 45 U/L (0-35); AST (SGOT) 35 U/L (14-36); Albumin 3.3 g/dl (3.5-5.0); Alkaline Phosphatase 120 U/L (38-126); Blood Urea Nitrogen 50 mg/dl (7-17); Calcium 7.7 mg/dl (8.4-10.2); Carbon Dioxide 21 mmol/L (22-30); Chloride 94 mmol/L (98-107); Estimated Creatinine Clearance 21 ml/min; Glucose 102 mg/dl (70-99); Potassium 4.6 mmol/L (3.5-5.1); Sodium 127 mmol/L (135-145); Total Bilirubin 1.3 mg/dl (0.2-1.3); Total Protein 5.6 g/dl (6.3-8.2); eGFR 25.26
--- NOTE | 2024-04-18 10:07 | W.PN.ONC ---
Today's Communication / Plan
-
goals remain restorative (wants to pursue treatment)
continue prn paracentesis for malignant recurrent ascites.
Continue antibiotics per ID and primary team for bacterial peritonitis with Enterococcus
MRI with and without contrast negative for any intracranial metastases
GI prophylaxis as patient was recently on steroids
Colace as needed for constipation
to start capivasertib (with continued faslodex) after discharge
likely d/c to SNF early next week
Impression
Impression
p/w N/V suspected gastroenteritis
Enterococcus in peritoneal fluid 04/09
metastatic breast cancer, with progression of disease on Ibrance/Faslodex
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
melena, varices
Afib known to Dr Betancourt
pancytopenia from cirrhosis and Ibrance at baseline
MARGARITA -creatinine improved to 2.1
hyperkalemia -resolved
hyponatremia
Plan
Plan
goals remain restorative (wants to pursue treatment)
continue prn paracentesis for malignant recurrent ascites.
Continue antibiotics per ID and primary team for bacterial peritonitis with Enterococcus
MRI with and without contrast negative for any intracranial metastases
GI prophylaxis as patient was recently on steroids
Colace as needed for constipation
to start capivasertib (with continued faslodex) after discharge
likely d/c to SNF early next week
Subjective/Objective
Subjective/Objective
feeling fair this am, no new complaints
Vital Signs:
Vital Signs
Temp Pulse Resp BP Pulse Ox
97.4 F 95 16 121/67 96
04/18/24 07:35 04/18/24 07:35 04/18/24 07:35 04/18/24 07:35 04/18/24 07:35
Lab Results:
Laboratory Data
WBC 6.5 10^3/uL (4.8-10.8) 04/18/24 07:31
Hgb 10.8 g/dL (12.0-16.0) L 04/18/24 07:31
Plt Count 95 10^3/uL (130-400) L D 04/18/24 07:31
eGFR 25.26 04/18/24 07:31
[2024-04-18] MEDS: ProAmatine 10 MG PO (11:45)
[2024-04-18] MEDS: FEOSOL 325 MG PO (11:46)
[2024-04-18] MEDS: HEPARIN 5000 UNITS SC ×2 (11:47→20:24)
[2024-04-18] MEDS: PROTONIX IV 40 MG IV (11:48)
[2024-04-18] MEDS: NSS (PRESERVATIVE FREE) 10 ML IV (11:48)
[2024-04-18] MEDS: FLUSH (NSS) 1 FLUSH IV ×2 (11:50→14:23)
[2024-04-18] MEDS: TRIAMCINOLONE ACETONIDE 0.5% CREAM TOPICAL ×2 (11:51→21:06)
--- NOTE | 2024-04-18 12:58 | W.PN.HOSP.TC ---
Today's Communication/Plan
-
await bed placement
switch to PO PPI
Abx
Assessment / Plan
Assessment / Plan
#Spontaenous Bacterial Peritonitis
- Recurrent malginant ascites; paracenteses q4d
- 04/09: Culture of peritoneal fluids grew Enterococcus Faecalis
- Started on Vancomycin empirically; sensitivity shows not VRE. Transitioned to Ampicillin. Transition to Amoxicillin 500mg BID at discharge. Abx through 04/20/24
- PT/OT/CM for dispo planning.
-Patient to be discharged to [facility] on Friday.
- WBC 2325, PMN 92.3, Protein 2.1, Albumin < 1.0, LDH 249
- Paracentesis 04/12: WBC 259, PMN 80.4.
- Paracentesis 04/16: therapeutic; given 25 mg of albumin IV
#Lower abdominal pain associated with nausea/vomiting
- Initially Suspected viral gastroenteritis
- Negative for norovirus
- Stool cultures negative for Salmonella, Shigella, Aeromonas, Plesimonas, Campylobacter, Shiga-like toxin, WBCs.
- LRD
- Pain control with morphine/tylenol only
- Hold all NSAIDS due to MARGARITA
- Reglan/Zofran/Steroid tried at different times; nausea controlled today
- Obstruction Series (04/14): no evidence of obstruction.
- Lipase normal
#Skin Rash/itching - chronic
- Triamcinolone acetonide BID as needed
#Sore throat/burning sensation (resolved)
- secondary to vomiting.
- Lozenges PRN
#Hyperkalemia (resolved)
- Failed treatment with Lokelma, insulin, D50
- Hyperkalemia resolved after insulin/D50W, 10g Lokelma given on admission, rectal Kayexalate (note PO doses were vomited up), and alkalotic IVFs, received 1/2NS with 75meq NaHCO3...now off.
- Nephrology following
- Hold spironolactone
- EKG NSR, normal QTc
- Monitor BMP closely
#Hyponatremia
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
- Continued Slight improvement to 130
- Follow BMP
Leukopenia/pancytopenia
- WBC 4,5, improved
- Afbrile in past 24 hours
- Appreciate Heme/Onc Reccs
- Monitor CBC
#MARGARITA
- Appreciate Nephrology reccs
- FeNa 0.1%. Prerenal MARGARITA
- Creatinine 2.4
- Continue IV fluids with bicarb
- HOLD ALL NSAIDS
- Toradol was given in ED
- Follow BMP
#Proximal Atrial Fibrillation
- Rate controlled
#Metastatic breast cancer (mets to bone/liver)
- Appreciate Heme Onc Reccs
- Goals remain restorative
- Start capivasertib when able to tolerate PO after discharge
- MRI Brain: no mets, no abnormality
- Hospice discussions noted. The family met with hospice earlier today but refused hospice as she is not ready yet to stop cancer directed treatments. Patient wishes to pursue palliative care. Patient to be discharged [facility] on Friday.
Following SNF, patient likely to continue relationship with [facility].
#Hypotension
- Midodrine 10 mg PO TID
- Blood pressure is stable 108/65
- Continue to monitor BP
Advance diet as tolerated
DVT prophylaxis HSQ
DNR
Anticipated Discharge: Within 24 hours
Subjective/Interval History
-
Date of Service: April 18, 2024
No acute events, tolerating low residue diet
Objective Data
-
Labs:
Laboratory Results
04/18/24
07:31
WBC 6.5
Hgb 10.8 L
Hct 30.7 L
Plt Count 95 L D
Sodium 127 L
Potassium 4.6
Chloride 94 L
Carbon Dioxide 21 L
BUN 50 H
Creatinine 2.0 H
Glucose 102 H
Calcium 7.7 L
Total Bilirubin 1.3
AST 35
ALT 45 H
Alkaline Phosphatase 120
Vital Signs:
Vital Signs
Temp Pulse Resp BP Pulse Ox
97.4 F 95 16 121/67 96
04/18/24 07:35 04/18/24 07:35 04/18/24 07:35 04/18/24 07:35 04/18/24 07:35
I&O
04/17/24 04/18/24 04/19/24
06:59 06:59 06:59
Intake Total 1044 / 1044 1020 / 1020
Balance 1044 / 1044 1020 / 1020
Review of Systems
-
History Source: Patient
All other systems: Not reviewed unless documented
Physical Exam
-
General: Appears Chronically Ill
HEENT: Normocephalic and Atraumatic
Respiratory: Clear to Auscultation
Cardiac: Regular Rhythm and S1/S2
GI: Nontender, Normal Bowel Sounds and Distended (Improved status post paracentesis)
Musculoskeletal: Edema, Right Lower Extrem, Edema, Left Lower Extrem and Other (2+ bilaterally)
Skin: Warm
Neuro: Awake and Alert
Psych: Calm
Data Reviewed
-
Diagnostic Radiology: Report Reviewed by me
CT Scan: Report Reviewed by me
MRI: Report Reviewed by me
Labs: Labs Reviewed by me and Discussed with Patient
[2024-04-18] MEDS: ProAmatine PO ×2 (14:16→18:50)
[2024-04-18] MEDS: REGLAN 10 MG IV (14:22)
--- NOTE | 2024-04-18 14:43 | W.PN.NEPH.PH ---
Today's Communication / Plan
-
no changes made a continue to monitor her weights and the need for diuretics currently she is maintaining without diuretics
Assessment/Plan
-
Impression:
p/w N/V suspected gastroenteritis
metastatic breast cancer, with progression of disease on Ibrance/Faslodex
MARGARITA
CKD stage IIIb baseline around 1.8
Hyponatremia
Metabolic acidosis
Hyperkalemia
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
melena, varices
Afib hx
pancytopenia from cirrhosis and Ibrance at baseline
Chronic hypotension on midodrine in setting of cirrhosis
Plan:
MARGARITA:
-Creatinine down to 2.4 � two
-Urine output not collected, weight stable
-Suspect prerenal etiology from GI losses and hypotension (maintain midodrine)
continue on privacy manager
-
-
-Urinalysis notes trace albumin no blood
-holding lasix for now
She had another paracentesis said today three liters
On ampicillin and for SBP/ Enterococcus
Hyponatremia:
-Sodium relativel 27 and 127 and 129 multifactorial /delusional
-Maintain fluid restriction
weights are down and she's been off diuretics
-
Hyperkalemia:
- hold Aldactone indefinitely
Patient would not be dialysis candidate as discussed with her on multiple occasions
-
-
Date of Service: April 18, 2024
CC / HPI / ROS
-
Chief Complaint:
MARGARITA
Hyperkalemia
Hyponatremia
History of Present Illness:
Hemodynamically labile on midodrine
Creatinine at 2.4>2
sodium is stable
Potassium normal
Status post paracentesis 04/09/2024 and April 12, 2024 / April 16
Review of Systems:
no chest pain or shortness of breath
Labs
-
Labs:
WBC 6.5 10^3/uL (4.8-10.8) 04/18/24 07:31
RBC 2.98 10^6/uL (4.20-5.40) L 04/18/24 07:31
Hgb 10.8 g/dL (12.0-16.0) L 04/18/24 07:31
Hct 30.7 % (37.0-47.0) L 04/18/24 07:31
Plt Count 95 10^3/uL (130-400) L D 04/18/24 07:31
Sodium 127 mmol/L (135-145) L 04/18/24 07:31
Potassium 4.6 mmol/L (3.5-5.1) 04/18/24 07:31
Chloride 94 mmol/L (98-107) L 04/18/24 07:31
Carbon Dioxide 21 mmol/L (22-30) L 04/18/24 07:31
BUN 50 mg/dl (7-17) H 04/18/24 07:31
Creatinine 2.0 mg/dL (0.6-1.0) H 04/18/24 07:31
eGFR 25.26 04/18/24 07:31
Glucose 102 mg/dl (70-99) H 04/18/24 07:31
Calcium 7.7 mg/dl (8.4-10.2) L 04/18/24 07:31
Albumin 3.3 g/dl (3.5-5.0) L 04/18/24 07:31
Physical Exam
-
Vital Signs:
Vital Signs
Temp Pulse Resp BP Pulse Ox
97.4 F 95 16 121/67 96
04/18/24 07:35 04/18/24 07:35 04/18/24 07:35 04/18/24 07:35 04/18/24 07:35
Cardiovascular:: Regular rate and rhythm
Respiratory:: Bilateral: CTA
Lung Excursion:: Normal
Abdomen:: Distended
Bowel Sounds:: Normal
Extremity Edema:: +2: Bilateral:
[2024-04-18 15:38] VITALS: BP 111/63
[2024-04-18 23:09] VITALS: BP 108/54
[2024-04-19] MEDS: AMPICILLIN 108 MG IV ×2 (00:36→08:03)
[2024-04-19 06:00] VITALS: BMI 25.0
[2024-04-19 07:31] VITALS: BP 127/71
[2024-04-19] MEDS: FEOSOL 325 MG PO (08:02)
[2024-04-19] MEDS: HEPARIN 5000 UNITS SC ×2 (08:03→19:42)
[2024-04-19] MEDS: ProAmatine 10 MG PO ×2 (08:03→13:15)
[2024-04-19] MEDS: PROTONIX 40 MG PO (08:03)
[2024-04-19] MEDS: REGLAN 10 MG IV (08:11)
[2024-04-19 08:28] LABS: Hematocrit 28.4 % (37.0-47.0); Hemoglobin 10.2 g/dL (12.0-16.0); Mean Corp Hgb Conc. 35.9 g/dL (33.0-37.0); Mean Corpuscular Hgb 36.4 pg (27.0-31.0); Mean Corpuscular Volume 101.4 fL (81.0-99.0); Mean Platelet Volume 12.1 fL (7.4-10.4); Platelet Count 93 10^3/uL (130-400); Red Cell Dist. Width 14.1 % (11.5-14.5); White Blood Cell Count 5.5 10^3/uL (4.8-10.8)
[2024-04-19] MEDS: NSS (PRESERVATIVE FREE) IV (08:33)
[2024-04-19] MEDS: TRIAMCINOLONE ACETONIDE 0.5% CREAM 1 APPLIC TOPICAL ×2 (08:36→19:45)
[2024-04-19 08:41] LABS: ALT (SGPT) 42 U/L (0-35); AST (SGOT) 35 U/L (14-36); Albumin 2.9 g/dl (3.5-5.0); Alkaline Phosphatase 112 U/L (38-126); Blood Urea Nitrogen 46 mg/dl (7-17); Calcium 7.2 mg/dl (8.4-10.2); Carbon Dioxide 22 mmol/L (22-30); Chloride 96 mmol/L (98-107); Estimated Creatinine Clearance 24 ml/min; Glucose 101 mg/dl (70-99); Potassium 4.4 mmol/L (3.5-5.1); Sodium 127 mmol/L (135-145); Total Bilirubin 1.1 mg/dl (0.2-1.3); eGFR 28.66
[2024-04-19] MEDS: ALDACTONE 50 MG PO (09:15)
--- NOTE | 2024-04-19 09:20 | W.PN.HOSP.TC ---
Addendum entered and electronically signed by Aayush Bergeron MD 04/19/24 22:37:
Attending Addendum-
I saw and evaluated the patient. I reviewed the resident�s note and agree with findings and plan as documented in the resident�s note. Sub: NAEON, feels mildly nauseous. no abd pain. seen with 'friend' [facility] CONTINUITY DIRECTOR from [place]. 'i think that
might be a good idea for the pleurx catheter'' Full 12 point ROS reviewed and negative except as documented Exam: Vitals reviewed in chart GEN-chronically ill appearing heart RRR lungs clear abd soft distended POS BS pos fluid wave LE 2+ pitting
edema
Plan
# SBP
- present on admission
- s/p paracentesis x 2 this admission 04/09-4L, 04/12- 3L, 04/16-3L
- fluid growing entercoccus
- ID on board
- cont ampicillin until 04/20 may transition to amox on DC if still here
# Nausea
- cont prn zofran
- obs series- no obs
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
- resolved
- back to baseline cont to trend (baseline @ 1.8)
- renal following
- overall poor prognosis
- poor HD candidate
# Hyponatremia
- from liver disease/ascites/third spacing
- poor prognosis
- restart spironolactone today
- restart lasix in am if able
# Malignant ascites
- s/p para-4L on 04/09, 3L on 04/12 , 3L on 04/16
- previous para cytology pos for malignancy
- requiring at least biweekly para
- poor prognosis
- restart spironolactone
- pleurx cath placement prior to DC, c/s IRAD
- palliative care on DC
Other problems:
-Chronic pancytopenia likely due to malignancy- trend CBC
-PAF: in SR, not on rate controlling meds or AC DIRECTOR OF PHYSICAL EDUCATION
-Metastatic Breast CA: metastases liver and bones Seen by palliative care and oncology, pt's goals are restorative for now but considering hospice MRI- No acute intracranial abnormality noted. No evidence for intracranial metastases. appreciate
heme onc input for OP chemo if desired
-Chronic Hypotension: cont Midodrine
FULL--> DNR
DVT proph- heparin
Dispo- DC to SNF on pall care after pleurx cath placement
Time spent coordinating care, review of plan of care with resident, personally reviewed records in EMR, med rec, consults, notes, labs, radiology, d/w nursing, pall care � 53 mins
Original Note:
Today's Communication/Plan
-
.
Assessment / Plan
Assessment / Plan
#Spontaenous Bacterial Peritonitis
- Recurrent malginant ascites; paracenteses q4d
- 04/09: Culture of peritoneal fluids grew Enterococcus Faecalis
- Started on Vancomycin empirically; sensitivity shows not VRE. Transitioned to Ampicillin. Transition to Amoxicillin 500mg BID at discharge. Abx through 04/20/24
- PT/OT/CM for dispo planning.
-Patient to be discharged to [facility]
- Discussed the risks and benefits of a pleur-x cath; patient will make a decision with her ; IRAD consulted.
#Lower abdominal pain associated with nausea/vomiting (likely 2/2 above)
- LRD
- Pain control with morphine/tylenol only
- Hold all NSAIDS due to MARGARITA
- Reglan/Zofran/Steroid tried at different times; nausea controlled today
- Obstruction Series (04/14): no evidence of obstruction.
- Lipase normal
#Skin Rash/itching - chronic
- Triamcinolone acetonide BID as needed
#Sore throat/burning sensation (resolved)
- secondary to vomiting.
- Lozenges PRN
#Hyperkalemia (resolved)
- Failed treatment with Lokelma, insulin, D50
- Hyperkalemia resolved after insulin/D50W, 10g Lokelma given on admission, rectal Kayexalate (note PO doses were vomited up), and alkalotic IVFs, received 1/2NS with 75meq NaHCO3...now off.
- Nephrology following
- Hold spironolactone
- EKG NSR, normal QTc
- Monitor BMP closely
#Hyponatremia
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
- Continued Slight improvement to 130
- Follow BMP
Leukopenia/pancytopenia
- WBC 4,5, improved
- Afbrile in past 24 hours
- Appreciate Heme/Onc Reccs
- Monitor CBC
#MARGARITA
- Appreciate Nephrology reccs
- FeNa 0.1%. Prerenal MARGARITA
- Creatinine 2.4
- Continue IV fluids with bicarb
- HOLD ALL NSAIDS
- Toradol was given in ED
- Follow BMP
#Proximal Atrial Fibrillation
- Rate controlled
#Metastatic breast cancer (mets to bone/liver)
- Appreciate Heme Onc Reccs
- Goals remain restorative
- Start capivasertib when able to tolerate PO after discharge
- MRI Brain: no mets, no abnormality
- Hospice discussions noted. The family met with hospice earlier today but refused hospice as she is not ready yet to stop cancer directed treatments. Patient wishes to pursue palliative care. Patient to be discharged to [facility] on Friday.
Following SNF, patient likely to continue relationship with [facility] care.
#Hypotension
- Midodrine 10 mg PO TID
- Blood pressure is stable 108/65
- Continue to monitor BP
Advance diet as tolerated
DVT prophylaxis HSQ
DNR
Anticipated Discharge: Within 24 hours
Subjective/Interval History
-
Date of Service: April 19, 2024
Patient seen and examined while resting comfortably in bed. Patient notes nausea, however has no other acute complaints this morning. Patient states that she feels in much better spirits today than when I last saw her on Friday. Patient awaiting
bed at [facility].
Objective Data
-
Labs:
Laboratory Results
04/19/24
07:15
WBC 5.5
Hgb 10.2 L
Hct 28.4 L
Plt Count 93 L
Sodium 127 L
Potassium 4.4
Chloride 96 L
Carbon Dioxide 22
BUN 46 H
Creatinine 1.8 H
Glucose 101 H
Calcium 7.2 L
Total Bilirubin 1.1
AST 35
ALT 42 H
Alkaline Phosphatase 112
Vital Signs:
Vital Signs
Temp Pulse Resp BP Pulse Ox
98.6 F 96 18 127/71 98
04/19/24 07:31 04/19/24 07:31 04/19/24 07:31 04/19/24 09:15 04/19/24 07:31
I&O
04/18/24 04/19/24 04/20/24
06:59 06:59 06:59
Intake Total 1020 / 1020 1060 / 1060
Balance 1020 / 1020 1060 / 1060
Review of Systems
-
History Source: Patient
Constitutional: Reports No Symptoms
Respiratory: Reports No Symptoms
Cardiac: Reports No Symptoms
Abdomen/GI: Reports Nausea and Other (distension); Denies Abdominal Pain
Neuro: Reports No Symptoms
Physical Exam
-
General: No Apparent Distress, Comfortable and Conversant
HEENT: Normocephalic and Atraumatic
Respiratory: Clear to Auscultation
Cardiac: Regular Rhythm and S1/S2
GI: Soft, Nontender and Distended
Musculoskeletal: No Clubbing, No Cyanosis, Edema, Right Lower Extrem and Edema, Left Lower Extrem
Skin: Warm and Dry
Neuro: Awake, Alert and Oriented
Psych: Calm
Data Reviewed
-
Labs: Labs Reviewed by me and Discussed with Patient
--- NOTE | 2024-04-19 13:53 | W.PN.NEPH.PH ---
Today's Communication / Plan
-
Lasix
Assessment/Plan
-
Impression:
p/w N/V suspected gastroenteritis
metastatic breast cancer, with progression of disease on Ibrance/Faslodex
MARGARITA
CKD stage IIIb baseline around 1.8
Hyponatremia
Metabolic acidosis
Hyperkalemia
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
melena, varices
Afib hx
pancytopenia from cirrhosis and Ibrance at baseline
Chronic hypotension on midodrine in setting of cirrhosis
Plan:
Follow BMP
Plan to restart Lasix tomorrow
Continue spironolactone
Patient would not be dialysis candidate as discussed with her on multiple occasions
-
-
Date of Service: April 19, 2024
CC / HPI / ROS
-
Chief Complaint:
MARGARITA
Hyperkalemia
Hyponatremia
History of Present Illness:
Hemodynamically stable on midodrine
MARGARITA/creatinine down to 1.8
Sodium remained stable but low at 127
Potassium normal
Status post paracentesis 04/09/2024 and April 12, 2024 / April 16
Weight overall stable
Review of Systems:
no chest pain or shortness of breath
Labs
-
Labs:
WBC 5.5 10^3/uL (4.8-10.8) 04/19/24 07:15
RBC 2.80 10^6/uL (4.20-5.40) L 04/19/24 07:15
Hgb 10.2 g/dL (12.0-16.0) L 04/19/24 07:15
Hct 28.4 % (37.0-47.0) L 04/19/24 07:15
Plt Count 93 10^3/uL (130-400) L 04/19/24 07:15
Sodium 127 mmol/L (135-145) L 04/19/24 07:15
Potassium 4.4 mmol/L (3.5-5.1) 04/19/24 07:15
Chloride 96 mmol/L (98-107) L 04/19/24 07:15
Carbon Dioxide 22 mmol/L (22-30) 04/19/24 07:15
BUN 46 mg/dl (7-17) H 04/19/24 07:15
Creatinine 1.8 mg/dL (0.6-1.0) H 04/19/24 07:15
eGFR 28.66 04/19/24 07:15
Glucose 101 mg/dl (70-99) H 04/19/24 07:15
Calcium 7.2 mg/dl (8.4-10.2) L 04/19/24 07:15
Albumin 2.9 g/dl (3.5-5.0) L 04/19/24 07:15
Physical Exam
-
Vital Signs:
Vital Signs
Temp Pulse Resp BP Pulse Ox
98.6 F 96 18 127/71 98
04/19/24 07:31 04/19/24 07:31 04/19/24 07:31 04/19/24 09:15 04/19/24 07:31
Cardiovascular:: Regular rate and rhythm
Respiratory:: Bilateral: Coarse
Lung Excursion:: Normal
Abdomen:: Nontender and Soft
Bowel Sounds:: Normal
Extremity Edema:: +1: Bilateral:
--- NOTE | 2024-04-19 14:05 | W.PN.ID1 ---
Date of Service
Date of Service: April 19, 2024
Today's Communication
Continue antibiotics. See below�
Assessment / Plan
SBP 2* Enterococcus faecalis
Recurrent malignant ascites
Stage IV breast cancer
Nausea/vomiting
Leukopenia
Renal insufficiency
Hyponatremia
Liver cirrhosis
[place]
Dyslipidemia
Recommendations:
Repeat paracentesis today reveals normalization of ascites fluid numbers.
Change to oral amoxcillin.
Continue abx through 04/20/24.
����������������������������������������������������������
Chief Complaint
-: Other (SBP secondary to Enterococcus faecalis)
Subjective / Review of Systems
Review of Systems: No Fever and No Chills
Vital Signs / Physical Exam
Vital Signs
Vital Signs
Temp Pulse Resp BP Pulse Ox
98.6 F 96 18 127/71 98
04/19/24 07:31 04/19/24 07:31 04/19/24 07:31 04/19/24 09:15 04/19/24 07:31
Physical Exam
Constitutional: No Acute Distress, Comfortable, Chronically Ill and Non-toxic
Head: Other (Temporal wasting)
Eyes: Sclera Anicteric
Pulmonary: Clear and Non Labored
Gastrointestinal: Distended (Minimal)
Genito-Urinary: Negative [place]
Extremities: Edema; Negative Cyanosis or Erythema
Neurological: Awake and Alert
Psychological: Calm
Objective Data
Lab Data
Lab Results
04/19/24 07:15
04/19/24 07:15
Estimated Creat Clear 24 ml/min 04/19/24 07:15
Total Bilirubin 1.1 mg/dl (0.2-1.3) 04/19/24 07:15
AST 35 U/L (14-36) 04/19/24 07:15
ALT 42 U/L (0-35) H 04/19/24 07:15
Alkaline Phosphatase 112 U/L (38-126) 04/19/24 07:15
Most recent labs reviewed.
Micro Results:
04/09/24 10:00 Body Fluid Culture - Final
Peritoneal Fluid Enterococcus faecalis
Gram Stain - Final
04/10/24 07:50 Salmonella/Shigella Culture - Final
Feces/Stool No Salmonella, Shigella, Aeromonas or Plesiomonas species
isolated.
Campylobacter Culture - Final
No Campylobacter species isolated.
Shiga Toxin Test - Final
No E. coli Shiga Toxin 1 or 2 detected.
Stool Leukocytes - Final
04/09/24 01:59 Urine Culture - Final
Urine
04/10/24 07:50 - Final
Feces/Stool Negative for Norovirus GI and GII.
Laboratory Tests
04/09/24 04/12/24 04/16/24
10:00
Fluid WBC 2325 259 32
Fluid Mononuclear Cell 7.7 19.6 84
Fl Polymorphonucl Cell 92.3 80.4 15
Fluid Total Protein 2.1
Fluid Albumin < 1.0
Fluid LDH 249
Fluid Cult/not urine Final 04/12/24-1452
Enterococcus faecalis*
*Isolated from enrichment broth only.
Organism 1 Enterococcus faecalis
1. Enterococcus faecalis
M.I.C. RX
--------- ---
Ampicillin <=2 S
Gentamicin Synergy Screen <=500 S
Vancomycin 2 S
[2024-04-19] MEDS: ZOFRAN 8 MG IV (14:35)
[2024-04-19 15:17] VITALS: BP 97/58
[2024-04-19] MEDS: ProAmatine PO (17:25)
[2024-04-19] MEDS: AMOXIL 500 MG PO (19:42)
[2024-04-19 23:29] VITALS: BP 106/60
[2024-04-20] MEDS: ZOFRAN 8 MG IV (03:23)
[2024-04-20 06:00] VITALS: BMI 24.8
[2024-04-20] MEDS: ALDACTONE 50 MG PO (07:48)
[2024-04-20] MEDS: REGLAN 10 MG IV ×2 (07:48→19:54)
[2024-04-20] MEDS: PROTONIX 40 MG PO (07:48)
[2024-04-20] MEDS: ProAmatine 10 MG PO (07:48)
[2024-04-20] MEDS: FEOSOL 325 MG PO (07:49)
[2024-04-20] MEDS: HEPARIN 5000 UNITS SC ×2 (07:49→19:41)
[2024-04-20] MEDS: AMOXIL 500 MG PO ×2 (07:49→19:39)
[2024-04-20] MEDS: LASIX 40 MG PO (07:49)
[2024-04-20] MEDS: TRIAMCINOLONE ACETONIDE 0.5% CREAM 1 APPLIC TOPICAL ×2 (07:51→19:41)
[2024-04-20] MEDS: NSS (PRESERVATIVE FREE) IV (07:53)
[2024-04-20 07:54] VITALS: BP 99/54
[2024-04-20 09:02] LABS: % Basophils 0.7 % (0-2); % Eosinophils 1.6 % (0-6); % Immature Granulocytes 0.5 % (0-0.5); % Lymphocytes 8.6 % (20.5-51.1); % Monocytes 13.6 % (1.7-9.3); Absolute Eosinophils 0.1 10^3/uL (0-0.7); Absolute Lymphocytes 0.5 10^3/uL (1.2-3.4); Absolute Monocytes 0.8 10^3/uL (0.1-0.6); Absolute Neutrophils 4.3 10^3/uL (1.4-6.5); Hemoglobin 10.5 g/dL (12.0-16.0); Mean Corp Hgb Conc. 33.9 g/dL (33.0-37.0); Mean Corpuscular Hgb 35.2 pg (27.0-31.0); Mean Platelet Volume 11.9 fL (7.4-10.4); Nucleated Red Blood Cells % 0 %; Platelet Count 123 10^3/uL (130-400); Red Blood Cell Count 2.98 10^6/uL (4.20-5.40); Red Cell Dist. Width 14.4 % (11.5-14.5); White Blood Cell Count 5.7 10^3/uL (4.8-10.8)
--- NOTE | 2024-04-20 09:06 | W.PN.ONC2 ---
Today's Communication / Plan
-
OP follow up with Dr. Waters to determine if/when capivasertib (with continued faslodex) can be started
continue with palliative care service support upon discharge - known to [facility] palliative care
Impression
Impression
p/w N/V suspected gastroenteritis, however, Enterococcus in peritoneal fluid 04/09
metastatic breast cancer, with progression of disease on Ibrance/Faslodex
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
melena, varices
Afib known to Dr Betancourt
pancytopenia from cirrhosis and Ibrance at baseline
MARGARITA - improved
hyperkalemia -resolved
hyponatremia
Plan
Plan
goals remain restorative (wants to pursue treatment)
continue prn paracentesis for malignant recurrent ascites.
Continue antibiotics per ID and primary team for bacterial peritonitis with Enterococcus
MRI with and without contrast negative for any intracranial metastases
GI prophylaxis as patient was recently on steroids
bowel regimen as needed for constipation
to start capivasertib (with continued faslodex) after recovery from discharge
d/c planning for SNF
Subjective/Objective
Subjective
ab pain resolved
ambulating to bathroom
constipation
Vital Signs:
Vital Signs
Temp Pulse Resp BP Pulse Ox
98.2 F 95 18 99/54 96
04/20/24 07:54 04/20/24 07:54 04/20/24 07:54 04/20/24 07:54 04/20/24 07:54
Lab Results:
Laboratory Data
WBC 5.7 10^3/uL (4.8-10.8) 04/20/24 07:20
Hgb 10.5 g/dL (12.0-16.0) L 04/20/24 07:20
Plt Count 123 10^3/uL (130-400) L D 04/20/24 07:20
eGFR 28.66 04/19/24 07:15
Physical Exam
HEENT: Moist Mucous Membranes; No Jaundice
Cardiology: Normal Sinus Rhythm
Pulmonary: Clear
GI: Soft and Distended
Extremities: Pulses Present; No Edema
Neuro: Non Focal
[2024-04-20 09:28] LABS: Blood Urea Nitrogen 48 mg/dl (7-17); Calcium 7.6 mg/dl (8.4-10.2); Carbon Dioxide 23 mmol/L (22-30); Chloride 92 mmol/L (98-107); Estimated Creatinine Clearance 21 ml/min; Glucose 98 mg/dl (70-99); Potassium 4.5 mmol/L (3.5-5.1); Sodium 126 mmol/L (135-145); eGFR 25.26
--- NOTE | 2024-04-20 11:14 | CM ---
manager diabetes reviewed patient's chart and met with patient and patient did well with physical therapy and plan could be to home, case checker spoke with admissions at [facility] and they have no beds available, case checker reached out to admissions
at [facility], per medical team patient is for possible Asept cath, case checker spoke with admissions at [facility] about Asept Cath and they will need to discuss, meanwhile patient is thinking about returning to home with her
spouse and [facility], referral sent to [facility].
Plan; Await final decision from [facility] on skilled placement v's home with [facility].
--- NOTE | 2024-04-20 11:55 | W.PN.NEPH.PH ---
Today's Communication / Plan
-
follow BMP
Assessment/Plan
-
Impression:
p/w N/V suspected gastroenteritis
metastatic breast cancer, with progression of disease on Ibrance/Faslodex
MARGARITA
CKD stage IIIb baseline around 1.8
Hyponatremia
Metabolic acidosis
Hyperkalemia
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
melena, varices
Afib hx
pancytopenia from cirrhosis and Ibrance at baseline
Chronic hypotension on midodrine in setting of cirrhosis
Plan:
Follow BMP
back on lasix
Continue spironolactone
dc planning
Patient would not be dialysis candidate as discussed with her on multiple occasions
-
-
Date of Service: April 20, 2024
CC / HPI / ROS
-
Chief Complaint:
MARGARITA
Hyperkalemia
Hyponatremia
History of Present Illness:
Hemodynamically stable on midodrine
MARGARITA/creatinine stable at 2.0
Sodium remained stable but low at 127
Potassium normal
Status post paracentesis 04/09/2024 and April 12, 2024 / April 16
Weight overall stable
Review of Systems:
no chest pain or shortness of breath
appetite fair
Labs
-
Labs:
WBC 5.7 10^3/uL (4.8-10.8) 04/20/24 07:20
RBC 2.98 10^6/uL (4.20-5.40) L 04/20/24 07:20
Hgb 10.5 g/dL (12.0-16.0) L 04/20/24 07:20
Hct 31.0 % (37.0-47.0) L 04/20/24 07:20
Plt Count 123 10^3/uL (130-400) L D 04/20/24 07:20
Sodium 126 mmol/L (135-145) L 04/20/24 07:20
Potassium 4.5 mmol/L (3.5-5.1) 04/20/24 07:20
Chloride 92 mmol/L (98-107) L 04/20/24 07:20
Carbon Dioxide 23 mmol/L (22-30) 04/20/24 07:20
BUN 48 mg/dl (7-17) H 04/20/24 07:20
Creatinine 2.0 mg/dL (0.6-1.0) H 04/20/24 07:20
eGFR 25.26 04/20/24 07:20
Glucose 98 mg/dl (70-99) 04/20/24 07:20
Calcium 7.6 mg/dl (8.4-10.2) L 04/20/24 07:20
Albumin 2.9 g/dl (3.5-5.0) L 04/19/24 07:15
Physical Exam
-
Vital Signs:
Vital Signs
Temp Pulse Resp BP Pulse Ox
98.2 F 95 18 99/54 96
04/20/24 07:54 04/20/24 07:54 04/20/24 07:54 04/20/24 07:54 04/20/24 07:54
Cardiovascular:: Regular rate and rhythm
Respiratory:: Bilateral: Coarse
Lung Excursion:: Normal
Abdomen:: Nontender and Soft
Bowel Sounds:: Normal
Extremity Edema:: None: Bilateral:
--- NOTE | 2024-04-20 12:02 | VNURNOTE ---
Home Health Liaison met with patient at bedside to discuss [facility] nurse/therapy, visits, schedule and homebound status. Patient is agreeable and understands that visits at home will be 2-3 x per week to assess and teach medical management. [facility]
brochure provided with contact information. Patient is aware that [facility] will contact them for start of care in 1-2 days after discharge from .
[facility] referral completed in [facility].
[2024-04-20] MEDS: ProAmatine PO ×2 (12:52→17:34)
--- NOTE | 2024-04-20 13:37 | W.PN.HOSP.TC ---
Addendum entered and electronically signed by Aayush Bergeron MD 04/20/24 21:58:
Attending Addendum-
I saw and evaluated the patient. I reviewed the resident�s note and agree with findings and plan as documented in the resident�s note. Sub: NAEON, feels good today. energy improved. Full 12 point ROS reviewed and negative except as documented Exam:
Vitals reviewed in chart GEN-NADheart RRR lungs clear abd soft distended POS BS pos fluid wave LE 1+ pitting edema
Plan
# SBP
- present on admission
- s/p paracentesis x 2 this admission 04/09-4L, 04/12- 3L, 04/16-3L
- fluid growing entercoccus
- ID on board
- completed course of ampicillin/amox
# Nausea
- cont prn zofran
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
- resolved
- back to baseline cont to trend (baseline @ 1.8)
- renal following
- overall poor prognosis
- poor HD candidate
# Chronic Hyponatremia
- na 126
- hypervolemic
- from liver disease/ascites/third spacing
- poor prognosis
- restart spironolactone and lasix
# Malignant ascites
- s/p para-4L on 04/09, 3L on 04/12 , 3L on 04/16
- previous para cytology pos for malignancy
- requiring at least biweekly para
- poor prognosis
- restart spironolactone and lasix
- Asept cath placement prior to DC in am
- palliative care at home on DC
Other problems:
-Chronic pancytopenia likely due to malignancy- trend CBC
-PAF: in SR, not on rate controlling meds or AC [employer]EM[employer] PIPE
-Metastatic Breast CA: metastases liver and bones Seen by palliative care and oncology, pt's goals are restorative for now MRI- No acute intracranial abnormality noted. No evidence for intracranial metastases. appreciate heme onc input for OP chemo
if desired
-Chronic Hypotension: cont Midodrine
FULL--> DNR
DVT proph- heparin
Dispo- DC to home on pall care after asept cath placement in am
Time spent coordinating care, review of plan of care with resident, personally reviewed records in EMR, med rec, consults, notes, labs, radiology, d/w nursing, onc, rads � 54 mins
Original Note:
Today's Communication/Plan
-
.
Assessment / Plan
Assessment / Plan
#Spontaenous Bacterial Peritonitis
- Recurrent malginant ascites; paracenteses q4d
- 04/09: Culture of peritoneal fluids grew Enterococcus Faecalis
- Started on Vancomycin empirically; sensitivity shows not VRE. Received full course of Ampicillin and 1 day of Amoxicillin until 04/20.
- PT/OT/CM for dispo planning.
-Patient to be discharged to [facility] vs [facility] vs home with [facility], pending CM
- In discussion with patient re: cost of providing bottles for Asept as well as chemotherapy to SNF. Patient also willing to be discharged home with [facility].
- Patient is agreeable to Asept Cath for management of recurrent ascites, particularly in the setting of palliative care. In continued discussion with oncology, IR, palliative care, CM, regarding indications for Asept, risks, benefits, and
logistics of care after discharge.
#Lower abdominal pain associated with nausea/vomiting (likely 2/2 above)
- LRD
- Pain control with morphine/tylenol only
- Hold all NSAIDS due to MARGARITA
- Reglan/Zofran/Steroid tried at different times; nausea controlled today
- Obstruction Series (04/14): no evidence of obstruction.
- Lipase normal
#Skin Rash/itching - chronic
- Triamcinolone acetonide BID as needed
#Sore throat/burning sensation (resolved)
- secondary to vomiting.
- Lozenges PRN
#Hyperkalemia (resolved)
- Failed treatment with Lokelma, insulin, D50
- Hyperkalemia resolved after insulin/D50W, 10g Lokelma given on admission, rectal Kayexalate (note PO doses were vomited up), and alkalotic IVFs, received 1/2NS with 75meq NaHCO3...now off.
- Nephrology following
- Hold spironolactone
- EKG NSR, normal QTc
- Monitor BMP closely
#Hyponatremia
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
- Continued Slight improvement to 130
- Follow BMP
Leukopenia/pancytopenia
- WBC 4,5, improved
- Afbrile in past 24 hours
- Appreciate Heme/Onc Reccs
- Monitor CBC
#MARGARITA
- Appreciate Nephrology reccs
- FeNa 0.1%. Prerenal MARGARITA
- Creatinine 2.4
- Continue IV fluids with bicarb
- HOLD ALL NSAIDS
- Toradol was given in ED
- Follow BMP
#Proximal Atrial Fibrillation
- Rate controlled
#Metastatic breast cancer (mets to bone/liver)
- Appreciate Heme Onc Reccs
- Goals remain restorative
- Start capivasertib when able to tolerate PO after discharge
- MRI Brain: no mets, no abnormality
- Hospice discussions noted. The family met with hospice earlier last week but refused hospice as she is not ready yet to stop cancer directed treatments. Patient wishes to pursue palliative care. Following SNF, patient likely to continue
relationship with [facility] palliative care.
#Hypotension
- Midodrine 10 mg PO TID
- Blood pressure is stable 108/65
- Continue to monitor BP
Advance diet as tolerated
DVT prophylaxis HSQ
DNR
Anticipated Discharge: 24 - 48 hours
Subjective/Interval History
-
Date of Service: April 20, 2024
Patient seen and examined while resting comfortably in bed. Patient states that she is feeling well this morning; notes not being able to sleep well secondary to the loud noises made by heating unit. Otherwise denies abdominal pain, nausea. Patient
states that after speaking with her and others, she has decided to go through with Asept catheter. Continued conversations with oncology, IR, palliative care, CM, regarding indications for Asept, risks, benefits, and logistics of care after
discharge.
Objective Data
-
Labs:
Laboratory Results
04/20/24
07:20
WBC 5.7
Hgb 10.5 L
Hct 31.0 L
Plt Count 123 L D
Sodium 126 L
Potassium 4.5
Chloride 92 L
Carbon Dioxide 23
BUN 48 H
Creatinine 2.0 H
Glucose 98
Calcium 7.6 L
Vital Signs:
Vital Signs
Temp Pulse Resp BP Pulse Ox
98.2 F 95 18 99/54 96
04/20/24 07:54 04/20/24 07:54 04/20/24 07:54 04/20/24 07:54 04/20/24 07:54
I&O
04/19/24 04/20/24 04/21/24
06:59 06:59 06:59
Intake Total 1060 / 1060 1080 / 1080
Balance 1060 / 1060 1080 / 1080
Review of Systems
-
History Source: Patient
Constitutional: Reports No Symptoms
Respiratory: Reports No Symptoms
Cardiac: Reports No Symptoms
Abdomen/GI: Reports Diarrhea; Denies Abdominal Pain or Nausea
Musculoskeletal: Reports Edema
Neuro: Reports No Symptoms
Physical Exam
-
General: No Apparent Distress, Conversant and Other (more comfortable than on past days)
HEENT: Normocephalic and Atraumatic
Respiratory: Clear to Auscultation
Cardiac: Regular Rhythm and S1/S2
GI: Soft and Distended
Musculoskeletal: No Clubbing, No Cyanosis, Edema, Right Lower Extrem and Edema, Left Lower Extrem
Skin: Warm and Dry
Neuro: Awake, Alert and Oriented
Psych: Calm
Data Reviewed
-
Labs: Labs Reviewed by me and Discussed with Patient
[2024-04-20 15:39] VITALS: BP 116/59
--- NOTE | 2024-04-20 15:55 | W.PN.ID1 ---
Date of Service
Date of Service: April 20, 2024
Today's Communication
Complete course of amoxicillin today.
Assessment / Plan
SBP 2* Enterococcus faecalis
Recurrent malignant ascites
Stage IV breast cancer
Nausea/vomiting
Leukopenia
Renal insufficiency
Hyponatremia
Liver cirrhosis
[place]
Dyslipidemia
Recommendations:
Repeat paracentesis reveals normalization of ascites fluid numbers.
To complete course of of amoxcillin today.
����������������������������������������������������������
Chief Complaint
-: Other (SBP secondary to Enterococcus faecalis)
Subjective / Review of Systems
Review of Systems: No Fever and No Chills
Vital Signs / Physical Exam
Vital Signs
Vital Signs
Temp Pulse Resp BP Pulse Ox
98.2 F 101 18 116/59 98
04/20/24 15:39 04/20/24 15:39 04/20/24 15:39 04/20/24 15:39 04/20/24 15:39
Physical Exam
Constitutional: No Acute Distress, Comfortable, Chronically Ill and Non-toxic
Head: Other (Temporal wasting)
Pulmonary: Non Labored
Gastrointestinal: Distended (Minimal)
Genito-Urinary: Negative [place]
Extremities: Edema
Psychological: Calm
Objective Data
Lab Data
Lab Results
04/20/24 07:20
04/20/24 07:20
Estimated Creat Clear 21 ml/min 04/20/24 07:20
Total Bilirubin 1.1 mg/dl (0.2-1.3) 04/19/24 07:15
AST 35 U/L (14-36) 04/19/24 07:15
ALT 42 U/L (0-35) H 04/19/24 07:15
Alkaline Phosphatase 112 U/L (38-126) 04/19/24 07:15
Most recent labs reviewed.
Micro Results:
04/09/24 10:00 Body Fluid Culture - Final
Peritoneal Fluid Enterococcus faecalis
Gram Stain - Final
04/10/24 07:50 Salmonella/Shigella Culture - Final
Feces/Stool No Salmonella, Shigella, Aeromonas or Plesiomonas species
isolated.
Campylobacter Culture - Final
No Campylobacter species isolated.
Shiga Toxin Test - Final
No E. coli Shiga Toxin 1 or 2 detected.
Stool Leukocytes - Final
04/09/24 01:59 Urine Culture - Final
Urine
04/10/24 07:50 - Final
Feces/Stool Negative for Norovirus GI and GII.
Laboratory Tests
04/09/24 04/12/24 04/16/24
10:00
Fluid WBC 2325 259 32
Fluid Mononuclear Cell 7.7 19.6 84
Fl Polymorphonucl Cell 92.3 80.4 15
Fluid Total Protein 2.1
Fluid Albumin < 1.0
Fluid LDH 249
Fluid Cult/not urine Final 04/12/24-1452
Enterococcus faecalis*
*Isolated from enrichment broth only.
Organism 1 Enterococcus faecalis
1. Enterococcus faecalis
M.I.C. RX
--------- ---
Ampicillin <=2 S
Gentamicin Synergy Screen <=500 S
Vancomycin 2 S
[2024-04-20 23:28] VITALS: BP 117/65
[2024-04-21] VITALS (13 sets, daily range): BP systolic 95–128; BP diastolic 47–69; BMI 25.9
[2024-04-21] MEDS: ULTRAM 50 MG PO (00:01)
--- NOTE | 2024-04-21 05:02 | DOWNTIME ---
There was a [employer] Downtime on 04/21/2024 from 0100 to 04/21/2023 at 0205 . Downtime documentation of patient's care, including medication administrations, has been reconciled in the electronic record per guidelines. Refer to the
patient's paper chart under the miscellaneous tab to see printed paper medication records and downtime forms.
[2024-04-21 07:27] LABS: % Basophils 0.3 % (0-2); % Eosinophils 1.3 % (0-6); % Immature Granulocytes 0.6 % (0-0.5); % Lymphocytes 8.6 % (20.5-51.1); % Monocytes 14.3 % (1.7-9.3); % Neutrophils 74.9 % (42.2-75.2); Absolute Eosinophils 0.1 10^3/uL (0-0.7); Absolute Lymphocytes 0.6 10^3/uL (1.2-3.4); Absolute Monocytes 0.9 10^3/uL (0.1-0.6); Absolute Neutrophils 4.8 10^3/uL (1.4-6.5); Hematocrit 29.7 % (37.0-47.0); Hemoglobin 10.6 g/dL (12.0-16.0); Mean Corp Hgb Conc. 35.7 g/dL (33.0-37.0); Mean Corpuscular Hgb 36.4 pg (27.0-31.0); Mean Corpuscular Volume 102.1 fL (81.0-99.0); Mean Platelet Volume 10.6 fL (7.4-10.4); Nucleated Red Blood Cells % 0 %; Platelet Count 112 10^3/uL (130-400); Red Blood Cell Count 2.91 10^6/uL (4.20-5.40); White Blood Cell Count 6.4 10^3/uL (4.8-10.8)
[2024-04-21 07:43] LABS: Blood Urea Nitrogen 51 mg/dl (7-17); Calcium 8.3 mg/dl (8.4-10.2); Carbon Dioxide 22 mmol/L (22-30); Chloride 92 mmol/L (98-107); Estimated Creatinine Clearance 19 ml/min; Glucose 107 mg/dl (70-99); Potassium 5.1 mmol/L (3.5-5.1); Sodium 124 mmol/L (135-145); eGFR 22.53
[2024-04-21] MEDS: HEPARIN SC (07:57)
[2024-04-21] MEDS: FEOSOL PO (07:57)
[2024-04-21] MEDS: ALDACTONE PO (07:57)
[2024-04-21] MEDS: PROTONIX PO (07:58)
[2024-04-21] MEDS: ProAmatine PO ×2 (07:58→14:11)
[2024-04-21] MEDS: NSS (PRESERVATIVE FREE) IV (07:58)
[2024-04-21] MEDS: LASIX PO (08:00)
[2024-04-21] MEDS: TRIAMCINOLONE ACETONIDE 0.5% CREAM TOPICAL (08:00)
--- NOTE | 2024-04-21 09:15 | W.PN.HOSP.TC ---
Addendum entered and electronically signed by Aayush Bergeron MD 04/21/24 22:31:
Attending Addendum-
I saw and evaluated the patient. I reviewed the resident�s note and agree with findings and plan as documented in the resident�s note. Sub: JAMIE, 'Im hungry' Feels that abdominal girth has increased. Denies N/V abd pain. Full 12 point ROS reviewed
and negative except as documented Exam: Vitals reviewed in chart GEN-NAD heart RRR lungs clear abd soft, mod distended POS BS pos fluid wave LE 1+ pitting edema
Plan
# SBP
- resolved
- present on admission
- s/p paracentesis x 3 this admission 04/09-4L, 04/12- 3L, 04/16-3L
- fluid growing entercoccus
- ID on board
- completed course of ampicillin/amox
- increased risk recurrence
# Nausea
- improved
- cont prn zofran
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
- worsening from HR syndrome
- cont to trend (baseline @ 1.8)
- renal following
- overall poor prognosis
- poor HD candidate
- cont lasix spirino
# Chronic Hyponatremia
- na down to 124 avoid tolvaptan due to liver disease
- hypervolemic
- from liver disease/ascites/third spacing
- poor prognosis
- cont spironolactone and lasix
- for para with asept cath placement today
# Malignant ascites
- s/p para-4L on 04/09, 3L on 04/12 , 3L on 04/16
- cytology pos for malignancy
- requiring at least biweekly para
- poor prognosis
- cont spironolactone and lasix
- Asept cath placement 04/21 [facility] - onc to assume care as OP
- palliative care at home on DC
Other problems:
-Chronic pancytopenia likely due to malignancy- trend CBC
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
-Metastatic Breast CA: metastases liver and bones Seen by palliative care and oncology, pt's goals are restorative for now MRI- No acute intracranial abnormality noted. No evidence for intracranial metastases. appreciate heme onc input for OP chemo
if desired
-Chronic Hypotension: cont Midodrine
FULL--> DNR
DVT proph- heparin
Dispo- DC to home on pall care after asept cath placement in am
Time spent coordinating care, review of plan of care with resident, personally reviewed records in EMR, med rec, consults, notes, labs, radiology, d/w nursing, onc, GI, rads � 53 mins
Original Note:
Today's Communication/Plan
-
.
Assessment / Plan
Assessment / Plan
#Spontaneous Bacterial Peritonitis
- Recurrent malignant ascites; paracenteses q4d
- 04/09: Culture of peritoneal fluids grew Enterococcus Faecalis
- Started on Vancomycin empirically; sensitivity shows not VRE. Received full course of Ampicillin and 1 day of Amoxicillin until 04/20.
- PT/OT/CM for dispo planning.
-Patient has decided she wants to be discharged to home with [facility].
- Patient is agreeable to Asept Cath for management of recurrent ascites, particularly in the setting of palliative care. In continued discussion with oncology, IR, palliative care, CM, regarding indications for Asept, risks, benefits, and
logistics of care after discharge. Management of drain has been accepted by Dr. Waters (Heme/Onc).
- Procedure hopefully today, with discharge to home tomorrow.
#Potassium (ULN)
- Follow up CMP tomorrow
- Likely in the setting of starting spironolactone
- Patient also on Lasix with reverse effect
- Monitor BMP in AM
#Lower abdominal pain associated with nausea/vomiting (likely 2/2 above)
- LRD
- Pain control with morphine/tylenol only
- Hold all NSAIDS due to MARGARITA
- Reglan/Zofran/Steroid tried at different times; nausea controlled today
- Obstruction Series (04/14): no evidence of obstruction.
- Lipase normal
#Skin Rash/itching - chronic
- Triamcinolone acetonide BID as needed
#Sore throat/burning sensation (resolved)
- secondary to vomiting.
- Lozenges PRN
#Hyperkalemia (resolved)
- Failed treatment with Lokelma, insulin, D50
- Hyperkalemia resolved after insulin/D50W, 10g Lokelma given on admission, rectal Kayexalate (note PO doses were vomited up), and alkalotic IVFs, received 1/2NS with 75meq NaHCO3...now off.
- Nephrology following
- Hold spironolactone
- EKG NSR, normal QTc
- Monitor BMP closely
#Hyponatremia
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
- Continued Slight improvement to 130
- Follow BMP
Leukopenia/pancytopenia
- WBC 4,5, improved
- Afbrile in past 24 hours
- Appreciate Heme/Onc Reccs
- Monitor CBC
#MARGARITA
- Appreciate Nephrology reccs
- FeNa 0.1%. Prerenal MARGARITA
- Creatinine 2.2
- Creatinine normalizes after paracenteses
- Continue IV fluids with bicarb
- HOLD ALL NSAIDS
- Toradol was given in ED
- Follow BMP
#Proximal Atrial Fibrillation
- Rate controlled
#Metastatic breast cancer (mets to bone/liver)
- Appreciate Heme Onc Reccs
- Goals remain restorative
- Start capivasertib when able to tolerate PO after discharge
- MRI Brain: no mets, no abnormality
- Hospice discussions noted. The family met with hospice earlier last week but refused hospice as she is not ready yet to stop cancer directed treatments. Patient wishes to pursue palliative care. Following SNF, patient likely to continue
relationship with [place] palliative care.
#Hypotension
- Midodrine 10 mg PO TID
- Blood pressure is stable 108/65
- Continue to monitor BP
Advance diet as tolerated
DVT prophylaxis HSQ
DNR
Anticipated Discharge: Within 24 hours
Subjective/Interval History
-
Date of Service: April 21, 2024
Patient seen and examined while resting comfortably in recliner chair. Patient is awaiting placement of her Asept cath. Patient notes abdominal distension, and some mild pain secondary to it, but no nausea, no vomiting or bowel habit changes.
Objective Data
-
Labs:
Laboratory Results
04/21/24
07:04
WBC 6.4
Hgb 10.6 L
Hct 29.7 L
Plt Count 112 L
Sodium 124 L
Potassium 5.1
Chloride 92 L
Carbon Dioxide 22
BUN 51 H
Creatinine 2.2 H
Glucose 107 H
Calcium 8.3 L
Vital Signs:
Vital Signs
Temp Pulse Resp BP Pulse Ox
98.0 F 100 18 97/59 97
04/21/24 07:06 04/21/24 07:06 04/21/24 07:06 04/21/24 07:06 04/21/24 07:06
I&O
04/20/24 04/21/24 04/22/24
06:59 06:59 06:59
Intake Total 1080 / 1080 960 / 960
Balance 1080 / 1080 960 / 960
Review of Systems
-
History Source: Patient
Constitutional: Reports No Symptoms
Respiratory: Reports No Symptoms
Cardiac: Reports No Symptoms
Abdomen/GI: Reports Abdominal Pain (mild; abdominal distension); Denies Nausea, Vomiting or Diarrhea
Neuro: Reports No Symptoms
Physical Exam
-
General: No Apparent Distress, Comfortable and Conversant
HEENT: Normocephalic and Atraumatic
Respiratory: Clear to Auscultation
Cardiac: Regular Rhythm and S1/S2
GI: Soft, Nontender, Normal Bowel Sounds and Distended
Musculoskeletal: No Clubbing, No Cyanosis, Edema, Right Lower Extrem and Edema, Left Lower Extrem
Skin: Warm and Dry
Neuro: Awake, Alert and Oriented
Psych: Calm
Data Reviewed
-
Labs: Labs Reviewed by me
--- NOTE | 2024-04-21 11:23 | CM ---
CM reviewed chart, per Gabbie, no beds/unable to accept at this time. Patient seen bedside, discussed [facility] unable to accept, agreeable to discharge home with [facility] and continuance of [place] [facility] care. CM will continue to follow for all discharge
planning needs.
Plan; home with [facility] and [place] [facility] care when stable.
[2024-04-21] MEDS: ANCEF 10 IV (14:49)
[2024-04-21] MEDS: ZOFRAN 8 MG IV (14:57)
[2024-04-21] MEDS: REGLAN 10 MG IV (16:34)
--- NOTE | 2024-04-21 16:55 | PTCARENOTE ---
[facility] RN- drained patient abdomen via tunneled abdominal drainage catheter for 4000ml yellow cloudy fluid. TT to Olayinka Anderson (hospitalist) amount and last set of vital signs.
[2024-04-21] MEDS: ProAmatine 10 MG PO (17:48)
[2024-04-21] MEDS: FLEXBUMIN 100 IV (17:49)
[2024-04-21] MEDS: HEPARIN 5000 UNITS SC (19:35)
[2024-04-21] MEDS: TRIAMCINOLONE ACETONIDE 0.5% CREAM 1 APPLIC TOPICAL (19:35)
[2024-04-22 03:11] VITALS: BP 107/52
[2024-04-22 06:00] VITALS: BMI 24.4
[2024-04-22 07:35] VITALS: BP 102/54
[2024-04-22 08:14] LABS: % Basophils 0.5 % (0-2); % Eosinophils 0.8 % (0-6); % Immature Granulocytes 0.3 % (0-0.5); % Lymphocytes 4.5 % (20.5-51.1); % Monocytes 9.2 % (1.7-9.3); % Neutrophils 84.7 % (42.2-75.2); Absolute Eosinophils 0.1 10^3/uL (0-0.7); Absolute Lymphocytes 0.4 10^3/uL (1.2-3.4); Absolute Monocytes 0.7 10^3/uL (0.1-0.6); Absolute Neutrophils 6.6 10^3/uL (1.4-6.5); Hematocrit 26.7 % (37.0-47.0); Hemoglobin 9.3 g/dL (12.0-16.0); Mean Corp Hgb Conc. 34.8 g/dL (33.0-37.0); Mean Corpuscular Hgb 35.8 pg (27.0-31.0); Mean Corpuscular Volume 102.7 fL (81.0-99.0); Nucleated Red Blood Cells % 0 %; Red Cell Dist. Width 14.1 % (11.5-14.5); White Blood Cell Count 7.7 10^3/uL (4.8-10.8)
[2024-04-22 08:22] LABS: ALT (SGPT) 27 U/L (0-35); AST (SGOT) 30 U/L (14-36); Alkaline Phosphatase 120 U/L (38-126); Blood Urea Nitrogen 50 mg/dl (7-17); Carbon Dioxide 25 mmol/L (22-30); Chloride 93 mmol/L (98-107); Estimated Creatinine Clearance 21 ml/min; Glucose 99 mg/dl (70-99); Sodium 124 mmol/L (135-145); Total Bilirubin 0.9 mg/dl (0.2-1.3); Total Protein 5.1 g/dl (6.3-8.2); eGFR 25.26
[2024-04-22] MEDS: ALDACTONE 50 MG PO (08:26)
[2024-04-22] MEDS: PROTONIX 40 MG PO (08:26)
[2024-04-22] MEDS: FEOSOL 325 MG PO (08:26)
[2024-04-22] MEDS: LASIX 40 MG PO (08:27)
[2024-04-22] MEDS: ProAmatine 10 MG PO (08:27)
[2024-04-22] MEDS: TRIAMCINOLONE ACETONIDE 0.5% CREAM TOPICAL ×2 (08:27→08:41)
[2024-04-22] MEDS: NSS (PRESERVATIVE FREE) IV (08:27)
[2024-04-22] MEDS: HEPARIN 5000 UNITS SC (08:28)
[2024-04-22 08:30] LABS: Potassium 4.7 mmol/L (3.5-5.1)
--- NOTE | 2024-04-22 08:35 | W.PN.ONC2 ---
Today's Communication / Plan
-
d/c planning
Impression
Impression
p/w N/V suspected gastroenteritis, however, Enterococcus in peritoneal fluid 04/09
metastatic breast cancer, with progression of disease on Ibrance/Faslodex
cirrhosis w/ recurrent ascites - h/o FINN s/p ab asept 04/22
melena, varices
Afib known to Dr Betancourt
pancytopenia from cirrhosis and Ibrance at baseline
MARGARITA - improved
hyperkalemia -resolved
hyponatremia
Plan
Plan
goals remain restorative (wants to pursue treatment)
continue prn paracentesis for malignant recurrent ascites.
Continue antibiotics per ID and primary team for bacterial peritonitis with Enterococcus
MRI with and without contrast negative for any intracranial metastases
GI prophylaxis as patient was recently on steroids
bowel regimen as needed for constipation
to start capivasertib (with continued faslodex) after recovery from discharge
d/c planning for home with [facility]
Subjective/Objective
Subjective
no new complaints
plans for dc home with [facility]
Vital Signs:
Vital Signs
Temp Pulse Resp BP Pulse Ox
98.3 F 93 16 102/54 99
04/22/24 07:35 04/22/24 07:35 04/22/24 07:35 04/22/24 07:35 04/22/24 07:35
Lab Results:
Laboratory Data
WBC 7.7 10^3/uL (4.8-10.8) 04/22/24 07:17
Hgb 9.3 g/dL (12.0-16.0) L 04/22/24 07:17
Plt Count 112 10^3/uL (130-400) L 04/21/24 07:04
eGFR 25.26 04/22/24 07:17
Physical Exam
HEENT: Moist Mucous Membranes; No Jaundice
Cardiology: Normal Sinus Rhythm
Pulmonary: Clear
GI: Soft and Other (asept cath in place)
Neuro: Non Focal
[2024-04-22 09:17] LABS: Mean Platelet Volume 11.7 fL (7.4-10.4); Platelet Count 95 10^3/uL (130-400)
[2024-04-22 11:20] VITALS: BP 106/58
[2024-04-22 11:52] VITALS: BP 100/53; PULSE 96; O2SAT 98
--- NOTE | 2024-04-22 12:26 | CM ---
Patient seen bedside, discussed plan for discharge. IMM reviewed verbally, patient provided with copy, placed in chart. Patients will provide transportation home. [facility] updated on discharge status. CM will continue to follow for all discharge
planning needs.
Plan; home with , [facility]
--- NOTE | 2024-04-22 12:42 | W.PN.HOSP.TC ---
Addendum entered and electronically signed by Aayush Bergeron MD 04/22/24 22:38:
Attending Addendum-
I saw and evaluated the patient. I reviewed the resident�s note and agree with findings and plan as documented in the resident�s note. Sub: 'im ready to go home!' Denies N/V abd pain. Full 12 point ROS reviewed and negative except as documented
Exam: Vitals reviewed in chart GEN-NAD heart RRR lungs clear abd soft, mod distended POS BS pos fluid wave LE 1+ pitting edema
Plan
# SBP
- resolved
- present on admission
- s/p paracentesis x 4 this admission 04/09-4L, 04/12- 3L, 04/16-3L, 04/21- 4L
- fluid growing entercoccus
- ID on board
- completed course of ampicillin/amox
- increased risk recurrence
# Nausea
- improved
- cont prn zofran
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
- improved-from HR syndrome
- cont to trend (baseline @ 1.8)
- renal following
- overall poor prognosis
- poor HD candidate
- cont lasix spirino
# Chronic Hyponatremia
- na down to 124 avoid tolvaptan due to liver disease
- hypervolemic
- from liver disease/ascites/third spacing
- poor prognosis
- cont spironolactone and lasix
- -para with asept cath placement-04/21- 4L drained
# Malignant ascites
- s/p para-4L on 04/09, 3L on 04/12 , 3L on 04/16, 4L on 04/21
- cytology pos for malignancy
- requiring at least biweekly para
- poor prognosis
- cont spironolactone and lasix
- Asept cath placement 04/21 [facility] - onc to assume care as OP
- palliative care at home on DC
Other problems:
-Chronic pancytopenia likely due to malignancy- trend CBC
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
-Metastatic Breast CA: metastases liver and bones Seen by palliative care and oncology, pt's goals are restorative for now MRI- No acute intracranial abnormality noted. No evidence for intracranial metastases. appreciate [facility] onc input for OP chemo
if desired
-Chronic Hypotension: cont Midodrine
FULL--> DNR
DVT proph- heparin
Dispo- DC to home on pall care
Time spent coordinating care, DC planning, review of DC plan of care with resident, transition of care, review of records, med rec/scripts sent electronically, consults, notes, d/w consultants, nursing, family, and CM� 34 mins
Original Note:
Today's Communication/Plan
-
Discharge to home with [facility]
Assessment / Plan
Assessment / Plan
#Spontaneous Bacterial Peritonitis
- Recurrent malignant ascites; paracenteses q4d
- 04/09: Culture of peritoneal fluids grew Enterococcus Faecalis
- Started on Vancomycin empirically; sensitivity shows not VRE. Received full course of Ampicillin and 1 day of Amoxicillin until 04/20.
- PT/OT/CM for dispo planning.
-Patient has decided she wants to be discharged to home with [facility].
- IR placed Asept Cath yesterday. Patient tolerated procedure well. Management of drain has been accepted by Dr. Waters (Heme/Onc).
- Discharge to home with [facility] today.
#Lower abdominal pain associated with nausea/vomiting (likely 2/2 above)
- LRD
- Pain control with morphine/tylenol only
- Hold all NSAIDS due to MARGARITA
- Reglan/Zofran/Steroid tried at different times; nausea controlled today
- Obstruction Series (04/14): no evidence of obstruction.
- Lipase normal
#Skin Rash/itching - chronic
- Triamcinolone acetonide BID as needed
#Sore throat/burning sensation (resolved)
- secondary to vomiting.
- Lozenges PRN
#Hyperkalemia (resolved)
- Failed treatment with Lokelma, insulin, D50
- Hyperkalemia resolved after insulin/D50W, 10g Lokelma given on admission, rectal Kayexalate (note PO doses were vomited up), and alkalotic IVFs, received 1/2NS with 75meq NaHCO3...now off.
- Nephrology following
- Hold spironolactone
- EKG NSR, normal QTc
- Monitor BMP closely
#Hyponatremia
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
- Continued Slight improvement to 130
- Follow BMP
Leukopenia/pancytopenia
- WBC 7, improved
- Afbrile in past 24 hours
- Appreciate Heme/Onc Reccs
- Monitor CBC
#MARGARITA
- Appreciate Nephrology reccs
- FeNa 0.1%. Prerenal MARGARITA
- Creatinine 2.2
- Creatinine normalizes after paracenteses
- Continue IV fluids with bicarb
- HOLD ALL NSAIDS
- Toradol was given in ED
- Follow BMP
#Proximal Atrial Fibrillation
- Rate controlled
#Metastatic breast cancer (mets to bone/liver)
- Appreciate Heme Onc Reccs
- Goals remain restorative
- Start capivasertib when able to tolerate PO after discharge
- MRI Brain: no mets, no abnormality
- Hospice discussions noted. The family met with hospice earlier last week but refused hospice as she is not ready yet to stop cancer directed treatments. Patient wishes to pursue palliative care. Following SNF, patient likely to continue
relationship with [place] palliative care.
#Hypotension
- Midodrine 10 mg PO TID
- Blood pressure is stable 108/65
- Continue to monitor BP
Low Residue
DVT prophylaxis HSQ
DNR
Anticipated Discharge: Today
Subjective/Interval History
-
Date of Service: April 22, 2024
Patient seen and examined while resting comfortably in bed. Patient has no acute complaints this morning, is in good spirits and is eager to get home. Patient denies abdominal pain and nausea this morning. Also denies chest pain, shortness of
breath. Patient is s/p paracentesis with removal of 4L of ascitic fluid and placement of Asept cath. Patient tolerated well. Denies pain at the procedural site.
Objective Data
-
Labs:
Laboratory Results
04/22/24
07:17
WBC 7.7
Hgb 9.3 L
Hct 26.7 L
Plt Count 95 L
Sodium 124 L
Potassium 4.7
Chloride 93 L
Carbon Dioxide 25
BUN 50 H
Creatinine 2.0 H
Glucose 99
Calcium 8.0 L
Total Bilirubin 0.9
AST 30
ALT 27
Alkaline Phosphatase 120
Vital Signs:
Vital Signs
Temp Pulse Resp BP Pulse Ox
98.5 F 98 16 106/58 99
04/22/24 11:20 04/22/24 11:20 04/22/24 11:20 04/22/24 11:20 04/22/24 11:20
I&O
04/21/24 04/22/24 04/23/24
06:59 06:59 06:59
Intake Total 960 / 960
Balance 960 / 960
Review of Systems
-
History Source: Patient
Constitutional: Reports No Symptoms
Respiratory: Reports No Symptoms
Cardiac: Reports No Symptoms
Abdomen/GI: Reports No Symptoms
Neuro: Reports No Symptoms
Physical Exam
-
General: No Apparent Distress and Comfortable
HEENT: Normocephalic and Atraumatic
Respiratory: Clear to Auscultation
Cardiac: Regular Rhythm and S1/S2
GI: Soft, Nontender, Distended (improved from yesterday, s/p paracentesis) and Other (Asept cath in place, dressing is c/d/i)
Musculoskeletal: No Clubbing, No Cyanosis, Edema, Right Lower Extrem and Edema, Left Lower Extrem
Skin: Warm and Dry
Neuro: Awake, Alert and Oriented
Psych: Calm
Data Reviewed
-
Labs: Labs Reviewed by me and Discussed with Patient
[2024-04-22] MEDS: ProAmatine PO (12:46)
--- NOTE | 2024-04-22 17:25 | W.DCSUMMARY ---
Addendum entered and electronically signed by Aayush Bergeron MD 04/22/24 22:39:
Read, reviewed, and agree. See same day progress note for additional details.
Luis Eduardo Bergeron MD
Original Note:
Documented by User: Matt Ram DO, Resident 04/22/24 17:53
Discharge Summary
Discharge Data
Date of Admission: 04/08/24
Date of Discharge: 04/22/24
-
Pending Results: No
Hospital Course
Nell Kim is a 78 year old female with a past medical history of metastatic breast cancer with metastatic disease to the liver and bones and malignant ascites who presented to the emergency department at [facility] on 04/08/2024
complaining of abdominal pain, nausea, vomiting and diarrhea. Importantly, the patient had been receiving paracentesis on a weekly basis. The patient exhibited pancytopenia (which was noted to be chronic), multiple electrolyte abnormalities, and CT
of the abdomen and pelvis revealed extensive ascites as well as extensive blastic osseus metastases. The patient was admitted for further evaluation and managment of her electrolyte abnormalities, as well as emergent paracentesis of her ascitic
fluid.
HOSPITAL COURSE
The morning after admission, the patient was sent for paracentesis which revealed 4 liters of cloudy ascitic fluid which was sent for culture. This fluid grew out enterococcus spp. The patient was started on antibiotics for spontaneous bacterial
peritonitis, narrowed to ampicillin after sensitivities resulted. The patient completed a 10 day course of this antibiotic. The patient continued to receive paracentesis every four days while in the hospital with improving fluid analyses but
removing 3-4 liters of fluid each time. The patient's clinical picture improved from the standpoint of SBP. However, given the patient's overall picture, multiple recommendations were made to consider hospice vs. palliative care. The patient did not
want to pursue hospice at this time, and instead her goals continue to be restorative. The patient will be following up with Dr. Waters in order to make changes to her chemotherapy regimen. In addition, since the patient requires multiple
paracenteses, the decision was made to implement an Asept catheter for easier and more frequent drainage of ascitic fluid. This was successfully placed and the patient was discharged to home with visiting nurse privileges on 04/22/2024.
DISCHARGE RECOMMENDATIONS
ASEPT Catheter placed, to be managed by Dr. Waters with instructions to visiting nurse.
Breast Cancer goals remain restorative and patient will start capivasertib with oncology.
With repeated paracenteses, the patient would on some days only require Midodrine twice per day, instead of three times per day. The regimen should be reviewed by her primary care provider.
The patient is not a viable candidate for hemodialysis.
The patient's spironolactone dosage was changed to 50 mg orally daily.
The patient will continue to follow up with [facility].
The patient will follow up with her oncologist Dr. Waters.
The patient will follow up with her primary care provider for further recommendations.
Discharge Plan
-
Patient Disposition: Home with Home Care
Discharge Diagnosis/Procedures: Spontaneous Bacterial Peritonitis
Malignant Ascites
Metastatic Breast Cancer
Chronic Kidney Disease Stage 4
Condition: Fair
Diet: Low Fiber
Activity: As tolerated
Other Services: VN
Referrals:
UNKNOWN - PT DOES,NOT KNOW [Family Provider] -
Prescriptions:
New
spironolactone 50 mg Tablet
50 mg PO DAILY Qty: 30 0RF
Continued
Xgeva 120 MG/1.7 ML solution
120 mg SQ [id number]
biotin 10,000 mcg Capsule
10,000 mcg PO DAILY
cholecalciferol (vitamin D3) [Vitamin D3] 25 mcg (1,000 unit) Capsule
25 mcg PO DAILY
calcium carbonate [Calcium 600] 600 mg calcium (1,500 mg) Tablet
600 mg PO DAILY
ferrous sulfate 325 mg (65 mg iron) Tablet
325 mg PO DAILY
ondansetron HCl 4 mg Tablet
4 mg PO Q8HPRN PRN (Reason: nausea)
gabapentin 100 mg Capsule
100 mg PO BIDPRN PRN (Reason: nerve pains)
fulvestrant 250 mg/5 mL Syringe
500 mg IM QMONTH
lactulose 10 gram/15 mL Solution
30 ml PO HS
tramadol 50 mg tablet
50 mg PO Q6HPRN PRN (Reason: severe pains)
omeprazole 40 mg capsule,delayed release(DR/EC)
40 mg PO DAILY
sennosides [senna] 8.6 mg Tablet
8.6 mg PO HS
furosemide [Lasix] 40 mg Tablet
40 mg PO DAILY
therapeutic multivitamin Tablet
1 tab PO DAILY
midodrine 10 mg Tablet
10 mg PO BID
Held
Ibrance 75 mg Tablet
75 mg PO QPM
Hold Instructions: Hold until seen by oncologist.
Patient Comments:
04/08/24: Had planned to start Truqap on Friday(04/10/24)
Rx Instructions:
3 weeks on, 1 week off
Discontinued
spironolactone 50 mg Tablet
75 mg PO BID
Patient Comments:
04/08/24: Patient unsure if this has changes due to recent labwork and potassium levels.
Discharge Orders:
Discharge Patient (As Directed); Ordered 04/22/24
Ordered By: Matt Ram
Discharge Date and Time
Discharge Date/Time: 04/22/24 13:43
Print Language: THAI

Documented by User: Aayush Bergeron MD 04/22/24 22:34
Discharge Summary
Discharge Data
Date of Admission: 04/08/24
Date of Discharge: 04/22/24
Discharge Plan
-
Patient Disposition: Home with Home Care
Discharge Diagnosis/Procedures: Spontaneous Bacterial Peritonitis
Malignant Ascites
Metastatic Breast Cancer
Chronic Kidney Disease Stage 4
Condition: Fair
Diet: Low Fiber
Activity: As tolerated
Other Services: VN
Referrals:
UNKNOWN - PT DOES,NOT KNOW [Family Provider] -
Prescriptions:
New
spironolactone 50 mg Tablet
50 mg PO DAILY Qty: 30 0RF
Continued
Xgeva 120 MG/1.7 ML solution
120 mg SQ [id number]
biotin 10,000 mcg Capsule
10,000 mcg PO DAILY
cholecalciferol (vitamin D3) [Vitamin D3] 25 mcg (1,000 unit) Capsule
25 mcg PO DAILY
calcium carbonate [Calcium 600] 600 mg calcium (1,500 mg) Tablet
600 mg PO DAILY
ferrous sulfate 325 mg (65 mg iron) Tablet
325 mg PO DAILY
ondansetron HCl 4 mg Tablet
4 mg PO Q8HPRN PRN (Reason: nausea)
gabapentin 100 mg Capsule
100 mg PO BIDPRN PRN (Reason: nerve pains)
fulvestrant 250 mg/5 mL Syringe
500 mg IM QMONTH
lactulose 10 gram/15 mL Solution
30 ml PO HS
tramadol 50 mg tablet
50 mg PO Q6HPRN PRN (Reason: severe pains)
omeprazole 40 mg capsule,delayed release(DR/EC)
40 mg PO DAILY
sennosides [senna] 8.6 mg Tablet
8.6 mg PO HS
furosemide [Lasix] 40 mg Tablet
40 mg PO DAILY
therapeutic multivitamin Tablet
1 tab PO DAILY
midodrine 10 mg Tablet
10 mg PO BID
Held
Ibrance 75 mg Tablet
75 mg PO QPM
Hold Instructions: Hold until seen by oncologist.
Patient Comments:
04/08/24: Had planned to start Truqap on Friday(04/10/24)
Rx Instructions:
3 weeks on, 1 week off
Discontinued
spironolactone 50 mg Tablet
75 mg PO BID
Patient Comments:
04/08/24: Patient unsure if this has changes due to recent labwork and potassium levels.
Discharge Orders:
Discharge Patient (As Directed); Ordered 04/22/24
Ordered By: Matt Ram
Discharge Date and Time
Discharge Date/Time: 04/22/24 13:43
Print Language: THAI
== END 2024-04-22 13:43 | disposition home health service (06) | DRG 371 ==
LOC: 4 WEST ACU 22:05
PROVIDERS: Internal Medicine; Internal Medicine Hematology & Oncology; Nurse Practitioner; Radiology Diagnostic Radiology; Radiology Vascular & Interventional Radiology; Registered Nurse; Specialist; Student in an Organized Health Care Education/Training Program; ADMITTING PHYSICIAN Hospitalist; ATTENDING PHYSICIAN Family Medicine; CONSULT PHYSICIAN Internal Medicine Hematology & Oncology; CONSULT PHYSICIAN Specialist; EMERGENCY PHYSICIAN Emergency Medicine; OTHER PHYSICIAN Internal Medicine Infectious Disease
PROC: 0W9G3ZZ Drainage of Peritoneal Cavity, Percutaneous Approach (ICD-10-PCS; 2024-04-09)
PROC: 0W9G30Z Drainage of Peritoneal Cavity with Drainage Device, Percutaneous Approach (ICD-10-PCS; 2024-04-21)
DX: K65.2 Spontaneous bacterial peritonitis (principal); D61.811 Other drug-induced pancytopenia; C78.7 Secondary malignant neoplasm of liver and intrahepatic bile duct; R18.0 Malignant ascites; C79.51 Secondary malignant neoplasm of bone; D61.818 Other pancytopenia; E87.20 Acidosis, unspecified; Z66 Do not resuscitate; Z51.5 Encounter for palliative care; I85.10 Secondary esophageal varices without bleeding; N17.9 Acute kidney failure, unspecified; N18.4 Chronic kidney disease, stage 4 (severe); E87.1 Hypo-osmolality and hyponatremia; C50.919 Malignant neoplasm of unspecified site of unspecified female breast; E78.00 Pure hypercholesterolemia, unspecified; E86.1 Hypovolemia; E87.5 Hyperkalemia; I12.9 Hypertensive chronic kidney disease with stage 1 through stage 4 chronic kidney disease, or unspecified chronic kidney disease; I48.0 Paroxysmal atrial fibrillation; I95.89 Other hypotension; K21.9 Gastro-esophageal reflux disease without esophagitis; K75.81 Nonalcoholic steatohepatitis (NASH); B95.2 Enterococcus as the cause of diseases classified elsewhere; T45.1X5A Adverse effect of antineoplastic and immunosuppressive drugs, initial encounter; K74.69 Other cirrhosis of liver; L89.151 Pressure ulcer of sacral region, stage 1; Z96.652 Presence of left artificial knee joint; Z96.643 Presence of artificial hip joint, bilateral; Z88.2 Allergy status to sulfonamides; Z88.1 Allergy status to other antibiotic agents; Z88.0 Allergy status to penicillin; Z79.899 Other long term (current) drug therapy; Z17.0 Estrogen receptor positive status [ER+]
CPT/HCPCS: 88305; 32550; 49083; 49418; 70553; 74022; 74176; 75989; 80048; 80053; 80202; 81003; 81015; 82042; 82150; 82570; 82962; 83605; 83615; 83690; 84132; 84157; 84300; 85025; 85027; 85610; 85730; 87015; 87045; 87046; 87070; 87077; 87086; 87186; 87205; 87427; 87798; 88112; 88341; 88342; 89051; 89055; 93005; 96361; 96374; 96375; 97116; 97163; 97167; 97530; 97535; 99152; 99153; 99285; A9575; J7030; P9047